=== PATIENT | male | born 1985 | race Caucasian/White ===

== ENCOUNTER 2017-01-17 03:41 | Emergency (ER) | payer OTHER ==
[~2017-01-17] VITALS: Ht 177.8 cm; Wt 138.3 kg
[~2017-01-17 03:41] MED LIST: CPR/500 PO; LCTX PO; MTR500 PO
[2017-01-17 03:48] VITALS: TEMP 36.8; Ht 177.8 cm; Wt 138.3 kg
[2017-01-17] MEDS ORDERED: KETOROLAC TROMETHAMINE 30 MG/ML VIAL IV STA (04:02)
[2017-01-17] MEDS ORDERED: ACETAMINOPHEN IV 100 ML IV ONE (04:15)
[2017-01-17] MEDS ORDERED: SODIUM CHLORIDE 0.9% 1000ML 1,000 ML IV ONE ×2 (04:15)
[2017-01-17] MEDS ORDERED: HYDROCORTISONE HC 2.5% CRM 30GM TUBE EXT ONE (04:15)
[2017-01-17] MEDS ORDERED: DICY10CA12 PO (04:20)
[2017-01-17 04:33] LABS: BASO % 0.3 %; BASO ABS # 0.03 K/uL (0-0.2); COMPLETE YES; EOS % 3.1 %; HEMATOCRIT 39.5 % (42-52); IG% 0.7 %; MEAN CELL VOLUME 77.6 fL (80-100); MEAN CORPUSCULAR HEMOGLOBIN 26.1 pg (25-34); MEAN CORPUSCULAR HGB CONC 33.7 g/dl (32-36); MEAN PLATELET VOLUME 10.5 fL (7.4-10.4); NEUT % 51.9 %; PLATELET COUNT 276 K/uL (130-400); RED BLOOD COUNT 5.09 M/uL (4.7-6.1)
[2017-01-17 04:49] LABS: URINE APPEARANCE CLEAR (CLEAR); URINE BILIRUBIN NEG (NEG); URINE COLOR YELLOW; URINE NITRITE NEG (NEG); URINE SPECIFIC GRAVITY 1.024 (1.000-1.030); UROBILINOGEN NEG (NEG); ZZUR CULT IF INDIC CLEAN CATCH NO
[2017-01-17 04:55] LABS: BUN/CREATININE RATIO 18.6 (10-20); CALCIUM 8.3 mg/dl (8.5-10.1); CREATININE 0.7 mg/dl (0.60-1.40); MAGNESIUM 2.1 mg/dl (1.8-2.4); POTASSIUM 3.5 mmol/L (3.5-5.1)
[2017-01-17 04:58] LABS: ALB/GLOB RATIO 0.8 (0.9-2); C-REACTIVE PROTEIN 0.53 mg/dl (0-0.29)
[2017-01-17 05:39] VITALS: BP 149/64; PULSE 64; O2SAT 95
[2017-01-17 05:42] LABS: MANUAL MICROSCOPIC REQUIRED? NO; REVIEW REQ? NO
[2017-01-17] MEDS ORDERED: METR-162 PO (06:06)
[2017-01-17] MEDS ORDERED: CIPR-255 PO (06:06)
--- NOTE | 2017-01-17 08:31 | DIAGNOSTIC IMAGING REPORT ---
CHEST AND ABDOMEN 2 VIEWS HISTORY: generalized abdominal pain COMPARISON: [facility] 10/05/2016. FINDINGS: The lungs are clear. The cardiomediastinal silhouette is within normal limits. There is no pneumoperitoneum or pneumatosis. The bowel gas pattern is unremarkable. No evidence for bowel obstruction. Suture material within the right lower quadrant. IMPRESSION: No acute cardiopulmonary process. No evidence for bowel obstruction. Electronically signed by: Sesar Henderson M.D. 01/17/2017 8:30 AM Dictated Date/Time: 01/17/2017 8:28 AM
--- NOTE | 2017-01-18 01:12 | EMERGENCY ROOM VISIT NOTE ---
History First contact with patient: 03:52 Chief Complaint: ABDOMINAL PAIN Stated Complaint: PAIN IN STOMACH - DIVERTICULITIS Nursing Triage Summary: generalized abdominal pain, Nausea and vomiting that started Tuesday. History of Present Illness The patient is a 31 year old male who presents to the Emergency Room with complaints of left-sided abdominal pain with nausea for the past one day. Patient reports a history of diverticulitis in the past. He also reports that he has had episodes of diarrhea the past several hours. He states that he has a hemorrhoid that is tender because of this. The patient does not have fever or chills. No recent antibiotic use. He does not report travel history. The patient has been able to eat and drink as normal. He rates his discomfort a 10/ 10 and has not taken anything [id number] for his symptoms. Review of Systems More than 10 systems were reviewed and otherwise negative with the exception of history of present illness. Past Medical/Surgical History Medical Problems: (1) CALCULUS OF KIDNEY (2) ESOPHAGEAL REFLUX (3) SBO (small bowel obstruction) (4) TOBACCO USE DISORDER Family History Patient reports no known family medical history. Social History Smoking Status: Current Every Day Smoker Alcohol Use: occasionally Drug Use: none Marital Status: single Occupation Status: employed Current/Historical Medications Scheduled Ciprofloxacin Hcl (Cipro), 500 MG PO BID Metronidazole (Flagyl), 500 MG PO TID Scheduled PRN Dicyclomine Hcl (Dicyclomine Hcl), 1 CAP PO BID PRN for ABDOMINAL PAIN Allergies Coded Allergies: No Known Allergies (Unverified , 01/17/17) Physical Exam Vital Signs Date Time Temp Pulse Resp B/P Pulse Ox O2 Delivery O2 Flow Rate FiO2 01/17/17 05:39 64 16 149/64 95 Room Air 01/17/17 03:48 36.8 83 20 154/89 96 Room Air Pain Rating (0-10): 8.0 Physical Exam VITALS: Vitals are noted on the nurse's note and reviewed by myself. Vital signs stable. GENERAL: Well-developed, well-nourished, white male, who is in no acute distress and resting comfortably. Patient is cooperative with the examination. HEAD: Normocephalic atraumatic. HEART: Regular rate and rhythm without murmurs gallops or rubs. LUNGS: Clear to auscultation bilaterally without wheezes, rales or rhonchi. No retractions or accessory muscle use. ABDOMEN: Positive normal bowel sounds x 4. Soft with mild left-sided abdominal tenderness on palpation. No rebound or guarding. No CVA tenderness. MUSCULOSKELETAL: No muscle atrophy, erythema, or edema noted. Full range of motion without joint tenderness in all extremities. Medical Decision & Procedures ER Provider Diagnostic Interpretation: CHEST AND ABDOMEN 2 VIEWS HISTORY: generalized abdominal pain COMPARISON: [facility] 10/05/2016. FINDINGS: The lungs are clear. The cardiomediastinal silhouette is within normal limits. There is no pneumoperitoneum or pneumatosis. The bowel gas pattern is unremarkable. No evidence for bowel obstruction. Suture material within the right lower quadrant. IMPRESSION: No acute cardiopulmonary process. No evidence for bowel obstruction. Laboratory Results 01/17/17 04:15 Red Blood Count 5.09, Mean Corpuscular Volume 77.6, Mean Corpuscular Hemoglobin 26.1, Mean Corpuscular Hemoglobin Concent 33.7, Mean Platelet Volume 10.5, Neutrophils (%) (Auto) 51.9, Lymphocytes (%) (Auto) 36.0, Monocytes (%) (Auto) 8.0, Eosinophils (%) (Auto) 3.1, Basophils (%) (Auto) 0.3, Neutrophils # (Auto) 4.62, Lymphocytes # (Auto) 3.20, Monocytes # (Auto) 0.71, Eosinophils # (Auto) 0.28, Basophils # (Auto) 0.03 01/17/17 04:15 Test 01/17/17 04:15 01/17/17 04:29 White Blood Count 8.90 K/uL (4.8-10.8) Red Blood Count 5.09 M/uL (4.7-6.1) Hemoglobin 13.3 g/dL (14.0-18.0) Hematocrit 39.5 % (42-52) Mean Corpuscular Volume 77.6 fL (80-100) Mean Corpuscular Hemoglobin 26.1 pg (25-34) Mean Corpuscular Hemoglobin Concent 33.7 g/dl (32-36) Platelet Count 276 K/uL (130-400) Mean Platelet Volume 10.5 fL (7.4-10.4) Neutrophils (%) (Auto) 51.9 % Lymphocytes (%) (Auto) 36.0 % Monocytes (%) (Auto) 8.0 % Eosinophils (%) (Auto) 3.1 % Basophils (%) (Auto) 0.3 % Neutrophils # (Auto) 4.62 K/uL (1.4-6.5) Lymphocytes # (Auto) 3.20 K/uL (1.2-3.4) Monocytes # (Auto) 0.71 K/uL (0.11-0.59) Eosinophils # (Auto) 0.28 K/uL (0-0.5) Basophils # (Auto) 0.03 K/uL (0-0.2) RDW Standard Deviation 39.6 fL (36.4-46.3) RDW Coefficient of Variation 13.9 % (11.5-14.5) Immature Granulocyte % (Auto) 0.7 % Immature Granulocyte # (Auto) 0.06 K/uL (0.00-0.02) Erythrocyte Sedimentation Rate 34 mm/hr (0-14) Urine Color YELLOW Urine Appearance CLEAR (CLEAR) Urine pH 5.0 (4.5-7.5) Urine Specific [place] 1.024 (1.000-1.030) Urine Protein NEG (NEG) Urine Glucose (UA) NEG (NEG) Urine Ketones NEG (NEG) Urine Occult Blood NEG (NEG) Urine Nitrite NEG (NEG) Urine Bilirubin NEG (NEG) Urine Urobilinogen NEG (NEG) Urine Leukocyte Esterase NEG (NEG) Anion Gap 7.0 mmol/L (3-11) Est Creatinine Clear Calc Drug Dose 214.4 ml/min Estimated GFR () 145.7 Estimated GFR (Non- 125.8 BUN/Creatinine Ratio 18.6 (10-20) Calcium Level 8.3 mg/dl (8.5-10.1) Magnesium Level 2.1 mg/dl (1.8-2.4) Total Bilirubin 0.2 mg/dl (0.2-1) Aspartate Amino Transf (AST/SGOT) 15 U/L (15-37) Alanine Aminotransferase (ALT/SGPT) 30 U/L (12-78) Alkaline Phosphatase 79 U/L (45-117) C-Reactive Protein 0.53 mg/dl (0-0.29) Total Protein 7.5 gm/dl (6.4-8.2) Albumin 3.3 gm/dl (3.4-5.0) Globulin 4.2 gm/dl (2.5-4.0) Albumin/Globulin Ratio 0.8 (0.9-2) Lipase 205 U/L (73-393) Bedside Lactic Acid Venous 0.78 mmol/L (0.90-1.70) Medications Administered Medications (Trade) Dose Ordered Sig/Christina Route Start Time Stop Time Status Last Admin Dose Admin Sodium Chloride 1,000 ml @ 999 mls/hr Q1H1M ONCE IV 01/17/17 04:15 01/17/17 05:15 DC 01/17/17 04:35 999 MLS/HR Sodium Chloride (Nss 1000ml) 1,000 ml @ 999 mls/hr Q1H1M ONCE IV 01/17/17 04:15 01/17/17 05:15 DC 01/17/17 04:15 999 MLS/HR Ketorolac Tromethamine 30 mg 30 mg NOW STAT IV 01/17/17 04:02 01/17/17 04:05 DC 01/17/17 04:35 30 MG Acetaminophen (Ofirmev Iv) 100 ml @ 400 mls/hr NOW ONCE IV 01/17/17 04:15 01/17/17 04:29 DC 01/17/17 04:34 400 MLS/HR Hydrocortisone (Proctozone Hc 2.5% Crm) 1 appln NOW ONCE EXT 01/17/17 04:15 01/17/17 04:16 DC 01/17/17 04:34 1 APPLN ED Course Physical exam and history were performed. Nursing notes and EMR were reviewed. Patient appears to have left-sided abdominal pain with nausea and diarrhea for the past one day. The patient does not appear toxic on examination. Review of EMR shows the patient does have a history of small bowel obstruction and diverticulitis. He is currently on a treatment plan of no narcotics at this facility since 2009 after being abusive with staff for not receiving narcotics. IV access was established and labs were obtained. The patient was hydrated and medicated as above. He was given Anusol for his reproted hemorrhoid. He has had at least 10 CT scans in the past 4 or 5 years and I elected to defer CT imaging until additional information was gathered. Plain films were felt necessary, and were performed. The patient's blood work is as above and was reviewed. He does not have a significantly elevated white blood cell count. He is mildly anemic but this has been fairly consistent for him. He does not have a gross bandemia or significant electrolyte imbalance. Urinalysis was without evidence of infection. Sedimentation rate and CRP are slightly elevated. Lactic is negative. Despite being in the ER for several hours the patient was not able to give a stool sample with his reported diarrhea. The patient x-ray does not show evidence of acute cardiopulmonary finding or obstructive process. The patient was reevaluated multiple times throughout his ER stay. He was able to sleep for several hours in no distress while under our care. He did not have worsening of his symptoms while here in the department. The patient may have a mild diverticulitis explaining his symptoms. This could also be a food borne or viral process as well. I do not feel CT scan is necessary at this time , as the patient does not present with peritoneal symptoms. I do not suspect abscess that could occur in the setting of a ruptured diverticulitis. The patient will be given a course of Cipro and Flagyl for his symptoms. At the end of the patient visit I awoke him to explain his diagnostic findings and plan of care. I informed him of his findings, and that we would be able to discharge him home shortly. The patient became fixated on his pain, explaining that he still had an 8/10 pain in his left-sided abdomen. He requested several different narcotic medications to use at home, and I calmly explained that I would not be able to treat him outside of his treatment plan today. The patient symptoms will be treated with antibiotics which should improve his pain. He should otherwise be using ibuprofen and Tylenol. The patient was very dissatisfied with this and became belligerent. He began yelling about "this [facility]". The patient then stood out of his emergency department bed and disconnected his IV. He demanded that we remove the IV, as he was leaving. I was able to excuse myself from the situation without further incident, however I do feel there is a strong element of drug-seeking behavior with the patient. Overall the patient did calm down and was given his discharge instructions. He is to follow with his primary care physician on a short interval and was invited back to the ER with a new, worsening, or concerning symptoms. The chart was completed utilizing [employer] Voice Recognition Software. Grammatical errors, random word insertions, pronoun errors, and incomplete sentences are an occasional consequence of this system due to software limitations, ambient noise, and hardware issues. Any formal questions or concerns about the content, text, or information contained within the body of this dictation should be directly addressed to the provider for clarification. . Medical Decision Differential diagnosis: Etiologies such as appendicitis, diverticulitis, PUD, biliary pathology, UTI, pancreatitis, obstruction, mesenteric ischemia, aortic pathology, infections, inflammatory bowel disease, renal colic, as well as others were entertained. Impression Primary Impression: Left sided abdominal pain Departure Information Dispostion Home / Self-Care Condition GOOD Prescriptions Metronidazole (FLAGYL) 500 Mg Tab 500 MG PO TID for 10 Days, #30 TAB Prov: Osbaldo Oshea PA-C 01/17/17 Ciprofloxacin Hcl (CIPRO) 500 Mg Tab 500 MG PO BID for 10 Days, #20 TAB Prov: Osbaldo Oshea PA-C 01/17/17 Forms Call Back Authorization, HOME CARE DOCUMENTATION FORM, Days off work: 2 Work Instructions, IMPORTANT VISIT INFORMATION Patient Instructions My [facility] Additional Instructions You were seen and evaluated today on an emergency basis only. This is not a substitute for, or an effort to provide, complete comprehensive medical care. It is not possible to recognize and treat all injuries or illnesses in a single emergency department visit. For this reason it is recommended that you followup with your primary care physician this week for ongoing care and evaluation. For baseline pain relief you may alternate ibuprofen and acetaminophen every 4 hours for pain control. Take 600 mg ibuprofen (Advil) and then 4 hours later take 1000 mg acetaminophen (Tylenol). Do not take more than 3000 mg acetaminophen in a single day. Ciprofloxacin(Cipro) 500mg: Take one pill twice daily for 10 days for your infection. All antibiotics can cause diarrhea. If this occurs and you feel worse or it does not resolve in 1-2 days follow up with your doctor or return to the Emergency Department as this could be signs of serious underlying problems. If you experience any pain in your tendons or any tendon injury return to the ER for re-evaluation. Any medication can cause an allergic reaction, stop the pills immediately and return to the ER for rash, hives, breathing difficulties, or swelling. Metronidazole(Flagyl) 500mg: Take one pill three times daily for 10 days for your infection. DO NOT drink alcohol or take alcohol containing products with this medication. Any medication can cause an allergic reaction, stop the pills immediately and return to the ER for rash, hives, breathing difficulties, or swelling. You are welcome to return to the emergency department anytime with new, worsening, or concerning symptoms.
== END 2017-01-17 06:16 | disposition home or self-care (01) ==
LOC: C.EDB 03:43
DX: R10.9 Unspecified abdominal pain (principal); F17.200 Nicotine dependence, unspecified, uncomplicated; K21.9 Gastro-esophageal reflux disease without esophagitis

== ENCOUNTER 2020-04-21 23:21 | Observation (INO) ==
--- NOTE | 2020-04-21 23:51 | Emergency Department Note ---
Impression & Plan Hypertensive urgency, Headache, Right-sided chest pain, Paresthesia of left arm ED Provider Note Name: CHRISTOPHER RIVER Age: 35 Sex: M Arrives Via: Walk-In Informant: Patient ED Provider: Hong Granado MD Chief Complaint: Right Chest Pain Impression: Hypertensive Urgency Headache Right-sided chest pain paresthesia of left arm Medical Decision Makin yr old male with h/o HTN with 2 days of headaches, chest pain, and paresthesias of left side on and off without neuro deficits. This is associated with BP elevations which brought him in last night. After ED work-up patient opted to leave AMA. Returns again with similar symptoms continuing but notes that near syncopal every time he tries to ambulate and he is urinating frequently. Exam is benign. EKG similar to previous. Vitals with improving BP without any intervention. Labs unremarkable without any trop elevation. Patient notes not feeling comfortable going home and continues to complain of vague different symptoms. Hospitalist who knows patient from last night consulted to discuss further with patient options. Given vague, multiple symptoms and no clear evidence ACS will hold off on ASA at this time and defer to hospitalist. Prior Medical Record and Triage/Nursing Notes reviewed by Me Additional history obtained from last nights record Differentials:Infection, dehydration, metabolic abnormality, hypo/hyperglycemia, electrolyte disturbance, anemia, hypoxia, cardiac sources, intracerebral event, toxicologic, neurologic, as well as other pathologies. Vital Signs: reviewed and remarkable for HTN Interventions: Toradol 15mg IV Labs:Reviewed and remarkable for no significant abnormalities Imaging:none (reviewed extensive cxr, cts yesterday) EKG:Per My Interpretation: Indication Chest Pain: NSR 73 bpm, qtc 438 with RBBB. No Ectopy. No Ischemia. Compared to EKG 04/20/20, no significant changes. Cardiac/Tele Monitoring: Cardiac Monitoring: An Order was placed for continuous cardiac monitoring. The monitor shows a rate of 70 with a normal sinus rhythm. Consults:Dr Jean Marie Muniz Hospitalist Plan: Disposition:Hospitalization. Referred to: PCP Condition: Good Blood pressure:Elevated - Referred to Hospitalist Prescriptions:none PDMP: n/a History of Present Illness:35 male with history of BHASKAR and HTN arrives for evaluation of chest pain. Patient seen last evening for chest pain, headache and HTN. Admits he was to be admitted but left AMA due to not being able to get private room and to feeling improved. This morning he took 20mg Lisinopril and throughout day was checking BP. Slowing increasing BP throughout day. Gradually developed worsening headache, chest pain, and left sided paresthesias. Notes these left hand and hip paresthesias have been intermittent throughout afternoon and currently without these symptoms. Denies weakness, falls, dropping things. Admits that chest pain is right sided, associated with nothing. Pressure like in nature and does not radiate. Admits pain was more substernal yesterday. Headache diffuse, aching, and currently mild. No head injury, neck pain/stiffness, fevers, nor other symptoms. Headache similar to last night's symptoms. Furthermore, patient admits he is unable to get up without nearly passing out and has had to steady himself every time he gets up. He also notes that he has been urinating many more times a day/night than usually the last few days. He denies excessive heat exposure, chemical exposures, nor changes to diet. He works with [employer] but has not been in the heat. Denies syncope, but rather just near syncope. Denies shortness of breath, fevers, back pain, abdominal pain, vomiting/nausea, bowel changes, leg swelling, calf pain, rashes, nor other symptoms. No new medications though did increase Lisinopril dose. Getting up makes worse, rest makes better. ROS: See above HPI for pertinent positives & negatives. A total of 10 systems reviewed and were otherwise negative. Past Medical History:HTN, SBO, BHASKAR (uses CPAP at night) Past Surgical History:Appendectomy Family History:Mother CT, Diabetes Social History:, Lives with & 3 children, Smoker Home Medications:Lisinopril Allergies:None Vitals:Blood Pressure: 205/114, Pulse 73, RR 18, T 37.2C, O2 97% on RA Physical Exam: GENERAL: Patient is anxious appearing and in mild distress. EYES: No scleral icterus, unremarkable pupils. ENT: Mucous membranes moist, no nasal congestion. NECK: No masses appreciated, nomeningismus, trachea is midline. RESPIRATORY: No dyspnea. Clear to auscultation and equal bilaterally. No wheeze, no rhonchi. CARDIOVASCULAR: Regular rate and rhythm.No murmurs, rubs, gallops appreciated. GASTROINTESTINAL: Abdomen soft, non-tender, no peritonitis.Bowel sounds p ositive.No masses appreciated. BACK: No midline tenderness, no CVA tenderness EXTREMITIES: Normal motion all extremities, no cyanosis, no edema. NEUROLOGIC: Alert and oriented, no acute motor or sensory deficits, no focal weakness, cranial nerves grossly intact. SKIN: No rash, no jaundice, no diaphoresis. PSYCH: Appropriate GCS: 15 ED Course: Times/Reassessments: improving BP, improving symptoms Hong Granado MD Past Med/Surg History Medical History (Updated 04/22/20 @ 04:27 by Hong Granado MD) Acute appendicitis (Acute) SBO (small bowel obstruction) Surgical History (Updated 04/20/20 @ 23:46 by Blanca Silva PA-C) Hx of appendectomy Social History Preferred Language: Pashto marital status: Feels Safe at Home: Yes Smoking Status: Current every day smoker Allergies Allergies Allergy/AdvReac Type Severity Reaction Status Date / Time No Known Allergies Allergy Verified 04/21/20 23:24 Home Meds Home Medications Medication Instructions Recorded Confirmed cyclobenzaprine 5 mg PO TID PRN 04/20/20 04/21/20 dicyclomine 10 mg PO TID PRN 04/20/20 04/21/20 lisinopril 10 mg PO DAILY PRN 04/20/20 04/21/20 Results & Data (ED) Vital Signs Vital Signs - 24 hr 04/21/20 23:32 04/22/20 01:19 04/22/20 02:02 Temperature 37.2 C Temperature Source Oral Pulse Rate - Lying Pulse Rate - Sitting Pulse Rate - Standing Pulse Rate 73 Pulse Rate [Apical] 69 68 Respiratory Rate 18 18 18 Respiratory Effort / Characteristics Non-Labored Non-Labored Spontaneous Respiratory Depth Normal Normal Blood Pressure - Lying Blood Pressure - Sitting Blood Pressure- Standing Blood Pressure 205/114 H Blood Pressure [Right Arm] 160/84 H 136/61 Blood Pressure Mean 144 Blood Pressure Mean [Right Arm] 109 86 Pulse Oximetry 97 95 94 Oxygen Delivery Method Room Air Room Air Room Air Sepsis Recent Fever Within 48 Hours No Sepsis Action Taken by Nursing No Action Required 04/22/20 02:51 Temperature Temperature Source Pulse Rate - Lying 65 Pulse Rate - Sitting 84 Pulse Rate - Standing 77 Pulse Rate Pulse Rate [Apical] Respiratory Rate Respiratory Effort / Characteristics Respiratory Depth Blood Pressure - Lying 160/77 H Blood Pressure - Sitting 155/88 H Blood Pressure- Standing 140/88 Blood Pressure Blood Pressure [Right Arm] Blood Pressure Mean Blood Pressure Mean [Right Arm] Pulse Oximetry Oxygen Delivery Method Sepsis Recent Fever Within 48 Hours Sepsis Action Taken by Nursing Laboratory Data Result diagrams: 04/22/20 00:05 04/22/20 00:05 Lab Results 04/22/20 04/22/20 04/22/20 Range/Units 00:05 00:05 00:05 WBC 11.78 H (4.8-10.8) K/uL RBC 5.05 (4.7-6.1) M/uL Hgb 13.3 L (14.0-18.0) g/dL Hct 40.7 L (42-52) % MCV 80.6 (80-100) fL MCH 26.3 (25-34) pg MCHC 32.7 (32-36) g/dL RDW Std Deviation 43.4 (36.4-46.3) fL RDW Coeff of Ariana 14.9 H (11.5-14.5) % Plt Count 344 (130-400) K/uL MPV 10.6 H (7.4-10.4) fL Immature Gran % (Auto) 1.4 % Neut % (Auto) 57.0 % Lymph % (Auto) 30.4 % [place] % (Auto) 7.2 % Eos % (Auto) 3.7 % Baso % (Auto) 0.3 % Neut # (Auto) 6.70 H (1.4-6.5) K/uL Lymph # (Auto) 3.58 H (1.2-3.4) K/uL [place] # (Auto) 0.85 H (0.11-0.59) K/uL Eos # (Auto) 0.44 (0-0.5) K/uL Baso # (Auto) 0.04 (0-0.2) K/uL Immature Gran # (Auto) 0.17 H (0.00-0.02) K/uL Sodium 143 (136-145) mmol/L Potassium 3.4 L (3.5-5.1) mmol/L Chloride 109 H (98-107) mmol/L Carbon Dioxide 26 (21-32) mmol/L Anion Gap 8.0 (3-11) BUN 14 (7-18) mg/dl Creatinine 0.73 (0.6-1.4) mg/dl Est Cr Clr Drug Dosing 215.5 ml/min Est GFR ( Amer) 139.3 Est GFR (Non-Af Amer) 120.2 BUN/Creatinine Ratio 18.5 (10-20) Glucose 98 (70-99) mg/dl Calcium 8.5 (8.5-10.1) mg/dl Magnesium 2.0 (1.8-2.4) mg/dl Total Bilirubin 0.3 (0.2-1) mg/dl Direct Bilirubin < 0.1 (0-0.2) mg/dl AST 15 (15-37) U/L ALT 31 (12-78) U/L Alkaline Phosphatase 98 (45-117) U/L Total Creatine Kinase 119 (39-308) U/L CK-MB (CK-2) 1.0 (0.5-3.6) ng/ml CK/CKMB % Calc 0.8 (0-3.0) Troponin I 0.018 (0-0.045) ng/ml Total Protein 7.9 (6.4-8.2) gm/dl Albumin 3.1 L (3.4-5.0) gm/dl Lipase 159 (73-393) U/L Urine Color Urine Appearance (Clear) Urine pH (4.5-7.5) Ur Specific [place] (1.000-1.030) Urine Protein (Negative) Urine Glucose (UA) (Negative) Urine Ketones (Negative) Urine Blood (Negative) Urine Nitrite (Negative) Urine Bilirubin (Negative) Urine Urobilinogen (Negative) Ur Leukocyte Esterase (Negative) Lyme Disease IgG Ab Cancelled Lyme Disease IgM Ab Cancelled 04/22/20 04/22/20 Range/Units 00:51 01:27 WBC (4.8-10.8) K/uL RBC (4.7-6.1) M/uL Hgb (14.0-18.0) g/dL Hct (42-52) % MCV (80-100) fL MCH (25-34) pg MCHC (32-36) g/dL RDW Std Deviation (36.4-46.3) fL RDW Coeff of Ariana (11.5-14.5) % Plt Count (130-400) K/uL MPV (7.4-10.4) fL Immature Gran % (Auto) % Neut % (Auto) % Lymph % (Auto) % [place] % (Auto) % Eos % (Auto) % Baso % (Auto) % Neut # (Auto) (1.4-6.5) K/uL Lymph # (Auto) (1.2-3.4) K/uL [place] # (Auto) (0.11-0.59) K/uL Eos # (Auto) (0-0.5) K/uL Baso # (Auto) (0-0.2) K/uL Immature Gran # (Auto) (0.00-0.02) K/uL Sodium (136-145) mmol/L Potassium (3.5-5.1) mmol/L Chloride (98-107) mmol/L Carbon Dioxide (21-32) mmol/L Anion Gap (3-11) BUN (7-18) mg/dl Creatinine (0.6-1.4) mg/dl Est Cr Clr Drug Dosing ml/min Est GFR ( Amer) Est GFR (Non-Af Amer) BUN/Creatinine Ratio (10-20) Glucose (70-99) mg/dl Calcium (8.5-10.1) mg/dl Magnesium (1.8-2.4) mg/dl Total Bilirubin (0.2-1) mg/dl Direct Bilirubin (0-0.2) mg/dl AST (15-37) U/L ALT (12-78) U/L Alkaline Phosphatase (45-117) U/L Total Creatine Kinase (39-308) U/L CK-MB (CK-2) (0.5-3.6) ng/ml CK/CKMB % Calc (0-3.0) Troponin I (0-0.045) ng/ml Total Protein (6.4-8.2) gm/dl Albumin (3.4-5.0) gm/dl Lipase (73-393) U/L Urine Color Yellow Urine Appearance Clear (Clear) Urine pH 6.5 (4.5-7.5) Ur Specific [place] 1.020 (1.000-1.030) Urine Protein Negative (Negative) Urine Glucose (UA) Negative (Negative) Urine Ketones Negative (Negative) Urine Blood Negative (Negative) Urine Nitrite Negative (Negative) Urine Bilirubin Negative (Negative) Urine Urobilinogen Negative (Negative) Ur Leukocyte Esterase Negative (Negative) Lyme Disease IgG Ab Negative Lyme Disease IgM Ab Negative Administered Medications Discontinued Medications Aspirin (Ecotrin Ectab) 81 mg PO NOW STA Stop: 04/22/20 02:52 Last Admin: 04/22/20 03:53 Dose: 81 mg Documented by: [id number] Ketorolac Tromethamine (Toradol) 15 mg IV NOW STA Stop: 04/22/20 01:44 Last Admin: 04/22/20 01:55 Dose: 15 mg Documented by: [id number] Lisinopril (Zestril) 20 mg PO NOW STA Stop: 04/22/20 01:57 Last Admin: 04/22/20 02:02 Dose: 20 mg Documented by: [id number] Nicotine (Nicoderm Cq) 21 mg TD NOW STA Stop: 04/22/20 02:35 Last Admin: 04/22/20 02:51 Dose: 21 mg Documented by: [id number] Potassium Chloride (Klor-Con M20) 40 meq PO NOW STA Stop: 04/22/20 01:54 Last Admin: 04/22/20 02:02 Dose: 40 meq Documented by: [id number] Discharge Plan Visit Data Chief Complaint: Chest Pain Stated Complaint: HIGH BP, CHEST PAIN ED Provider: Hong Granado Discharge Problem: Hypertensive urgency, Headache, Right-sided chest pain, Paresthesia of left arm Discharge Instructions Interventions: ED Discharge Assessment Last Done: 04/22/20 03:44 Forms Stand Alone Forms: [facility] [employer] Prescriptions Prescriptions: No Action lisinopril 10 mg tablet 10 mg PO DAILY PRN (Reason: Hypertension) RF: 0 dicyclomine 10 mg capsule 10 mg PO TID PRN (Reason: Abdominal Pain) RF: 0 cyclobenzaprine 5 mg tablet 5 mg PO TID PRN (Reason: Muscle Spasticity) RF: 0 Referrals Referrals: Coleman Hassan MD [Primary Care Provider] - Discharge Problem: Headache Qualifiers: Headache type: unspecified Headache chronicity pattern: acute headache Intractability: not intractable Qualified Code(s): R51 - Headache
[2020-04-22 00:25] LABS: Basophils # (auto) 0.04 K/uL (0-0.2); Basophils % (auto) 0.3 %; Eosinophils # (auto) 0.44 K/uL (0-0.5); Eosinophils % (auto) 3.7 %; Hematocrit (blood only) 40.7 % (42-52); Hemoglobin 13.3 g/dL (14.0-18.0); Immature Granulocytes # (auto) 0.17 K/uL (0.00-0.02); Immature Granulocytes % (auto) 1.4 %; Lymphocytes # (auto) 3.58 K/uL (1.2-3.4); Lymphocytes % (auto) 30.4 %; Mean Corpuscular Hemoglobin 26.3 pg (25-34); Mean Corpuscular Hgb Conc 32.7 g/dL (32-36); Mean Corpuscular Volume 80.6 fL (80-100); Mean Platelet Volume 10.6 fL (7.4-10.4); Monocytes # (auto) 0.85 K/uL (0.11-0.59); Monocytes % (auto) 7.2 %; Platelet Count 344 K/uL (130-400); RDW Coefficient of Variation 14.9 % (11.5-14.5); RDW Standard Deviation 43.4 fL (36.4-46.3); Red Blood Count 5.05 M/uL (4.7-6.1); White Blood Count 11.78 K/uL (4.8-10.8)
[2020-04-22 00:38] LABS: Alanine Aminotransferase 31 U/L (12-78); Albumin Level 3.1 gm/dl (3.4-5.0); Aspartate Aminotransferase 15 U/L (15-37); BUN Creatinine Ratio 18.5 (10-20); Blood Urea Nitrogen 14 mg/dl (7-18); Calcium 8.5 mg/dl (8.5-10.1); Carbon Dioxide 26 mmol/L (21-32); Chloride 109 mmol/L (98-107); Creatinine Clr Calc Pharmacy 215.5 ml/min; Est GFR (African American) 139.3; Est GFR (Non-African American) 120.2; Glucose 98 mg/dl (70-99); Lipase 159 U/L (73-393); Potassium 3.4 mmol/L (3.5-5.1); Sodium 143 mmol/L (136-145)
[2020-04-22 00:41] LABS: Alkaline Phosphatase 98 U/L (45-117); Bilirubin Direct < 0.1 mg/dl (0-0.2); Bilirubin,Total 0.3 mg/dl (0.2-1); Creatine Kinase 119 U/L (39-308); Total Protein 7.9 gm/dl (6.4-8.2); Troponin I 0.018 ng/ml (0-0.045)
[2020-04-22] MEDS ORDERED: KETOROLAC TROMETHAMINE 15 MG/ML VIAL IV STA (01:43)
[2020-04-22 01:53] LABS: Appearance Urine Clear (Clear); Bilirubin Urine Negative (Negative); Blood Urine Negative (Negative); Color Urine Yellow; Glucose Urine UA Negative (Negative); Ketones Urine Negative (Negative); Leukocyte Esterase Urine Negative (Negative); Nitrite Urine Negative (Negative); Protein Urine Negative (Negative); Urobilinogen Urine Negative (Negative); pH Urine 6.5 (4.5-7.5)
[2020-04-22] MEDS ORDERED: POTASSIUM CHLORIDE 20 MEQ TABCR PO STA (01:53)
[2020-04-22] MEDS ORDERED: lisinopriL 5 MG TAB PO STA (01:56)
[2020-04-22 02:10] LABS: Lyme Ab IgG w/WB Rflx Negative (Negative); Lyme Ab IgM w/WB Rflx Negative (Negative)
--- NOTE | 2020-04-22 02:30 | History & Physical Report ---
Date of Service April 22, 2020 Assessment & Plan (1) Hypertensive crisis: Hypertensive crisis Presenting as headache and chest pain symptoms History medication noncompliance rule out ACS as etiology of chest pain given risk factors DM 2 diet-controlled, well-controlled as of recent outpatient hemoglobin A1c of 7.17 October 2018 bronchial asthma, stable Chronic anemia, hemoglobin better than baseline Hypokalemia BHASKAR on CPAP ongoing tobacco abuse OBS PCU Maintain lisinopril 20 mg daily for now, titrate accordingly Trend troponin Aspirin for CAD prevention until ACS ruled out. TTE RE chest pain Cardiology consult (Dr. Forbes) for evaluation of chest pain as per patient request. N.p.o. until seen by Cardiology in anticipation of any procedure. Check lipid profile, update hemoglobin A1c Replace potassium ISS BG goal [id number] Nicotine patch DVT prophylaxis per Lovenox subcu Full code Text document was generated using [employer] voice recognition software. It may contain grammatical or spelling errors. Kindly contact undersigned for clarification of any documentation item in question. History of Present Illness Chief Complaint: Chest pain, headache symptoms Primary Care Provider: Coleman Hassan MD HPI : History obtained from patient, family, and records. Medical history significant for hypertension, DM 2 diet-controlled, bronchial asthma, BHASKAR on CPAP, diverticulosis, medical treatment noncompliance as per records, chronic anemia (baseline hemoglobin of 12), ongoing tobacco abuse Last confinement September 2016 for recurrent diverticulitis, SBO resolved with nonoperative management. Patient's blood pressure at home the last 3 days noted to be higher than usual SBP 180s as per patient . Patient only takes home lisinopril as needed. No unusual stress at home, no NSAID intake. Compliant with CPAP mask. 2 nights ago, patient woke up with generalized achy headache symptoms different from his migraine attack and chest heaviness as if somebody was sitting on his chest. No cough symptoms. Chest discomfort improved following ASA administration by EMS. At the ER, near syncopal event when patient tried to get up from bed. SBP 200s after orthostatic vitals performed at the ER. No central PE on CT chest. T wave abnormalities noted on EKG. First set troponin 0.0 15. Patient refused admission and left AGAINST MEDICAL ADVICE due to unavailability of private room at time of admission. At home intermittent achy chest discomfort symptoms more on the right side along with persistent headache. Some nausea, no vomiting. Patient directed by PCP to the ER. MEDICAL HISTORY: As above. SURGERIES: Urologic procedures, appendectomy, ear tube placement FAMILY HISTORY: Heart disease. Lung cancer, diabetes PERSONAL AND SOCIAL HISTORY: 1 pack daily . 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 Allergies Allergy/AdvReac Type Severity Reaction Status Date / Time No Known Allergies Allergy Verified 04/21/20 23:24 Home Medications Home Medications Medication Instructions Recorded Confirmed Type cyclobenzaprine 5 mg PO TID PRN 04/20/20 04/21/20 History dicyclomine 10 mg PO TID PRN 04/20/20 04/21/20 History lisinopril 10 mg PO DAILY PRN 04/20/20 04/21/20 History Past Med/Surg History Medical History (Updated 04/21/20 @ 04:19 by Chris Aj MD) Acute appendicitis (Acute) SBO (small bowel obstruction) Surgical History (Updated 04/20/20 @ 23:46 by Blanca Silva PA-C) Hx of appendectomy Social History Preferred Language: Belarusian marital status: Feels Safe at Home: Yes Smoking Status: Current every day smoker Review of Systems Review of Systems: As per HPI, all 10 systems reviewed, all other ROS negative Physical Exam Physical Exam: GENERAL: Comfortable, morbidly obese, no respiratory distress SKIN: Normal color, warm HEENT: Bespectacled, pink palpebral conjunctivae, no ptosis, moist buccal mucosa NECK : Supple, short neck, no tenderness CHEST : Decreased breath sounds , no tenderness HEART : RRR, no obvious murmurs ABDOMEN: Some distention, nontender EXTREMITIES : Minimal LE swelling, no LE tenderness, no other conspicuous deformities noted NEUROLOGIC : Coherent, upper lip symmetry on talking (chronic as per ), no other gross focality Results & Data Results & Data ([facility]) Vital Signs (Past 12 Hours) Vital Signs Temp Pulse Pulse Resp BP BP Pulse Ox 04/22/20 02:02 68 18 136/61 94 04/22/20 01:19 69 18 160/84 H 95 04/21/20 23:32 37.2 C 73 18 205/114 H 97 Laboratory Results Laboratory Results WBC 11.78 K/uL (4.8-10.8) H 04/22/20 00:05 RBC 5.05 M/uL (4.7-6.1) 04/22/20 00:05 Hgb 13.3 g/dL (14.0-18.0) L 04/22/20 00:05 Hct 40.7 % (42-52) L 04/22/20 00:05 MCV 80.6 fL (80-100) 04/22/20 00:05 MCH 26.3 pg (25-34) 04/22/20 00:05 MCHC 32.7 g/dL (32-36) 04/22/20 00:05 RDW Std Deviation 43.4 fL (36.4-46.3) 04/22/20 00:05 RDW Coeff of Ariana 14.9 % (11.5-14.5) H 04/22/20 00:05 Plt Count 344 K/uL (130-400) 04/22/20 00:05 MPV 10.6 fL (7.4-10.4) H 04/22/20 00:05 Immature Gran % (Auto) 1.4 % 04/22/20 00:05 Neut % (Auto) 57.0 % 04/22/20 00:05 Lymph % (Auto) 30.4 % 04/22/20 00:05 [place] % (Auto) 7.2 % 04/22/20 00:05 Eos % (Auto) 3.7 % 04/22/20 00:05 Baso % (Auto) 0.3 % 04/22/20 00:05 Neut # (Auto) 6.70 K/uL (1.4-6.5) H 04/22/20 00:05 Lymph # (Auto) 3.58 K/uL (1.2-3.4) H 04/22/20 00:05 [place] # (Auto) 0.85 K/uL (0.11-0.59) H 04/22/20 00:05 Eos # (Auto) 0.44 K/uL (0-0.5) 04/22/20 00:05 Baso # (Auto) 0.04 K/uL (0-0.2) 04/22/20 00:05 Immature Gran # (Auto) 0.17 K/uL (0.00-0.02) H 04/22/20 00:05 Sodium 143 mmol/L (136-145) 04/22/20 00:05 Potassium 3.4 mmol/L (3.5-5.1) L 04/22/20 00:05 Chloride 109 mmol/L (98-107) H 04/22/20 00:05 Carbon Dioxide 26 mmol/L (21-32) 04/22/20 00:05 Anion Gap 8.0 (3-11) 04/22/20 00:05 BUN 14 mg/dl (7-18) 04/22/20 00:05 Creatinine 0.73 mg/dl (0.6-1.4) 04/22/20 00:05 Est Cr Clr Drug Dosing 215.5 ml/min 04/22/20 00:05 Est GFR ( Amer) 139.3 04/22/20 00:05 Est GFR (Non-Af Amer) 120.2 04/22/20 00:05 BUN/Creatinine Ratio 18.5 (10-20) 04/22/20 00:05 Glucose 98 mg/dl (70-99) 04/22/20 00:05 Calcium 8.5 mg/dl (8.5-10.1) 04/22/20 00:05 Magnesium 2.0 mg/dl (1.8-2.4) 04/22/20 00:05 Total Bilirubin 0.3 mg/dl (0.2-1) 04/22/20 00:05 Direct Bilirubin < 0.1 mg/dl (0-0.2) 04/22/20 00:05 AST 15 U/L (15-37) 04/22/20 00:05 ALT 31 U/L (12-78) 04/22/20 00:05 Alkaline Phosphatase 98 U/L (45-117) 04/22/20 00:05 Total Creatine Kinase 119 U/L (39-308) 04/22/20 00:05 CK-MB (CK-2) 1.0 ng/ml (0.5-3.6) 04/22/20 00:05 CK/CKMB % Calc 0.8 (0-3.0) 04/22/20 00:05 Troponin I 0.018 ng/ml (0-0.045) 04/22/20 00:05 Total Protein 7.9 gm/dl (6.4-8.2) 04/22/20 00:05 Albumin 3.1 gm/dl (3.4-5.0) L 04/22/20 00:05 Lipase 159 U/L (73-393) 04/22/20 00:05 Urine Color Yellow 04/22/20 01:27 Urine Appearance Clear (Clear) 04/22/20 01:27 Urine pH 6.5 (4.5-7.5) 04/22/20 01:27 Ur Specific [place] 1.020 (1.000-1.030) 04/22/20 01:27 Urine Protein Negative (Negative) 04/22/20 01:27 Urine Glucose (UA) Negative (Negative) 04/22/20 01:27 Urine Ketones Negative (Negative) 04/22/20 01:27 Urine Blood Negative (Negative) 04/22/20 01:27 Urine Nitrite Negative (Negative) 04/22/20 01:27 Urine Bilirubin Negative (Negative) 04/22/20 01:27 Urine Urobilinogen Negative (Negative) 04/22/20 01:27 Ur Leukocyte Esterase Negative (Negative) 04/22/20 01:27 Lyme Disease IgG Ab Negative (Negative) 04/22/20 00:51 Lyme Disease IgM Ab Negative (Negative) 04/22/20 00:[address] head initial read: No acute intracranial hemorrhage, hydrocephalus, edema, mass-effect, or acute cortical infarct. Sinusitis. Mild ethmoid and sphenoid sinusitis. Partial right mastoid effusion. Chest x-ray as per my interpretation cardiomegaly EKG as per my interpretation : Rate 75, NSR, normal axis, incomplete RBBB, T wave abnormalities lateral leads
[2020-04-22] MEDS ORDERED: NICOTINE 21 MG/24 HR TDSY TD STA (02:34)
[2020-04-22] MEDS ORDERED: ASPIRIN 81 MG ECTAB PO STA (02:51)
[2020-04-22] MEDS ORDERED: NICOTINE POLACRILEX 2 MG GUM MT PRN (04:57)
[2020-04-22] MEDS ORDERED: LORazepam 0.5 MG/1 ML VIAL IV PRN (05:29)
[2020-04-22] MEDS ORDERED: PROMETHAZINE HCL 12.5 MG in SODIUM CHLORIDE 0.9% 50 ML IV PRN (05:29)
[2020-04-22] MEDS ORDERED: TRAMADOL HCL 50 MG TABLET PO PRN (05:29)
[2020-04-22] MEDS ORDERED: MoRPHine SULFATE 4 MG/ML 1 ML CARP\\VIAL IV PRN (05:29)
[2020-04-22] MEDS ORDERED: NITROGLYCERIN SL 0.4 MG/TAB TAB SL PRN (05:29)
[2020-04-22] MEDS ORDERED: CYCLOBENZAPRINE HCL 5 MG TAB PO PRN (05:29)
[2020-04-22] MEDS ORDERED: SODIUM CHLOR 0.45% + 20MEQ KCL 20 MEQ/1,000 ML BAG IV SCH (06:00)
--- NOTE | 2020-04-22 06:55 | XRay Report ---
XR chest 1V portable CLINICAL HISTORY: Chest pain. COMPARISON STUDY: Chest radiograph and chest CT April 21, 2020. FINDINGS: Lung volumes are normal. Lungs are clear. There is no pneumothorax or pleural effusion. Mil d cardiomegaly is unchanged. Mediastinal contours are normal. There is no evidence for pulmonary reena a. IMPRESSION: No acute cardiopulmonary findings. Cardiomegaly. ACT 112: Negative or not required by law. Electronically signed by: Abdirizak Abebe M.D. 04/22/2020 6:54 AM
--- NOTE | 2020-04-22 06:58 | CT Scan Report ---
CT OF THE HEAD WITHOUT CONTRAST CLINICAL HISTORY: Headache. COMPARISON STUDY: Head CT April 21, 2020 and May 31, 2019. CT DOSE: 687.98 mGy.cm TECHNIQUE: Helical axial images of the head were obtained without IV contrast. Automated exposure con trol was utilized for the study. A dose lowering technique was utilized adhering to the principles o f ALARA. FINDINGS: No acute intracranial hemorrhage, midline shift or mass effect is present. The ventricular system is unremarkable. The basilar cisterns are patent. No extra-axial collections are present. Ther e are no findings to suggest acute dural sinus thrombosis or acute territorial infarct. No significan t calvarial abnormalities are present. Small amount of fluid within the right mastoid air cells is no fabian. There is mild polypoid mucosal thickening within the ethmoid and sphenoid sinuses. IMPRESSION: No acute intracranial findings. ACT 112: Negative or not required by law. Electronically signed by: Abdirizak Abebe M.D. 04/22/2020 6:56 AM
[2020-04-22 07:04] LABS: Estimated Average Glucose 140 mg/dl; Hemoglobin A1C 6.5 % (4.5-5.6)
[2020-04-22] MEDS ORDERED: lisinopriL 10 MG TAB PO ONE (07:30)
[2020-04-22 07:35] LABS: BUN Creatinine Ratio 21.8 (10-20); Blood Urea Nitrogen 17 mg/dl (7-18); Calcium 8.7 mg/dl (8.5-10.1); Carbon Dioxide 29 mmol/L (21-32); Chloride 108 mmol/L (98-107); Cholesterol 212 mg/dl (0-200); Creatinine Clr Calc Pharmacy 202.7 ml/min; Est GFR (African American) 136.3; Est GFR (Non-African American) 117.6; Glucose 93 mg/dl (70-99); Potassium 3.8 mmol/L (3.5-5.1); Sodium 141 mmol/L (136-145)
[2020-04-22 07:39] LABS: Chol HDL Ratio 11; HDL Cholesterol 19 mg/dl; Triglycerides 400 mg/dl (0-150); Troponin I < 0.015 ng/ml (0-0.045)
[2020-04-22] MEDS: ENOXAPARIN INJ 40 MG/0.4 ML SYR SQ SCH (07:53)
[2020-04-22] MEDS: NICOTINE 21 MG/24 HR TDSY TD SCH (07:55)
[2020-04-22 08:21] LABS: Partial Thromboplastin Ratio 1.1
[2020-04-22] MEDS ORDERED: PERFLUTREN LIPID MICROSPHERE (DEFINITY) IV ONE (08:24)
[2020-04-22] MEDS ORDERED: GLUCOSE 40% GEL 15 GM TUBE PO PRN (09:00)
[2020-04-22] MEDS ORDERED: DEXTROSE 50% 50 ML SYRINGE IV PRN (09:00)
[2020-04-22] MEDS ORDERED: GLUCOSE 10 TABS/TUBE PO PRN (09:00)
[2020-04-22] MEDS ORDERED: GLUCAGON FOR INJ 1 MG VIAL SQ PRN (09:00)
[2020-04-22] MEDS ORDERED: CARBOHYDRATES FOR HYPOGLYCEMIA PO PRN (09:00)
[2020-04-22] MEDS: INSULIN GLARGINE SOLOSTAR 100 UNITS/ML 3 ML PEN SC SCH ×2 (10:51→20:33)
[2020-04-22] MEDS: INSULIN ASPART 100 UNITS/ML 3 ML PEN SC SCH ×3 (12:16→20:31)
--- NOTE | 2020-04-22 14:20 | Cardiology Consultation ---
Date of Consultation April 22, 2020 Assessment & Plan (1) Chest pain: (2) Hypertensive urgency: (3) Dyslipidemia: (4) Hypertension: (5) Tobacco abuse: (6) Near syncope: ASSESSMENT/PLAN: 1. Chest pain: Symptoms are atypical, occurring at rest, lasting for hours, and with negative troponin, unremarkable ECG for ischemia, and no wall motion abnormalities on echo. Given his multiple risk factors however, ischemic evaluation is recommended. Recommend myocardial perfusion study. He and his mother inquired about cardiac catheterization. Given that several objective evaluations have been unremarkable for ischemia and atypical components, we discussed non-invasive approach initially and he was agreeable. Currently chest pain-free. Risk factor modification. Chest pain may have been exacerbated by hypertension. 2. Hypertensive urgency: Lisinopril is now being used on a daily basis, taking it only a few times per year at home as needed. Lisinopril has been increased to 30 mg daily, starting tomorrow, by primary service. Blood pressure currently elevated but not severely. Low-sodium diet. Weight loss encouraged. 3. Dyslipidemia: We discussed triglycerides being elevated. Direct LDL was ordered and reviewed. Elevated ten-year cardiovascular risk and therefore high intensity statin therapy recommended. Atorvastatin 40 mg nightly ordered. 4. Tobacco abuse: Smoking cessation strongly recommended. 5. Near syncope: Orthostatic vital signs in the ER were borderline positive. His systolic blood pressure dropped 20 mmHg comparing standing to supine position. Continue to monitor for symptoms. Remain well-hydrated. 6. Disposition: Cardiology will continue to follow. Plan of care discussed with primary hospitalist, Dr. Blanco. Thank you for allowing me to participate in the care of your patient. Please call for any other questions or concerns. Sincerely, Adama Forbes M.D. History of Present Illness Reason for Consultation: Chest pain Requesting Physician: Dr. Alexis Attending Physician: Tyler Blanco MD History of Present Illness Mr. Bangura is a 35-year-old gentleman with history significant for hypertension, sleep apnea on CPAP nightly, dyslipidemia, and reported type 2 diabetes (diet- controlled). He presented to the emergency department on 04/20/2020 after experiencing chest pressure as though an elephant was sitting on his chest. The chest discomfort was substernal and then radiated across his chest. It occurred at rest and persisted for several hours before spontaneously resolving. According to records, he signed out against medical advice at that time. Last night, once again he had chest discomfort but this was right-sided chest discomfort described as a heaviness. It once again occurred at rest and persisted for hours before spontaneously resolving. He has had no significant elevation in his troponin and initial ECG was not suggestive of ischemia. He was noted to be significantly hypertensive and his systolic blood pressure at times was greater than 200mmHg. At home, he has lisinopril ordered to take on an as-needed basis and he estimates taking it approximately twice per year. Typically when he checks his blood pressure, he states it is normal but more recently it has been quite high with systolic blood pressures in the 180s to 200smmHg. He already maintains a low-sodium diet. He has lost approximately 20 lb recently. He has chronic dyspnea with exertion. He sometimes has lower extremity swelling. He denies syncope but did have a near syncopal episode while in the emergency department. He was laying supine and then stood up and developed lightheadedness. Orthostatic vitals were checked and his systolic blood pressure dropped 20mmHg in total from supine to standing position. He has been experiencing a pressure feeling in his head and has bilateral hand numbness which has been constant for several days, predating his chest discomfort. He has a longstanding history of numbness in his bilateral hands that would occur intermittently and would sometimes wake up with the symptoms. In the past, shaking his hands would help but more recently, this has not subsided his symptoms. Review of systems: As above. Review of systems otherwise negative/unremarkable. He denies melena, hematochezia, hematuria, or other bleeding. Family history: Mother (Carmen) has CAD s/p PCI. Social history: He currently smokes approximately 1 pack per day but has smoked up to 2-3 packs per day for years. No significant alcohol. No drugs. He lives at home with his and 3 children. 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 He is accompanied by his , Gayle. Allergies Allergy/AdvReac Type Severity Reaction Status Date / Time No Known Allergies Allergy Verified 04/21/20 23:24 Home Medications Home Medications Medication Instructions Recorded Confirmed Type cyclobenzaprine 5 mg PO TID PRN 04/20/20 04/21/20 History dicyclomine 10 mg PO TID PRN 04/20/20 04/21/20 History lisinopril 10 mg PO DAILY PRN 04/20/20 04/21/20 History Patient History Medical History (Updated 04/22/20 @ 14:33 by Andrae Forbes MD) Acute appendicitis (Acute) Hypertension SBO (small bowel obstruction) Tobacco abuse Surgical History (Updated 04/20/20 @ 23:46 by Blanca Silva PA-C) Hx of appendectomy Family History (Updated 04/22/20 @ 15:24 by Andrae Forbes MD) Mother Diabetes Hypertension Coronary heart disease Other No known problems Social History Preferred Language: Armenian Communication Ability: Effective marital status: Current Living Situation: Family Other Information That Helps Us Care for You: No Feels Safe at Home: Yes Safety Concerns: Feels Safe At This Time Smoking Status: Current every day smoker Tobacco Type: cigarettes ; Do You Dip or Chew Tobacco: No ; Second Hand Exposure: Yes ; Hx Alcohol Use: No Hx Substance Use: No Physical Exam Physical Exam: Gen.: No acute distress. Alert and oriented. HEENT: Anicteric sclera. Neck: Thick neck, but no appreciable JVD. No bruits. Normal carotid upstrokes bilaterally. Cardiac: PMI was nonpalpable. No ventricular heave. Regular rate and rhythm. Normal S1-S2. No murmurs, rubs, or gallops. Pulmonary: Clear to auscultation bilaterally without wheezes, rales, or rhonchi. Abdomen: Soft, nontender, nondistended, with normoactive bowel sounds. No bruits noted. Extremities: 2+ radial pulses bilaterally. 2+ posterior tibialis pulses bilaterally. No edema or cyanosis. No palpable cords. Psychiatric: Affect appears appropriate. Chest: Tender to palpation along the right chest, reproducing chest pain described above. Results & Data ([facility]) Vital Signs (Past 12 Hours) Vital Signs Temp Pulse Pulse Resp BP BP Pulse Ox 04/22/20 07:50 62 16 98 04/22/20 07:17 36.6 C 71 18 167/76 H 99 04/22/20 05:58 64 16 95 04/22/20 05:08 36.3 C L 70 16 169/84 H 95 04/22/20 03:01 69 22 151/37 H 94 Laboratory Results Laboratory Results - last 24 hr 04/22/20 04/22/20 04/22/20 00:05 00:05 00:05 WBC 11.78 H RBC 5.05 Hgb 13.3 L Hct 40.7 L MCV 80.6 MCH 26.3 MCHC 32.7 RDW Std Deviation 43.4 RDW Coeff of Ariana 14.9 H Plt Count 344 MPV 10.6 H Immature Gran % (Auto) 1.4 Neut % (Auto) 57.0 Lymph % (Auto) 30.4 Greer % (Auto) 7.2 Eos % (Auto) 3.7 Baso % (Auto) 0.3 Neut # (Auto) 6.70 H Lymph # (Auto) 3.58 H Greer # (Auto) 0.85 H Eos # (Auto) 0.44 Baso # (Auto) 0.04 Immature Gran # (Auto) 0.17 H APTT PTT Ratio Sodium 143 Potassium 3.4 L Chloride 109 H Carbon Dioxide 26 Anion Gap 8.0 BUN 14 Creatinine 0.73 Est Cr Clr Drug Dosing 215.5 Est GFR ( Amer) 139.3 Est GFR (Non-Af Amer) 120.2 BUN/Creatinine Ratio 18.5 Glucose 98 POC Glucose Estimat Average Glucose Hemoglobin A1c Calcium 8.5 Magnesium 2.0 Total Bilirubin 0.3 Direct Bilirubin < 0.1 AST 15 ALT 31 Alkaline Phosphatase 98 Total Creatine Kinase 119 CK-MB (CK-2) 1.0 CK/CKMB % Calc 0.8 Troponin I 0.018 Total Protein 7.9 Albumin 3.1 L Triglycerides Cholesterol LDL Cholesterol Direct LDL Cholesterol, Calc VLDL Cholesterol, Calc HDL Cholesterol Cholesterol/HDL Ratio Lipase 159 Urine Color Urine Appearance Urine pH Ur Specific Amelia Urine Protein Urine Glucose (UA) Urine Ketones Urine Blood Urine Nitrite Urine Bilirubin Urine Urobilinogen Ur Leukocyte Esterase Lyme Disease IgG Ab Cancelled Lyme Disease IgM Ab Cancelled 04/22/20 04/22/20 04/22/20 00:05 00:51 01:27 WBC RBC Hgb Hct MCV MCH MCHC RDW Std Deviation RDW Coeff of Ariana Plt Count MPV Immature Gran % (Auto) Neut % (Auto) Lymph % (Auto) Greer % (Auto) Eos % (Auto) Baso % (Auto) Neut # (Auto) Lymph # (Auto) Greer # (Auto) Eos # (Auto) Baso # (Auto) Immature Gran # (Auto) APTT PTT Ratio Sodium Potassium Chloride Carbon Dioxide Anion Gap BUN Creatinine Est Cr Clr Drug Dosing Est GFR ( Amer) Est GFR (Non-Af Amer) BUN/Creatinine Ratio Glucose POC Glucose Estimat Average Glucose 140 Hemoglobin A1c 6.5 H Calcium Magnesium Total Bilirubin Direct Bilirubin AST ALT Alkaline Phosphatase Total Creatine Kinase CK-MB (CK-2) CK/CKMB % Calc Troponin I Total Protein Albumin Triglycerides Cholesterol LDL Cholesterol Direct LDL Cholesterol, Calc VLDL Cholesterol, Calc HDL Cholesterol Cholesterol/HDL Ratio Lipase Urine Color Yellow Urine Appearance Clear Urine pH 6.5 Ur Specific Amelia 1.020 Urine Protein Negative Urine Glucose (UA) Negative Urine Ketones Negative Urine Blood Negative Urine Nitrite Negative Urine Bilirubin Negative Urine Urobilinogen Negative Ur Leukocyte Esterase Negative Lyme Disease IgG Ab Negative Lyme Disease IgM Ab Negative 04/22/20 04/22/20 04/22/20 06:54 06:54 07:25 WBC RBC Hgb Hct MCV MCH MCHC RDW Std Deviation RDW Coeff of Ariana Plt Count MPV Immature Gran % (Auto) Neut % (Auto) Lymph % (Auto) Greer % (Auto) Eos % (Auto) Baso % (Auto) Neut # (Auto) Lymph # (Auto) Greer # (Auto) Eos # (Auto) Baso # (Auto) Immature Gran # (Auto) APTT PTT Ratio Sodium 141 Potassium 3.8 Chloride 108 H Carbon Dioxide 29 Anion Gap 4.0 BUN 17 Creatinine 0.77 Est Cr Clr Drug Dosing 202.7 Est GFR ( Amer) 136.3 Est GFR (Non-Af Amer) 117.6 BUN/Creatinine Ratio 21.8 H Glucose 93 POC Glucose 134 H Estimat Average Glucose Hemoglobin A1c Calcium 8.7 Magnesium Total Bilirubin Direct Bilirubin AST ALT Alkaline Phosphatase Total Creatine Kinase CK-MB (CK-2) CK/CKMB % Calc Troponin I < 0.015 Total Protein Albumin Triglycerides 400 H Cholesterol 212 H LDL Cholesterol Direct 139 LDL Cholesterol, Calc TNP VLDL Cholesterol, Calc TNP HDL Cholesterol 19 Cholesterol/HDL Ratio 11 Lipase Urine Color Urine Appearance Urine pH Ur Specific Amelia Urine Protein Urine Glucose (UA) Urine Ketones Urine Blood Urine Nitrite Urine Bilirubin Urine Urobilinogen Ur Leukocyte Esterase Lyme Disease IgG Ab Lyme Disease IgM Ab 07/07/20 07/07/20 07:57 11:44 WBC RBC Hgb Hct MCV MCH MCHC RDW Std Deviation RDW Coeff of Ariana Plt Count MPV Immature Gran % (Auto) Neut % (Auto) Lymph % (Auto) Greer % (Auto) Eos % (Auto) Baso % (Auto) Neut # (Auto) Lymph # (Auto) Greer # (Auto) Eos # (Auto) Baso # (Auto) Immature Gran # (Auto) APTT 30.0 PTT Ratio 1.1 Sodium Potassium Chloride Carbon Dioxide Anion Gap BUN Creatinine Est Cr Clr Drug Dosing Est GFR ( Amer) Est GFR (Non-Af Amer) BUN/Creatinine Ratio Glucose POC Glucose 132 H Estimat Average Glucose Hemoglobin A1c Calcium Magnesium Total Bilirubin Direct Bilirubin AST ALT Alkaline Phosphatase Total Creatine Kinase CK-MB (CK-2) CK/CKMB % Calc Troponin I Total Protein Albumin Triglycerides Cholesterol LDL Cholesterol Direct LDL Cholesterol, Calc VLDL Cholesterol, Calc HDL Cholesterol Cholesterol/HDL Ratio Lipase Urine Color Urine Appearance Urine pH Ur Specific Amelia Urine Protein Urine Glucose (UA) Urine Ketones Urine Blood Urine Nitrite Urine Bilirubin Urine Urobilinogen Ur Leukocyte Esterase Lyme Disease IgG Ab Lyme Disease IgM Ab Diagnostic Findings Telemetry personally reviewed: Sinus rhythm. ECG personally reviewed: ECG 04/21/2020: Sinus rhythm 73 bpm. Incomplete RBBB. Echo 04/22/2020: Images were personally reviewed. Preliminary findings demonstrated normal LV systolic function without significant wall motion abnormality. Formal review to follow. Chest x-ray 04/22/2020: No acute findings per radiology. CTA chest 04/20/2020: No PE. No acute findings reported. Head CT 04/22/2020: No acute intracranial findings per radiology. Medications Administered Current Inpatient Medications Acetaminophen (Tylenol) 650 mg PO Q4H PRN PRN Reason: Pain or Fever Stop: 05/22/20 05:28 Aspirin (Ecotrin Ectab) 81 mg PO QAM [facility] Stop: 05/23/20 08:59 Cyclobenzaprine HCl (Flexeril) 5 mg PO TID PRN PRN Reason: Muscle Spasticity Stop: 05/22/20 05:28 Dextrose (Dextrose 50%) 25 - 50 ml IV UD PRN; Protocol PRN Reason: Hypoglycemia Protocol Stop: 05/22/20 08:59 Enoxaparin Sodium (Lovenox) 40 mg SQ QAM ANTHONY Stop: 05/22/20 08:59 Last Admin: 04/22/20 07:53 Dose: 40 mg Documented by: Glucagon (Glucagen) 1 mg SQ UD PRN; Protocol PRN Reason: Hypoglycemia Protocol Stop: 05/22/20 08:59 Glucose (Dex4 Glucose) 4 - 8 tabs PO UD PRN; Protocol PRN Reason: Hypoglycemia Protocol Stop: 05/22/20 08:59 Glucose (Glucose 40%) 15 - 30 gm PO UD PRN; Protocol PRN Reason: Hypoglycemia Protocol Stop: 05/22/20 08:59 Promethazine HCl 12.5 mg/ (Sodium Chloride) 50.5 mls @ 202 mls/hr IV Q6H PRN PRN Reason: Nausea And Vomiting Stop: 05/22/20 05:28 Lorazepam (Ativan) 0.5 mg in 1 mls @ 1 mls/min IV Q4H PRN PRN Reason: Anxiety/Agitation Stop: 05/22/20 05:28 Insulin Aspart (Novolog Flexpen) 0 units SC ACHS [facility] Stop: 05/22/20 11:29 Last Admin: 04/22/20 12:16 Dose: 3 units Documented by: Insulin Glargine (Lantus Solostar Pen) 5 units SC BID [facility] Stop: 05/22/20 08:59 Last Admin: 04/22/20 10:51 Dose: Not Given Documented by: Lisinopril (Zestril) 30 mg PO QAM [facility] Stop: 05/23/20 08:59 Miscellaneous (Remove Nicoderm Patch) 1 ea N/A DAILY@0859 [facility] Stop: 05/22/20 08:58 Last Admin: 04/22/20 07:55 Dose: 1 ea Documented by: Miscellaneous (Carbohydrates For Hypoglycemia) 15 - 30 gm PO UD PRN PRN Reason: Hypoglycemia Protocol Stop: 05/22/20 08:59 Morphine Sulfate (Morphine Sulfate) 4 mg IV Q4H PRN PRN Reason: Pain Stop: 05/06/20 05:28 Nicotine (Nicoderm Cq) 21 mg TD QAM [facility] Stop: 05/22/20 08:59 Last Admin: 04/22/20 07:55 Dose: 21 mg Documented by: Nicotine Polacrilex (Nicorette 2mg) 1 piece MT Q1H PRN PRN Reason: smoking urge Stop: 05/22/20 04:56 Nitroglycerin (Nitrostat) 0.4 mg SL UD PRN PRN Reason: Chest Pain Stop: 05/22/20 05:28 Tramadol HCl (Ultram) 25 - 50 mg PO Q4H PRN PRN Reason: Pain Stop: 05/22/20 05:28 PG Care Time/CCT Total # of Minutes Spent Total Time Spent with Patient: Total time spent is greater than 50% in coordination of care (as documented) at patient's floor/unit and/or counseling patient: Coding Level of Care Code 18834 Office/Outpt Visit, New Diagnoses Chest pain R07.9 Chest pain type: unspecified Hypertensive urgency I16.0 Dyslipidemia E78.5 Hypertension I10 Tobacco abuse Z72.0 Near syncope R55 (1) Chest pain Chest pain type: unspecified Qualified Code(s): R07.9 - Chest pain, unspecified
--- NOTE | 2020-04-22 14:58 | Hospitalist Progress Note ---
Date of Service April 22, 2020 Assessment & Plan (1) Hypertensive crisis: Atypical Chest Pain R/O ACS Risk factors: HTN, HLP, Tobacco use disorder, DM II, Obesity, +Family history Troponin:Negative EKG shows: NSR, Incomplete RBBB CXR: No acute cardiopulmonary findings. Cardiomegaly. ECHO:pending Trend serial cardiac enzymes, repeat EKG, fasting lipid panel in AM Started on Aspirin, Lipitor Oxygen PRN Will get Stress test in AM NPO after midnight Appreciate Cardiology Input Hypertensive Urgency CT head:No acute intracranial findings. 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 DVT Px: Lovenox SQ Code Status Full code Admission and Anticipated Discharge Date Admission Date: April 22, 2020 Subjective Patient is seen and examined at bedside Headache completely resolved States having intermittent transient pleuritic chest pain Denies any nausea, dyspnea, dizziness, abdominal pain Offers no other complaints Discussed with cardiology today Plan for stress test tomorrow Review of Systems Review of Systems: All systems reviewed & are unremarkable except as noted in HPI & below Physical Exam Physical Exam: Physical Exam: Vitals signs as noted above General Appearance:Morbidly Obese, no apparent distress Head: normocephalic, Atraumatic Eyes: normal inspection, EOMI Neck: supple, Trachea midline Respiratory/Chest: Normal breath sounds, CTA Cardiovascular: S1, S2, No murmur Abdomen/GI:Soft, Non tender, Bowel sounds present Extremities/Musculoskelatal:normal inspection, no edema Neurologic/Psych:AAOX3, grossly no focal neurological deficits Skin: normal color, warm Results & Data Results & Data ([facility]) Vital Signs (Past 12 Hours) Vital Signs Temp Pulse Pulse Resp BP BP Pulse Ox 04/22/20 07:50 62 16 98 04/22/20 07:17 36.6 C 71 18 167/76 H 99 04/22/20 05:58 64 16 95 04/22/20 05:08 36.3 C L 70 16 169/84 H 95 04/22/20 03:01 69 22 151/37 H 94 Laboratory Results Short CBC 04/22/20 Range/Units 00:05 WBC 11.78 H (4.8-10.8) K/uL Hgb 13.3 L (14.0-18.0) g/dL Hct 40.7 L (42-52) % Plt Count 344 (130-400) K/uL BMP 04/22/20 04/22/20 00:05 06:54 Sodium 143 141 Potassium 3.4 L 3.8 Chloride 109 H 108 H Carbon Dioxide 26 29 BUN 14 17 Creatinine 0.73 0.77 Glucose 98 93 Calcium 8.5 8.7 Cardiac Enzymes 04/22/20 04/22/20 Range/Units 00:05 06:54 Total Creatine Kinase 119 (39-308) U/L CK-MB (CK-2) 1.0 (0.5-3.6) ng/ml Troponin I 0.018 < 0.015 (0-0.045) ng/ml Liver Function 04/22/20 Range/Units 00:05 Total Bilirubin 0.3 (0.2-1) mg/dl Direct Bilirubin < 0.1 (0-0.2) mg/dl AST 15 (15-37) U/L ALT 31 (12-78) U/L Alkaline Phosphatase 98 (45-117) U/L Albumin 3.1 L (3.4-5.0) gm/dl Urine 04/22/20 Range/Units 01:27 Urine Color Yellow Urine Appearance Clear (Clear) Urine pH 6.5 (4.5-7.5) Ur Specific Hammett 1.020 (1.000-1.030) Urine Protein Negative (Negative) Urine Glucose (UA) Negative (Negative)
[2020-04-22] MEDS ORDERED: ALBUTEROL 0.083% NEBU SOLN 3 ML VIAL NEB PRN (15:39)
[2020-04-22] MEDS: ACETAMINOPHEN 325 MG TAB PO PRN (17:15)
[2020-04-22] MEDS: ATORVASTATIN 40 MG TAB PO SCH (20:30)
--- NOTE | 2020-04-22 21:43 | XCELERA ---
[id number]
--- NOTE | 2020-04-23 00:15 | Electrocardiogram Report ---
Test Reason : Blood Pressure : / mmHG Vent. Rate : 073 BPM Atrial Rate : 073 BPM P-R Int : 140 ms QRS Dur : 100 ms QT Int : 398 ms P-R-T Axes : 048 021 062 degrees QTc Int : 438 ms Normal sinus rhythm Incomplete right bundle branch block Cannot rule out Inferior infarct , age undetermined Abnormal ECG When compared with ECG of 21-APR-2020 00:35, No significant change was found Confirmed by Andrae Forbes ([id number]) on 04/23/2020 12:14:46 AM Referred By: REFERRED SELF Confirmed By:Andrae Forbes
[2020-04-23] MEDS: ACETAMINOPHEN 325 MG TAB PO PRN ×2 (05:04→14:05)
[2020-04-23] MEDS: NICOTINE 21 MG/24 HR TDSY TD SCH (05:10)
--- NOTE | 2020-04-23 06:58 | Electrocardiogram Report ---
Test Reason : Blood Pressure : / mmHG Vent. Rate : 066 BPM Atrial Rate : 066 BPM P-R Int : 136 ms QRS Dur : 094 ms QT Int : 422 ms P-R-T Axes : 045 027 071 degrees QTc Int : 442 ms Normal sinus rhythm Cannot rule out Inferior infarct (cited on or before 21-APR-2020) Abnormal ECG When compared with ECG of 21-APR-2020 23:38, No significant change was found Confirmed by Andrae Forbes ([id number] on 04/23/2020 6:58:06 AM Referred By: REFERRED SELF Confirmed By:Andrae Forbes
[2020-04-23 07:07] LABS: Basophils # (auto) 0.02 K/uL (0-0.2); Basophils % (auto) 0.2 %; Eosinophils # (auto) 0.49 K/uL (0-0.5); Eosinophils % (auto) 4.7 %; Hematocrit (blood only) 40.5 % (42-52); Hemoglobin 13.2 g/dL (14.0-18.0); Immature Granulocytes # (auto) 0.15 K/uL (0.00-0.02); Immature Granulocytes % (auto) 1.4 %; Lymphocytes # (auto) 3.26 K/uL (1.2-3.4); Mean Corpuscular Hemoglobin 26.1 pg (25-34); Mean Corpuscular Hgb Conc 32.6 g/dL (32-36); Mean Corpuscular Volume 80.2 fL (80-100); Mean Platelet Volume 10.4 fL (7.4-10.4); Monocytes # (auto) 0.69 K/uL (0.11-0.59); Monocytes % (auto) 6.6 %; Neutrophils % (auto) 56.1 %; Platelet Count 326 K/uL (130-400); RDW Coefficient of Variation 14.9 % (11.5-14.5); Red Blood Count 5.05 M/uL (4.7-6.1); White Blood Count 10.51 K/uL (4.8-10.8)
[2020-04-23 07:31] LABS: BUN Creatinine Ratio 21.5 (10-20); Calcium 8.3 mg/dl (8.5-10.1); Creatinine Clr Calc Pharmacy 200.1 ml/min; Est GFR (African American) 135.5; Est GFR (Non-African American) 116.9; Magnesium 2.1 mg/dl (1.8-2.4); Potassium 4.1 mmol/L (3.5-5.1)
[2020-04-23] MEDS: INSULIN ASPART 100 UNITS/ML 3 ML PEN SC SCH ×4 (07:51→20:57)
[2020-04-23] MEDS ORDERED: lisinopriL 20 MG TAB PO SCH (09:00)
[2020-04-23] MEDS: ENOXAPARIN INJ 40 MG/0.4 ML SYR SQ SCH (09:10)
[2020-04-23] MEDS: ASPIRIN 81 MG ECTAB PO SCH (09:10)
[2020-04-23] MEDS: lisinopriL 10 MG TAB PO SCH (09:10)
[2020-04-23] MEDS: INSULIN GLARGINE SOLOSTAR 100 UNITS/ML 3 ML PEN SC SCH ×2 (09:32→20:56)
[2020-04-23] MEDS ORDERED: REGADENOSON 0.4 MG/5 ML SYR IV ONE (09:55)
[2020-04-23] MEDS ORDERED: HEPARIN (PORCINE) 1000 UNIT/ML 10 ML (CATH LAB USE ONLY) ONE ×2 (15:01→16:39)
[2020-04-23] MEDS ORDERED: NiCARDipine HCL INJ 2.5 MG/ML 10 ML AMP ONE (15:01)
[2020-04-23] MEDS ORDERED: fentaNYL citrate 100 MCG/2 ML VIAL ONE ×2 (15:01→16:01)
[2020-04-23] MEDS ORDERED: MIDAZOLAM HCL 1 MG/ML 2ML VIAL ONE ×4 (15:02→16:30)
[2020-04-23] MEDS ORDERED: NITROGLYCERIN/D5W 100MCG/ML 20ML SYR ONE (15:02)
--- NOTE | 2020-04-23 15:10 | Cardiology Progress Note ---
Date of Service April 23, 2020 Assessment & Plan (1) Chest pain: (2) Abnormal nuclear stress test: (3) Hypertensive urgency: (4) Dyslipidemia: (5) Hypertension: (6) Tobacco abuse: (7) Near syncope: ASSESSMENT/PLAN: 1. Chest pain: Chest discomfort has been atypical but now subtle abnormality on myocardial perfusion study. We discussed nuclear stress findings. We discussed medical management for possible CAD versus cardiac catheterization to better define his coronary vasculature. He prefers to undergo cardiac catheterization. Risks and benefits were discussed in detail. He was made aware that CT surgery is not available at this facility. He was agreeable to undergo diagnostic coronary angiography and PCI, if deemed appropriate. He is NPO since yesterday other than sips. 2. Hypertensive urgency: Blood pressure has significantly improved and most recently was normal. He did become hypertensive with Lexiscan administration. He is now on daily lisinopril as per primary service. Low-sodium diet. Weight loss encouraged. 3. Dyslipidemia: Recommend high-intensity statin therapy given elevated 10 year cardiovascular risk. Continue atorvastatin which was initiated yesterday. 4. Tobacco abuse: Stop smoking. 5. Near syncope: Orthostatic vital signs in the ER were borderline positive. His systolic blood pressure dropped 20 mmHg comparing standing to supine position. Symptoms have resolved. 6. Disposition: Cardiac catheterization will be performed later today when the lab is available. Patient cared was discussed with Dr. Hernandez of the primary hospitalist service. Highly complex medical issues. Admission and Anticipated Discharge Date Admission Date: April 22, 2020 Subjective He had some right lower chest discomfort earlier, but no severe pain. He had a headache this morning and intermittently throughout the day. He denies shortness of breath, syncope, near-syncope, palpitations, edema, or bleeding. He has been able to stand up and walk in his hospital room without syncope or near-syncope. His blood pressure has significantly improved compared to presentation. He was seen earlier this morning, and once again this afternoon following his myocardial perfusion study. When seen this afternoon, his was at the bedside. We discussed the fact that there is a subtle abnormality in the base to mid inferior wall that appears reversible on his myocardial perfusion study but that this could also suggest diaphragmatic attenuation given the fact that it is very subtle. His mother joined our conversation via telephone on speaker. Review of systems: As above. Physical Exam Physical Exam: Gen.: No acute distress. Alert and oriented. HEENT: Anicteric sclera. Neck: Thick neck, but no appreciable JVD. Cardiac: No ventricular heave. Regular rate and rhythm. Normal S1-S2. No murmurs, rubs, or gallops. Pulmonary: Clear to auscultation bilaterally without wheezes, rales, or rhonchi. Abdomen: Soft, nontender, nondistended, with normoactive bowel sounds. No bruits noted. Extremities: 2+ radial pulses bilaterally. 2+ posterior tibialis pulses bilaterally. No edema or cyanosis. Psychiatric: Affect appears appropriate. Results & Data ([facility]) Vital Signs (Past 12 Hours) Vital Signs Temp Pulse Pulse Resp BP Pulse Ox 04/23/20 09:35 57 L 04/23/20 07:35 36.7 C 61 22 125/75 98 04/23/20 03:55 36.8 C 84 18 119/67 96 Laboratory Results Laboratory Results - last 24 hr 04/22/20 04/22/20 04/23/20 16:12 20:13 06:57 WBC RBC Hgb Hct MCV MCH MCHC RDW Std Deviation RDW Coeff of Ariana Plt Count MPV Immature Gran % (Auto) Neut % (Auto) Lymph % (Auto) [place] % (Auto) Eos % (Auto) Baso % (Auto) Neut # (Auto) Lymph # (Auto) [place] # (Auto) Eos # (Auto) Baso # (Auto) Immature Gran # (Auto) Sodium 139 Potassium 4.1 Chloride 109 H Carbon Dioxide 25 Anion Gap 5.0 BUN 17 Creatinine 0.78 Est Cr Clr Drug Dosing 200.1 Est GFR ( Amer) 135.5 Est GFR (Non-Af Amer) 116.9 BUN/Creatinine Ratio 21.5 H Glucose 113 H POC Glucose 100 H 109 H Calcium 8.3 L Magnesium 2.1 Triglycerides 244 H Cholesterol 199 LDL Cholesterol, Calc 129 VLDL Cholesterol, Calc 49 HDL Cholesterol 21 Cholesterol/HDL Ratio 10 04/23/20 04/23/20 04/23/20 06:57 07:33 12:34 WBC 10.51 RBC 5.05 Hgb 13.2 L Hct 40.5 L MCV 80.2 MCH 26.1 MCHC 32.6 RDW Std Deviation 43.0 RDW Coeff of Ariana 14.9 H Plt Count 326 MPV 10.4 Immature Gran % (Auto) 1.4 Neut % (Auto) 56.1 Lymph % (Auto) 31.0 [place] % (Auto) 6.6 Eos % (Auto) 4.7 Baso % (Auto) 0.2 Neut # (Auto) 5.90 Lymph # (Auto) 3.26 [place] # (Auto) 0.69 H Eos # (Auto) 0.49 Baso # (Auto) 0.02 Immature Gran # (Auto) 0.15 H Sodium Potassium Chloride Carbon Dioxide Anion Gap BUN Creatinine Est Cr Clr Drug Dosing Est GFR ( Amer) Est GFR (Non-Af Amer) BUN/Creatinine Ratio Glucose POC Glucose 121 H 132 H Calcium Magnesium Triglycerides Cholesterol LDL Cholesterol, Calc VLDL Cholesterol, Calc HDL Cholesterol Cholesterol/HDL Ratio Diagnostic Findings Telemetry reviewed. Sinus rhythm. No arrhythmia. ECG personally reviewed: ECG 04/23/2020: Sinus bradycardia 57 bpm. Nonspecific T-wave abnormality. Myocardial perfusion study 04/23/2020: Images personally reviewed with subtle base to mid inferior wall reversible defect. This could represent ischemia versus artifact. EF was 66% with normal wall motion. Medications Administered Current Inpatient Medications Acetaminophen (Tylenol) 650 mg PO Q4H PRN PRN Reason: Pain or Fever Stop: 05/22/20 05:28 Last Admin: 04/23/20 14:05 Dose: 650 mg Documented by: Albuterol (Ventolin 0.083% 2.5mg/3ml) 2.5 mg NEB Q6R PRN PRN Reason: Shortness Of Breath Or Wheezing Stop: 05/22/20 15:38 Aspirin (Ecotrin Ectab) 81 mg PO QAM [facility] Stop: 05/23/20 08:59 Last Admin: 04/23/20 09:10 Dose: 81 mg Documented by: Atorvastatin Calcium (Lipitor) 40 mg PO HS [facility] Stop: 05/22/20 20:59 Last Admin: 04/22/20 20:30 Dose: 40 mg Documented by: Cyclobenzaprine HCl (Flexeril) 5 mg PO TID PRN PRN Reason: Muscle Spasticity Stop: 05/22/20 05:28 Dextrose (Dextrose 50%) 25 - 50 ml IV UD PRN; Protocol PRN Reason: Hypoglycemia Protocol Stop: 05/22/20 08:59 Enoxaparin Sodium (Lovenox) 40 mg SQ QAM [facility] Stop: 05/22/20 08:59 Last Admin: 04/23/20 09:10 Dose: 40 mg Documented by: Glucagon (Glucagen) 1 mg SQ UD PRN; Protocol PRN Reason: Hypoglycemia Protocol Stop: 05/22/20 08:59 Glucose (Dex4 Glucose) 4 - 8 tabs PO UD PRN; Protocol PRN Reason: Hypoglycemia Protocol Stop: 05/22/20 08:59 Glucose (Glucose 40%) 15 - 30 gm PO UD PRN; Protocol PRN Reason: Hypoglycemia Protocol Stop: 05/22/20 08:59 Promethazine HCl 12.5 mg/ (Sodium Chloride) 50.5 mls @ 202 mls/hr IV Q6H PRN PRN Reason: Nausea And Vomiting Stop: 05/22/20 05:28 Lorazepam (Ativan) 0.5 mg in 1 mls @ 1 mls/min IV Q4H PRN PRN Reason: Anxiety/Agitation Stop: 05/22/20 05:28 Insulin Aspart (Novolog Flexpen) 0 units SC ACHS [facility] Stop: 05/22/20 11:29 Last Admin: 04/23/20 13:18 Dose: Not Given Documented by: Insulin Glargine (Lantus Solostar Pen) 5 units SC BID [facility] Stop: 05/22/20 08:59 Last Admin: 04/23/20 09:32 Dose: 2 units Documented by: Lisinopril (Zestril) 30 mg PO QAM [facility] Stop: 05/23/20 08:59 Last Admin: 04/23/20 09:10 Dose: 30 mg Documented by: Miscellaneous (Remove Nicoderm Patch) 1 ea N/A DAILY@0859 [facility] Stop: 05/22/20 08:58 Last Admin: 04/23/20 05:11 Dose: 1 ea Documented by: Miscellaneous (Carbohydrates For Hypoglycemia) 15 - 30 gm PO UD PRN PRN Reason: Hypoglycemia Protocol Stop: 05/22/20 08:59 Morphine Sulfate (Morphine Sulfate) 4 mg IV Q4H PRN PRN Reason: Pain Stop: 05/06/20 05:28 Nicotine (Nicoderm Cq) 21 mg TD QAM [facility] Stop: 05/22/20 08:59 Last Admin: 04/23/20 05:10 Dose: 21 mg Documented by: Nicotine Polacrilex (Nicorette 2mg) 1 piece MT Q1H PRN PRN Reason: smoking urge Stop: 05/22/20 04:56 Nitroglycerin (Nitrostat) 0.4 mg SL UD PRN PRN Reason: Chest Pain Stop: 05/22/20 05:28 Tramadol HCl (Ultram) 25 - 50 mg PO Q4H PRN PRN Reason: Pain Stop: 05/22/20 05:28 PG Care Time/CCT Total # of Minutes Spent Total Time Spent with Patient: Total time spent is greater than 50% in coordination of care (as documented) at patient's floor/unit and/or counseling patient: Coding Level of Care Code 98802 Subseq Hosp Care Lvl 3 Diagnoses Chest pain R07.9 Chest pain type: unspecified Abnormal nuclear stress test R94.39 Hypertensive urgency I16.0 Dyslipidemia E78.5 Hypertension I10 Tobacco abuse Z72.0 Near syncope R55 (1) Chest pain Chest pain type: unspecified Qualified Code(s): R07.9 - Chest pain, unspecified
--- NOTE | 2020-04-23 15:15 | Pre Anesthesia Assessment ---
Date of Service April 23, 2020 Pre Sedation Assessment Vital Signs Temp Pulse Pulse Resp BP BP Pulse Ox 04/23/20 09:35 57 L 04/23/20 07:35 36.7 C 61 22 125/75 98 04/23/20 03:55 36.8 C 84 18 119/67 96 04/22/20 23:09 37 C 67 16 146/79 H 95 04/22/20 18:48 37.3 C 76 20 157/78 H 94 04/22/20 15:22 36.5 C 66 20 144/79 H 92 Cardiovascular + bradycardic Respiratory normal respiratory effort, lungs clear to auscultation Pre-Sedation Airway Assessment Smoking Status: Current every day smoker Mallampati Class: IV ASA: ASA3 NPO Status Date of Last Intake of Fluids: 04/23/20 Time of Last Intake of Fluids: 11:30 Date of Last Intake of Solid Food: 04/22/20 Time of Last Intake of Solid Foods: 18:00 Procedure Planning Contraindications for Sedation: none Current Medications Reviewed: Yes Notes The planned sedation has been discussed with the patient. Informed Consent was obtained. I have identified the patient, determined the appropriateness of sedation and have assessed the patient immediately prior to the procedure. All medicine(s) and interventions are by my order.
--- NOTE | 2020-04-23 15:38 | Hospitalist Progress Note ---
Date of Service April 23, 2020 Assessment & Plan (1) Hypertensive crisis: Atypical Chest Pain with paresthesia involving left upper extremity Risk factors: HTN, HLP, Tobacco use disorder, DM II, Obesity, +Family history Serial troponins and EKGs have been negative for any ACS ECHO: Normal LV size and systolic function, EF 65 to 70% without any wall motion abnormalities but moderate concentric LV hypertrophy. No significant valvular abnormalities. Normal estimated right ventricular systolic pressure. Appreciate cardiology input and recommendation Positive nuclear stress test and will need cardiac cath to evaluate CAD further Will need full admission Hypertensive Urgency CT head:No acute intracranial findings. 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 DVT Px: Lovenox SQ Code Status Full code Admission and Anticipated Discharge Date Admission Date: April 22, 2020 Subjective The patient was seen and examined in telemetry unit He is morbidly obese with history of diabetes, bronchial asthma, BHASKAR on CPAP with ongoing tobacco abuse was admitted with hypertensive crisis and noted to have chest pain Status post positive nuclear stress test today and will need to have cardiac cath He does not have any significant complaints following that nuclear stress test today that is 04/23/2020 Review of Systems Review of Systems: All systems reviewed and are unremarkable except as noted below Constitutional: + fatigue Physical Exam Physical Exam: Lying in bed comfortably with CPAP on Constitutional: + morbidly obese; no acute distress and not ill appearing Eyes: PERRL, conjunctivae normal, anicteric sclerae ENMT: external ear and nose normal, oropharynx normal Neck: trachea midline, no thyromegaly Respiratory: no respiratory distress Auscultation: lungs clear to auscultation bilaterally and + diminished lung sounds (At the bases) Cardiovascular: Rate/Rhythm: regular rate and regular rhythm Heart Sounds: no murmur Extremities: + edema (1+ bilateral) Gastrointestinal (Abdomen): Inspection/Auscultation: + abdomen distended and normal bowel sounds Percussion/Palpation: abdomen soft; abdomen nontender Musculoskeletal: No acute arthritis involving any joints Neurologic: Alert, awake and oriented x3 Results & Data Results & Data ([facility]) Vital Signs (Past 12 Hours) Vital Signs Temp Pulse Pulse Resp BP Pulse Ox 04/23/20 09:35 57 L 04/23/20 07:35 36.7 C 61 22 125/75 98 04/23/20 03:55 36.8 C 84 18 119/67 96 Laboratory Results Short CBC 04/23/20 Range/Units 06:57 WBC 10.51 (4.8-10.8) K/uL Hgb 13.2 L (14.0-18.0) g/dL Hct 40.5 L (42-52) % Plt Count 326 (130-400) K/uL BMP 04/23/20 06:57 Sodium 139 Potassium 4.1 Chloride 109 H Carbon Dioxide 25 BUN 17 Creatinine 0.78 Glucose 113 H Calcium 8.3 L Medications Administered Current Inpatient Medications Acetaminophen (Tylenol) 650 mg PO Q4H PRN PRN Reason: Pain or Fever Stop: 05/22/20 05:28 Last Admin: 04/23/20 14:05 Dose: 650 mg Documented by: Albuterol (Ventolin 0.083% 2.5mg/3ml) 2.5 mg NEB Q6R PRN PRN Reason: Shortness Of Breath Or Wheezing Stop: 05/22/20 15:38 Aspirin (Ecotrin Ectab) 81 mg PO QAM [facility] Stop: 05/23/20 08:59 Last Admin: 04/23/20 09:10 Dose: 81 mg Documented by: Atorvastatin Calcium (Lipitor) 40 mg PO HS [facility] Stop: 05/22/20 20:59 Last Admin: 04/22/20 20:30 Dose: 40 mg Documented by: Cyclobenzaprine HCl (Flexeril) 5 mg PO TID PRN PRN Reason: Muscle Spasticity Stop: 05/22/20 05:28 Dextrose (Dextrose 50%) 25 - 50 ml IV UD PRN; Protocol PRN Reason: Hypoglycemia Protocol Stop: 05/22/20 08:59 Enoxaparin Sodium (Lovenox) 40 mg SQ QAM [facility] Stop: 05/22/20 08:59 Last Admin: 04/23/20 09:10 Dose: 40 mg Documented by: Glucagon (Glucagen) 1 mg SQ UD PRN; Protocol PRN Reason: Hypoglycemia Protocol Stop: 05/22/20 08:59 Glucose (Dex4 Glucose) 4 - 8 tabs PO UD PRN; Protocol PRN Reason: Hypoglycemia Protocol Stop: 05/22/20 08:59 Glucose (Glucose 40%) 15 - 30 gm PO UD PRN; Protocol PRN Reason: Hypoglycemia Protocol Stop: 05/22/20 08:59 Promethazine HCl 12.5 mg/ (Sodium Chloride) 50.5 mls @ 202 mls/hr IV Q6H PRN PRN Reason: Nausea And Vomiting Stop: 05/22/20 05:28 Lorazepam (Ativan) 0.5 mg in 1 mls @ 1 mls/min IV Q4H PRN PRN Reason: Anxiety/Agitation Stop: 05/22/20 05:28 Insulin Aspart (Novolog Flexpen) 0 units SC ACHS [facility] Stop: 05/22/20 11:29 Last Admin: 04/23/20 13:18 Dose: Not Given Documented by: Insulin Glargine (Lantus Solostar Pen) 5 units SC BID [facility] Stop: 05/22/20 08:59 Last Admin: 04/23/20 09:32 Dose: 2 units Documented by: Lisinopril (Zestril) 30 mg PO QAM [facility] Stop: 05/23/20 08:59 Last Admin: 04/23/20 09:10 Dose: 30 mg Documented by: Miscellaneous (Remove Nicoderm Patch) 1 ea N/A DAILY@0859 [facility] Stop: 05/22/20 08:58 Last Admin: 04/23/20 05:11 Dose: 1 ea Documented by: Miscellaneous (Carbohydrates For Hypoglycemia) 15 - 30 gm PO UD PRN PRN Reason: Hypoglycemia Protocol Stop: 05/22/20 08:59 Morphine Sulfate (Morphine Sulfate) 4 mg IV Q4H PRN PRN Reason: Pain Stop: 05/06/20 05:28 Nicotine (Nicoderm Cq) 21 mg TD QAM [facility] Stop: 05/22/20 08:59 Last Admin: 04/23/20 05:10 Dose: 21 mg Documented by: Nicotine Polacrilex (Nicorette 2mg) 1 piece MT Q1H PRN PRN Reason: smoking urge Stop: 05/22/20 04:56 Nitroglycerin (Nitrostat) 0.4 mg SL UD PRN PRN Reason: Chest Pain Stop: 05/22/20 05:28 Tramadol HCl (Ultram) 25 - 50 mg PO Q4H PRN PRN Reason: Pain Stop: 05/22/20 05:28
[2020-04-23] MEDS ORDERED: ADENOSINE IV SOLN 3 MG/ML 20 ML VIAL IV ONE (16:08)
--- NOTE | 2020-04-23 16:32 | Cardiac Catheterization ---
[facility] [place] Data: Signals Officer Cardiac Status Clinical evaluation leading to the procedure CAD Presenation: Positive Stress Test Anginal Classification: CCS III Heart Failure: No Cardiogenic Shock within 24 Hours: No Cardiac Arrest within 24 Hours: No Imaging Studies Past 6 Months: Yes Stress Studies Past 6 Months: Yes Standard Exercise Test: No Stress Echocardiogram: No Stress Testing w/SPECT MPI: Yes - Positive and Risk/Extent of Ischemia (Low) Cardiac CTA: No Coronary Anatomy Dominant: Right Left Ventricular Angiography EF (%): n/a Diagnostic Physicians Name: Andrae Forbes MD Status: Elective Closure Device Percutaneous Entry Location: Radial Closure Device: Radial Band Recommendations: Management Recommendatons (as above) Cardiac Cath Procedure Full Procedure Date April 23, 2020 Pre-Procedure Diagnosis Pre-Procedure Diagnosis: Positive Stress Test AUC Score AUC Score: 7 Post-Procedure Diagnosis Post-Procedure Diagnosis: Moderate CAD and Elevated Intracardiac Pressures Procedure(s) Performed Procedure(s) Performed: Coronary Angiography and Left Heart Cath Injection Machine Operator Andrae Forbes MD Refinery Process Engineer(s) Cheyanne Lucero Estimated Blood Loss Estimated Blood Loss: < 25 ml Medication(s) Medication(s): Fentanyl, Heparin, Lidocaine 1%, Nicardipine and Versed Summary of Findings Procedures 1. Coronary angiography 2. Left heart catheterization 3. Moderate sedation Coronary angiography: 1. Left main coronary artery: No significant CAD. 2. Left anterior descending: LAD extends to the apex. Large-caliber. Mid LAD sequential 30 to 40% and 30% stenosis. Large D1 and medium caliber D2 without significant CAD. 3. Circumflex: The circumflex is a large-caliber vessel proximally to mid circumflex. Distally, the circumflex extends as a small caliber vessel. Large OM with proximal 50 to 60% stenosis. FLORES-3 flow. 4. Right coronary artery: RCA is large and dominant. mid RCA 20 to 30%. Distal RCA 20%. Proximal PL 20%. PL and PDA are large caliber vessels. Left heart catheterization: 1. Left ventriculography was not performed. 2. Mildly elevated LVEDP; 18 mmHg. 3. No significant aortic stenosis. Peak to peak gradient across the aortic valve was < 5 mmHg. Moderate sedation: 1. Sedation start time: 3:40 PM 2. Sedation end time: 4:08 PM Impression: 1. Moderate CAD involving large OM. 2. Otherwise, mild nonobstructive CAD. 3. No significant aortic stenosis. 4. Mildly elevated left-sided filling pressure. Plan: 1. Dr. Rae, talent agent, was asked to review images and plans on performing FFR of circumflex/OM CAD. 2. Risk factor modification. Hemodynamics Rest Ao:: 147/89 Final Ao: 142/84 LV: 157/4/18 Recommendations Recommendations: Management Recommendatons (as above) Specimens Specimens: None Radiation Exposure (mGy) 1356 mGy. Fluoro time 5.1 min. Contrast (mls) 80 ml Procedural Complication(s) None Disposition remains in lab for FFR of OM CAD I attest to the content of the Intraoperative Record and any orders documented therein. Any exceptions are noted below. [facility] Card Cath Procedure Codes Cardiac Catheterization Procedure 1: Cardiovascular Cath Procedures: 32613 Coronaries and LHC (+/-LV) Moderate Sedation Procedure 1: Sedation/Anesthesia: 93474 Mod Sedation by the same physician;Init15 Min Child Age 5 & Up Procedure 2: Sedation/Anesthesia: 72206 Mod Sedation by the same physician; Ea [id number] Minutes PG Care Time/CCT Total # of Minutes Spent Total Time Spent with Patient: Total time spent is greater than 50% in coordination of care (as documented) at patient's floor/unit and/or counseling patient:
--- NOTE | 2020-04-23 16:58 | Post Anesthesia Assessment ---
Date of Service April 23, 2020 Post Sedation Assessment Vital Signs Temp Pulse Pulse Resp BP BP Pulse Ox 04/23/20 09:35 57 L 04/23/20 07:35 98.1 F 61 22 125/75 98 04/23/20 03:55 98.2 F 84 18 119/67 96 04/22/20 23:09 98.6 F 67 16 146/79 H 95 04/22/20 18:48 99.1 F 76 20 157/78 H 94 Recovery Score Activity: Moves 4 extremities Respiration: Deep Breath/Cough Circulation: +/-20% PreAnes Value Consciousness: Fully Awake Oxygen Saturation: O2 needed for >90% Discharge Sedation Level of Care: Fast Track Phase II Post Sedation Plan On clinical assessment, the patient appears to have tolerated the sedation without complications. Patient is recovering as anticipated. Patient will continue to be monitored by nursing and may be discharged when sedation discharge criteria are met per below protocol. Upon Completions of procedure up to 15 minutes continue every 5 minute vital signs and the P.A.R. score; then discharge to a Phase I or Fast Track to Phase II per the following guidelines: * Discharge Patient to appropriate Phase II area if PAR is 8 or greater or return to pre- procedure baseline. The post - procedure orders will be as directed. * If PAR score is less than 8 or not return to pre-procedure baseline then patient will follow Phase I monitoring till PAR is reached for Phase II. The Phase I may be done in procedure room or may call to secure a Phase I area. * If naloxone or flumazenil are used for reversal, hold in Phase I for continued monitoring from when last reversal dose was given for a minimum of 60 minutes or longer pending the nurse and/or physician discretion of patient condition before discharge to Phase II. Please call the Sedation Physician to re-evaluate and complete post-note for discharge to Phase II area. Do NOT discharge from procedure sedation or Phase 1 until post- sedation evaluation note is complete by procedure /sedation MD Sedation Discharge Instructions to be given to the patient at discharge to home.
[2020-04-23] MEDS ORDERED: SODIUM CHLORIDE 0.9% 1000ML 1,000 ML IV SCH (17:00)
--- NOTE | 2020-04-23 17:03 | Cardiac Catheterization ---
[facility] Data: Lead Qa Analyst Cardiac Status Clinical evaluation leading to the procedure CAD Presenation: Positive Stress Test Anginal Classification: CCS II Heart Failure: No Cardiogenic Shock within 24 Hours: No Cardiac Arrest within 24 Hours: No Imaging Studies Past 6 Months: Yes Stress Studies Past 6 Months: No Stress Testing w/SPECT MPI: Yes - Positive and Risk/Extent of Ischemia (Low) Diagnostic Physicians Name: Jose Rae MD Status: Elective Closure Device Percutaneous Entry Location: Radial Closure Device: Radial Band Recommendations: Medical Therapy and/or Counseling Intraprocedure Events Significant Disection: No Perforation: No Cardiac Cath Procedure Full Procedure Date April 23, 2020 Pre-Procedure Diagnosis Pre-Procedure Diagnosis: Positive Stress Test AUC Score AUC Score: 7 Post-Procedure Diagnosis Post-Procedure Diagnosis: Moderate CAD Procedure(s) Performed Procedure(s) Performed: Fractional Flow [place] Motor Vehicle Dispatcher Jose Rae MD Gas Systems Worker(s) Cheyanne Lucero Estimated Blood Loss Estimated Blood Loss: < 25 ml Medication(s) Medication(s): Fentanyl, Heparin and Versed Summary of Findings For full details of patient's coronary angiography please see cath report dictated by Dr. Forbes. Briefly, patient found to have a intermediate mid circumflex stenosis. Decision to proceed with FFR. Procedure: -Left main cannulated with EBU 3.5 guide -BMW wire placed into distal circumflex -ACIST Catheter placed across stenosis -Pd/Pa 0.97 -FFR 0.85 -Coronary angiography revealed no apparent complications post wire/catheter re moval Summary: 1. Nonobstructive moderate mid circumflex stenosis (FFR 0.85). Recommendations: Continued ASCVD risk factor modification per Dr. Forbes. Hemodynamics Rest Ao:: 159/94/121 Final Ao: 154/84/117 LV: -- Recommendations Recommendations: Medical Therapy and/or Counseling Specimens Specimens: None Radiation Exposure (mGy) 1753 Contrast (mls) 100 Fluids (cc crystalloids) Fluids (cc crystalloids): 100 Drains Drains: None Anesthesia Moderate Procedural Complication(s) None Disposition PCU I attest to the content of the Intraoperative Record and any orders documented therein. Any exceptions are noted below. FlayrG Card Cath Procedure Codes Cardiac Catheterization Procedure 1: Cardiovascular Cath Procedures: 75634 (Doppler) Pressure Wire Moderate Sedation Procedure 1: Sedation/Anesthesia: 63106 Mod Sedation by a different physician ;Init15 Min Child Age 5&Up PG Care Time/CCT Total # of Minutes Spent Total Time Spent with Patient: Total time spent is greater than 50% in coordination of care (as documented) at patient's floor/unit and/or counseling patient:
[2020-04-23] MEDS ORDERED: NITROGLYCERIN 2% OINTMENT 30GM TUBE EXT PRN (18:15)
--- NOTE | 2020-04-23 18:23 | Post Anesthesia Assessment ---
Date of Service April 23, 2020 Post Sedation Assessment Vital Signs Temp Pulse Pulse Pulse Resp BP BP 04/23/20 17:30 77 17 175/116 H 04/23/20 17:15 36.6 C 65 17 170/93 H 04/23/20 09:35 57 L 04/23/20 07:35 36.7 C 61 22 125/75 04/23/20 03:55 36.8 C 84 18 119/67 04/22/20 23:09 37 C 67 16 146/79 H 04/22/20 18:48 37.3 C 76 20 157/78 H Pulse Ox 04/23/20 17:30 95 04/23/20 17:15 95 04/23/20 09:35 04/23/20 07:35 98 04/23/20 03:55 96 04/22/20 23:09 95 04/22/20 18:48 94 Recovery Score Activity: Moves 4 extremities Respiration: Deep Breath/Cough Circulation: +/-20% PreAnes Value Consciousness: Fully Awake Oxygen Saturation: O2 needed for >90% Discharge Sedation Level of Care: Fast Track Phase II Post Sedation Plan On clinical assessment, the patient appears to have tolerated the sedation without complications. Patient is recovering as anticipated. Patient will continue to be monitored by nursing and may be discharged when sedation discharge criteria are met per below protocol. Upon Completions of procedure up to 15 minutes continue every 5 minute vital signs and the P.A.R. score; then discharge to a Phase I or Fast Track to Phase II per the following guidelines: * Discharge Patient to appropriate Phase II area if PAR is 8 or greater or return to pre- procedure baseline. The post - procedure orders will be as directed. * If PAR score is less than 8 or not return to pre-procedure baseline then patient will follow Phase I monitoring till PAR is reached for Phase II. The Phase I may be done in procedure room or may call to secure a Phase I area. * If naloxone or flumazenil are used for reversal, hold in Phase I for continued monitoring from when last reversal dose was given for a minimum of 60 minutes or longer pending the nurse and/or physician discretion of patient condition before discharge to Phase II. Please call the Sedation Physician to re-evaluate and complete post-note for discharge to Phase II area. Do NOT discharge from procedure sedation or Phase 1 until post- sedation evaluation note is complete by procedure /sedation MD Sedation Discharge Instructions to be given to the patient at discharge to home.
--- NOTE | 2020-04-23 19:25 | Myocardial Perfusion Study ---
Date of Service April 23, 2020 Myocardial Perfusion Study Blk Myocardial Perfusion Study Report Procedure: 1. Myocardial perfusion study performed in multiple views/images 2. Lexiscan pharmacologic stress ECG Indications: 1. Chest pain Ordering physician: Adama Forbes Procedural details: For the stress portion of the study, Lexiscan 0.4 mg was intravenously administered followed by a saline flush. This was followed by 33 mCi of technetium 99m Cardiolite, injected at 11:30 a.m. on 04/23/2020. 30 minutes following the injection, imaging of the heart was performed in multiple projections. For the rest portion of the study, 11.3 mCi technetium 99m Cardiolite was injected intravenously at 9:45 a.m. on 04/23/2020. 1 hour following the injection, imaging of the heart was performed in the same projections. Lexiscan stress ECG: Continuous ECG monitoring was performed with supervision and interpretation. Resting ECG demonstrated: Sinus rhythm 69 bpm. Maximum heart rate: 105 bpm Maximal, age-predicted heart rate: 56 % Resting blood pressure: 163/99 mmHg Maximum blood pressure: 210/[address] changes: None Arrhythmia: None Symptoms: Chest pressure Findings: Rotating raw imaging demonstrated no significant lung uptake. There is no significant motion artifact. Heart size appeared normal. Myocardial perfusion demonstrated a small area of very mildly reduced uptake involving the base to mid inferior wall which appeared reversible on rest imaging. Other wall segments appear to have normal myocardial perfusion. Ejection fraction: 66 % Wall motion: Normal No significant transient ischemic dilation. Impression: 1. Possibly abnormal myocardial perfusion study with small area of inferior ischemia versus attenuation artifact. 2. Normal wall motion and LV systolic function. EF 66%. 3. Hypertensive response to Lexiscan. 4. Lexiscan induced chest pressure. 5. Nondiagnostic Lexiscan ECG. [facility] Myocardial perfusion code Procedure Code Procedure 1: Myocardial Perfusion Codes: 06258 Cardiovascular Stress Test, multiple Procedure 2: Myocardial Perfusion Codes: 47835 Cardiovascular Stress Test, supervision only Procedure 3: Myocardial Perfusion Codes: 80458 Cardiovascular Stress Test, interpretation and report
[2020-04-23] MEDS: ATORVASTATIN 40 MG TAB PO SCH (20:54)
[2020-04-24] MEDS: NICOTINE 21 MG/24 HR TDSY TD SCH (05:26)
[2020-04-24] MEDS: ACETAMINOPHEN 325 MG TAB PO PRN (05:26)
--- NOTE | 2020-04-24 05:41 | Electrocardiogram Report ---
Test Reason : Blood Pressure : / mmHG Vent. Rate : 057 BPM Atrial Rate : 057 BPM P-R Int : 132 ms QRS Dur : 096 ms QT Int : 456 ms P-R-T Axes : 068 050 079 degrees QTc Int : 443 ms Sinus bradycardia Nonspecific T wave abnormality Abnormal ECG When compared with ECG of 22-APR-2020 15:14, Minimal criteria for Inferior infarct are no longer Present Confirmed by Andare Forbes ([id number]) on 04/24/2020 5:40:47 AM Referred By: REFERRED SELF Confirmed By:Andrae Forbes
[2020-04-24] MEDS: ASPIRIN 81 MG ECTAB PO SCH (08:33)
[2020-04-24] MEDS: lisinopriL 10 MG TAB PO SCH (08:33)
[2020-04-24] MEDS: INSULIN GLARGINE SOLOSTAR 100 UNITS/ML 3 ML PEN SC SCH (08:33)
[2020-04-24] MEDS: INSULIN ASPART 100 UNITS/ML 3 ML PEN SC SCH (08:34)
[2020-04-24 08:37] LABS: BUN Creatinine Ratio 20.4 (10-20); Calcium 8.9 mg/dl (8.5-10.1); Creatinine Clr Calc Pharmacy 193.2 ml/min; Est GFR (African American) 134.1; Est GFR (Non-African American) 115.7; Magnesium 2.2 mg/dl (1.8-2.4); Potassium 3.9 mmol/L (3.5-5.1)
[2020-04-24] MEDS: ENOXAPARIN INJ 40 MG/0.4 ML SYR SQ SCH (08:38)
--- NOTE | 2020-04-24 11:09 | Cardiology Progress Note ---
Date of Service April 24, 2020 Assessment & Plan (1) Chest pain: (2) Abnormal nuclear stress test: (3) Hypertensive urgency: (4) Dyslipidemia: (5) Hypertension: (6) Tobacco abuse: (7) Near syncope: ASSESSMENT/PLAN: 1. CAD: He has nonobstructive CAD. His circumflex/marginal lesion appeared moderate on visual inspection and was noted to be moderate on FFR. We discussed these findings again today. He did not require PCI. Recommend optimizing medical therapy. Continue aspirin 81 mg daily. Start metoprolol succinate 25 mg daily. Continue lisinopril. Continue high intensity statin therapy. Recommend sublingual nitroglycerin on discharge to be used on an as-needed basis. 2. Chest pain: Likely related to severe hypertension on presentation. No severe CAD noted on cardiac catheterization. 3. Hypertensive urgency: Blood pressure has improved. Mildly hypertensive this morning. Continue SANDHYA inhibitor. Initiate beta-glen as above. Low-sodium diet. Weight loss. Heart healthy diet and exercise. 4. Dyslipidemia: Recommend high-intensity statin therapy given elevated 10 year cardiovascular risk. Continue atorvastatin which was initiated during this hospitalization. Mediterranean diet recommended. Weight loss recommended. 5. Tobacco abuse: Stop smoking. He requests nicotine patches on discharge. 6. Near syncope: Orthostatic vital signs in the ER were borderline positive. His systolic blood pressure dropped 20 mmHg comparing standing to supine position. Symptoms have resolved. 7. Disposition: Can be discharged from a cardiac perspective. He has follow-up appointment scheduled with me on Tuesday morning. He should keep this appointment. Admission and Anticipated Discharge Date Admission Date: April 22, 2020 Subjective He was seen earlier this morning. He has not had any further chest pain. He denies shortness of breath, syncope, near syncope, palpitations, edema, or bleeding. His right radial cath site is a little sore but he has not noted any bleeding or oozing. He stated that he is very motivated to stop smoking and starting to eat healthier. He would like to lose weight. 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 Review of systems: As above. Physical Exam Physical Exam: Gen.: No acute distress. Alert and oriented. HEENT: Anicteric sclera. Neck: Thick neck, but no appreciable JVD. Cardiac: No ventricular heave. Regular. No ectopy. Normal S1-S2. No murmurs, rubs, or gallops. Pulmonary: Clear to auscultation bilaterally without wheezes, rales, or rhonchi. Abdomen: Soft, nontender, nondistended, with normoactive bowel sounds. No bruits noted. Extremities: Right radial cath site is clean, dry, and intact without erythema or discharge. 2+ right radial pulse. 2+ posterior tibialis pulses bilaterally. No edema or cyanosis. Psychiatric: Affect appears appropriate. Results & Data ([facility]) Vital Signs (Past 12 Hours) Vital Signs Temp Pulse Pulse Resp BP Pulse Ox 04/24/20 07:30 74 04/24/20 06:57 36.7 C 70 16 154/74 H 94 04/24/20 04:07 36.9 C 80 20 151/70 H 97 04/23/20 23:15 36.9 C 75 18 157/86 H 94 Laboratory Results Laboratory Results - last 24 hr 04/23/20 04/23/20 04/23/20 12:34 17:26 20:26 Sodium Potassium Chloride Carbon Dioxide Anion Gap BUN Creatinine Est Cr Clr Drug Dosing Est GFR ( Amer) Est GFR (Non-Af Amer) BUN/Creatinine Ratio Glucose POC Glucose 132 H 101 H 124 H Calcium Magnesium 04/24/20 04/24/20 07:32 07:33 Sodium 138 Potassium 3.9 Chloride 109 H Carbon Dioxide 25 Anion Gap 5.0 BUN 16 Creatinine 0.80 Est Cr Clr Drug Dosing 193.2 Est GFR ( Amer) 134.1 Est GFR (Non-Af Amer) 115.7 BUN/Creatinine Ratio 20.4 H Glucose 126 H POC Glucose 113 H Calcium 8.9 Magnesium 2.2 Diagnostic Findings Cardiac catheterization 04/23/2020: Coronary angiography: 1. Left main coronary artery: No significant CAD. 2. Left anterior descending: LAD extends to the apex. Large-caliber. Mid LAD sequential 30 to 40% and 30% stenosis. Large D1 and medium caliber D2 without significant CAD. 3. Circumflex: The circumflex is a large-caliber vessel proximally to mid circumflex. Distally, the circumflex extends as a small caliber vessel. Large OM with proximal 50 to 60% stenosis. FLORES-3 flow. 4. Right coronary artery: RCA is large and dominant. mid RCA 20 to 30%. Distal RCA 20%. Proximal PL 20%. PL and PDA are large caliber vessels. Left heart catheterization: 1. Left ventriculography was not performed. 2. Mildly elevated LVEDP; 18 mmHg. 3. No significant aortic stenosis. Peak to peak gradient across the aortic valve was < 5 mmHg. FFR of circumflex/OM lesion: Nonobstructive moderate mid circumflex stenosis (FFR 0.85). Telemetry personally reviewed: Sinus rhythm. Medications Administered Current Inpatient Medications Acetaminophen (Tylenol) 650 mg PO Q4H PRN PRN Reason: Pain or Fever Stop: 05/22/20 05:28 Last Admin: 04/24/20 05:26 Dose: 650 mg Documented by: Albuterol (Ventolin 0.083% 2.5mg/3ml) 2.5 mg NEB Q6R PRN PRN Reason: Shortness Of Breath Or Wheezing Stop: 05/22/20 15:38 Aspirin (Ecotrin Ectab) 81 mg PO QAM [facility] Stop: 05/23/20 08:59 Last Admin: 04/24/20 08:33 Dose: 81 mg Documented by: Atorvastatin Calcium (Lipitor) 40 mg PO HS [facility] Stop: 05/22/20 20:59 Last Admin: 04/23/20 20:54 Dose: 40 mg Documented by: Cyclobenzaprine HCl (Flexeril) 5 mg PO TID PRN PRN Reason: Muscle Spasticity Stop: 05/22/20 05:28 Dextrose (Dextrose 50%) 25 - 50 ml IV UD PRN; Protocol PRN Reason: Hypoglycemia Protocol Stop: 05/22/20 08:59 Enoxaparin Sodium (Lovenox) 40 mg SQ QAM [facility] Stop: 05/22/20 08:59 Last Admin: 04/24/20 08:38 Dose: 40 mg Documented by: Glucagon (Glucagen) 1 mg SQ UD PRN; Protocol PRN Reason: Hypoglycemia Protocol Stop: 05/22/20 08:59 Glucose (Dex4 Glucose) 4 - 8 tabs PO UD PRN; Protocol PRN Reason: Hypoglycemia Protocol Stop: 05/22/20 08:59 Glucose (Glucose 40%) 15 - 30 gm PO UD PRN; Protocol PRN Reason: Hypoglycemia Protocol Stop: 05/22/20 08:59 Promethazine HCl 12.5 mg/ (Sodium Chloride) 50.5 mls @ 202 mls/hr IV Q6H PRN PRN Reason: Nausea And Vomiting Stop: 05/22/20 05:28 Lorazepam (Ativan) 0.5 mg in 1 mls @ 1 mls/min IV Q4H PRN PRN Reason: Anxiety/Agitation Stop: 05/22/20 05:28 Insulin Aspart (Novolog Flexpen) 0 units SC ACHS [facility] Stop: 05/22/20 11:29 Last Admin: 04/24/20 08:34 Dose: 6 units Documented by: Insulin Glargine (Lantus Solostar Pen) 5 units SC BID [facility] Stop: 05/22/20 08:59 Last Admin: 04/24/20 08:33 Dose: 5 units Documented by: Lisinopril (Zestril) 30 mg PO QAM [facility] Stop: 05/23/20 08:59 Last Admin: 04/24/20 08:33 Dose: 30 mg Documented by: Metformin HCl (Glucophage) 500 mg PO BIDM [facility] Stop: 05/24/20 16:59 Miscellaneous (Remove Nicoderm Patch) 1 ea N/A DAILY@0859 [facility] Stop: 05/22/20 08:58 Last Admin: 04/24/20 05:26 Dose: 1 ea Documented by: Miscellaneous (Carbohydrates For Hypoglycemia) 15 - 30 gm PO UD PRN PRN Reason: Hypoglycemia Protocol Stop: 05/22/20 08:59 Morphine Sulfate (Morphine Sulfate) 4 mg IV Q4H PRN PRN Reason: Pain Stop: 05/06/20 05:28 Nicotine (Nicoderm Cq) [address] [facility] Stop: 05/22/20 08:59 Last Admin: 04/24/20 05:26 Dose: 21 mg Documented by: Nicotine Polacrilex (Nicorette 2mg) 1 piece MT Q1H PRN PRN Reason: smoking urge Stop: 05/22/20 04:56 Nitroglycerin (Nitrostat) 0.4 mg SL UD PRN PRN Reason: Chest Pain Stop: 05/22/20 05:28 Nitroglycerin (Nitro-Bid 2%) 1 inch EXT ONCE PRN PRN Reason: For SBP > 170 on repeat test Tramadol HCl (Ultram) 25 - 50 mg PO Q4H PRN PRN Reason: Pain Stop: 05/22/20 05:28 PG Care Time/CCT Total # of Minutes Spent Total Time Spent with Patient: Total time spent is greater than 50% in coordination of care (as documented) at patient's floor/unit and/or counseling patient: Coding Level of Care Code 95146 Subseq Hosp Care Lvl 3 Diagnoses Chest pain R07.9 Chest pain type: unspecified Abnormal nuclear stress test R94.39 Hypertensive urgency I16.0 Dyslipidemia E78.5 Hypertension I10 Tobacco abuse Z72.0 Near syncope R55 (1) Chest pain Chest pain type: unspecified Qualified Code(s): R07.9 - Chest pain, unspecified
--- NOTE | 2020-04-24 12:00 | Hospitalist Progress Note ---
Date of Service April 24, 2020 Assessment & Plan (1) Hypertensive crisis: Atypical Chest Pain with paresthesia involving left upper extremity Risk factors: HTN, HLP, Tobacco use disorder, DM II, Obesity, +Family history Serial troponins and EKGs have been negative for any ACS ECHO: Normal LV size and systolic function, EF 65 to 70% without any wall motion abnormalities but moderate concentric LV hypertrophy. No significant valvular abnormalities. Normal estimated right ventricular systolic pressure. Appreciate cardiology input and recommendation Positive nuclear stress test and will need cardiac cath to evaluate CAD further Will need full admission Status post cardiac cath with unremarkable coronaries-did not require any PCI/intervention Remains free of symptoms we will discharge home this afternoon Hypertensive Urgency CT head:No acute intracranial findings. 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 DVT Px: Lovenox SQ Code Status Full code We will discharge home this afternoon Admission and Anticipated Discharge Date Admission Date: April 22, 2020 Subjective The patient was seen and examined in telemetry unit He is morbidly obese with history of diabetes, bronchial asthma, BHASKAR on CPAP with ongoing tobacco abuse was admitted with hypertensive crisis and noted to have chest pain Status post positive nuclear stress test today and will need to have cardiac cath He does not have any significant complaints following that nuclear stress test today that is 04/23/2020 04/24/2020 Patient was seen and examined in telemetry unit He denies any symptoms as of today noting to be discharged He is a status post cardiac cath with unremarkable coronaries on 04/23/2020 Review of Systems Review of Systems: All systems reviewed and are unremarkable except as noted below Constitutional: no fatigue Physical Exam Physical Exam: Lying in bed comfortably Constitutional: + morbidly obese; no acute distress and not ill appearing Eyes: PERRL, conjunctivae normal, anicteric sclerae ENMT: external ear and nose normal, oropharynx normal Neck: trachea midline, no thyromegaly Respiratory: no respiratory distress Auscultation: lungs clear to auscultation bilaterally and + diminished lung sounds (At the bases) Cardiovascular: Rate/Rhythm: regular rate and regular rhythm Heart Sounds: no murmur Extremities: + edema (1+ bilateral) Gastrointestinal (Abdomen): Inspection/Auscultation: + abdomen distended and normal bowel sounds Percussion/Palpation: abdomen soft; abdomen nontender Musculoskeletal: No acute arthritis involving any joints Neurologic: Alert, awake and oriented x3 Results & Data Results & Data ([facility]) Vital Signs (Past 12 Hours) Vital Signs Temp Pulse Pulse Resp BP Pulse Ox 04/24/20 07:30 74 04/24/20 06:57 36.7 C 70 16 154/74 H 94 04/24/20 04:07 36.9 C 80 20 151/70 H 97 Laboratory Results [facility] 04/24/20 07:32 Sodium 138 Potassium 3.9 Chloride 109 H Carbon Dioxide 25 BUN 16 Creatinine 0.80 Glucose 126 H Calcium 8.9 Medications Administered Current Inpatient Medications Acetaminophen (Tylenol) 650 mg PO Q4H PRN PRN Reason: Pain or Fever Stop: 05/22/20 05:28 Last Admin: 04/24/20 05:26 Dose: 650 mg Documented by: Albuterol (Ventolin 0.083% 2.5mg/3ml) 2.5 mg NEB Q6R PRN PRN Reason: Shortness Of Breath Or Wheezing Stop: 05/22/20 15:38 Aspirin (Ecotrin Ectab) 81 mg PO QAM [facility] Stop: 05/23/20 08:59 Last Admin: 04/24/20 08:33 Dose: 81 mg Documented by: Atorvastatin Calcium (Lipitor) 40 mg PO HS [facility] Stop: 05/22/20 20:59 Last Admin: 04/23/20 20:54 Dose: 40 mg Documented by: Cyclobenzaprine HCl (Flexeril) 5 mg PO TID PRN PRN Reason: Muscle Spasticity Stop: 05/22/20 05:28 Dextrose (Dextrose 50%) 25 - 50 ml IV UD PRN; Protocol PRN Reason: Hypoglycemia Protocol Stop: 05/22/20 08:59 Enoxaparin Sodium (Lovenox) 40 mg SQ QAM [facility] Stop: 05/22/20 08:59 Last Admin: 04/24/20 08:38 Dose: 40 mg Documented by: Glucagon (Glucagen) 1 mg SQ UD PRN; Protocol PRN Reason: Hypoglycemia Protocol Stop: 05/22/20 08:59 Glucose (Dex4 Glucose) 4 - 8 tabs PO UD PRN; Protocol PRN Reason: Hypoglycemia Protocol Stop: 05/22/20 08:59 Glucose (Glucose 40%) 15 - 30 gm PO UD PRN; Protocol PRN Reason: Hypoglycemia Protocol Stop: 05/22/20 08:59 Promethazine HCl 12.5 mg/ (Sodium Chloride) 50.5 mls @ 202 mls/hr IV Q6H PRN PRN Reason: Nausea And Vomiting Stop: 05/22/20 05:28 Lorazepam (Ativan) 0.5 mg in 1 mls @ 1 mls/min IV Q4H PRN PRN Reason: Anxiety/Agitation Stop: 05/22/20 05:28 Insulin Aspart (Novolog Flexpen) 0 units SC ACHS [facility] Stop: 05/22/20 11:29 Last Admin: 04/24/20 08:34 Dose: 6 units Documented by: Insulin Glargine (Lantus Solostar Pen) 5 units SC BID [facility] Stop: 05/22/20 08:59 Last Admin: 04/24/20 08:33 Dose: 5 units Documented by: Lisinopril (Zestril) 30 mg PO QAM [facility] Stop: 05/23/20 08:59 Last Admin: 04/24/20 08:33 Dose: 30 mg Documented by: Metformin HCl (Glucophage) 500 mg PO BIDM [facility] Stop: 05/24/20 16:59 Miscellaneous (Remove Nicoderm Patch) 1 ea N/A DAILY@0859 [facility] Stop: 05/22/20 08:58 Last Admin: 04/24/20 05:26 Dose: 1 ea Documented by: Miscellaneous (Carbohydrates For Hypoglycemia) 15 - 30 gm PO UD PRN PRN Reason: Hypoglycemia Protocol Stop: 05/22/20 08:59 Morphine Sulfate (Morphine Sulfate) 4 mg IV Q4H PRN PRN Reason: Pain Stop: 05/06/20 05:28 Nicotine (Nicoderm Cq) 21 mg TD QAM [facility] Stop: 05/22/20 08:59 Last Admin: 04/24/20 05:26 Dose: 21 mg Documented by: Nicotine Polacrilex (Nicorette 2mg) 1 piece MT Q1H PRN PRN Reason: smoking urge Stop: 05/22/20 04:56 Nitroglycerin (Nitrostat) 0.4 mg SL UD PRN PRN Reason: Chest Pain Stop: 05/22/20 05:28 Nitroglycerin (Nitro-Bid 2%) 1 inch EXT ONCE PRN PRN Reason: For SBP > 170 on repeat test Tramadol HCl (Ultram) 25 - 50 mg PO Q4H PRN PRN Reason: Pain Stop: 05/22/20 05:28
[2020-04-24] MEDS ORDERED: METFORMIN HCL 500 MG TAB PO SCH (17:00)
--- NOTE | 2020-04-25 07:41 | Discharge Summary ---
Date of Service April 25, 2020 Admission HPI Per Admitting Provider HPI : History obtained from patient, family, and records. Medical history significant for hypertension, DM 2 diet-controlled, bronchial asthma, BHASKAR on CPAP, diverticulosis, medical treatment noncompliance as per records, chronic anemia (baseline hemoglobin of 12), ongoing tobacco abuse Last confinement September 2016 for recurrent diverticulitis, SBO resolved with nonoperative management. Patient's blood pressure at home the last 3 days noted to be higher than usual SBP 180s as per patient . Patient only takes home lisinopril as needed. No unusual stress at home, no NSAID intake. Compliant with CPAP mask. 2 nights ago, patient woke up with generalized achy headache symptoms different from his migraine attack and chest heaviness as if somebody was sitting on his chest. No cough symptoms. Chest discomfort improved following ASA administration by EMS. At the ER, near syncopal event when patient tried to get up from bed. SBP 200s after orthostatic vitals performed at the ER. No central PE on CT chest. T wave abnormalities noted on EKG. First set troponin 0.0 15. Patient refused admission and left AGAINST MEDICAL ADVICE due to unavailability of private room at time of admission. At home intermittent achy chest discomfort symptoms more on the right side along with persistent headache. Some nausea, no vomiting. Patient directed by PCP to the ER. MEDICAL HISTORY: As above. SURGERIES: Urologic procedures, appendectomy, ear tube placement FAMILY HISTORY: Heart disease. Lung cancer, diabetes PERSONAL AND SOCIAL HISTORY: 1 pack daily . 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 Exam Per Admitting Provider Physical Exam: GENERAL: Comfortable, morbidly obese, no respiratory distress SKIN: Normal color, warm HEENT: Bespectacled, pink palpebral conjunctivae, no ptosis, moist buccal mucosa NECK : Supple, short neck, no tenderness CHEST : Decreased breath sounds , no tenderness HEART : RRR, no obvious murmurs ABDOMEN: Some distention, nontender EXTREMITIES : Minimal LE swelling, no LE tenderness, no other conspicuous deformities noted NEUROLOGIC : Coherent, upper lip symmetry on talking (chronic as per ), no other gross focality Principal Diagnosis Chest pain-no ACS and unremarkable cardiac cath, hypertensive crisis, diabetes type 2, BHASKAR 1 CPAP, tobacco abuse Discharge Exam Constitutional + morbidly obese; no acute distress and not ill appearing Eyes PERRL, conjunctivae normal, anicteric sclerae ENMT external ear and nose normal, oropharynx normal Neck trachea midline, no thyromegaly Respiratory no respiratory distress Auscultation: lungs clear to auscultation bilaterally and + diminished lung sounds (At the bases) Cardiovascular Rate/Rhythm: regular rate and regular rhythm Heart Sounds: no murmur Extremities: + edema (1+ bilateral) Gastrointestinal (Abdomen) Inspection/Auscultation: + abdomen distended and normal bowel sounds Percussion/Palpation: abdomen soft; abdomen nontender Discharge Data Allergies Allergy/AdvReac Type Severity Reaction Status Date / Time No Known Allergies Allergy Verified 04/21/20 23:24 Consultations 04/22/20 01:43 ED Decision to Admit Stat 04/22/20 05:29 Consult Cardiology Routine Procedures Performed Operation Date: 04/23/20 15:00 Actual Procedures s Cineradiography w/Routine Exam - Donnie Rae MD p Cath, Left with Cors and Vent - Andrae Forbes MD s Fraction Flow [place] SGL Ves - Donnie Rae MD Ordered Studies 04/22/20 02:27 CT head/brain wo con Urgent 04/23/20 15:15 CL Cath Imgs for PACS use only Routine Hospital Course (1) Hypertensive crisis: Atypical Chest Pain with paresthesia involving left upper extremity Risk factors: HTN, HLP, Tobacco use disorder, DM II, Obesity, +Family history Serial troponins and EKGs have been negative for any ACS ECHO: Normal LV size and systolic function, EF 65 to 70% without any wall motion abnormalities but moderate concentric LV hypertrophy. No significant valvular abnormalities. Normal estimated right ventricular systolic pressure. Appreciate cardiology input and recommendation Positive nuclear stress test and will need cardiac cath to evaluate CAD further Will need full admission Status post cardiac cath with unremarkable coronaries-did not require any PCI/intervention Remains free of symptoms we will discharge home this afternoon Hypertensive Urgency CT head:No acute intracranial findings. Lisinopril dose increased to 30mg daily Blood pressure remains stable Beta-glen has been added DM II Currently not on any Patient states that he is unaware of being diabetic in the past Hb A1C: 6.5 ISS while hospitalized Diabetic education Will start metformin 500 mg twice daily on discharge Asthma No signs of exacerbation Nebs PRN Chronic anemia Hb at baseline monitor Hypokalemia Replete electrolytes as needed Monitor -has been normalized BHASKAR on CPAP Ongoing tobacco abuse Nicotine patch Cold Strip Roller to quit DVT Px: Lovenox SQ Code Status Full code We will discharge home this afternoon Total Time Total Time Spent Total Time Spent (In Minutes): 35 minutes Total Time Includes: Examination of the Patient, Discharge Planning, Medication Reconciliation and Communication With Other Providers Discharge Plan Discharge Items Patient Disposition: Home - Self-Care Reason For Visit: CP, HTN CRISIS Discharge Diagnosis: Chest pain-no ACS and unremarkable cardiac cath, hypertensive crisis, diabetes type 2, BHASKAR 1 CPAP, tobacco abuse Condition on Discharge: Good Activity: Resume your previous activity Non-emergency contact: Primary Care Provider Call non-emergency contact if: you have any medication questions and your symptoms worsen Follow-up/Referrals: Coleman Hassan MD [Primary Care Provider] - 04/29/20 12:40 pm (04/29/2020 12:40 PM Provider Coleman Hassan MD [facility] Your cardiology office will call with an appointment ) Diet: Carb Consistent or DM2 and Heart Healthy Addtl Attending Provider Instructions: ACTIVITY RECOMMENDATIONS: Excess manipulation of the wrist should be avoided for the next 24-48 hours. * No lifting over 2 pounds (approximately a 1/2 gallon of milk) with the utilized arm for 24 hours. * No strenuous activity such as bowling or tennis for 3 days. * Keep the site of the procedure covered with a bandage for 24 hours. *You may shower the day after the procedure. Do not take a tub bath or submerge the puncture site in water for the next 3 days. *Do not operate any motorized equipment for 3 days. SPECIAL CARE INSTRUCTIONS: The site may be slightly bruised and sore following your procedure. Should any of the following occur, contact the Dr. who performed your procedure. 1. Redness/inflammation, swelling, chills, or fever, or colored drainage at procedure site within 3-7 days after your procedure. 2. Coldness, discoloration, ongoing numbness, severe pain, or swelling. Expect mild tingling of hand and tenderness at the puncture site for up to three days. If this persists beyond three days, or other symptoms develop, notify the Dr. who performed your procedure. BLEEDING: If the procedure site on your wrist begins to bleed, do not panic 1. Place 1 or 2 fingers firmly just slightly above the insertion site to stop the bleeding. You may be able to feel your pulse as you hold pressure. 2. Lift your finger after 5 minutes to see if the bleeding has stopped. 3. Once the bleeding has stopped, gently wipe the wrist area clean with a bandage. * If the bleeding from your wrist does not stop after 10 minutes, or if there is a large amount of bleeding or spurting, call 911 (do not drive yourself to the hospital). SKIN IRRITATION: * You may experience some redness and/or swelling in the area where radiation was administered. If any skin irritation occurs, please contact your family physician. FOLLOW UP VISIT: 1. Follow up with Dr. Forbes on 04/28/2020 at 0845 AM. Please show up 10-15 min early. Call [phone] with any questions or concerns. Pending Studies at Discharge: No Stand-Alone Forms: [facility], Smoking Cessation Medications and DC Order Prescriptions: New atorvastatin 40 mg Tablet 40 mg PO HS 30 Days Qty: 30 RF: 0 metformin [Glucophage] 500 mg Tablet 500 mg PO BIDM 30 Days Qty: 60 RF: 0 nicotine (polacrilex) [Nicorelief] 2 mg Gum 2 mg MT Q3H PRN (Reason: nicotine cravings) 30 Days Qty: 90 RF: 0 aspirin 81 mg Tablet,Delayed Release (Dr/Ec) 81 mg PO QAM 30 Days Qty: 30 RF: 0 lisinopril 10 mg Tablet 30 mg PO QAM 30 Days Qty: 90 RF: 0 nicotine [Nicoderm CQ] 21 mg/24 hr Patch 24 Hour 21 mg transdermal QAM 30 Days Qty: 30 RF: 0 nitroglycerin [Nitrostat] 0.4 mg Tablet, Sublingual 0.4 mg sublingual UD PRN (Reason: chest pain) 30 Days Qty: 30 RF: 0 metoprolol succinate 25 mg capsule,sprinkle,ER 24hr 25 mg PO DAILY Qty: 30 RF: 0 Continued dicyclomine 10 mg capsule 10 mg PO TID PRN (Reason: Abdominal Pain) RF: 0 cyclobenzaprine 5 mg tablet 5 mg PO TID PRN (Reason: Muscle Spasticity) RF: 0 Discontinued lisinopril 10 mg tablet 10 mg PO DAILY PRN (Reason: Hypertension) RF: 0 Discharge Orders: Discharge Order (Routine); Ordered 04/24/20 Ordered By: Spencer Cruz/Other Patient Handouts: Managing Type 2 Diabetes, Diabetes: The Benefits of Exercise, Diabetes: Meal Planning, Atorvastatin tablets, Metformin tablets, Metoprolol extended-release capsules, Aspirin ASA chewable tablets, Nitroglycerin sublingual tablets, Lisinopril tablets, A1C Admission Data Admit Date/Time: 04/22/20 03:02 Attending Provider: Spencer Hernandez Admit Provider: Chris Aj Primary Care Provider: Coleman Hassan Other Providers: Chris Aj ; Andrae Forbes ; Tyler Blanco Other Interventions: Discharge Summary Assessment (RN) Last Done: 04/24/20 12:19 DC Date/Time DO NOT enter until pt leaves facility: 04/24/20 12:58
== END 2020-04-24 12:58 | disposition home or self-care (01) ==
LOC: ED 23:21 → 2S 23:21 → SUATTDRO 04-22 03:02 → 2S 04-22 03:44

== ENCOUNTER 2023-04-03 21:58 | Inpatient (IN) ==
[2023-04-03] MEDS ORDERED: AMPICILLIN/SULBACTAM SOD 3,000 MG in 0.9 % SODIUM CHLORIDE 100 ML IV STA (22:47)
[2023-04-03] MEDS ORDERED: MoRPHine SULFATE 4 MG/ML 1 ML CARP\\VIAL IV STA (22:47)
[2023-04-03] MEDS ORDERED: SODIUM CHLORIDE 0.9% 1000ML 1,000 ML IV ONE (22:47)
[2023-04-03] MEDS ORDERED: ACETAMINOPHEN 1,000 MG/100 ML VIAL IV STA (22:47)
[2023-04-03 23:31] LABS: Basophils # (auto) 0.05 K/uL (0-0.2); Basophils % (auto) 0.4 %; Eosinophils # (auto) 0.41 K/uL (0-0.50); Hematocrit (blood only) 39.9 % (42.0-52.0); Hemoglobin 13.1 g/dl (14.0-18.0); Immature Granulocytes # (auto) 0.15 K/uL (0.01-0.20); Immature Granulocytes % (auto) 1.1 %; Lymphocytes # (auto) 2.71 K/uL (1.2-3.4); Lymphocytes % (auto) 19.6 %; Mean Corpuscular Hemoglobin 25.6 pg (25.0-34.0); Mean Corpuscular Hgb Conc 32.8 g/dL (32.0-36.0); Mean Corpuscular Volume 78.1 fL (80.0-100.0); Mean Platelet Volume 10.5 fL (9.4-12.4); Monocytes # (auto) 1.16 K/uL (0.11-0.59); Monocytes % (auto) 8.4 %; Neutrophils # (auto) 9.32 K/uL (1.40-6.50); Neutrophils % (auto) 67.5 %; Platelet Count 351 K/uL (130-400); RDW Coefficient of Variation 14.5 % (11.5-14.5); RDW Standard Deviation 40.7 fL (36.4-46.3); Red Blood Count 5.11 M/uL (4.70-6.10)
[2023-04-03 23:46] LABS: BUN Creatinine Ratio 20.3 (10-20); Calcium 8.8 mg/dl (8.6-10.3); Creatinine Clr Calc Pharmacy 192.9 ml/min; Est GFR (Non-African American) 113.9 ml/min; Potassium 3.8 mmol/L (3.5-5.1)
[2023-04-04] MEDS ORDERED: DOXYCYCLINE HYCLATE 100 MG in DEXTROSE 5% 100 ML IV STA (00:46)
[2023-04-04] MEDS ORDERED: METOPROLOL SUCC 50MG EXT REL TAB PO STA (00:47)
--- NOTE | 2023-04-04 01:01 | Emergency Department Note ---
Impression & Plan Cellulitis of groin, right, Abscess of groin, right ED Provider Note INFORMANT: Patient ED PROVIDER(S): Frederick Seay DO CHIEF COMPLAINT: Right groin cellulitis/abscess PLAN: Disposition: Admission Outpatient prescription management: [none] Discussion with: Hospital MEDICAL DECISION MAKING: This is a 38-year-old male who presents to the ED with a chief complaint of right groin abscess and cellulitis. The patient states that he noticed the symptoms a few days ago. He noticed swelling in his right groin. His states that she stuck a scalpel this morning and drained a significant mount of pus. Patient states that the area has become more painful and more swollen since the drainage of the pus. He also developed a fever. Came in for evaluation of this. The patient was induration noted swelling in the right groin area. I did use a bedside ultrasound that reveals a area of fluid. I stuck a needle in the fluid and it does appear to be mostly blood. I suspect the abscess that was drained may have hemorrhaged and filled the cavity with blood and perhaps a little bit of pus. The patient has a significant mount of tenderness in the area. Does not involve the scrotum. The patient's white blood cell count was 13.8. PRP was unremarkable for electrolyte abnormality or kidney dysfunction. Patient was started on IV Unasyn. He was given some IV Tylenol and some IV morphine for his discomfort. He was given some IV fluids. He will be seen by the hospitalist for further evaluation and care. He may need surgical intervention if antibiotics do not seem to be helping. Triage Nursing notes reviewed. Vital Signs: reviewed Prior /Outside records reviewed: [none] Differential diagnosis: Abscess, cellulitis, systemic infection Diagnostics, as interpreted by me: 12 lead ECG: [none] Cardiac Monitoring ordered: [none] Medical decision rules: [none] Imaging studies: Ultrasound of the groin: There is a fluid collection was noted. When the needle was stuck into this, it revealed mostly blood. Procedures: none. Critical care: none. HPI: See MDM above. PAST MEDICAL HISTORY: See Below PAST SURGICAL HISTORY: See Below SOCIAL HISTORY: See Below HOME MEDICATIONS:See Below ALLERGIES: See Below VITALS: See Below PHYSICAL EXAMINATION: See MDM for positive findings otherwise unremarkable. CONSTITUTIONAL/VITAL SIGNS: Reviewed GENERAL:done as appropriate INTEGUMENTARY: done as appropriate HEAD: done as appropriate EYES: done as appropriate RESPIRATORY: done as appropriate CARDIOVASCULAR:done as appropriate GI/ABDOMEN:done as appropriate EXTREMITIES: done as appropriate NEUROLOGICAL: done as appropriate PSYCHIATRIC:done as appropriate MUSCULOSKELETAL:done as appropriate TRIAGE NURSING DOCUMENTATION REVIEWED. Past Med/Surg History Medical History Basal cell adenoma CAD (coronary artery disease) F/U DR CUMMINGS Diabetes type 2, uncontrolled Dyslipidemia GERD (gastroesophageal reflux disease) History of COVID-2019, PCP office test, not hosp; mild symptoms>resolved. Hypertension Hypertensive urgency hx Kidney stones hx-PASSED ON OWN Migraine hx Morbid obesity Non compliance w medication regimen pt stated "he sometimes takes his medications, but then he will stop them for awhile and then pick back up when he feels like it" SBO (small bowel obstruction) tx medically Tobacco abuse Surgical History History of axillary surgery removal sweat gland bilat axilla History of cardiac cath 2019 NO [facility] Hx of appendectomy Hx of colonoscopy Family History Mother Diabetes Hypertension Coronary heart disease Father Cancer Social History Smoking Status: Current every day smoker Tobacco Type: Cigarettes Cigarettes Per Day: 20; Second Hand Exposure: No; Do You Dip or Chew Tobacco: No; Hx Alcohol Use: Yes Hx Substance Use: No Preferred Language: Egyptian Communication Ability: Effective Fresh Food Manager Required: No Beliefs That Will Affect Care: None marital status: Current Living Situation: Spouse and Family Current Living Situation Comment: LIVES WITH SPOUSE, 3 CHILDREN current occupational status: employed 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 Feels Safe at Home: Yes Assistive Devices: Glasses Allergies Allergies Allergy/AdvReac Type Severity Reaction Status Date / Time sulfamethoxazole Allergy Intermediate Rash Verified 04/03/23 22:51 [From Bactrim] trimethoprim [From Bactrim] Allergy Intermediate Rash Verified 04/03/23 22:51 Home Meds Home Medications Medication Instructions Recorded Confirmed dicyclomine 10 mg capsule 10 mg PO TID PRN Abdominal Pain 04/20/20 04/03/23 empagliflozin 25 mg tablet 25 mg PO QAM 06/28/21 04/03/23 (Jardiance) omeprazole 20 mg capsule,delayed 20 mg PO DAILY PRN 06/28/21 04/03/23 release HEARTBURN/INDIGESTION albuterol sulfate 90 mcg/actuation 2 puff inhalation Q4H PRN Wheezing 03/12/22 0 04/03/23 aerosol inhaler metoprolol succinate 50 mg 50 mg PO QAM 03/12/22 04/03/23 tablet,extended release 24 hr aspirin 81 mg tablet,delayed 81 mg PO DAILY 04/03/23 04/03/23 release Previous Rx's Medication Instructions Recorded lisinopril 30 mg tablet 30 mg PO QAM 30 days #90 tabs 04/28/20 atorvastatin 40 mg tablet 40 mg PO HS 90 days #90 tabs 05/20/20 nitroglycerin 0.4 mg sublingual 0.4 mg sublingual Q5M PRN chest 06/14/22 tablet (Nitrostat) pain #25 tabs Results & Data (ED) Vital Signs Vital Signs - 24 hr 04/03/23 22:09 04/04/23 00:12 04/04/23 00:27 Temperature 37.8 C H Temperature Source Temporal Artery Scan Pulse Rate 89 Pulse Rate [Right Finger] 84 Pulse Rhythm [Right Finger] Regular Pulse Strength [Right Finger] Normal Respiratory Rate 18 16 Respiratory Effort / Characteristics Non-Labored Spontaneous Non-Labored Spontaneous Respiratory Depth Normal Normal Respiratory Pattern Regular Blood Pressure 210/100 H Blood Pressure [Right Arm] 176/80 H Blood Pressure Mean 136 Blood Pressure Mean [Right Arm] 112 Blood Pressure Position [Right Arm] Lying Pulse Oximetry 99 91 89 L Oxygen Delivery Method Room Air Room Air Room Air Oxygen Flow Rate 0 Sepsis Recent Fever Within 48 Hours No Sepsis New/Unexplained Change in Mental Status No Sepsis Action Taken by Nursing No Action Required Oxygen Flow Rate - Titration 2 Pulse Oximetry Post Tiitration 96 Laboratory Data 04/03/23 23:05 04/03/23 23:05 Lab Results 04/03/23 04/03/23 Range/Units 23:05 23:05 WBC 13.80 H (4.8-10.8) K/ul RBC 5.11 (4.70-6.10) M/uL Hgb 13.1 L (14.0-18.0) g/dl Hct 39.9 L (42.0-52.0) % MCV 78.1 L (80.0-100.0) fL MCH 25.6 (25.0-34.0) pg MCHC 32.8 (32.0-36.0) g/dL RDW Std Deviation 40.7 (36.4-46.3) fL RDW Coeff of Ariana 14.5 (11.5-14.5) % Plt Count 351 (130-400) K/uL MPV 10.5 (9.4-12.4) fL Immature Gran % (Auto) 1.1 % Neut % (Auto) 67.5 % Lymph % (Auto) 19.6 % Franklin % (Auto) 8.4 % Eos % (Auto) 3.0 % Baso % (Auto) 0.4 % Neut # (Auto) 9.32 H (1.40-6.50) K/uL Lymph # (Auto) 2.71 (1.2-3.4) K/uL Franklin # (Auto) 1.16 H (0.11-0.59) K/uL Eos # (Auto) 0.41 (0-0.50) K/uL Baso # (Auto) 0.05 (0-0.2) K/uL Immature Gran # (Auto) 0.15 (0.01-0.20) K/uL Sodium 138 (136-145) mmol/L Potassium 3.8 (3.5-5.1) mmol/L Chloride 105 (98-107) mmol/L Carbon Dioxide 26 (21-32) mmol/L Anion Gap 7 (3-11) BUN 16 (6-23) mg/dl Creatinine 0.79 (0.6-1.4) mg/dl Est Cr Clr Drug Dosing 192.9 ml/min Est GFR ( Amer) 132.0 ml/min Est GFR (Non-Af Amer) 113.9 ml/min BUN/Creatinine Ratio 20.3 H (10-20) Glucose 154 H (70-99(Fasting)) mg/dl Calcium 8.8 (8.6-10.3) mg/dl Administered Medications Discontinued Medications Ampicillin Sodium/Sulbactam Sodium 3,000 mg/ Sodium Chloride 108 mls @ 200 m ls/hr IV NOW STA; Protocol Stop: 04/03/23 23:19 Last Admin: 04/04/23 00:06 Dose: 200 mls/hr Documented By: MUFFLER INSTALLER Sodium Chloride (Nss 1000ml) 1,000 mls @ 999 mls/hr IV .Q1H1M ONE Stop: 04/03/23 23:47 Last Admin: 04/03/23 23:14 Dose: 999 mls/hr Documented By: MUFFLER INSTALLER Acetaminophen (Ofirmev) 1,000 mg in 100 mls @ 400 mls/hr IV NOW STA Stop: 04/03/23 23:01 Last Infusion: 04/03/23 23:30 Dose: 0 mls/hr Documented By: MUFFLER INSTALLER Admin: 04/03/23 23:14 Dose: 400 mls/hr Documented By: MUFFLER INSTALLER Morphine Sulfate (Morphine Sulfate 4 Mg/Ml 1 Ml Carp\\Vial) 4 mg IV NOW STA Stop: 04/03/23 22:48 Last Admin: 04/03/23 23:13 Dose: 4 mg Documented By: MUFFLER INSTALLER Discharge Plan Visit Data Chief Complaint: Testicular Pain Stated Complaint: CYST ON TESTICLES, FEVER ED Provider: Frederick Seay Discharge Problem: Cellulitis of groin, right, Abscess of groin, right Patient Disposition: Being Evaluated by Hospitalist Forms Stand Alone Forms: [facility] [employer] Prescriptions Prescriptions: No Action atorvastatin 40 mg tablet 40 mg PO HS 90 Days Qty: 90 3RF Rx Instructions: PER PT'S SPOUSE "ONLY TAKES MEDICATIONS ON OCCASIONALLY". nitroglycerin [Nitrostat] 0.4 mg tablet, sublingual 0.4 mg sublingual Q5M PRN (Reason: chest pain) Qty: 25 1RF Rx Instructions: do not exceed 3 doses per episode lisinopril 30 mg tablet 30 mg PO QAM 30 Days Qty: 90 3RF Rx Instructions: PER PT'S SPOUSE "ONLY TAKES MEDICATIONS ON OCCASIONALLY". dicyclomine 10 mg capsule 10 mg PO TID PRN (Reason: Abdominal Pain) aspirin 81 mg Tablet,Delayed Release (Dr/Ec) 81 mg PO DAILY Rx Instructions: PER PT'S SPOUSE "ONLY TAKES MEDICATIONS ON OCCASIONALLY". omeprazole 20 mg capsule,delayed release(DR/EC) 20 mg PO DAILY PRN (Reason: HEARTBURN/INDIGESTION) Jardiance 25 mg tablet 25 mg PO QAM Rx Instructions: PER PT'S SPOUSE "ONLY TAKES MEDICATIONS ON OCCASIONALLY". metoprolol succinate 50 mg tablet extended release 24 hr 50 mg PO QAM Rx Instructions: PER PT'S SPOUSE "ONLY TAKES MEDICATIONS ON OCCASIONALLY". albuterol sulfate 90 mcg/actuation Hfa Aerosol Inhaler 2 puff INHALATION Q4H PRN (Reason: Wheezing) Referrals Referrals: Coleman Hassan MD [Primary Care Provider] -
[2023-04-04 01:07] LABS: Albumin Level 3.8 gm/dl (3.4-5.0); Bilirubin Direct 0.1 mg/dl (0-0.2); Bilirubin,Total 0.3 mg/dl (0.2-1.0); Magnesium 1.8 mg/dl (1.7-2.4); Total Protein 7.5 gm/dl (6.0-8.3)
--- NOTE | 2023-04-04 01:19 | Ultrasound Report ---
Exam(s): US ABDOMEN LIMITED EXAM: US Abdomen Limited, Lower Upper Quadrant CLINICAL HISTORY: Reason for exam: abscess/fluid collection rt groin area. TECHNIQUE: Real-time ultrasound of the right lower quadrant with image documentation. COMPARISON: CT scan from November 05, 2022 FINDINGS: Soft tissues: There is a 2 x 1.4 x 2.2 cm area of decreased echogenicity in the subcutaneous tissues of the right groin with absent Doppler blood flow consistent with an abscess. There is soft tissue edema over the right side of the scrotum consistent with cellulitis. Other findings: There is a 1.1 x 1.2 x 1 cm area of decreased density in the right testicle with associated hyperemia. No mass-effect is seen. Consider orchitis. There is a small right hydrocele. IMPRESSION: There is a 2 x 1.4 x 2.2 cm area of decreased echogenicity in the subcutaneous tissues of the right groin with absent Doppler blood flow consistent with an abscess. There is soft tissue edema over the right side of the scrotum consistent with cellulitis. There is a 1.1 x 1.2 x 1 cm area of decreased density in the right testicle with associated hyperemia. No mass-effect is seen. Consider orchitis. Electronically signed by: Carmine Wilson MD 04/04/23 01:18 AM
--- NOTE | 2023-04-04 01:33 | History & Physical Report ---
Date of Service April 04, 2023 Assessment & Plan (1) Asymptomatic hypertensive urgency: Plan: Multifactorial : Pain from right groin/scrotal abscess, patient septic Erratic medication compliance as per patient admission Anemia secondary to right groin bleed, hx manipulation/lancing at patient's home hx nonobstructive CAD Transient hypoxemic respiratory failure post narcotic administration DM 2 on oral medications, well-controlled as of hemoglobin A1c as of recent outpatient hemoglobin A1c of 6.3 last February 2023 BHASKAR on CPAP hx GERD, stable ongoing tobacco abuse Medical telemetry given BP elevation analgesia Facilitate home BP meds and titrate as needed CS, Doxycycline, Zosyn Urology consult Re: Right groin/scrotal abscess NPO until patient seen by urology in anticipation of procedure Appropriate to hold home aspirin for now given hemoglobin drop/groin abscess bleeding Follow H&H, recommend PRBC transfusion if hemoglobin less than 8 or for symptomatic anemia given CAD history (Patient currently refusing to sign blood consent.) Basal bolus insulin adjusted for n.p.o. status, ISS BG goal [id number] Nicotine patch DVT prophylaxis SCDs Re: Recent right groin abscess bleed with hemoglobin drop Full code Patient requesting updates from providers. Gayle Rubio, contact #[phone]. Text document was generated using [employer]Suite voice recognition software. It may contain grammatical or spelling errors. Kindly contact undersigned for clarification of any documentation item in question. History of Present Illness Chief Complaint: Fever, worsening right groin swelling Primary Care Provider: Coleman Hassan MD History obtained from patient, family, and records. Medical history significant for nonobstructive CAD, hypertension, DM 2 on oral medications, bronchial asthma, BHASKAR on CPAP, GERD, diverticulosis, medical treatment noncompliance as per records, ongoing tobacco abuse Last confinement April 2020 for hypertensive crisis secondary to medication noncompliance. 2 days ago, patient noted a swelling on his right groin which got worse after he manipulated it. Right groin swelling impeded patient's ability to ambulate. lanced groin swelling following patient's request yielding purulent bloody drainage. Initial improvement in swelling. Patient noted recurrence of painful right groin swelling going down the scrotum. Fever at home. Patient denies headache, chest pain, unusual shortness of breath/cough symptoms. Patient brought to ER for evaluation. Initial SBP at the ER 210s. Transient O2 sats 80s on room air noted at the ER post IV morphine administration. Bloody needle aspirate appreciated by ER provider from right groin swelling. Unasyn administered at the ER for sepsis. MEDICAL HISTORY: As above. SURGERIES: Urologic procedures, appendectomy, ear tube placement, adenoidectomy, axillary sweat gland removal for hydradenitis suppurativa/skin tissue rearrangement FAMILY HISTORY: Heart disease. Lung cancer, diabetes PERSONAL AND SOCIAL HISTORY: 1 pack daily . 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 Allergies Allergy/AdvReac Type Severity Reaction Status Date / Time sulfamethoxazole Allergy Intermediate Rash Verified 04/03/23 22:51 [From Bactrim] trimethoprim [From Bactrim] Allergy Intermediate Rash Verified 04/03/23 22:51 Home Medications Medication Instructions Recorded Confirmed Type dicyclomine 10 mg capsule 10 mg PO TID PRN Abdominal Pain 04/20/20 04/03/23 History lisinopril 30 mg tablet 30 mg PO QAM 30 days #90 tabs 04/28/20 04/03/23 Rx atorvastatin 40 mg tablet 40 mg PO HS 90 days #90 tabs 05/20/20 04/03/23 Rx empagliflozin 25 mg tablet 25 mg PO QAM 06/28/21 04/03/23 History (Jardiance) omeprazole 20 mg capsule,delayed 20 mg PO DAILY PRN 06/28/21 04/03/23 History release HEARTBURN/INDIGESTION albuterol sulfate 90 mcg/actuation 2 puff inhalation Q4H PRN Wheezing 03/12/22 04/03/23 History aerosol inhaler metoprolol succinate 50 mg 50 mg PO QAM 03/12/22 04/03/23 History tablet,extended release 24 hr nitroglycerin 0.4 mg sublingual 0.4 mg sublingual Q5M PRN chest 06/14/22 04/03/23 Rx tablet (Nitrostat) pain #25 tabs aspirin 81 mg tablet,delayed 81 mg PO DAILY 04/03/23 04/03/23 History release Past Med/Surg History Medical History Basal cell adenoma CAD (coronary artery disease) F/U DR CUMMINGS Diabetes type 2, uncontrolled Dyslipidemia GERD (gastroesophageal reflux disease) History of COVID-2019, PCP office test, not hosp; mild symptoms>resolved. Hypertension Hypertensive urgency hx Kidney stones hx-PASSED ON OWN Migraine hx Morbid obesity Non compliance w medication regimen pt stated "he sometimes takes his medications, but then he will stop them for awhile and then pick back up when he feels like it" SBO (small bowel obstruction) tx medically Tobacco abuse Surgical History History of axillary surgery removal sweat gland bilat axilla History of cardiac cath 2019 NO [facility]ENTS-[facility] Hx of appendectomy Hx of colonoscopy Family History Mother Diabetes Hypertension Coronary heart disease Father Cancer Social History Smoking Status: Current every day smoker Tobacco Type: Cigarettes Cigarettes Per Day: 20; Second Hand Exposure: No; Do You Dip or Chew Tobacco: No; Hx Alcohol Use: No Hx Substance Use: No Preferred Language: Sudanese Communication Ability: Effective Director Of Rehabilitative Services Required: No Beliefs That Will Affect Care: None marital status: Current Living Situation: Spouse Current Living Situation Comment: LIVES WITH SPOUSE, 3 CHILDREN current occupational status: employed 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 Feels Safe at Home: Declines to Answer Assistive Devices: Glasses Review of Systems Review of Systems: As per HPI, all other systems reviewed and negative Physical Exam Physical Exam: GENERAL: Slightly uncomfortable, morbidly obese, no respiratory distress SKIN: Normal color, warm HEENT: Bespectacled, pink palpebral conjunctivae, no ptosis, dry buccal mucosa, nasal cannula in place NECK : Supple, short neck, no tenderness CHEST : Decreased breath sounds, occasional expiratory wheezes, no tenderness HEART : RRR, no obvious murmurs ABDOMEN: Some distention, nontender, tender right groin swelling extending to the right scrotum EXTREMITIES : Minimal LE swelling, no LE tenderness, no other conspicuous deformities noted NEUROLOGIC : Coherent, no facial asymmetry, no other gross focality Results & Data Results & Data Vital Signs (Past 12 Hours) Vital Signs Temp Pulse Pulse Resp BP BP Pulse Ox 04/04/23 01:04 85 22 163/83 H 98 04/04/23 00:27 89 L 04/04/23 00:12 84 16 176/80 H 91 06/18/23 22:09 37.8 C H 89 18 210/100 H 99 O2 Del Method O2 Flow Rate 04/04/23 01:04 Nasal Cannula 3 04/04/23 00:27 Room Air 0 04/04/23 00:12 Room Air 04/03/23 22:09 Room Air Laboratory Results Laboratory Results WBC 13.80 K/ul (4.8-10.8) H 04/03/23 23:05 RBC 5.11 M/uL (4.70-6.10) 04/03/23 23:05 Hgb 13.1 g/dl (14.0-18.0) L 04/03/23 23:05 Hct 39.9 % (42.0-52.0) L 04/03/23 23:05 MCV 78.1 fL (80.0-100.0) L 04/03/23 23:05 MCH 25.6 pg (25.0-34.0) 04/03/23 23:05 MCHC 32.8 g/dL (32.0-36.0) 04/03/23 23:05 RDW Std Deviation 40.7 fL (36.4-46.3) 04/03/23 23:05 RDW Coeff of Ariana 14.5 % (11.5-14.5) 04/03/23 23:05 Plt Count 351 K/uL (130-400) 04/03/23 23:05 MPV 10.5 fL (9.4-12.4) 04/03/23 23:05 Immature Gran % (Auto) 1.1 % 04/03/23 23:05 Neut % (Auto) 67.5 % 04/03/23 23:05 Lymph % (Auto) 19.6 % 04/03/23 23:05 [place] % (Auto) 8.4 % 04/03/23 23:05 Eos % (Auto) 3.0 % 04/03/23 23:05 Baso % (Auto) 0.4 % 04/03/23 23:05 Neut # (Auto) 9.32 K/uL (1.40-6.50) H 04/03/23 23:05 Lymph # (Auto) 2.71 K/uL (1.2-3.4) 04/03/23 23:05 [place] # (Auto) 1.16 K/uL (0.11-0.59) H 04/03/23 23:05 Eos # (Auto) 0.41 K/uL (0-0.50) 04/03/23 23:05 Baso # (Auto) 0.05 K/uL (0-0.2) 04/03/23 23:05 Immature Gran # (Auto) 0.15 K/uL (0.01-0.20) 04/03/23 23:05 Sodium 138 mmol/L (136-145) 04/03/23 23:05 Potassium 3.8 mmol/L (3.5-5.1) 04/03/23 23:05 Chloride 105 mmol/L (98-107) 04/03/23 23:05 Carbon Dioxide 26 mmol/L (21-32) 04/03/23 23:05 Anion Gap 7 (3-11) 04/03/23 23:05 BUN 16 mg/dl (6-23) 04/03/23 23:05 Creatinine 0.79 mg/dl (0.6-1.4) 04/03/23 23:05 Est Cr Clr Drug Dosing 192.9 ml/min 04/03/23 23:05 Est GFR ( Amer) 132.0 ml/min 04/03/23 23:05 Est GFR (Non-Af Amer) 113.9 ml/min 04/03/23 23:05 BUN/Creatinine Ratio 20.3 (10-20) H 04/03/23 23:05 Glucose 154 mg/dl (70-99(Fasting)) H 04/03/23 23:05 Calcium 8.8 mg/dl (8.6-10.3) 04/03/23 23:05 Magnesium 1.8 mg/dl (1.7-2.4) 04/03/23 23:05 Total Bilirubin 0.3 mg/dl (0.2-1.0) 04/03/23 23:05 Direct Bilirubin 0.1 mg/dl (0-0.2) 04/03/23 23:05 AST 11 U/L (13-39) L 04/03/23 23:05 ALT 15 U/L (7-52) 04/03/23 23:05 Alkaline Phosphatase 94 U/L (34-104) 04/03/23 23:05 Total Protein 7.5 gm/dl (6.0-8.3) 04/03/23 23:05 Albumin 3.8 gm/dl (3.4-5.0) 04/03/23 23:05 SARS-CoV-2, RNA, NAAT NEGATIVE (NEGATIVE) 04/04/23 01:06 Impressions Abdomen Ultrasound 04/03/23 22:47 Exam(s): US ABDOMEN LIMITED EXAM: US Abdomen Limited, Lower Upper Quadrant CLINICAL HISTORY: Reason for exam: abscess/fluid collection rt groin area. TECHNIQUE: Real-time ultrasound of the right lower quadrant with image documentation. COMPARISON: CT scan from November 05, 2022 FINDINGS: Soft tissues: There is a 2 x 1.4 x 2.2 cm area of decreased echogenicity in the subcutaneous tissues of the right groin with absent Doppler blood flow consistent with an abscess. There is soft tissue edema over the right side of the scrotum consistent with cellulitis. Other findings: There is a 1.1 x 1.2 x 1 cm area of decreased density in the right testicle with associated hyperemia. No mass-effect is seen. Consider orchitis. There is a small right hydrocele. IMPRESSION: There is a 2 x 1.4 x 2.2 cm area of decreased echogenicity in the subcutaneous tissues of the right groin with absent Doppler blood flow consistent with an abscess. There is soft tissue edema over the right side of the scrotum consistent with cellulitis. There is a 1.1 x 1.2 x 1 cm area of decreased density in the right testicle with associated hyperemia. No mass-effect is seen. Consider orchitis. Electronically signed by: Carmine Wilson MD 04/04/23 01:18 AM Diagnostic Findings Chest x-ray as per my interpretation atelectasis
[2023-04-04] MEDS ORDERED: PIPERACILLIN/TAZOBACTAM 4.5 GM/120 ML BAG IV ONE (01:34)
[2023-04-04] MEDS ORDERED: PROMETHAZINE HCL 12.5 MG in SODIUM CHLORIDE 0.9% 50 ML IV PRN (01:40)
[2023-04-04] MEDS ORDERED: MoRPHine SULFATE 4 MG/ML 1 ML CARP\\VIAL IV PRN (01:40)
[2023-04-04] MEDS ORDERED: LORazepam 0.5 MG TAB PO PRN (01:40)
[2023-04-04] MEDS ORDERED: NICOTINE 21 MG/24 HR TDSY TD STA (01:47)
[2023-04-04] MEDS ORDERED: GLUCAGON FOR INJ 1 MG VIAL SQ PRN (03:39)
[2023-04-04] MEDS ORDERED: CARBOHYDRATES FOR HYPOGLYCEMIA PO PRN (03:39)
[2023-04-04] MEDS ORDERED: GLUCOSE 40% GEL 15 GM TUBE PO PRN (03:39)
[2023-04-04] MEDS ORDERED: PANTOprazole 40 MG TAB PO PRN (03:39)
[2023-04-04] MEDS ORDERED: DEXTROSE 50% 50 ML SYRINGE IV PRN (03:39)
[2023-04-04] MEDS ORDERED: GLUCOSE 10 TAB/TUBE PO PRN (03:39)
[2023-04-04] MEDS: oxyCODONE HCL IR 5 MG TAB (IMMEDIATE RELEASE) PO PRN (04:33)
[2023-04-04] MEDS: INSULIN ASPART PER UNIT CHARGE SC SCH ×5 (04:33→21:14)
[2023-04-04] MEDS: lisinopril 10 MG TAB PO SCH (06:21)
[2023-04-04] MEDS: ACETAMINOPHEN 325 MG TAB PO PRN (06:31)
[2023-04-04 06:47] LABS: Basophils # (auto) 0.07 K/uL (0-0.2); Basophils % (auto) 0.5 %; Eosinophils # (auto) 0.46 K/uL (0-0.50); Eosinophils % (auto) 3.5 %; Hematocrit (blood only) 38.3 % (42.0-52.0); Hemoglobin 12.5 g/dl (14.0-18.0); Immature Granulocytes # (auto) 0.17 K/uL (0.01-0.20); Immature Granulocytes % (auto) 1.3 %; Lymphocytes # (auto) 3.85 K/uL (1.2-3.4); Lymphocytes % (auto) 29.7 %; Mean Corpuscular Hemoglobin 25.7 pg (25.0-34.0); Mean Corpuscular Hgb Conc 32.6 g/dL (32.0-36.0); Mean Corpuscular Volume 78.8 fL (80.0-100.0); Mean Platelet Volume 10.5 fL (9.4-12.4); Monocytes # (auto) 1.05 K/uL (0.11-0.59); Monocytes % (auto) 8.1 %; Neutrophils # (auto) 7.36 K/uL (1.40-6.50); Neutrophils % (auto) 56.9 %; Platelet Count 331 K/uL (130-400); RDW Coefficient of Variation 14.4 % (11.5-14.5); RDW Standard Deviation 41.1 fL (36.4-46.3); Red Blood Count 4.86 M/uL (4.70-6.10); White Blood Count 12.96 K/ul (4.8-10.8)
[2023-04-04 07:02] LABS: BUN Creatinine Ratio 18.7 (10-20); Calcium 8.3 mg/dl (8.6-10.3); Creatinine Clr Calc Pharmacy 203.2 ml/min; Est GFR (African American) 134.9 ml/min; Est GFR (Non-African American) 116.4 ml/min; Potassium 3.8 mmol/L (3.5-5.1)
--- NOTE | 2023-04-04 07:12 | XRay Report ---
XR chest 1V portable HISTORY: 38 years-old Male low o2 acute hypoxia COMPARISON: Acute abdominal series radiographs 11/05/2022 TECHNIQUE: AP view of the chest FINDINGS: Cardiomediastinal and hilar silhouettes are within normal limits. Mild subsegmental bibasilar atelect asis. No pneumothorax, pleural effusion, airspace consolidation or pulmonary edema. IMPRESSION: No acute process. ACT 112: Negative or not required by law. The above report was generated using voice recognition software. It may contain grammatical, syntax o r spelling errors. Electronically signed by: Brian Wright M.D. 04/04/2023 7:11 AM
[2023-04-04] MEDS ORDERED: SODIUM CHLORIDE 0.9% 1000ML 1,000 ML IV ONE (07:30)
[2023-04-04] MEDS ORDERED: lisinopril 10 MG TAB PO SCH (09:00)
[2023-04-04] MEDS: PIPERACILLIN/TAZOBACTAM 4.5 GM in DEXTROSE 5% 100 ML IV SCH ×2 (09:00→18:03)
--- NOTE | 2023-04-04 09:47 | Urology Consultation ---
Date of Consultation April 04, 2023 Assessment & Plan (1) Abscess of groin, right: (2) Cellulitis of groin, right: 38 yo M admitted for abscess and cellulitis of right groin. Afebrile overnight. Labs - creatinine 0.75, WBC 12.96, Hgb 12.5. No UA or urine culture obtained to date. Treated with Unasyn on arrival. Blood cultures are pending - follow cultures. Currently on IV Unasyn and Doxycycline. US reviewed and notable for 2 x 1.4 x 2.2 cm abscess of right groin with soft tissue edema over the right side of the scrotum; also a 1.1 x 1.2 x 1 cm area of decreased density in the right testicle with associated hyperemia suggestive of orchitis. We discussed options for management including surgical incision and drainage of abscess in OR. Discussed antibiotics and monitoring. He would like to proceed with surgical intervention. - Will proceed to OR for incision and drainage of right groin abscess today. - Risks and benefits of procedure to be reviewed with patient by Dr. Dorantes. - Keep NPO for procedure. - OR notified. - Will cover with scheduled IV Unasyn preoperatively. - Continue antibiotics, supportive care, and medical management per hospital medicine. Attending note: Patient independently assessed, examined, evaluated, and interviewed. Agree with note as above. Imaging was reviewed interpreted by myself. Ultrasound is showing a fluid collection in the groin concerning for possible abscess. Patient has significant induration and some mild fluctuation on exam. Having considerable tenderness and discomfort. Increasing in severity. Has failed attempted drainage on his own. No spontaneous drainage. Had undergone a attempted drainage by family over the weekend with failed results. Also attempted aspiration by the ER last evening which did not have any significant interval improvement of issues. Discussed extensively options. Discussed concerns for cellulitis and developing of increasing infection and possible issues such as development of more significant infection of the skin. Discussed possible mixed tavon. Discussed need for antibiotics and management. Discussed surgical excision and drainage with plans for packing and management of fluid cavity and abscess. Discussed management for long-term with possible need for antibiotic treatment depending on culture. Discussed further management and other concerns and issues. Discussed patient's current findings. Vitals are currently stable. Blood pressure 138/76 pulse 63 temperature has been afebrile with temp 36.7. Patient had undergone lab work and assessment. White count has been elevated at 12.96. Creatinine 0.75. Hemoglobin was 12.5. All labs were reviewed. Pertinent values found in the HPI or in the plan section as follows. Imaging have been reviewed interpreted by myself. Please see the note above. Patient's complicated medical and surgical history is reviewed and summarized above. Patient did previously see one of the urologist in [facility] Dr. Wilhelm at that time was dealing with issues related to epididymitis. No major skin infections in the past. No known history of significant MRSA infections. Discussed need for intervention and management. Discussed options such as bedside versus in OR. Discussed incision and drainage and washout with likely packing. Discussed need for wound care. We will plan to have wound care nurse assessment to set up outpatient management and local wound care management. We will plan to monitor patient. Patient is on broad-spectrum antibiotics and supportive care. Risks and benefits discussed at length for procedure. These include bleeding, infection, injury to surrounding tissues or organs, and risks associated with anesthesia. Patient states understanding and agrees to proceed. Will sign consent and proceed. Plan for incision and drainage of right scrotal/groin abscess. History of Present Illness Reason for Consultation: R groin/scrotal swelling Attending Physician: Jose Dhillon MD History of Present Illness This is a 38-year-old male with past medical history of CAD, dyslipidemia, type 2 diabetes, hypertension, kidney stones, morbid obesity and tobacco abuse who presented to the emergency department on 04/04/23 with complaint of swelling and pain in his right groin. Prior to arrival, patient's used a scalpel to drain the area at home with return of significant amount of purulent material. He subsequently developed fever and worsening pain and swelling prompting him to present to the ED for evaluation. On arrival to ED, temp was 37.8 and he was hypertensive (210/100). Lab work reviewedcreatinine 0.79, WBC 13.8, hemoglobin 13.1. Ultrasound abdomen limited performed and showed a 2 x 1.4 x 2.2 cm area of decreased echogenicity in the subcutaneous tissues of the right groin consistent with abscess, soft tissue edema over the right side of the scrotum consistent with cellulitis. Also noted a 1.1 x 1.2 x 1 cm area of decreased density in the right testicle with associated hyperemia suggestive of orchitis. ED physician performed needle aspiration of fluid collection with return of bloody drainage. He was treated with IV Unasyn, IV fluids, acetaminophen and morphine in the ED. He was admitted to the hospital medicine service. Urology is consulted for right g roin/scrotal swelling. Chart review: Afebrile overnight, today's labscreatinine 0.75, WBC 12.96, hemoglobin 12.5. Blood cultures are pending. Currently on IV Unasyn and doxycycline. Patient seen and examined at bedside this morning. He was resting in bed with BiPAP in place. He arouses easily to his name. He reports discomfort in right groin and scrotum. Voiding without difficulty. Denies nausea, vomiting, fever or chills at present. No chest pain or shortness of breath. He is currently NPO. He has previously seen a urologist for history of kidney stones. Reports history of lithotripsy approximately 20 years ago. Allergies Allergy/AdvReac Type Severity Reaction Status Date / Time sulfamethoxazole Allergy Intermediate Rash Verified 04/03/23 22:51 [From Bactrim] trimethoprim [From Bactrim] Allergy Intermediate Rash Verified 04/03/23 22:51 Home Medications Medication Instructions Recorded Confirmed Type dicyclomine 10 mg capsule 10 mg PO TID PRN Abdominal Pain 04/20/20 04/03/23 History lisinopril 30 mg tablet 30 mg PO QAM 30 days #90 tabs 04/28/20 04/03/23 Rx atorvastatin 40 mg tablet 40 mg PO HS 90 days #90 tabs 05/20/20 04/03/23 Rx empagliflozin 25 mg tablet 25 mg PO QAM 06/28/21 04/03/23 History (Jardiance) omeprazole 20 mg capsule,delayed 20 mg PO DAILY PRN 06/28/21 04/03/23 History release HEARTBURN/INDIGESTION albuterol sulfate 90 mcg/actuation 2 puff inhalation Q4H PRN Wheezing 03/12/22 04/03/23 History aerosol inhaler metoprolol succinate 50 mg 50 mg PO QAM 03/12/22 04/03/23 History tablet,extended release 24 hr nitroglycerin 0.4 mg sublingual 0.4 mg sublingual Q5M PRN chest 06/14/22 04/03/23 Rx tablet (Nitrostat) pain #25 tabs aspirin 81 mg tablet,delayed 81 mg PO DAILY 04/03/23 04/03/23 History release Patient History Medical History Basal cell adenoma CAD (coronary artery disease) F/U DR CUMMINGS Diabetes type 2, uncontrolled Dyslipidemia GERD (gastroesophageal reflux disease) History of COVID-2019, PCP office test, not hosp; mild symptoms>resolved. Hypertension Hypertensive urgency hx Kidney stones hx-PASSED ON OWN Migraine hx Morbid obesity Non compliance w medication regimen pt stated "he sometimes takes his medications, but then he will stop them for awhile and then pick back up when he feels like it" SBO (small bowel obstruction) tx medically Tobacco abuse Surgical History History of axillary surgery removal sweat gland bilat axilla History of cardiac cath 2019 NO [facility]ENTS-[facility] Hx of appendectomy Hx of colonoscopy Family History Mother Diabetes Hypertension Coronary heart disease Father Cancer Social History Smoking Status: Current every day smoker Tobacco Type: Cigarettes Cigarettes Per Day: 20; Second Hand Exposure: No; Do You Dip or Chew Tobacco: No; Hx Alcohol Use: No Hx Substance Use: No Preferred Language: Bhutanese Communication Ability: Effective Blueprint Trimmer Required: No Beliefs That Will Affect Care: None marital status: Current Living Situation: Spouse Current Living Situation Comment: LIVES WITH SPOUSE, 3 CHILDREN current occupational status: employed 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 Feels Safe at Home: Declines to Answer Assistive Devices: Glasses Review of Systems Review of Systems: All systems reviewed & are unremarkable except as noted in HPI & below Physical Exam Constitutional: + morbidly obese; no acute distress Respiratory: Bipap in place Cardiovascular: Rate/Rhythm: regular rate Gastrointestinal (Abdomen): Percussion/Palpation: abdomen soft Musculoskeletal: Head/Neck/Chest: normocephalic Neurologic: moves all extremities and awake Psychiatric: Orientation: alert and oriented x 3 Genitourinary: Tender to palpation medial to the right inguinal fold with moderate swelling, erythema and area of induration noted. No drainage. No crepitus. Tender to palpation at right scrotum with some edema and erythema noted. Results & Data Vital Signs (Past 12 Hours) Vital Signs Temp Pulse Pulse Resp BP BP Pulse Ox 04/04/23 07:30 65 18 97 04/04/23 07:27 36.7 C 68 18 142/69 H 95 04/04/23 03:20 73 24 92 04/04/23 05:02 04/04/23 03:39 36.8 C 73 16 172/91 H 92 04/04/23 03:05 36.9 C 76 20 165/98 H 97 04/04/23 01:04 85 22 163/83 H 98 04/04/23 00:27 89 L 04/04/23 00:12 84 16 176/80 H 91 04/03/23 22:09 37.8 C H 89 18 210/100 H 99 O2 Del Method O2 Flow Rate 04/04/23 07:30 04/04/23 07:27 BiPAP 04/04/23 03:20 04/04/23 05:02 Room Air, CPAP 04/04/23 03:39 Room Air 04/04/23 03:05 Room Air 04/04/23 01:04 Nasal Cannula 3 04/04/23 00:27 Room Air 0 04/04/23 00:12 Room Air 04/03/23 22:09 Room Air PG Care Time/CCT Total # of Minutes Spent Total Time Spent with Patient: Total time spent is greater than 50% in coordination of care (as documented) at patient's floor/unit and/or counseling patient: Coding Level of Care Code 13878 IN/OBS CONSULT LVL 4,60M Diagnoses Abscess of groin, right L02.214 Cellulitis of groin, right L03.314 Time Spent (min) 60
[2023-04-04] MEDS: NICOTINE 21 MG/24 HR TDSY TD SCH (10:26)
--- NOTE | 2023-04-04 10:34 | Hospitalist Progress Note ---
Date of Service April 04, 2023 Assessment & Plan (1) Abscess of groin, right: (2) Cellulitis of scrotum: (3) Diabetes type 2, uncontrolled: (4) Hypertension: (5) Morbid obesity: (6) BHASKAR treated with BiPAP: Plan 38-year-old male with history of diabetes, hypertension, morbid obesity, BHASKAR on BiPAP admitted with right groin/scrotal cellulitis and abscess US- There is a 2 x 1.4 x 2.2 cm area of decreased echogenicity in the subcutaneous tissues of the right groin with absent Doppler blood flow consistent with an abscess. There is soft tissue edema over the right side of the scrotum consistent with cellulitis. There is a 1.1 x 1.2 x 1 cm area of decreased density in the right testicle with associated hyperemia. No mass-effect is seen. Consider orchitis. A/P: Right groin/scrotal cellulitis with abscess-ultrasound reviewed. Seen by urology. Plan for I&D today per urology. Continue empiric Zosyn/Doxy pending blood and OR culture results Diabetes mellitus type 2-A1c 6.3. SSI-adjust as indicated for Essential hypertension-on lisinopril, metoprolol, BP reasonable Morbid obesity-BMI 48. Weight loss recommended. BHASKAR on BiPAP Tobacco abuse-recommend quitting. Continue NicoDerm patch DVT prophylaxis-subcu Lovenox Disposition- OR today for scrotal abscess. On empiric IV antibiotics pending culture results Admission and Anticipated Discharge Date Admission Date: April 04, 2023 Subjective Patient was seen and examined at bedside. Sleeping with BiPAP on. Still with scrotal pain. He is asking when he will have the procedure done. No fever, chills, chest pain or shortness of breath, nausea or vomiting. Review of Systems Review of Systems: All systems reviewed & are unremarkable except as noted in Subjective Physical Exam Physical Exam: General: Morbidly obese, sleeping with BiPAP on, not in distress, on room air HEENT: EOMI, MATY, MMM Chest: Clear breath sounds bilaterally, no wheezes or crackles CVS: Regular rate and rhythm, normal heart sounds, no murmur Abdomen: Soft, non tender, not distended, normal bowel sounds Neuro: Awake, alert, oriented, conversing well, non focal Extremities: No cyanosis, clubbing or edema : Right scrotal cellulitis with edema, erythema and tenderness Results & Data Results & Data Vital Signs (Past 12 Hours) Vital Signs Temp Pulse Pulse Resp BP BP Pulse Ox 04/04/23 07:30 65 18 97 04/04/23 07:27 36.7 C 68 18 142/69 H 95 04/04/23 03:20 73 24 92 04/04/23 05:02 04/04/23 03:39 36.8 C 73 16 172/91 H 92 04/04/23 03:05 36.9 C 76 20 165/98 H 97 04/04/23 01:04 85 22 163/83 H 98 04/04/23 00:27 89 L 04/04/23 00:12 84 16 176/80 H 91 O2 Del Method O2 Flow Rate 04/04/23 07:30 04/04/23 07:27 BiPAP 04/04/23 03:20 04/04/23 05:02 Room Air, CPAP 04/04/23 03:39 Room Air 04/04/23 03:05 Room Air 04/04/23 01:04 Nasal Cannula 3 04/04/23 00:27 Room Air 0 04/04/23 00:12 Room Air Laboratory Results Short CBC 04/03/23 04/04/23 Range/Units 23:05 06:20 WBC 13.80 H 12.96 H (4.8-10.8) K/ul Hgb 13.1 L 12.5 L (14.0-18.0) g/dl Hct 39.9 L 38.3 L (42.0-52.0) % Plt Count 351 331 (130-400) K/uL BMP 04/03/23 04/04/23 23:05 06:20 Sodium 138 136 Potassium 3.8 3.8 Chloride 105 106 Carbon Dioxide 26 25 BUN 16 14 Creatinine 0.79 0.75 Glucose 154 H 181 H Calcium 8.8 8.3 L Liver Function 04/03/23 Range/Units 23:05 Total Bilirubin 0.3 (0.2-1.0) mg/dl Direct Bilirubin 0.1 (0-0.2) mg/dl AST 11 L (13-39) U/L ALT 15 (7-52) U/L Alkaline Phosphatase 94 (34-104) U/L Albumin 3.8 (3.4-5.0) gm/dl Medications Administered Current Inpatient Medications Acetaminophen (Acetaminophen 325 Mg Tab) 650 mg PO Q4H PRN PRN Reason: Pain or Fever Stop: 05/04/23 03:38 Last Admin: 04/04/23 06:31 Dose: 650 mg Atorvastatin Calcium (Atorvastatin 40 Mg Tab) 40 mg PO HS ANTHONY Stop: 05/04/23 20:59 Dextrose (Dextrose 50% 50 Ml Syringe) 25 - 50 ml IV UD PRN; Protocol PRN Reason: Hypoglycemia Protocol Stop: 05/04/23 03:38 Doxycycline Hyclate (Doxycycline Hyclate 100 Mg Cap) 100 mg PO BID ANTHONY Stop: 04/11/23 20:59 Glucagon (Glucagon For Inj 1 Mg Vial) 1 mg SQ UD PRN; Protocol PRN Reason: Hypoglycemia Protocol Stop: 05/04/23 03:38 Glucose (Glucose 10 Tab/Tube) 4 - 8 tab PO UD PRN; Protocol PRN Reason: Hypoglycemia Treatment Stop: 05/04/23 03:38 Glucose (Glucose 40% Gel 15 Gm Tube) 15 - 30 gm PO UD PRN; Protocol PRN Reason: Hypoglycemia Protocol Stop: 05/04/23 03:38 Promethazine HCl 12.5 mg/ (Sodium Chloride) 50.5 mls @ 202 mls/hr IV Q6H PRN PRN Reason: Nausea And Vomiting Stop: 05/04/23 01:39 Piperacillin Sod/Tazobactam (Sod 4.5 gm/ Dextrose) 120 mls @ 30 mls/hr IV Q8H ANTHONY; Protocol Stop: 04/11/23 09:59 Last Admin: 04/04/23 09:00 Dose: 30 mls/hr Sodium Chloride (Nss 1000ml) 1,000 mls @ 50 mls/hr IV .Q20H ONE Stop: 04/05/23 03:29 Last Admin: 04/04/23 09:00 Dose: 50 mls/hr Insulin Aspart (Insulin Aspart Per Unit Charge) 0 units SC ACHS [facility] Stop: 05/04/23 03:38 Last Admin: 04/04/23 08:48 Dose: 1 units Lisinopril (Lisinopril 10 Mg Tab) 30 mg PO QAM [facility] Stop: 05/04/23 05:14 Last Admin: 04/04/23 06:21 Dose: 30 mg Lorazepam (Lorazepam 0.5 Mg Tab) 0.5 mg PO TID PRN PRN Reason: Anxiety Stop: 05/04/23 01:39 Metoprolol Succinate (Metoprolol Succ 50mg Ext Rel Tab) 50 mg PO QAM [facility] Stop: 05/05/23 08:59 Miscellaneous (Remove Nicoderm Patch) 1 each N/A DAILY@0859 [facility] Stop: 05/04/23 08:58 Last Admin: 04/04/23 09:00 Dose: 1 each Miscellaneous (Carbohydrates For Hypoglycemia ) 15 - 30 gm PO UD PRN PRN Reason: Hypoglycemia Protocol Stop: 05/04/23 03:38 Morphine Sulfate (Morphine Sulfate 4 Mg/Ml 1 Ml Carp\Vial) 4 mg IV Q4H PRN PRN Reason: Pain Stop: 04/18/23 01:39 Last Admin: 04/04/23 09:09 Dose: 4 mg Nicotine (Nicotine 21 Mg/24 Hr Tdsy) 21 mg TD [facility] Stop: 05/04/23 08:59 Oxycodone HCl (Oxycodone Hcl Ir 5 Mg Tab (Immediate Release)) 5 - 10 mg PO QID PRN PRN Reason: Pain Stop: 04/18/23 01:39 Last Admin: 04/04/23 04:33 Dose: 10 mg Pantoprazole Sodium (Pantoprazole 40 Mg Tab) 40 mg PO DAILY PRN PRN Reason: HEARTBURN/INDIGESTION
[2023-04-04] MEDS ORDERED: LIDOCAINE 2% 2 ML VIAL/AMP(20MG/ML) INFIL ONE (11:20)
[2023-04-04] MEDS ORDERED: PROPOFOL IV EMULSION 10 MG/ML 20 ML VIAL IV ONE (11:20)
[2023-04-04] MEDS ORDERED: ONDANSETRON INJ 2 MG/ML 2 ML VIAL ONE (11:20)
[2023-04-04] MEDS ORDERED: MIDAZOLAM HCL 1 MG/ML 2ML VIAL ONE (11:20)
[2023-04-04] MEDS ORDERED: KETOROLAC 30 MG/ML VIAL ONE ×2 (11:20→13:51)
[2023-04-04] MEDS ORDERED: fentaNYL citrate PF 100 MCG/2 ML VIAL ONE (11:21)
--- NOTE | 2023-04-04 13:28 | Anesthesiology Consultation ---
Date of Service April 04, 2023 Assessment & Plan (1) Encounter for pre-operative examination: Chart Review Chart Review: Acceptable Risk for Surgery History Surgery Operation Date: 04/04/23 11:50 Proposed Procedures p Incision and Drainage Right Groin Abscess - John Dorantes DO Height/Weight Height: 5 ft 11 in Weight: 156 kg Allergies Allergy/AdvReac Type Severity Reaction Status Date / Time sulfamethoxazole Allergy Intermediate Rash Verified 04/03/23 22:51 [From Bactrim] trimethoprim [From Bactrim] Allergy Intermediate Rash Verified 04/03/23 22:51 Medications Home Medications Medication Instructions Recorded Confirmed Last Taken dicyclomine 10 mg capsule 10 mg PO TID PRN Abdominal Pain 04/20/20 04/03/23 01/10/23 09:00 lisinopril 30 mg tablet 30 mg PO QAM 30 days #90 tabs 04/28/20 04/03/23 01/04/23 09:00 atorvastatin 40 mg tablet 40 mg PO HS 90 days #90 tabs 05/20/20 04/03/23 01/04/23 18:00 empagliflozin 25 mg tablet 25 mg PO QAM 06/28/21 04/03/23 01/10/23 09:00 (Jardiance) omeprazole 20 mg capsule,delayed 20 mg PO DAILY PRN 06/28/21 04/03/23 01/04/23 09:00 release HEARTBURN/INDIGESTION albuterol sulfate 90 mcg/actuation 2 puff inhalation Q4H PRN Wheezing 03/12/22 04/03/23 01/04/23 18:00 aerosol inhaler metoprolol succinate 50 mg 50 mg PO QAM 03/12/22 04/03/23 01/04/23 09:00 tablet,extended release 24 hr nitroglycerin 0.4 mg sublingual 0.4 mg sublingual Q5M PRN chest 06/14/22 04/03/23 01/07/23 09:00 tablet (Nitrostat) pain #25 tabs aspirin 81 mg tablet,delayed 81 mg PO DAILY 04/03/23 04/03/23 Unknown release Active Medications Generic Name Dose Route Start Last Admin Trade Name Freq PRN Reason Stop Dose Admin Acetaminophen 650 mg 04/04/23 03:39 04/04/23 06:31 Acetaminophen 325 Mg Tab PO 05/04/23 03:38 650 mg Q4H PRN Administration Pain or Fever Piperacillin Sod/Tazobactam 120 mls @ 30 mls/hr 04/04/23 10:00 04/04/23 13:04 Sod 4.5 gm/ Dextrose IV 04/11/23 09:59 Infused Q8H ANTHONY Infusion Protocol Sodium Chloride 1,000 mls @ 50 mls/hr 04/04/23 07:30 04/04/23 09:00 Nss 1000ml IV 04/05/23 03:29 50 mls/hr .Q20H ONE Administration Insulin Aspart 0 units 04/04/23 03:39 04/04/23 12:33 Insulin Aspart Per Unit Charge SC 05/04/23 03:38 Not Given ACHS ANTHONY Lisinopril 30 mg 04/04/23 05:15 04/04/23 06:21 Lisinopril 10 Mg Tab PO 05/04/23 05:14 30 mg QAM ANTHONY Administration Miscellaneous 1 each 04/04/23 08:59 04/04/23 09:00 Remove Nicoderm Patch N/A 05/04/23 08:58 1 each DAILY@0859 ANTHONY Administration Morphine Sulfate 4 mg 04/04/23 01:40 04/04/23 09:09 Morphine Sulfate 4 Mg/Ml 1 Ml Carp\\Vial IV 04/18/23 01:39 4 mg Q4H PRN Administration Pain Nicotine 21 mg 04/04/23 09:00 04/04/23 10:26 Nicotine 21 Mg/24 Hr Tdsy TD 05/04/23 08:59 21 mg QAM ANTHONY Administration Oxycodone HCl 5 - 10 mg 04/04/23 01:40 04/04/23 04:33 Oxycodone Hcl Ir 5 Mg Tab (Immediate Release) PO 04/18/23 01:39 10 mg QID PRN Administration Pain NPO Date Last Intake of Fluids: 04/04/23 Time Last Intake of Fluids: 06:21 Date Last Intake of Solids: 04/04/23 Time Last Intake of Solids: 01:30 Past Medical History Medical History Basal cell adenoma CAD (coronary artery disease) F/U DR CUMMINGS Diabetes type 2, uncontrolled Dyslipidemia GERD (gastroesophageal reflux disease) History of COVID-2019, PCP office test, not hosp; mild symptoms>resolved. Hypertension Hypertensive urgency hx Kidney stones hx-PASSED ON OWN Migraine hx Morbid obesity Non compliance w medication regimen pt stated "he sometimes takes his medications, but then he will stop them for awhile and then pick back up when he feels like it" SBO (small bowel obstruction) tx medically Tobacco abuse Past Family History Family History Mother Diabetes Hypertension Coronary heart disease Father Cancer Past Surgical History Surgical History History of axillary surgery removal sweat gland bilat axilla History of cardiac cath 2019 NO [facility] Hx of appendectomy Hx of colonoscopy Social History Smoking Status: Current every day smoker tobacco type: cigarettes Smoking cigarettes per day: 20 Do You Dip or Chew Tobacco: No Hx Alcohol Use: No alcohol intake frequency: other Hx Substance Use: No substance use type: does not use Physical Exam Vital Signs Last Vital Signs Temp 36.8 C 04/04/23 12:49 Pulse 67 04/04/23 12:49 Resp 20 04/04/23 12:49 BP 141/80 H 04/04/23 12:49 Pulse Ox 95 04/04/23 12:49 O2 Del Method Room Air 04/04/23 12:49 O2 Flow Rate 3 04/04/23 01:04 FiO2 21 04/04/23 07:30 Testing Laboratory Results 04/04/23 06:20 04/04/23 06:20 Blood Type A Positive 04/04/23 06:20 Antibody Screen NEGATIVE 04/04/23 06:20 04/04/23 04/04/23 04/04/23 13:09 11:20 07:22 POC Glucose 116 H 124 H 164 H 04/04/23 04:23 POC Glucose 195 H Echocardiogram Date: 04/22/20 EF: 65-70% LV Function: normal Other Findings: + LVH Cardiac Catheterization Date: 04/23/20 moderate nonobstructive circumflex CAD
[2023-04-04] MEDS ORDERED: ATROPINE SULFATE 0.1 MG/ML 10ML SYR IV PRN (13:48)
[2023-04-04] MEDS ORDERED: KETOROLAC 30 MG/ML VIAL IV ONE (13:48)
[2023-04-04] MEDS ORDERED: ePHEDrine sulfate 50 MG/ML AMP IV PRN (13:48)
[2023-04-04] MEDS ORDERED: fentaNYL citrate PF 100 MCG/2 ML VIAL IV PRN (13:48)
[2023-04-04] MEDS ORDERED: PROMETHAZINE HCL 6.25 MG in SODIUM CHLORIDE 0.9% 50 ML IV PRN (13:48)
[2023-04-04] MEDS ORDERED: ONDANSETRON INJ 2 MG/ML 2 ML VIAL IV PRN (13:48)
[2023-04-04] MEDS ORDERED: BUPIVACAINE/EPINEPHRINE 0.5% MPF 1:200,000 30 ML VIAL ONE (15:03)
--- NOTE | 2023-04-04 15:35 | Operative Report ---
PG Post Operative Report Pre & Post Diagnosis Groin Abscess Same Operation Date: 04/04/23 11:50 <No data on this case meets the specified criteria> I identified the patient and participated in the time-out.: Yes Procedure Right Excisional drainage of abscess/infected cyst of groin. Operation Date: 04/04/23 11:50 <No data on this case meets the specified criteria> Surgeon John Dorantes, II, DO Chro None Estimated Blood Loss 5 Findings Consistent with Post-Op Diagnosis Abscess with induration and fluctuance in the right groin region approximately 2.5 cm and size. Incision/excision approximately 3.5 cm in size with partial closure and packing placed Specimens Cultures: 1. Aspiration 2. Tissue 3. Deep wound swab Drains Half-inch iodoform packing Anesthesia Type General Complications none Disposition Disposition: Recovery Room Indications Bothersome abscess which had been partially drained at home and then attempted aspiration in the ER. Worsening fluid collection with bother. Risks and benefits discussed at length. Description of Procedure Patient was consented and brought back to the operating room. Patient was placed under anesthesia in the supine position. Patient was prepped and draped in the regular sterile fashion. A time out was completed. With the time out completed and the patient prepped, the skin over the abscess was marked and local injected into the subcutaneous tissues. Some spontaneous drainage was noted. An aspiration was completed using an 18-gauge needle. Bloody discharge was received from the abscess cavity and was sent for culture. There was 2 additional areas that appeared to be tracts going down to the abscess cavity. These were likely the site of the previous aspiration attempt as well as possibly the at home and attempt to drain the abscess. An incision was made with a scalpel and the deep tissues were dissected with bovie electrocautery. The 2 tracts in the medial position were excised with the tract that was spontaneously draining over top of the abscess itself. It the total length of the elliptical incision was approximately 3.6 cm in length. Dissection did not involve any of the deeper tissue layers. There was a loculated fluid cavity that was encountered over top of the spontaneously draining area. This tissue was probed and fully cleared. The loculations were broken up and deeper pockets of fluid were able to be drained. A swab was then used to take a deep culture and this was sent for microanalysis. The tissue that was excised was sent for analysis as well. The deeper abscess cavity had been dissected free with any irregular or necrotic appearing tissue dissected and sent with the tissue culture. The testicle was not involved in any portion of the procedure. The scrotum was free of any active abscess or tracking of the abscess cavity. All bleeding was controlled. The wound was irrigated copiously and all bleeding controlled. The more lateral position still had a inflamed and irritated to appearance. The skin edges more medial portion did appear viable without considerable fluid and would be able to be closed. At this point a 3-0 Vicryl suture was utilized to close the deeper subcutaneous tissues in a running fashion. A interrupted horizontal mattress stitch was then used to close the skin with the 3-0 Vicryl suture. Good skin closure was noted. Approximately 1-1/2 cm were closed leaving approximately 2 cm still open in the more lateral position. The depth of the abscess cavity was approximately 4.2 cm The surrounding tissue was then injected with additional local anesthetic. The entire area was examined. It was decided to place packing within the abscess cavity. A single piece of iodoform packing was placed into the deepest portion of the cavity. The area was cleaned. Bandages were placed. The patient was cleaned, aroused from anesthesia, and transferred to the pacu in stable condition having tolerated the procedure well with no complications. I was present and participated in all aspects of the procedure. I attest to the content of the Intraoperative Record and any orders documented therein. Any exceptions are noted below.
--- NOTE | 2023-04-04 16:00 | Anesthesiology Progress Note ---
Date of Service April 04, 2023 Anesthesia Post Procedure Vital Signs Vital Signs: Temp Pulse Pulse Pulse Resp BP BP 04/04/23 15:55 98.6 F 82 19 138/79 04/04/23 15:45 75 17 144/79 H 04/04/23 15:35 98.6 F 80 18 135/73 04/04/23 12:49 98.2 F 67 20 141/80 H 04/04/23 08:00 04/04/23 08:00 68 04/04/23 11:19 98.1 F 63 18 138/76 04/04/23 07:30 65 18 04/04/23 07:27 98.1 F 68 18 142/69 H 04/04/23 03:20 73 24 04/04/23 05:02 04/04/23 03:39 98.2 F 73 16 172/91 H 04/04/23 03:05 98.4 F 76 20 165/98 H 04/04/23 01:04 85 22 163/83 H 04/04/23 00:27 04/04/23 00:12 84 16 176/80 H 04/03/23 22:09 100.0 F H 89 18 210/100 H Pulse Ox O2 Del Method O2 Flow Rate FiO2 04/04/23 15:55 94 Room Air 04/04/23 15:45 99 Oxymask 9 04/04/23 15:35 97 Oxymask 9 04/04/23 12:49 95 Room Air 04/04/23 08:00 Room Air 04/04/23 08:00 04/04/23 11:19 95 Room Air 04/04/23 07:30 97 21 04/04/23 07:27 95 BiPAP 04/04/23 03:20 92 04/04/23 05:02 Room Air, CPAP 04/04/23 03:39 92 Room Air 04/04/23 03:05 97 Room Air 04/04/23 01:04 98 Nasal Cannula 3 04/04/23 00:27 89 L Room Air 0 04/04/23 00:12 91 Room Air 04/03/23 22:09 99 Room Air Pain Intensity Groin: Pain Intensity: 5 Transfer of Care Handoff Completed per policy Notes Mental Status: alert / awake / arousable and participated in evaluation Patient Amnestic to Procedure: Yes Nausea / Vomiting: adequately controlled Pain: adequately controlled Airway Patency, RR, SpO2: stable & adequate BP & HR: stable & adequate Hydration State: stable & adequate Anesthetic Complications: no major complications apparent and Pt Satisfied with anesthetic care
[2023-04-04] MEDS: ATORVASTATIN 40 MG TAB PO SCH (21:13)
[2023-04-04] MEDS: DOXYCYCLINE HYCLATE 100 MG CAP PO SCH (21:16)
[2023-04-05] MEDS: oxyCODONE HCL IR 5 MG TAB (IMMEDIATE RELEASE) PO PRN ×2 (00:27→21:42)
[2023-04-05] MEDS: PIPERACILLIN/TAZOBACTAM 4.5 GM in DEXTROSE 5% 100 ML IV SCH ×3 (01:51→17:00)
[2023-04-05 08:05] LABS: Hematocrit (blood only) 35.2 % (42.0-52.0); Hemoglobin 11.4 g/dl (14.0-18.0); Mean Corpuscular Hemoglobin 25.4 pg (25.0-34.0); Mean Corpuscular Hgb Conc 32.4 g/dL (32.0-36.0); Mean Corpuscular Volume 78.4 fL (80.0-100.0); Mean Platelet Volume 10.7 fL (9.4-12.4); Platelet Count 321 K/uL (130-400); RDW Coefficient of Variation 14.6 % (11.5-14.5); RDW Standard Deviation 41.6 fL (36.4-46.3); Red Blood Count 4.49 M/uL (4.70-6.10); White Blood Count 12.54 K/ul (4.8-10.8)
--- NOTE | 2023-04-05 08:11 | Urology Progress Note ---
Date of Service April 05, 2023 Assessment & Plan (1) Abscess of groin, right: (2) Cellulitis of groin, right: Plan: POD #1 s/p Right Excisional drainage of abscess/infected cyst of groin Patient afebrile and hemodynamically stable Blood cultures no growth x24 hours Wound cultures pending - follow cultures Currently on IV Zosyn and doxycycline Consulted wound care nurse for evaluation and management Continue with wound management per wound care nurse Will need to be set up with wound care as outpatient after discharge Continue supportive care, antibiotics, and medical management per hospital medicine will follow Admission and Anticipated Discharge Date Admission Date: April 04, 2023 Subjective Pt seen and examined at bedside this morning. Patient resting in bed with BiPAP, arouses easily to his name. Reports right groin discomfort. Voiding spontaneously. Reports subjective fever/chills overnight. Denies nausea or vomiting. Review of Systems Constitutional: as per Subjective / HPI Gastrointestinal: as per Subjective / HPI Genitourinary: + as per Subjective / HPI Physical Exam Constitutional: + morbidly obese; no acute distress Respiratory: Bipap in place Cardiovascular: Rate/Rhythm: regular rate Musculoskeletal: Head/Neck/Chest: normocephalic Neurologic: moves all extremities and awake Psychiatric: Orientation: alert and oriented x 3 Genitourinary: Dressing of right groin is intact and with minimal drainage. Tender to palpation at right groin and scrotum with some erythema and edema. No crepitus. Results & Data Vital Signs (Past 12 Hours) Vital Signs Temp Pulse Pulse Resp BP Pulse Ox O2 Del Method 04/05/23 08:02 37.1 C 69 18 102/51 L 94 Room Air 04/05/23 07:55 68 04/05/23 03:30 37 C 75 15 128/65 96 CPAP 04/04/23 23:00 37 C 84 12 162/75 H 95 CPAP 04/04/23 23:00 76 PG Care Time/CCT Total # of Minutes Spent Total Time Spent with Patient: Total time spent is greater than 50% in coordination of care (as documented) at patient's floor/unit and/or counseling patient: Coding Level of Care Code 58142 SUB INP/OBS CARE 1/25MIN Diagnoses Abscess of groin, right L02.214 Cellulitis of groin, right L03.314
[2023-04-05 08:19] LABS: Calcium 8.3 mg/dl (8.6-10.3); Creatinine Clr Calc Pharmacy 202.9 ml/min; Est GFR (African American) 134.9 ml/min; Est GFR (Non-African American) 116.4 ml/min
[2023-04-05] MEDS: ACETAMINOPHEN 325 MG TAB PO PRN ×2 (09:09→16:57)
[2023-04-05] MEDS: INSULIN ASPART PER UNIT CHARGE SC SCH ×4 (09:09→21:32)
[2023-04-05] MEDS: NICOTINE 21 MG/24 HR TDSY TD SCH (09:10)
[2023-04-05] MEDS: DOXYCYCLINE HYCLATE 100 MG CAP PO SCH ×2 (09:11→21:42)
[2023-04-05] MEDS: lisinopril 10 MG TAB PO SCH (09:11)
[2023-04-05] MEDS: METOPROLOL SUCC 50MG EXT REL TAB PO SCH (09:11)
--- NOTE | 2023-04-05 13:45 | Hospitalist Progress Note ---
Date of Service April 05, 2023 Assessment & Plan (1) Abscess of groin, right: (2) Diabetes type 2, uncontrolled: (3) Hypertension: (4) Morbid obesity: (5) BHASKAR treated with BiPAP: Plan 38-year-old male with history of diabetes, hypertension, morbid obesity, BHASKAR on BiPAP admitted with right groin/scrotal cellulitis and abscess 04/03- US- There is a 2 x 1.4 x 2.2 cm area of decreased echogenicity in the subcutaneous tissues of the right groin with absent Doppler blood flow consistent with an abscess. There is soft tissue edema over the right side of the scrotum consistent with cellulitis. There is a 1.1 x 1.2 x 1 cm area of decreased density in the right testicle with associated hyperemia. No mass-effect is seen. Consider orchitis. 04/04- Status post right excisional drainage of abscess/infected cyst of groin Right groin/scrotal cellulitis with abscess-ultrasound reviewed. Seen by urology and status post right excisional drainage of abscess/infected cyst left groin by urology 04/04. Continue empiric Zosyn/Doxy pending final OR culture r esults Diabetes mellitus type 2-A1c 6.3. Home Jardiance on hold. SSI-adjust as indicated Essential hypertension-on lisinopril, metoprolol Morbid obesity-BMI 48. Weight loss recommended. BHASKAR on BiPAP Tobacco abuse-recommend quitting. Continue NicoDerm patch DVT prophylaxis-subcu Lovenox Disposition- On empiric IV antibiotics pending culture results Admission and Anticipated Discharge Date Admission Date: April 04, 2023 Subjective Patient was seen and examined at bedside. Still with significant pain at the surgical site. States he is not getting enough food with a carb controlled diet and was requesting liberalization. No fever, chills, chest pain, shortness of breath, nausea or vomiting. Review of Systems Review of Systems: All systems reviewed & are unremarkable except as noted in Subjective Physical Exam Physical Exam: General: Morbidly obese, sleeping with BiPAP on, not in distress, on room air HEENT: EOMI, MATY, MMM Chest: Clear breath sounds bilaterally, no wheezes or crackles CVS: Regular rate and rhythm, normal heart sounds, no murmur Abdomen: Soft, non tender, not distended, normal bowel sounds Neuro: Awake, alert, oriented, conversing well, non focal Extremities: No cyanosis, clubbing or edema : Right groin dressing intact with minimal drainage. Tender to palpation with some erythema and edema. No crepitus Results & Data Results & Data Vital Signs (Past 12 Hours) Vital Signs Temp Pulse Pulse Resp BP Pulse Ox O2 Del Method 04/05/23 12:22 36.6 C 94 H 18 154/96 H 96 Room Air 04/05/23 08:02 37.1 C 69 18 102/51 L 94 Room Air 04/05/23 07:55 68 04/05/23 03:30 37 C 75 15 128/65 96 CPAP Laboratory Results Short CBC 04/05/23 Range/Units 07:30 WBC 12.54 H (4.8-10.8) K/ul Hgb 11.4 L (14.0-18.0) g/dl Hct 35.2 L (42.0-52.0) % Plt Count 321 (130-400) K/uL BMP 04/05/23 07:30 Sodium 136 Potassium 4.0 Chloride 106 Carbon Dioxide 26 BUN 15 Creatinine 0.75 Glucose 107 H Calcium 8.3 L Medications Administered Current Inpatient Medications Acetaminophen (Acetaminophen 325 Mg Tab) 650 mg PO Q4H PRN PRN Reason: Pain or Fever Stop: 05/04/23 03:38 Last Admin: 04/05/23 09:09 Dose: 650 mg Atorvastatin Calcium (Atorvastatin 40 Mg Tab) 40 mg PO HS ANTHONY Stop: 05/04/23 20:59 Last Admin: 04/04/23 21:13 Dose: 40 mg Dextrose (Dextrose 50% 50 Ml Syringe) 25 - 50 ml IV UD PRN; Protocol PRN Reason: Hypoglycemia Protocol Stop: 05/04/23 03:38 Doxycycline Hyclate (Doxycycline Hyclate 100 Mg Cap) 100 mg PO BID ANTHONY Stop: 04/11/23 20:59 Last Admin: 04/05/23 09:11 Dose: 100 mg Glucagon (Glucagon For Inj 1 Mg Vial) 1 mg SQ UD PRN; Protocol PRN Reason: Hypoglycemia Protocol Stop: 05/04/23 03:38 Glucose (Glucose 10 Tab/Tube) 4 - 8 tab PO UD PRN; Protocol PRN Reason: Hypoglycemia Treatment Stop: 05/04/23 03:38 Glucose (Glucose 40% Gel 15 Gm Tube) 15 - 30 gm PO UD PRN; Protocol PRN Reason: Hypoglycemia Protocol Stop: 05/04/23 03:38 Promethazine HCl 12.5 mg/ (Sodium Chloride) 50.5 mls @ 202 mls/hr IV Q6H PRN PRN Reason: Nausea And Vomiting Stop: 05/04/23 01:39 Piperacillin Sod/Tazobactam (Sod 4.5 gm/ Dextrose) 120 mls @ 30 mls/hr IV Q8H ANTHONY; Protocol Stop: 04/11/23 09:59 Last Infusion: 04/05/23 12:59 Dose: Infused Insulin Aspart (Insulin Aspart Per Unit Charge) 0 units SC ACHS [facility] Stop: 05/04/23 03:38 Last Admin: 04/05/23 12:24 Dose: 10 units Lisinopril (Lisinopril 10 Mg Tab) 30 mg PO [facility] Stop: 05/04/23 05:14 Last Admin: 04/05/23 09:11 Dose: 30 mg Lorazepam (Lorazepam 0.5 Mg Tab) 0.5 mg PO TID PRN PRN Reason: Anxiety Stop: 05/04/23 01:39 Metoprolol Succinate (Metoprolol Succ 50mg Ext Rel Tab) [facility] Stop: 05/05/23 08:59 Last Admin: 04/05/23 09:11 Dose: 50 mg Miscellaneous (Remove Nicoderm Patch) 1 each N/A DAILY@0859 [facility] Stop: 05/04/23 08:58 Last Admin: 04/05/23 09:09 Dose: 1 each Miscellaneous (Carbohydrates For Hypoglycemia ) 15 - 30 gm PO UD PRN PRN Reason: Hypoglycemia Protocol Stop: 05/04/23 03:38 Morphine Sulfate (Morphine Sulfate 4 Mg/Ml 1 Ml Carp\Vial) 4 mg IV Q4H PRN PRN Reason: Pain Stop: 04/18/23 01:39 Last Admin: 04/04/23 09:09 Dose: 4 mg Nicotine (Nicotine 21 Mg/24 Hr Tdsy) 21 mg TD [facility] Stop: 05/04/23 08:59 Last Admin: 04/05/23 09:10 Dose: 21 mg Oxycodone HCl (Oxycodone Hcl Ir 5 Mg Tab (Immediate Release)) 5 - 10 mg PO QID PRN PRN Reason: Pain Stop: 04/18/23 01:39 Last Admin: 04/05/23 00:27 Dose: 10 mg Pantoprazole Sodium (Pantoprazole 40 Mg Tab) 40 mg PO DAILY PRN PRN Reason: HEARTBURN/INDIGESTION
[2023-04-05] MEDS: ATORVASTATIN 40 MG TAB PO SCH (21:42)
[2023-04-06] MEDS: PIPERACILLIN/TAZOBACTAM 4.5 GM in DEXTROSE 5% 100 ML IV SCH ×2 (02:34→09:38)
[2023-04-06] MEDS: ACETAMINOPHEN 325 MG TAB PO PRN ×2 (03:01→09:34)
[2023-04-06 07:56] LABS: Hemoglobin 11.4 g/dl (14.0-18.0); Mean Corpuscular Hemoglobin 25.4 pg (25.0-34.0); Mean Corpuscular Hgb Conc 32.6 g/dL (32.0-36.0); Mean Corpuscular Volume 78.1 fL (80.0-100.0); Mean Platelet Volume 10.7 fL (9.4-12.4); Platelet Count 309 K/uL (130-400); RDW Coefficient of Variation 14.5 % (11.5-14.5); Red Blood Count 4.48 M/uL (4.70-6.10); White Blood Count 11.97 K/ul (4.8-10.8)
[2023-04-06 08:08] LABS: BUN Creatinine Ratio 20.3 (10-20); Calcium 8.5 mg/dl (8.6-10.3); Est GFR (Non-African American) 113.9 ml/min; Potassium 3.6 mmol/L (3.5-5.1)
[2023-04-06] MEDS: INSULIN ASPART PER UNIT CHARGE SC SCH ×2 (08:23→11:49)
[2023-04-06] MEDS: METOPROLOL SUCC 50MG EXT REL TAB PO SCH (09:31)
[2023-04-06] MEDS: NICOTINE 21 MG/24 HR TDSY TD SCH (09:31)
[2023-04-06] MEDS: DOXYCYCLINE HYCLATE 100 MG CAP PO SCH (09:31)
[2023-04-06] MEDS: lisinopril 10 MG TAB PO SCH (09:31)
--- NOTE | 2023-04-06 10:00 | Urology Progress Note ---
Date of Service April 06, 2023 Assessment & Plan (1) Cellulitis of groin, right: Plan: POD #2 s/p Right Excisional drainage of abscess/infected cyst of groin Patient afebrile and hemodynamically stable Blood cultures showing no growth x 48 hours Wound cultures prelim no growth to date - follow cultures Currently on IV Zosyn and doxycycline Recommend continue course of antibiotics empirically or per culture upon discharge Wound care nurse consulted for evaluation and management of surgical wound Packing to be exchanged today Continue wound management per wound nurse Patient will need to be set up with wound care as outpatient after discharge He does have a new small cyst appearing on left pubic/groin area - monitor Hx of hidradenitis suppurativa of armpits per patient's spouse, this may be affecting groin as well Continue supportive care, antibiotics, and medical management per hospital medicine Will arrange outpatient follow-up with urology after discharge will follow (2) Abscess of groin, right: Admission and Anticipated Discharge Date Admission Date: April 04, 2023 Supervising Physician Co-Signing Physician Notes Discussed patient with ALLY. Agree with plan. Patient left AMA Subjective Patient seen and examined at bedside this AM. He is sleeping with Bipap in place, arouses easily to his name. No acute issues overnight. Pain is improving. Voiding spontaneously. Denies nausea, vomiting, fever or chills. Review of Systems Constitutional: as per Subjective / HPI Gastrointestinal: as per Subjective / HPI Genitourinary: + as per Subjective / HPI Physical Exam Constitutional: + morbidly obese; no acute distress Respiratory: no respiratory distress Bipap in place while sleeping, pt removed during interview Cardiovascular: Extremities: no pedal edema Psychiatric: Orientation: alert and oriented x 3 Genitourinary: Dressing of right groin is intact and with some serosanguinous drainage. Tender to palpation at right groin and scrotum, less tender than previous exams. Some surrounding erythema and edema. No crepitus. There is a new 0.5 cm cyst noted on left pubic area with some surrounding erythema, slightly tender to palpation. Results & Data Vital Signs (Past 12 Hours) Vital Signs Temp Pulse Pulse Resp BP Pulse Ox O2 Del Method 04/06/23 07:22 36.7 C 62 19 163/84 H 94 CPAP 04/06/23 05:17 138/70 04/06/23 03:07 36.9 C 70 18 179/76 H 96 Room Air 04/05/23 23:00 65 04/06/23 00:10 36.7 C 65 18 164/74 H 95 CPAP PG Care Time/CCT Total # of Minutes Spent Total Time Spent with Patient: Total time spent is greater than 50% in coordination of care (as documented) at patient's floor/unit and/or counseling patient: Coding Level of Care Code 50735 SUB INP/OBS CARE 11/10MIN Diagnoses Cellulitis of groin, right L03.314 Abscess of groin, right L02.214
--- NOTE | 2023-04-06 11:56 | Discharge Summary ---
Date of Service April 06, 2023 Admission HPI Per Admitting Provider History obtained from patient, family, and records. Medical history significant for nonobstructive CAD, hypertension, DM 2 on oral medications, bronchial asthma, BHASKAR on CPAP, GERD, diverticulosis, medical treatment noncompliance as per records, ongoing tobacco abuse Last confinement April 2020 for hypertensive crisis secondary to medication noncompliance. 2 days ago, patient noted a swelling on his right groin which got worse after he manipulated it. Right groin swelling impeded patient's ability to ambulate. lanced groin swelling following patient's request yielding purulent bloody drainage. Initial improvement in swelling. Patient noted recurrence of painful right groin swelling going down the scrotum. Fever at home. Patient denies headache, chest pain, unusual shortness of breath/cough symptoms. Patient brought to ER for evaluation. Initial SBP at the ER 210s. Transient O2 sats 80s on room air noted at the ER post IV morphine administration. Bloody needle aspirate appreciated by ER provider from right groin swelling. Unasyn administered at the ER for sepsis. MEDICAL HISTORY: As above. SURGERIES: Urologic procedures, appendectomy, ear tube placement, adenoidectomy, axillary sweat gland removal for hydradenitis suppurativa/skin tissue rearrangement FAMILY HISTORY: Heart disease. Lung cancer, diabetes PERSONAL AND SOCIAL HISTORY: 1 pack daily . 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 Exam Per Admitting Provider GENERAL: Slightly uncomfortable, morbidly obese, no respiratory distress SKIN: Normal color, warm HEENT: Bespectacled, pink palpebral conjunctivae, no ptosis, dry buccal mucosa, nasal cannula in place NECK : Supple, short neck, no tenderness CHEST : Decreased breath sounds, occasional expiratory wheezes, no tenderness HEART : RRR, no obvious murmurs ABDOMEN: Some distention, nontender, tender right groin swelling extending to the right scrotum EXTREMITIES : Minimal LE swelling, no LE tenderness, no other conspicuous deformities noted NEUROLOGIC : Coherent, no facial asymmetry, no other gross focality Principal Diagnosis Right groin abscess/cellulitis, DM, morbid obesity, BHASKAR on BIPAP Discharge Exam General: Morbidly obese, dressed up ready for leaving the hospital, not in distress, on room air HEENT: EOMI, MATY, MMM Chest: Clear breath sounds bilaterally, no wheezes or crackles CVS: Regular rate and rhythm, normal heart sounds, no murmur Abdomen: Soft, non tender, not distended, normal bowel sounds Neuro: Awake, alert, oriented, conversing well, non focal Extremities: No cyanosis, clubbing or edema : Right groin dressing intact with minimal drainage. Tender to palpation with some erythema and edema. No crepitus Discharge Data Allergies Allergy/AdvReac Type Severity Reaction Status Date / Time sulfamethoxazole Allergy Intermediate Rash Verified 04/03/23 22:51 [From Bactrim] trimethoprim [From Bactrim] Allergy Intermediate Rash Verified 04/03/23 22:51 Consultations 04/04/23 03:39 Consult Urology Routine Procedures Performed Operation Date: 04/04/23 11:50 Actual Procedures p Incision and Drainage Right Groin Abscess, with packing placement(Right) - John Dorantes DO Ordered Studies 04/03/23 22:47 US abdomen limited Stat Laboratory Results WBC 11.97 K/ul (4.8-10.8) H 04/06/23 07:03 RBC 4.48 M/uL (4.70-6.10) L 04/06/23 07:03 Hgb 11.4 g/dl (14.0-18.0) L 04/06/23 07:03 Hct 35.0 % (42.0-52.0) L 04/06/23 07:03 MCV 78.1 fL (80.0-100.0) L 04/06/23 07:03 MCH 25.4 pg (25.0-34.0) 04/06/23 07:03 MCHC 32.6 g/dL (32.0-36.0) 04/06/23 07:03 RDW Std Deviation 41.0 fL (36.4-46.3) 04/06/23 07:03 RDW Coeff of Ariana 14.5 % (11.5-14.5) 04/06/23 07:03 Plt Count 309 K/uL (130-400) 04/06/23 07:03 MPV 10.7 fL (9.4-12.4) 04/06/23 07:03 Immature Gran % (Auto) 1.3 % 04/04/23 06:20 Neut % (Auto) 56.9 % 04/04/23 06:20 Lymph % (Auto) 29.7 % 04/04/23 06:20 [place] % (Auto) 8.1 % 04/04/23 06:20 Eos % (Auto) 3.5 % 04/04/23 06:20 Baso % (Auto) 0.5 % 04/04/23 06:20 Neut # (Auto) 7.36 K/uL (1.40-6.50) H 04/04/23 06:20 Lymph # (Auto) 3.85 K/uL (1.2-3.4) H 04/04/23 06:20 [place] # (Auto) 1.05 K/uL (0.11-0.59) H 04/04/23 06:20 Eos # (Auto) 0.46 K/uL (0-0.50) 04/04/23 06:20 Baso # (Auto) 0.07 K/uL (0-0.2) 04/04/23 06:20 Immature Gran # (Auto) 0.17 K/uL (0.01-0.20) 04/04/23 06:20 Sodium 136 mmol/L (136-145) 04/06/23 07:03 Potassium 3.6 mmol/L (3.5-5.1) 04/06/23 07:03 Chloride 104 mmol/L (98-107) 04/06/23 07:03 Carbon Dioxide 26 mmol/L (21-32) 04/06/23 07:03 Anion Gap 6 (3-11) 04/06/23 07:03 BUN 16 mg/dl (6-23) 04/06/23 07:03 Creatinine 0.79 mg/dl (0.6-1.4) 04/06/23 07:03 Est Cr Clr Drug Dosing 199.0 ml/min 04/06/23 07:03 Est GFR ( Amer) 132.0 ml/min 04/06/23 07:03 Est GFR (Non-Af Amer) 113.9 ml/min 04/06/23 07:03 BUN/Creatinine Ratio 20.3 (10-20) H 04/06/23 07:03 Glucose 167 mg/dl (70-99(Fasting)) H 04/06/23 07:03 POC Glucose 147 mg/dl (70-99) H 04/06/23 11:16 Calcium 8.5 mg/dl (8.6-10.3) L 04/06/23 07:03 Magnesium 1.8 mg/dl (1.7-2.4) 04/03/23 23:05 Total Bilirubin 0.3 mg/dl (0.2-1.0) 04/03/23 23:05 Direct Bilirubin 0.1 mg/dl (0-0.2) 04/03/23 23:05 AST 11 U/L (13-39) L 04/03/23 23:05 ALT 15 U/L (7-52) 04/03/23 23:05 Alkaline Phosphatase 94 U/L (34-104) 04/03/23 23:05 B-Natriuretic Peptide 17 pg/ml (0-100) 04/03/23 23:05 Total Protein 7.5 gm/dl (6.0-8.3) 04/03/23 23:05 Albumin 3.8 gm/dl (3.4-5.0) 04/03/23 23:05 SARS-CoV-2, RNA, NAAT NEGATIVE (NEGATIVE) 04/04/23 01:06 Blood Type A Positive 04/04/23 06:20 Antibody Screen NEGATIVE 04/04/23 06:20 Impressions Abdomen Ultrasound 04/03/23 22:47 Exam(s): US ABDOMEN LIMITED EXAM: US Abdomen Limited, Lower Upper Quadrant CLINICAL HISTORY: Reason for exam: abscess/fluid collection rt groin area. TECHNIQUE: Real-time ultrasound of the right lower quadrant with image documentation. COMPARISON: CT scan from November 05, 2022 FINDINGS: Soft tissues: There is a 2 x 1.4 x 2.2 cm area of decreased echogenicity in the subcutaneous tissues of the right groin with absent Doppler blood flow consistent with an abscess. There is soft tissue edema over the right side of the scrotum consistent with cellulitis. Other findings: There is a 1.1 x 1.2 x 1 cm area of decreased density in the right testicle with associated hyperemia. No mass-effect is seen. Consider orchitis. There is a small right hydrocele. IMPRESSION: There is a 2 x 1.4 x 2.2 cm area of decreased echogenicity in the subcutaneous tissues of the right groin with absent Doppler blood flow consistent with an abscess. There is soft tissue edema over the right side of the scrotum consistent with cellulitis. There is a 1.1 x 1.2 x 1 cm area of decreased density in the right testicle with associated hyperemia. No mass-effect is seen. Consider orchitis. Electronically signed by: Carmine Wilson MD 04/04/23 01:18 AM Chest X-Ray 04/04/23 00:47 XR chest 1V portable HISTORY: 38 years-old Male low o2 acute hypoxia COMPARISON: Acute abdominal series radiographs 11/05/2022 TECHNIQUE: AP view of the chest FINDINGS: Cardiomediastinal and hilar silhouettes are within normal limits. Mild subsegmental bibasilar atelectasis. No pneumothorax, pleural effusion, airspace consolidation or pulmonary edema. IMPRESSION: No acute process. ACT 112: Negative or not required by law. The above report was generated using voice recognition software. It may contain grammatical, syntax or spelling errors. Electronically signed by: Brian Wright M.D. 04/04/2023 7:11 AM Hospital Course (1) Abscess of groin, right: (2) Diabetes type 2, uncontrolled: (3) Hypertension: (4) Morbid obesity: (5) BHASKAR treated with BiPAP: Plan Left AGAINST MEDICAL ADVICE 38-year-old male with history of diabetes, hypertension, morbid obesity, BHASKAR on BiPAP admitted with right groin abscess and cellulitis which worsened after he manipulated at home. Ultrasound findings as below. Seen by urology and underwent right excisional drainage of abscess/infected cyst of right groin by urology on 04/04. He was covered empirically with empiric Doxy and Zosyn. Cultures still with pinpoint growth, reincubating. Afebrile, hemoglobin stable, leukocytosis improving. Prior to my encounter this morning, patient was already dressed up and ready to leave the hospital. I saw the patient and discussed the risks of leaving AMA without knowing the pathogen and appropriate antibiotics, however he was very adamant to leave AGAINST MEDICAL ADVICE and did not want to wait any further. 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 He however refused to sign the AMA paperwork. He is awake alert oriented and has decision-making c apacity and knows the risks of leaving AMA which were discussed in detail at bedside. RN was at bedside throughout whole encounter. He was however amenable to be seen by wound care nurses for wound pack exchange as well as seeing case packer for setting up home health for wound care. I also spoke to urology ALLY regarding the patient. We will discharge him on Cipro/Doxy/Flagyl for empiric coverage. I strongly recommended him to follow-up with his PCP in the next couple of days to follow-up on the culture results for appropriate antibiotics. He will follow-up with urology at discharge. Right groin abscess with cellulitis-ultrasound reviewed as below. Seen by urology and status post right excisional drainage of abscess/infected cyst right groin by urology 04/04. Being discharged on empiric antibiotics as above pending culture results as patient left against medical advice. Wound care per home health nurses. Outpatient follow-up with urology and PCP. 04/03- US- There is a 2 x 1.4 x 2.2 cm area of decreased echogenicity in the subcutaneous tissues of the right groin with absent Doppler blood flow consistent with an abscess. There is soft tissue edema over the right side of the scrotum consistent with cellulitis. There is a 1.1 x 1.2 x 1 cm area of decreased density in the right testicle with associated hyperemia. No mass-effect is seen. Consider orchitis. 04/04- Status post right excisional drainage of abscess/infected cyst of groin Diabetes mellitus type 2-A1c 6.3. Continue home Jardiance Essential hypertension-on lisinopril, metoprolol Morbid obesity-BMI 48. Weight loss recommended. BHASKAR on BiPAP Tobacco abuse-recommend quitting. 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 The abscess culture is still not final yet- it is still showing pin point growth and you are on empiric antibiotics. This is not ideal for discharge home however you are adamant about leaving against our medical advice while waiting for the final culture results for proper antibiotic targeted to that infection. We are giving you some empiric oral antibiotic to cover the possible bacteria, however we strongly recommend you to follow with the family doctor in the next couple days to see if the antibiotic needs to be changed based on the final culture results. Also recommend proper wound care at home as per wound care nurse/urology instructions. 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 Recommend follow up with family doctor and urology in a week. Call your family doctor if you need more refill on the pain medication. Please come back to the emergency immediately if fever, chills, worsening infection of the right groin/scrotum etc. Pending Studies at Discharge: Yes Stand-Alone Forms: My [facility], Smoking Cessation Medications and DC Order Prescriptions: New doxycycline hyclate 100 mg Capsule 100 mg PO BID 10 Days Qty: 20 0RF ciprofloxacin HCl 750 mg tablet 750 mg PO BID Qty: 20 0RF metronidazole 500 mg tablet 500 mg PO TID Qty: 30 0RF oxycodone 5 mg tablet 5 mg PO TID PRN (Reason: pain) Qty: 10 0RF Continued atorvastatin 40 mg tablet 40 mg PO HS 90 Days Qty: 90 3RF Rx Instructions: PER PT'S SPOUSE "ONLY TAKES MEDICATIONS ON OCCASIONALLY". nitroglycerin [Nitrostat] 0.4 mg tablet, sublingual 0.4 mg sublingual Q5M PRN (Reason: chest pain) Qty: 25 1RF Rx Instructions: do not exceed 3 doses per episode lisinopril 30 mg tablet 30 mg PO QAM 30 Days Qty: 90 3RF Rx Instructions: PER PT'S SPOUSE "ONLY TAKES MEDICATIONS ON OCCASIONALLY". dicyclomine 10 mg capsule 10 mg PO TID PRN (Reason: Abdominal Pain) aspirin 81 mg Tablet,Delayed Release (Dr/Ec) 81 mg PO DAILY Rx Instructions: PER PT'S SPOUSE "ONLY TAKES MEDICATIONS ON OCCASIONALLY". omeprazole 20 mg capsule,delayed release(DR/EC) 20 mg PO DAILY PRN (Reason: HEARTBURN/INDIGESTION) Jardiance 25 mg tablet 25 mg PO QAM Rx Instructions: PER PT'S SPOUSE "ONLY TAKES MEDICATIONS ON OCCASIONALLY". metoprolol succinate 50 mg tablet extended release 24 hr 50 mg PO QAM Rx Instructions: PER PT'S SPOUSE "ONLY TAKES MEDICATIONS ON OCCASIONALLY". albuterol sulfate 90 mcg/actuation Hfa Aerosol Inhaler 2 puff INHALATION Q4H PRN (Reason: Wheezing) Discharge Orders: Left Against Medical Advice (Routine); Ordered 04/06/23 Ordered By: Jose Dhillon Admission Data Admit Date/Time: 04/04/23 01:36 Attending Provider: Jose Dhillon Admit Provider: Chris Aj Primary Care Provider: Coleman Hassan Other Providers: Frank Wilhelm ; Hugo Byrne ; Jose Chance ; Mary Kate Escoto ; John Dorantes ; Ashlyn Stevens ; Radha Islas ; Hong Arellano ; Ty Murray ; Denise Malave ; Germán Jimenez ; Wilfredo Waters ; [facility]
--- NOTE | 2023-04-06 15:58 | Electrocardiogram Report ---
Test Reason : Blood Pressure : / mmHG Vent. Rate : 068 BPM Atrial Rate : 068 BPM P-R Int : 136 ms QRS Dur : 096 ms QT Int : 408 ms P-R-T Axes : 054 066 041 degrees QTc Int : 433 ms Normal sinus rhythm Nonspecific T wave abnormality Abnormal ECG When compared with ECG of 28-JUN-2021 11:41, Borderline criteria for Inferior infarct are no longer Present Nonspecific T wave abnormality, improved in Lateral leads Confirmed by Enrique Guadalupe ([id number]) on 04/06/2023 3:58:07 PM Referred By: REFERRED SELF Confirmed By:Enrique Guadalupe
== END 2023-04-06 12:10 | disposition left against medical advice (07) | DRG 988 ==
LOC: ED 21:58 → 2S 04-04 01:36

== ENCOUNTER 2025-01-12 17:35 | Observation (INO) ==
--- OUTSIDE RECORDS SUMMARY | 2025-01-12 17:40 | External Medical Summary | Summary of Care ---
Author Name Unknown Organization [facility] Address [address] [place] [address] Phone [phone] Care Team Providers Care Train Dispatcher Name Role Phone Coleman Hassan MD Primary Care Provider [phone] Reason for Referral * Evaluate & Treat - Unlimited Visits (Within 30 days (routine)) - Authorized Specialty Diagnoses / Procedures Referred By Contac t Referred To Contact Pharmacist / Pharmacy Diagnoses Type 2 diabetes mellitus with hemoglobin A1c goal of less than 7.0% ([facility]) Coleman Hassan MD [address] [facility] [address] Phone: tel: fax: Referral ID Status Reason Start Date Expiration Date Visits Requested Visits Authorized [id number] Authorized Specialty Services Required 01/01/2025 06/30/2025 99 [phone] Question Answer Referral Priority Within 30 days (routine) Where should this appointment be scheduled? [facility] Referring Provider Role: Primary Care Reason for Referral: DM Target A1c: < 7 Comments Pharmacist Medication Therapy Management: Minimum frequency patient should be seen in person for medication management: as appropriate per clinical condition and patient status By my signature, I understand that my patient Fernando Bangura will have his medication therapy managed by the [facility] Medication Therapy Disease [facility] ([facility]) per established policies, procedures, and protocols. I also certify that this referral may serve as an initiation of service for the management of drug therapy in the above noted patient. [facility] providers will be responsible for scheduling patient visits, obtaining appropriate laboratory studies, and adjusting medication management therapy per patient's need, in addition to those roles spelled out in the clinic policy, procedures, and drug management protocols. I understand that the service provided by the [facility] is voluntary and have informed patient that they can refuse the service at their discretion. I am aware that the [facility] Clinic will provide me with a copy of the patient encounter via my [employer]. I authorize the [facility] to carry out these activities on my behalf. I consider this program to be a necessary part of the patient's medical care. Coleman Hassan MD Reason for Visit * Reason Onset Date Comments Appointment 01/01/2025 Sooner Appt Encounter Details Date Type Department Care Team (Late st Contact Info) Description 01/01/2025 Telephone Family [facility] [address] [facility] [address] [place] [address] Coleman Hassan MD [address] [facility] [place] [address] Appointment (Sooner Appt ) Allergies Active Allergy Reactions Criticality Noted Date Comments Sulfamethoxazole-Trimethop rim Edema face/lips/tongue High 02/20/2019 Facial swelling Sulfamethoxazole High 10/22/2022 Other Reaction(s): Rash Trimethoprim High 10/22/2022 Other Reaction(s): Rash documented as of this encounter (statuses as of 01/01/2025) Medications ASPIRIN LOW DOSE 81 MG TBEC Take 1 Tablet by mouth in the morning. In the morning.. 0 Active CPAP every night at bedtime. Active Fluticasone Propionate 50 MCG/ACT Nasal SuspensionIndicat ions:BHASKAR on CPAP Administer into each nostril 2 Sprays in the morning. 16 g 5 2 Active Ipratropium [place] 0.03 % Nasal Solution (Atrovent)Indicat ions:Acute non-recurrent maxillary sinusitis Administer 2 Sprays into each nostril 4 times a day as needed for Rhinitis. for runny nose 30 mL 1 3 Active Hydrocortisone 1 % External Cream Apply topically to affected area 2 times a day. Apply to knee once daily at end of day for itch 20 g 4 Active Dulera 200-5 MCG/ACT Inhalation Aerosol (Mometasone-Formo terol)Indications :Mild intermittent asthma without complication Inhale 2 Puffs by mouth in the morning and 2 Puffs before bedtime. 13 g 3 4 Active Nitroglycerin 0.4 MG Sublingual Tablet Sublingual (Nitrostat)Indica tions:Coronary artery disease involving absentee-[place]nee coronary artery of absentee-shawnee heart without angina pectoris Place 1 Tablet under the tongue every 5 minutes as needed for Pain, Chest. 25 Tablet 4 Active Omeprazole 40 MG Oral Capsule Delayed Release (PriLOSEC) Take 1 Capsule by mouth in the morning. 90 Capsule 3 4 Active Metoprolol Succinate ER 50 MG Oral Tablet Extended Release 24 Hour (toPROL XL) Take 1 Tablet by mouth in the morning. 90 Tablet 1 4 Active Empagliflozin 25 MG Oral Tablet (Jardiance) Take 1 Tablet by mouth in the morning. 90 Tablet 3 4 Active Triamcinolone Acetonide 0.1 % External Ointment (Aristocort)Indic ations:Mycosis fungoides, unspecified body region (HCC) Apply to trunk after bathing as needed 454 g 1 4 Active Dicyclomine HCl 10 MG Oral Capsule (Bentyl) Take 1 Capsule by mouth in the morning and 1 Capsule at noon and 1 Capsule before bedtime. 90 Capsule 2 4 Active Qvar RediHaler 80 MCG/ACT Inhalation Aerosol Breath Activated (Beclomethasone Diprop HFA) Inhale 2 Puffs by mouth in the morning and 2 Puffs before bedtime. 10.6 g 3 5 Active ProAir HFA 108 (90 Base) MCG/ACT Inhalation Aerosol Solution Inhale 2 Puffs by mouth in the morning and 2 Puffs at noon and 2 Puffs in the evening and 2 Puffs before bedtime. 18 g 3 5 Active Benzonatate 100 MG Oral Capsule Take 2 Capsules by mouth 3 times a day as needed for Cough. 30 Capsule 1 5 Active Cephalexin 500 MG Oral Capsule (Keflex) Take 1 Capsule by mouth in the morning and 1 Capsule at noon and 1 Capsule before bedtime. Do all this for 10 days. 30 Capsule 5 01/05/20 25 Active Ezetimibe 10 MG Oral Tablet (Zetia)Indication s:S/P primary angioplasty with coronary stent Take 1 Tablet by mouth in the morning. 90 Tablet 3 5 Active Prasugrel HCl 10 MG Oral Tablet (Effient)Indicati ons:S/P primary angioplasty with coronary stent Take 1 Tablet by mouth in the morning. 90 Tablet 3 5 Active Atorvastatin Calcium 80 MG Oral Tablet (Lipitor)Indicati ons:S/P primary angioplasty with coronary stent Take 1 Tablet by mouth in the morning. 90 Tablet 3 5 Active Lisinopril 40 MG Oral TabletIndications :S/P primary angioplasty with coronary stent Take 1 Tablet by mouth in the morning. 90 Tablet 3 5 Active Nicotine 21 MG/24HR Transdermal Patch 24 Hour ([facility] Nicotine) Place 1 Patch topically on the skin daily. 28 Patch 5 Active Hospital, Clinic, or Other Facility Administered Medication Ordered Dose Route Frequency Start Date End Date Status albuterol sulfate (PROVENTIL) (2.5 MG/3ML) 0.083% inhalation solution 2.5 mgIndications:Asthma with severity to be determined 2.5 mg NEBULIZER Q4H PRN 11/29/2018 Active documented as of this encounter (statuses as of 01/01/2025) Active Problems Problem Noted Date Diagnosed Date S/P primary angioplasty with coronary stent 12/15 Overview (12/25/2024): LAD and LCX Dyslipidemia 04/12/2023 Coronary artery disease invo lving absentee-[place] coronary artery of absent[place] heart without angina pectoris 09/07/2021 Hidradenitis suppurativa 01/22/2021 Type 2 diabetes mellitus wit h hemoglobin A1c goal of less than 7.0% 11/07/2019 Mild intermittent asthma without complication Super obese 11/27/2018 Tobacco use disorder 10/26/2018 HTN, goal below 130/80 01/20/2018 Migraine without aura and wi thout status migrainosus, not intractable 01/16/2018 DDD (degenerative disc disease), cervical 2017 Lumbar degenerative disc disease 01/16/2018 BHASKAR on CPAP 01/16/2018 documented as of this encounter (statuses as of 01/01/2025) Resolved Problems Problem Noted Date Diagnosed Date Resolved Date 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 0 to 49.9 in adult 06/28/2022 10/05/2022 Overview: Per Obesity protocol - Myringotomy tube status 09/07/202103/18 Non compliance with medical treatment 02/06/2020 08/31/2024 Overview (02/06/2020): Doesn't take all medications as prescribed. Admits this himself. Status post myringotomy with tube placement of both ears 08/14/2019 11/07/2019 Conductive hearing loss of l eft ear with unrestricted hearing of right ear 07/16/20192019 History of placement of ear tubes 05/14/2019 02/04/2021 Chronic mucoid otitis media, left ear 05/14/2019 11/07/2019 Mycosis fungoides, unspecified site 02/20/2019 11/07/2019 Nasal congestion due to prol onged use of decongestants 11/27/2018 11/07/2019 Type 2 diabetes mellitus wit hout complication, without long-term current use of insulin 11/17/2018 11/07/2019 Chronic cough 11/08/2018 11/07/2019 Nocturnal hypoxemia 09/28/2018 01/24/20 21 BMI 50.0-59.9, adult 01/24/2018 022 Overview: Per Obesity protocol #1 Body mass index (BMI) of 40. 0 to 44.9 in adult 07/18/2017 01/27/2018 Overview: Per Obesity protocol #1 Diverticulitis of colon 10/13/201610/18 Nephrolithiasis 10/13/2016 11/07/2019 documented as of this encounter (statuses as of 01/01/2025) Immunizations Name Administration Dates Next Due Seasonal Influenza Vac., MDV, IM, 0.5 mL (Fluzon e) 08/29/2013 Seasonal Influenza, PF, 6 M & above, IM , (FluLaval or Fluzone) 07/20/2018 documented as of this encounter Social History Tobacco Use Types Packs/Day Years Used Date Smoking Tobacco: Every Day Cigarettes 2 25 Passive Smoke Exposure: Current Smokeless Tobacco: Never Alcohol Use Standard Drinks/Week Comments Not Currently 0 (1 standard drink = 0.6 oz pur e alcohol) rarely PHQ-2 Answer Date Recorded PHQ Adult Total Score 0 01/23/2021 Hunger Vital Sign Answer Date Recorded Worried About Running Out of Food in the Last Ye ar Never true 11/07/2019 Ran Out of Food in the Last Year Never true 11/07/2019 Sex and Gender Information Value Date Recorded Sex Assigned at Not on file Legal Sex Male 7:00 AM EST Gender Identity Not on file Sexual Orientation Not on file Occupation Industry Job Start Date Job End Date 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 Pt also states his BSG is in 220sincluding fasting BSG. Pt c/o extreme thirst. Pt states he has had cough however he was a smoker, states the cough is nothing new. Pt has not had cigarette since hospital stay. Please advise if MTM is an option for diabetes, pt is agreeable to this Pt refusing to see anyone except Dr. Hassan, states the other providers do not listen to him Please advise * Telephone Encounter - Radha Mac OSA - 01/01/2025 12:35 PM EDT Please address thank you! * Telephone Encounter - Lise Sosa OSA - 01/01/2025 9:56 AM EDT No Appointments Available What Visit Type is needed? Return Patient declined available appointment(s)?: Yes, explain: Acute with a different provider and it was telehealth, wants with Dr. Hassan Were other providers in the clinic offered? No nothing was available in Acute and Patient only wants Dr. Hassan. documented in this encounter Plan of Treatment Upcoming Encounters Date Type Department Care Team (Late st Contact Info) Description 01/02/2025 10:00 AM EDT Office Visit Cardiothoracic Surg [facility] [address] [place] [address] Chinedu Arias MD [address] [place] [address] 01/04/2025 11:15 AM EDT Office Visit Otolaryngology [facility] [address] [place] [address] Dorcas Deluna MD [address] [place] [address] 01/16/2025 9:00 AM EDT Office Visit Pharmacy, [facility] [address] [facility] [place] [address] Pharmacist1, [facility] [address] [facility] [place] [address] 01/29/2025 11:00 AM EDT Telemedicine Nutrition & Weight Management, [facility] [place] [id number] Jose Garsia, DO [address] [place] [address] 03/21/2025 10:00 AM EDT Office Visit Cardiology, [facility] 132 [facility] [place] [address] Colin Dean [facility] [address] [facility] [id number] 04/08/2025 4:00 PM EDT Office Visit Family Practice [facility] 132 [facility] [place] [address] Coleman Hassan MD [address] [facility] [place] [address] Scheduled Procedures Name Priority Associated Diagnoses Date/Ti me COLONOSCOPY FLEXIBLE PROXIMAL DIAGNOSTIC Recall History of colon polyps Scheduled Referrals Name Type Priority Associated Diagnoses Orde r Schedule PHARMACIST MEDS THERAPY MGMT REFERRAL OP Referral Within 30 days (routine) Type 2 diabetes mellitus with hemoglobin A1c goal of less than 7.0% (HCC) Ordered: 01/01/2025 Health Maintenance Due Date Last Done Comments DISCUSS TOBACCO CESSATION (REFER TO SMARTSET #3291) 1985 Pneumococcal Vaccine: Pediatrics (0 to 5 Years) and At-Risk Patients (6 to 18 Years and 19+ Years) (1 of 2 - PCV) 01/26/2004 Diabetic Foot Exam 02/21/2020 02/20/2019 Depression Screening 01/23/2022 01/23/2021 *SPIROMETRY ONCE FOR ASTHMA-ADULT 09/09/2022 Diabetic Eye Exam 05/18/2024 05/18/2023, , 01/15/2021 Influenza Vaccine (FLU shot) (#1) 2024 07/20/2018, 07/20/2018, 01/11/2018 (Declined), Additional history exists HbA1c 06/27/2025 12/25/2024, 02/14, 09/07/2021, Additional history exists Albumin/Creatinine Ratio 12/25/2025 12/25/2024 GFR 12/25/2025 12/25/2024, 0 04/2025, 12/21/2024, Additional history exists DTap/Tdap Vaccines (2 - Td or Tdap) 08/02/2028 08/02/2018 (Declined) Colonoscopy 2030 10/22/2022, 0611/2021, 10/27/2016, Additional history exists COVID-19 Vaccine Discontinued 05/21/2021, 04/18/2021 HIV Screening Discontinued HPV (Gardasil) Vaccine Aged Out No lo nger eligible based on patient's age to complete this topic Hepatitis B Vaccine Discontinued Hepatitis C Screening Discontinued MENINGOCOCCAL (MENACTRA/MENVEO) Aged Out No longer eligible based on patient's age to complete this topic Meningitis B Vaccine (Bexsero/Trumemba) Aged Out No longer eligible based on patient's age to complete this topic documented as of this encounter Medical Devices Not on filedocumented as of this encounter Visit Diagnoses Diagnosis Type 2 diabetes mellitus with hemoglobin A1c goal of less than 7.0% (HCC)- Primary documented in this encounter Advance Directives * Full Code (Latest Code Status on File) Date Activated Date Inactivated Comments 09/15/2021 6:58 PM 09/16/2021 12:58 AM Question Answer Comments Discussion of Advance Directives occurred with: Not Discussed * Full Code Date Activated Date Inactivated Comments 09/15/2021 3:06 PM 09/15/2021 6:58 PM Question Answer Comments Discussion of Advance Directives occurred with: Not Discussed Care Teams Train Dispatcher Relationship Specialty Start Date End Date Coleman Hassan MD [address] [place] [address] PCP - General Family Medicine 11/07/19 documented as of this encounter
--- OUTSIDE RECORDS SUMMARY | 2025-01-12 17:40 | External Medical Summary | Summary of Care ---
Author Name Unknown Organization [facility] Address [address] [place] [address] Phone [phone] Care Team Providers Care Cake Press Operator Name Role Phone Coleman Hassan MD Primary Care Provider [phone] Reason for Visit * Reason Comments Outpatient Testing Encounter Details Date Type Department Care Team (Late st Contact Info) Description 12/25/2024 4:00 PM EDT Laboratory Laboratory, [facility] [phone] [facility] 132 [place] [address] Type 2 diabetes mellitus with hemoglobin A1c goal of less than 7.0% ([facility]) Allergies Active Allergy Reactions Criticality Noted Date Comments Sulfamethoxazole-Trimethop rim Edema face/lips/tongue High 02/20/2019 Facial swelling Sulfamethoxazole High 10/22/2022 Other Reaction(s): Rash Trimethoprim High 10/22/2022 Other Reaction(s): Rash documented as of this encounter (statuses as of 12/26/2024) Medications ASPIRIN LOW DOSE 81 MG TBEC Take 1 Tablet by mouth in the morning. In the morning.. 0 Active CPAP every night at bedtime. Active Fluticasone Propionate 50 MCG/ACT Nasal SuspensionIndicat ions:BHASKAR on CPAP Administer into each nostril 2 Sprays in the morning. 16 g 5 2 Active Ipratropium [place] 0.03 % Nasal Solution (Atrovent)Indicat ions:Acute non-recurrent [...] Tablet Sublingual (Nitrostat)Indica tions:Coronary artery disease involving [place] coronary artery of [place] heart without angina pectoris Place 1 Tablet [...] for Cough. 30 Capsule 1 5 Active Hospital, Clinic, or Other Facility Administered Medication Ordered Dose Route Frequency Start Date End Date Status albuterol sulfate (PROVENTIL) (2.5 MG/3ML) 0.083% inhalation solution 2.5 mgIndications:Asthma with severity to be determined 2.5 mg NEBULIZER Q4H PRN 11/29/2018 Active documented as of this encounter (statuses as of 12/26/2024) Active Problems Problem Noted Date Diagnosed Date S/P primary angioplasty with coronary stent 12/15 Overview (12/25/2024): LAD and LCX Dyslipidemia 04/12/2023 Coronary artery disease invo lving [place] coronary artery of [place] heart without angina pectoris 09/07/2021 Hidradenitis suppurativa [...] as of this encounter (statuses as of 12/26/2024) Resolved Problems Problem Noted Date Diagnosed Date Resolved Date 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 0 to 49.9 in adult 06/28/2022 10/05/2022 Overview: Per Obesity protocol - Myringotomy tube status 09/07/2021 06/04/2023 Non compliance with medical treatment 02/06/2020 08/31/2024 [...] as of this encounter (statuses as of 12/26/2024) Immunizations Name Administration Dates Next Due Seasonal [...] on file documented as of this encounter Plan of Treatment Upcoming Encounters Date Type Department Care Team (Late st Contact Info) Description 01/02/2025 10:00 AM EDT Office Visit Cardiothoracic Surg [facility] [address] [place] [address] Chinedu Arias MD [address] [place] [address] 01/04/2025 11:15 AM EDT Office Visit Otolaryngology [facility] [address] [facility] [place] [address] Dorcas Deluna MD [address] [place] [address] 01/29/2025 11:00 AM EDT Telemedicine Nutrition & Weight Management, [facility] [address] [facility] [place] [address] Jose Garsia DO [address] [place] [address] 03/21/2025 10:00 AM EDT Office Visit Cardiology, [facility] [address] [facility] [place] [address] Colin Dean MD [address] [facility] [place] [address] Pending Results Name Type Priority Associated Diagnoses Date /Time ALBUMIN / CREATININE RATIO, URINE Lab Routine Type 2 diabetes mellitus with hemoglobin A1c goal of less than 7.0% ([facility]) 12/25/2024 5:07 PM EDT Scheduled Orders Name Type Priority Associated Diagnoses Orde r Schedule ALBUMIN / CREATININE RATIO, URINE Lab Routine Type 2 diabetes mellitus with hemoglobin A1c goal of less than 7.0% ([facility]) Expected: 12/25/2024, Expires: 12/25/2025 Scheduled Procedures Name Priority Associated Diagnoses Date/Ti me COLONOSCOPY FLEXIBLE PROXIMAL DIAGNOSTIC Recall History of colon polyps Health Maintenance Due Date Last Done Comments DISCUSS TOBACCO CESSATION (REFER TO SMARTSET #5493) 1985 Albumin/Creatinine Ratio 2003 Pneumococcal Vaccine: Pediatrics (0 to 5 Years) and At-Risk Patients (6 to 18 Years and 19+ Years) (1 of 2 - PCV) 01/26/2004 Diabetic Foot Exam 02/21/2020 02/20/2019 Depression Screening 01/23/2022 01/23/2021 *SPIROMETRY ONCE FOR ASTHMA-ADULT 09/09/2022 Diabetic Eye Exam 05/18/2024 05/18/2023, , 01/15/2021 Influenza Vaccine (FLU shot) (#1) 2024 07/20/2018, 07/20/2018, 01/11/2018 (Declined), Additional history exists HbA1c 06/27/2025 12/25/2024, 05/1 10/2022, 09/07/2021, Additional history exists GFR 12/25/2025 12/25/2024, 030 04/2025, 12/21/2024, Additional history exists DTap/Tdap Vaccines (2 - Td or Tdap) 08/02/2028 08/02/2018 (Declined) Colonoscopy 2030 10/22/2022, 06/0 11/2021, 10/27/2016, Additional history exists COVID-19 Vaccine Discontinued [...] Not on filedocumented as of this encounter Procedures Procedure Name Priority Date/Time Associated Diagnosis Comments HEMOGLOBIN A1C Routine 12/25/2024 4:04 PM EDT Type 2 diabetes mellitus with hemoglobin A1c goal of less than 7.0% (HCC) COMPREHENSIVE METABOLIC PANEL Routine 12/25/2024 4:04 PM EDT Type 2 diabetes mellitus with hemoglobin A1c goal of less than 7.0% (HCC) documented in this encounter Results * (ABNORMAL) HEMOGLOBIN A1C (12/25/2024 4:04 PM EDT) Hemoglobin A1C 9.4(H) 4.0 - 5.6 % 12/25/2024 10:50 PM EDT [facility] [place]:The use of HbA1c to monitor glycemic status is based on normal hemoglobin and HbA composition. This test should not be used in patients with abnormal hemoglobin that affects the half life of the red blood cell or the in vivo glycation rates. Estimated Average Glucose 223(H) <126 mg/dL 12/25/2024 10:50 PM EDT [facility] Blood Venous blood specimen / Unknown Venipuncture / Unknown 12/25/2024 4:04 PM EDT 12/25/2024 4:04 PM EDT us Jose Garsia DO LAB BLOOD ORDERABLES Jasmyn vázquez Result [facility] [address] [place] [address] * (ABNORMAL) COMPREHENSIVE METABOLIC PANEL (12/25/2024 4:04 PM EDT) BUN 10 6 - 20 mg/dL 12/25/2024 10:48 PM EDT [facility] CREATININE 0.7 0.6 - 1.2 mg/dL 12/25/2024 10:48 PM EDT [facility] EGFR >90 >=60 mL/min 12/25/2024 10:48 PM EDT [facility] Comment:eGFR is calculated b ased on the CKD-EPI 2020 equation. SODIUM 139 135 - 146 mmol/L 12/25/2024 10:48 PM EDT [facility] POTASSIUM 4.4 3.5 - 5.1 mmol/L 12/25/2024 10:48 PM EDT LABORATORY C CHLORIDE 103 98 - 107 mmol/L 12/25/2024 10:48 PM EDT [facility] CO2 26 22 - 32 mmol/L 12/25/2024 10:48 PM EDT [facility] ANION GAP 10 7 - 15 mmol/L 12/25/2024 10:48 PM EDT [facility] GLUCOSE 204(H) 70 - 120 mg/dL 12/25/2024 10:48 PM EDT [facility] Albumin 4.2 3.8 - 5.0 g/dL 12/25/2024 10:48 PM EDT [facility] AST 26 10 - 50 U/L 12/25/2024 10:48 PM EDT [facility] Alkaline Phosphatase 105 35 - 130 U/L 12/25/2024 10:48 PM EDT [facility] Bilirubin, Total 0.3 <=1.2 mg/dL 12/25/2024 10:48 PM EDT [facility] CALCIUM 9.6 8.4 - 10.2 mg/dL 12/25/2024 10:48 PM EDT [facility] Protein 7.6 6.0 - 8.3 g/dL 12/25/2024 10:48 PM EDT [facility] ALT 31 10 - 50 U/L 12/25/2024 10:48 PM EDT [facility] Blood Venous blood specimen / Unknown Venipuncture / Unknown 12/25/2024 4:04 PM EDT 12/25/2024 4:04 PM EDT Jose Garisa DO LAB BLOOD ORDERABLES Jasmyn vázquez Result Performing Organization Address City/State/[facility] Co de Phone Number [facility] [address] [place] [address] documented in this encounter Visit Diagnoses Diagnosis Type 2 diabetes mellitus with hemoglobin A1c goal of less than 7.0% (HCC) documented in this encounter Advance Directives * Full Code (Latest Code Status on File) Date Activated Date Inactivated Comments 09/15/2021 6:58 PM 09/16/2021 12:58 AM Question Answer Comments Discussion of Advance Directives occurred with: Not Discussed * Full Code Date Activated Date Inactivated Comments 09/15/2021 3:06 PM 09/15/2021 6:58 PM Question Answer Comments Discussion of Advance Directives occurred with: Not Discussed Care Teams Cake Press Operator Relationship Specialty Start Date End Date Coleman Hassan MD [address] [place] [address] PCP - General Family Medicine 11/07/19 documented as of this encounter
--- OUTSIDE RECORDS SUMMARY | 2025-01-12 17:40 | External Medical Summary | Summary of Care ---
Author Name Unknown Organization [facility] Address [address] [facility] [place] [address] Phone [phone] Care Team Providers Care Quiller Operator Name Role Phone Coleman Hassan MD Primary Care Provider [phone] Reason for Visit * Reason Onset Date Comments Hospital Follow-Up Pt here for h ospital follow up Hospital Follow-Up 12/25/2024 Encounter Details Date Type Department Care Team (Late st Contact Info) Description 12/25/2024 3:20 PM EDT Office Visit Family Practice [facility] [address] [place] [address] Coleman Hassan MD [address] [place] [address] Hospital discharge follow-up*; S/P primary angioplasty with coronary stent; Coronary artery disease involving chefornak coronary artery of chefornak heart without angina pectoris; Super obese; Type 2 diabetes mellitus with hemoglobin A1c goal of less than 7.0% ([facility]); BHASKAR on CPAP; Mild intermittent asthma without complication Allergies Active Allergy Reactions Criticality Noted Date Comments Sulfamethoxazole-Trimethop rim Edema face/lips/tongue High 02/20/2019 Facial swelling Sulfamethoxazole High 10/22/2022 Other Reaction(s): Rash Trimethoprim High 10/22/2022 Other Reaction(s): Rash documented as of this encounter (statuses as of 12/26/2024) Medications ASPIRIN LOW DOSE 81 MG TBEC Take 1 Tablet by mouth in the morning. In the morning.. 04/24/20 20 Active CPAP every night at bedtime. Active Fluticasone Propionate 50 MCG/ACT Nasal SuspensionIndic ations:BHASKAR on CPAP Administer into each nostril 2 Sprays in the morning. 16 g 5 12/09/19 22 Active Ipratropium [place] 0.03 % Nasal Solution (Atrovent)Indic ations:Acute non-recurrent maxillary sinusitis Administer 2 Sprays into each nostril 4 times a day as needed for Rhinitis. for runny nose 30 mL 1 06/14/20 23 Active Hydrocortisone 1 % External Cream Apply topically to affected area 2 times a day. Apply to knee once daily at end of day for itch 20 g 02/14/20 24 Active Dulera 200-5 MCG/ACT Inhalation Aerosol (Mometasone-For moterol)Indicat ions:Mild intermittent asthma without complication Inhale 2 Puffs by mouth in the morning and 2 Puffs before bedtime. 13 g 3 08/17/20 24 Active Nitroglycerin 0.4 MG Sublingual Tablet Sublingual (Nitrostat)Eladia cations:Coronar y artery disease involving chefornak coronary artery of chefornak heart without angina pectoris Place 1 Tablet under the tongue every 5 minutes as needed for Pain, Chest. 25 Tablet 08/17/20 24 Active Omeprazole 40 MG Oral Capsule Delayed Release (PriLOSEC) Take 1 Capsule by mouth in the morning. 90 Capsule 3 08/21/20 24 Active Metoprolol Succinate ER 50 MG Oral Tablet Extended Release 24 Hour (toPROL XL) Take 1 Tablet by mouth in the morning. 90 Tablet 1 08/21/20 24 Active Empagliflozin 25 MG Oral Tablet (Jardiance) Take 1 Tablet by mouth in the morning. 90 Tablet 3 08/21/20 24 Active Triamcinolone Acetonide 0.1 % External Ointment (Aristocort)Ind ications:Mycosi s fungoides, unspecified body region (HCC) Apply to trunk after bathing as needed 454 g 1 08/21/20 24 Active Dicyclomine HCl 10 MG Oral Capsule (Bentyl) Take 1 Capsule by mouth in the morning and 1 Capsule at noon and 1 Capsule before bedtime. 90 Capsule 2 08/21/20 24 Active Qvar RediHaler 80 MCG/ACT Inhalation Aerosol Breath Activated (Beclomethasone Diprop HFA) Inhale 2 Puffs by mouth in the morning and 2 Puffs before bedtime. 10.6 g 3 11/20/19 25 Active ProAir HFA 108 (90 Base) MCG/ACT Inhalation Aerosol Solution Inhale 2 Puffs by mouth in the morning and 2 Puffs at noon and 2 Puffs in the evening and 2 Puffs before bedtime. 18 g 3 11/20/19 25 Active Benzonatate 100 MG Oral Capsule Take 2 Capsules by mouth 3 times a day as needed for Cough. 30 Capsule 1 11/20/19 25 Active Cephalexin 500 MG Oral Capsule (Keflex) Take 1 Capsule by mouth in the morning and 1 Capsule at noon and 1 Capsule before bedtime. Do all this for 10 days. 30 Capsule 12/26/19 25 025 Active Ezetimibe 10 MG Oral Tablet (Zetia)Indicati ons:S/P primary angioplasty with coronary stent Take 1 Tablet by mouth in the morning. 90 Tablet 3 12/26/19 25 Active Prasugrel HCl 10 MG Oral Tablet (Effient)Indica tions:S/P primary angioplasty with coronary stent Take 1 Tablet by mouth in the morning. 90 Tablet 3 12/26/19 25 Active Atorvastatin Calcium 80 MG Oral Tablet (Lipitor)Indica tions:S/P primary angioplasty with coronary stent Take 1 Tablet by mouth in the morning. 90 Tablet 3 12/26/19 25 Active Lisinopril 40 MG Oral TabletIndicatio ns:S/P primary angioplasty with coronary stent Take 1 Tablet by mouth in the morning. 90 Tablet 3 12/26/19 25 Active Nicotine 21 MG/24HR Transdermal Patch 24 Hour ([facility] Nicotine) Place 1 Patch topically on the skin daily. 28 Patch 12/26/19 25 Active Drisdol 1.25 MG (24452 UT) Oral Capsule Take 1 Capsule by mouth once a week. 8 Capsule 03/04/20 23 025 Discontinued Meloxicam 15 MG Oral Tablet Take 1 Tablet by mouth in the morning. for pain.. 90 Tablet 1 02/14/20 24 025 Discontinued Ozempic (0.25 or 0.5 MG/DOSE) 2 MG/3ML Solution Pen-injector (Semaglutide(0. 25 or 0.5MG/DOS))Eladia cations:Type 2 diabetes mellitus with hemoglobin A1c goal of less than 7.0% ([facility]) Inject 0.5 mg under the skin once a week. 9 mL 4 3:38 PM EDT 03/01/20 24 025 Discontinued(D ischarged) Varenicline Tartrate (Starter) 0.5 MG X 11 & 1 MG X 42 Tablet Therapy PackIndications :Tobacco use disorder Take per packaging directions 53 Each 08/20/20 24 025 Discontinued Varenicline Tartrate 1 MG Oral TabletIndicatio ns:Tobacco use disorder Take 1 Tablet by mouth in the morning and 1 Tablet before bedtime. As directed on box.. 60 Tablet 1 08/20/20 24 025 Discontinued Lisinopril 30 MG Oral Tablet Take 1 Tablet by mouth in the morning. 90 Tablet 3 08/21/20 24 025 Discontinued(D ischarged) Atorvastatin Calcium 40 MG Oral Tablet (Lipitor) Take 1 Tablet by mouth at bedtime. 90 Tablet 3 08/21/20 24 025 Discontinued(D ischarged) HYDROcodone Bit-Homatrop MBr 5-1.5 MG/5ML Oral Solution (Hycodan)Indica tions:Pneumonia of both upper lobes due to Mycoplasma pneumoniae Take 5 mL by mouth every 6 hours as needed for Cough. 120 mL 08/31/20 24 025 Discontinued Ozempic (1 MG/DOSE) 4 MG/3ML Subcutaneous Solution Pen-injector (Semaglutide (1 MG/DOSE)) Inject 1 mg under the skin once a week. 9 mL 2 5 10:17 AM EST 10/29/19 025 Discontinued guaiFENesin-Cod eine 100-10 MG/5ML Oral Solution (Robitussin AC) Take 10 mL by mouth at bedtime as needed for Cough. 118 mL 11/20/19 25 025 Discontinued Ezetimibe 10 MG Oral Tablet (Zetia) Take 1 Tablet by mouth in the morning. 12/23/19 25 025 Discontinued(R efill) Prasugrel HCl 10 MG Oral Tablet (Effient) Take 1 Tablet by mouth in the morning. 12/23/19 25 025 Discontinued(R efill) Nicotine 21 MG/24HR Transdermal Patch 24 Hour ([facility] Nicotine) Place 1 Patch topically on the skin daily. 025 Discontinued(R efill) Hospital, Clinic, or Other Facility Administered Medication [...] Dyslipidemia 04/12/2023 Coronary artery disease invo lving chefornak coronary artery of chefornak heart without angina pectoris 09/07/2021 Hidradenitis suppurativa [...] on file documented as of this encounter Last Filed Vital Signs Vital Sign Reading Time Taken Comments Blood Pressure 154/96 12/25/2024 3:25 PM EDT Pulse 80 12/25/2024 3:25 PM EDT Temperature 36.9 C (98.5 F) 12/25/2024 3:25 PM ED T Respiratory Rate 18 12/25/2024 3:25 PM EDT Oxygen Saturation - - Inhaled Oxygen Concentration - - Weight 160.1 kg (353 lb) 12/25/2024 3:25 PM EDT Height 180.3 cm (5' 11") 12/25/2024 3:25 PM EDT Body Mass Index 49.23 12/25/2024 3:25 PM EDT documented in this encounter Progress Notes * Coleman Hassan MD - 12/25/2024 3:29 PM EDT SUBJECTIVE: Fernando Bangura is a 39 year old male. Chief Complaint Patient presents with Hospital Follow-Up Pt here for hospital follow up Hospital Follow-Up Recent Admission: Patient was recently admitted to [facility] in [facility]. The date of discharge was 12/21/24. Discharge report received and reviewed. HPI: Patient was initially seen for angina at [facility] but ended up leaving AMA. Went to visit ID and was admitted to [facility] where he had LCX and LAD stenting. Feels "like a million bucks" today. Quitsmoking (using the patch). Medications updated today. He has an appointment tomorrow in [place] with cardiothoracic surgery. Patient Active Problem List Diagnosis Migraine without aura and without status migrainosus, not intractable DDD (degenerative disc disease), cervical Lumbar degenerative disc disease BHASKAR on CPAP HTN, goal below 130/80 Tobacco use disorder Mild intermittent asthma without complication Super obese Type 2 diabetes mellitus with hemoglobin A1c goal of less than 7.0% ([facility]) Hidradenitis suppurativa Coronary artery disease involving chefornak coronary artery of chefornak heart without angina pectoris Dyslipidemia S/P primary angioplasty with coronary stent Current Outpatient Medications Medication Sig Dispense Refill ASPIRIN LOW DOSE 81 MG TBEC Take 1 Tablet by mouth in the morning. In the morning.. CPAP every night at bedtime. Fluticasone Propionate 50 MCG/ACT Nasal Suspension Administer into each nostril 2 Sprays in the morning. 16 g 5 Ipratropium [place] 0.03 % Nasal Solution (Atrovent) Administer 2 Sprays into each nostril 4 times a day as needed for Rhinitis. for runny nose 30 mL 1 Hydrocortisone 1 % External Cream Apply topically to affected area 2 times a day. Apply to knee once daily at end of day for itch 20 g 0 Nitroglycerin 0.4 MG Sublingual Tablet Sublingual (Nitrostat) Place 1 Tablet under the tongue every5 minutes as needed for Pain, Chest. 25 Tablet 0 Omeprazole 40 MG Oral Capsule Delayed Release (PriLOSEC) Take 1 Capsule by mouth in the morning. 90Capsule 3 Metoprolol Succinate ER 50 MG Oral Tablet Extended Release 24 Hour (toPROL XL) Take 1 Tablet by mouth in the morning. 90 Tablet 1 Empagliflozin 25 MG Oral Tablet (Jardiance) Take 1 Tablet by mouth in the morning. 90 Tablet 3 Triamcinolone Acetonide 0.1 % External Ointment (Aristocort) Apply to trunk after bathing as [id number] g 1 Dicyclomine HCl 10 MG Oral Capsule (Bentyl) Take 1 Capsule by mouth in the morning and 1 Capsule atnoon and 1 Capsule before bedtime. 90 Capsule 2 Qvar RediHaler 80 MCG/ACT Inhalation Aerosol Breath Activated (Beclomethasone Diprop HFA) Inhale 2 Puffs by mouth in the morning and 2 Puffs before bedtime. 10.6 g 3 ProAir HFA 108 (90 Base) MCG/ACT Inhalation Aerosol Solution Inhale 2 Puffs by mouth in the morningand 2 Puffs at noon and 2 Puffs in the evening and 2 Puffs before bedtime. 18 g 3 Benzonatate 100 MG Oral Capsule Take 2 Capsules by mouth 3 times a day as needed for Cough. 30 Capsule 1 Cephalexin 500 MG Oral Capsule (Keflex) Take 1 Capsule by mouth in the morning and 1 Capsule at noon and 1 Capsule before bedtime. Do all this for 10 days. 30 Capsule 0 Ezetimibe 10 MG Oral Tablet (Zetia) Take 1 Tablet by mouth in the morning. 90 Tablet 3 Prasugrel HCl 10 MG Oral Tablet (Effient) Take 1 Tablet by mouth in the morning. 90 Tablet 3 Atorvastatin Calcium 80 MG Oral Tablet (Lipitor) Take 1 Tablet by mouth in the morning. 90 Tablet 3 Lisinopril 40 MG Oral Tablet Take 1 Tablet by mouth in the morning. 90 Tablet 3 Nicotine 21 MG/24HR Transdermal Patch 24 Hour ([facility] Nicotine) Place 1 Patch topically on the skin daily. 28 Patch 0 Dulera 200-5 MCG/ACT Inhalation Aerosol (Mometasone-Formoterol) Inhale 2 Puffs by mouth in the morning and 2 Puffs before bedtime. 13 g 3 Current Facility-Administered Medications Medication Dose Route Frequency Provider Last Rate Last Admin albuterol sulfate (PROVENTIL) (2.5 MG/3ML) 0.083% inhalation solution 2.5 mg 2.5 mg Nebulizer Q4H PRN Dania Niño CRNP Current and discharge medications have been reconciled. Review of patient's allergies indicates: Allergen Reactions Bactrim [Sulfamethoxazole-Trimethoprim] Edema face/lips/tongue Facial swelling Sulfamethoxazole Other Reaction(s): Rash Trimethoprim Other Reaction(s): Rash OBJECTIVE: BP 154/96 | Pulse 80 | Temp 98.5 F (36.9 C) | Resp 18 | Ht 5' 11" (1.803 m) | Wt (!) 353 lb (160.1 kg) | BMI 49.23 kg/m | BSA 2.83 m PHYSICAL EXAM: Gen: obese, nad Lungs: ctab Heart: rrr, no mrg Ext: trace edema ASSESSMENT: Hospital discharge follow-up (Primary) - DISCH MED RECON CUR MED LIS S/P primary angioplasty with coronary stent - Ezetimibe 10 MG Oral Tablet (Zetia); Take 1 Tablet by mouth in the morning. - Prasugrel HCl 10 MG Oral Tablet (Effient); Take 1 Tablet by mouth in the morning. - Atorvastatin Calcium 80 MG Oral Tablet (Lipitor); Take 1 Tablet by mouth in the morning. - Lisinopril 40 MG Oral Tablet; Take 1 Tablet by mouth in the morning. Coronary artery disease involving chefornak coronary artery of chefornak heart without angina pectoris Super obese Type 2 diabetes mellitus with hemoglobin A1c goal of less than 7.0% ([facility]) BHASKAR on CPAP Mild intermittent asthma without complication PLAN: Continue present medication(s): Follow up as needed. I spent a total of 30-39 minutes (exact time 32 mins) minutes on the date of service in preparation, delivery, and documentation of the care provided to Fernando Bangura excluding any time spent in performance of separately billed services. Coleman Hassan MD documented in this encounter Nursing Notes * Rachel Comer LPN - 12/25/2024 3:25 PM EDT The patient has been properly identified by confirmation of name and date of . Chief Complaint Patient presents with Hospital Follow-Up Pt here for hospital follow up documented in this encounter Plan of Treatment Upcoming Encounters Date Type Department Care Team (Late st Contact Info) Description 01/02/2025 10:00 AM EDT Office Visit Cardiothoracic Surg [facility] [address] [place] [address] Chinedu Arias MD [address] [place] [address] 01/04/2025 11:15 AM EDT Office Visit Otolaryngology [facility] [address] [place] [address] Dorcas Deluna MD [address] [place] [address] 01/29/2025 11:00 AM EDT Telemedicine Nutrition & Weight Management, [facility] [address] [place] [address] Jose Garsia DO [address] [place] [address] 03/21/2025 10:00 AM EDT Office Visit Cardiology, [facility] [address] [facility] [place] [address] Colin Dean MD [address] [place] [address] Pending Results Name Type Priority Associated Diagnoses Date /Time ALBUMIN / CREATININE RATIO, URINE Lab Routine Type 2 diabetes mellitus with hemoglobin A1c goal of less than 7.0% ([facility]) 12/25/2024 5:07 PM EDT Scheduled Procedures Name Priority Associated Diagnoses Date/Ti me COLONOSCOPY FLEXIBLE PROXIMAL DIAGNOSTIC Recall History of colon polyps Health Maintenance Due Date Last Done Comments DISCUSS TOBACCO CESSATION (REFER TO SMARTSET #3298) 1985 Albumin/Creatinine Ratio 2003 Pneumococcal Vaccine: Pediatrics [...] 06/27/2025 12/25/2024, 02/14, 09/07/2021, Additional history exists GFR 12/25/2025 12/25/2024, 0304/2025, 12/21/2024, Additional history exists DTap/Tdap Vaccines (2 [...] as of this encounter Visit Diagnoses Diagnosis Hospital discharge follow-up- Primary Other follow-up examination S/P primary angioplasty with coronary stent Postsurgical percutaneous transluminal coronary angioplasty status Coronary artery disease involving chefornak coronary artery of chefornak heart without angina pectoris Super obese Morbid obesity Type 2 diabetes mellitus with hemoglobin A1c goal of less than 7.0% (HCC) BHASKAR on CPAP Obstructive sleep apnea (adult) (pediatric) Mild intermittent asthma without complication Unspecified asthma documented in this encounter Advance Directives * Full Code (Latest Code Status on File) Date Activated Date Inactivated Comments 09/15/2021 6:58 PM 09/16/2021 12:58 AM Question Answer Comments Discussion of Advance Directives occurred with: Not Discussed * Full Code Date Activated Date Inactivated Comments 09/15/2021 3:06 PM 09/15/2021 6:58 PM Question Answer Comments Discussion of Advance Directives occurred with: Not Discussed Care Teams Quiller Operator Relationship Specialty Start Date End Date Coleman Hassan MD [address] [facility] [place] [address] PCP - General Family Medicine 11/07/19 documented as of this encounter
--- OUTSIDE RECORDS SUMMARY | 2025-01-12 17:40 | External Medical Summary | Summary of Care ---
Author Name Unknown Organization [facility] Address [address] [facility] [place] [facility] [place] [address] Phone [phone] Care Team Providers Care Manufacturing Job Titles Name Role Phone Coleman Hassan MD Primary Care Provider [phone] Reason for Visit * Reason Onset Date Comments Appointment 01/10/2025 Encounter Details Date Type Department Care Team (Late st Contact Info) Description 01/10/2025 Telephone Cardiology, [facility] [address] [place] [address] Osbaldo Corona, [address] [place] [address] Appointment Allergies Active Allergy Reactions Criticality Noted Date Comments Sulfamethoxazole-Trimethop rim Edema face/lips/tongue High 02/20/2019 Facial swelling Sulfamethoxazole High 10/22/2022 Other Reaction(s): Rash Trimethoprim High 10/22/2022 Other Reaction(s): Rash documented as of this encounter (statuses as of 01/11/2025) Medications ASPIRIN LOW DOSE 81 MG TBEC Take 1 Tablet by mouth in the morning. In the morning.. 0 Active CPAP every night at bedtime. Active Fluticasone Propionate 50 MCG/ACT Nasal SuspensionIndicat ions:BHASKAR on CPAP Administer into each nostril 2 Sprays in the morning. 16 g 5 2 Active Ipratropium [place] 0.03 % Nasal Solution (Atrovent)Indicat ions:Acute non-recurrent [...] Tablet Sublingual (Nitrostat)Indica tions:Coronary artery disease involving ewiiaapaayp coronary artery of ewiiaapaayp heart without angina pectoris Place 1 Tablet [...] for Cough. 30 Capsule 1 5 Active Ezetimibe 10 MG Oral Tablet (Zetia)Indication [...] the skin daily. 28 Patch 5 Active Acetaminophen 500 MG Oral Tablet (Tylenol Extra Strength) Take 2 Tablets by mouth every 6 hours as needed. Active Hospital, Clinic, or Other Facility Administered Medication Ordered Dose Route Frequency Start Date End Date Status albuterol sulfate (PROVENTIL) (2.5 MG/3ML) 0.083% inhalation solution 2.5 mgIndications:Asthma with severity to be determined 2.5 mg NEBULIZER Q4H PRN 11/29/2018 Active documented as of this encounter (statuses as of 01/11/2025) Active Problems Problem Noted Date Diagnosed Date S/P primary angioplasty with coronary stent 12/15 Overview (12/25/2024): LAD and LCX Dyslipidemia 04/12/2023 Coronary artery disease invo lving ewiiaapaayp coronary artery of ewiiaapaayp heart without angina pectoris 09/07/2021 Hidradenitis suppurativa [...] as of this encounter (statuses as of 01/11/2025) Resolved Problems Problem Noted Date Diagnosed Date [...] as of this encounter (statuses as of 01/11/2025) Immunizations Name Administration Dates Next Due Seasonal [...] encounter Miscellaneous Notes * Telephone Encounter - Sesar Leos OSA - 01/10/2025 3:42 PM EDT Radha, patient will be new to the office, may I offer her a RADIO COMMUNICATIONS SUPERINTENDENT appt with any provider? Thank you. * Telephone Encounter - Jackie Leonardo OSA - 01/10/2025 3:36 PM EDT Patient's requesting sooner appointment for patient. Explained he's been having chest pains recently and would like to get in sooner if possible. Patient is already on the wait list and acceptedsooner appointment, but cancelled due to accepting an appointment not locally. Requesting Dr. Corona or Dr. Dean. Date: 05/28/2025 Status: [facility] Time: 10:00 AM Length: 30 Visit Type: NEW CARDIOLOGY [[id number]] Reg Status: Verified Copay: $0.00 Provider: Osbaldo Corona DO Department: NEW [facility]IOLOGY [facility] documented in this encounter Plan of Treatment Upcoming Encounters Date Type Department Care Team (Late st Contact Info) Description 01/16/2025 9:00 AM EDT Office Visit Pharmacy, [facility] [address] [place] [address] Pharmacist1, [facility] [address] [facility] [place] [address] 01/29/2025 11:00 AM EDT Telemedicine Nutrition & Weight Management, [facility] [address] [place] [phone] Jose Garsia, DO [address] [facility] [address] 02/04/2025 1:45 PM EDT Office Visit Otolaryngology [facility] [address] [place] [address] Dorcas Deluna MD [address] [place] [address] 04/08/2025 4:00 PM EDT Office Visit Family Practice [facility] [address] [place] [address] Coleman Hassan MD [address] [place] [address] 05/28/2025 10:00 AM EDT Office Visit Cardiology, [facility] [address] [place] [phone] Osbaldo Corona DO [address] [place] [address] Scheduled Procedures Name Priority Associated Diagnoses Date/Ti me COLONOSCOPY FLEXIBLE PROXIMAL DIAGNOSTIC Recall History of colon polyps Health Maintenance Due Date Last Done Comments DISCUSS TOBACCO CESSATION (REFER TO SMARTSET #3290) 1985 Pneumococcal Vaccine: Pediatrics (0 to 5 [...] Albumin/Creatinine Ratio 12/25/2025 12/25/2024 GFR 12/25/2025 12/25/2024, 03/0 04/2025, 12/21/2024, Additional history exists DTap/Tdap Vaccines [...] Not on filedocumented as of this encounter Advance Directives * Full Code (Latest Code Status on File) Date Activated Date Inactivated Comments 09/15/2021 6:58 PM 09/16/2021 12:58 AM Question Answer Comments Discussion of Advance Directives occurred with: Not Discussed * Full Code Date Activated Date Inactivated Comments 09/15/2021 3:06 PM 09/15/2021 6:58 PM Question Answer Comments Discussion of Advance Directives occurred with: Not Discussed Care Teams Manufacturing Job Titles Relationship Specialty Start Date End Date Coleman Hassan MD [address] [place] [address] PCP - General Family Medicine 11/07/19 documented as of this encounter
--- OUTSIDE RECORDS SUMMARY | 2025-01-12 17:40 | External Medical Summary | Summary of Care ---
Author Name Unknown Organization [facility] Address [address] [facility] [place] [address] Phone [phone] Care Team Providers Care Project Crew Worker Name Role Phone Coleman Hassan MD Primary Care Provider [phone] Reason for Visit * Reason Onset Date Comments Hospital Follow-Up Pt here for h ospital follow up Hospital Follow-Up 12/25/2024 Encounter Details Date Type Department Care Team (Late st Contact Info) Description 12/25/2024 3:20 PM EDT Office Visit Family Practice [facility] [address] [place] [address] Coleman Hassan MD [address] [place] [address] Hospital discharge follow-up*; S/P primary angioplasty with coronary stent; Coronary artery disease involving [place] coronary artery of [place] heart without angina pectoris; Super obese; Type 2 diabetes mellitus with hemoglobin A1c goal of less than 7.0% ([facility]); BHASKAR on CPAP; Mild intermittent asthma without [...] 16 g 5 12/09/19 22 Active Ipratropium [place] 0.03 % Nasal Solution (Atrovent)Indic ations:Acute non-recurrent [...] Sublingual (Nitrostat)Eladia cations:Coronar y artery disease involving [place] coronary artery of [place] heart without angina pectoris Place 1 Tablet [...] Patch 12/26/19 25 Active Drisdol 1.25 MG (56987 UT) Oral Capsule Take 1 Capsule by [...] hemoglobin A1c goal of less than 7.0% ([facility]) Inject 0.5 mg under the skin once [...] Dyslipidemia 04/12/2023 Coronary artery disease invo lving [place] coronary artery of [place] heart without angina pectoris 09/07/2021 Hidradenitis suppurativa [...] Recent Admission: Patient was recently admitted to [facility] in [facility]. The date of discharge was 12/21/24. Discharge report received and reviewed. HPI: Patient was initially seen for angina at [facility] but ended up leaving AMA. Went to visit OR and was admitted to [facility] where he had LCX and LAD stenting. Feels "like a million bucks" today. Quitsmoking (using the patch). Medications updated today. He has an appointment tomorrow in [place] with cardiothoracic surgery. Patient Active Problem List Diagnosis Migraine without aura and without status migrainosus, not intractable DDD (degenerative disc disease), cervical Lumbar degenerative disc disease BH[place] on CPAP HTN, goal below 130/80 Tobacco use disorder Mild intermittent asthma without complication Super obese Type 2 diabetes mellitus with hemoglobin A1c goal of less than 7.0% ([facility]) Hidradenitis suppurativa Coronary artery disease involving [place] coronary artery of [place] heart without angina pectoris Dyslipidemia S/P primary angioplasty with coronary stent Current Outpatient Medications Medication Sig Dispense Refill ASPIRIN LOW DOSE 81 MG TBEC Take 1 Tablet by mouth in the morning. In the morning.. CPAP every night at bedtime. Fluticasone Propionate 50 MCG/ACT Nasal Suspension Administer into each nostril 2 Sprays in the morning. 16 g 5 Ipratropium [place] 0.03 % Nasal Solution (Atrovent) Administer 2 [...] (Aristocort) Apply to trunk after bathing as g 1 Dicyclomine HCl 10 MG Oral [...] in the morning. Coronary artery disease involving [place] coronary artery of [place] heart without angina pectoris Super obese Type 2 diabetes mellitus with hemoglobin A1c goal of less than 7.0% ([facility]) BHASKAR on CPAP Mild intermittent asthma without [...] 10:00 AM EDT Office Visit Cardiothoracic Surg [facility] [address] [place] [address] Chinedu Arias MD [address] [place] [address] 01/04/2025 11:15 AM EDT Office Visit Otolaryngology [facility] [address] [place] [address] Dorcas Deluna MD [address] [place] [address] 01/29/2025 11:00 AM EDT Telemedicine Nutrition & Weight Management, [facility] 132 [place] [address] Jose Garsia DO [address] [place] [address] 03/21/2025 10:00 AM EDT Office Visit Cardiology, [facility] 132 [facility] [place] [address] Colin Dean MD [address] [place] [address] Pending Results Name Type Priority Associated Diagnoses Date /Time ALBUMIN / CREATININE RATIO, URINE Lab Routine Type 2 diabetes mellitus with hemoglobin A1c goal of less than 7.0% ([facility]) 12/25/2024 5:07 PM EDT Scheduled Procedures Name Priority Associated Diagnoses Date/Ti me COLONOSCOPY FLEXIBLE PROXIMAL DIAGNOSTIC Recall History of colon polyps Health Maintenance Due Date Last Done Comments DISCUSS TOBACCO CESSATION (REFER TO SMARTSET #3299) 1985 Albumin/Creatinine Ratio 2003 Pneumococcal Vaccine: Pediatrics [...] coronary angioplasty status Coronary artery disease involving [place] coronary artery of [place] heart without angina pectoris Super obese Morbid [...] Directives occurred with: Not Discussed Care Teams Project Crew Worker Relationship Specialty Start Date End Date Coleman Hassan MD [address] [facility] [place] [address] PCP - General Family Medicine 11/07/19 documented as of this encounter
--- OUTSIDE RECORDS SUMMARY | 2025-01-12 17:40 | External Medical Summary | Summary of Care ---
Author Name Unknown Organization [facility] Address [address] [place] [address] Phone [phone] Care Team Providers Care Bookkeeping Clerk Name Role Phone Coleman Hassan MD Primary Care Provider [phone] Reason for Visit * Reason Onset Date Comments Appointment 12/20/2024 Encounter Details Date Type Department Care Team (Late st Contact Info) Description 12/20/2024 Telephone Cardiothoracic Surg [facility] [address], [place] [id number] Chinedu Arias MD [address] [place] [address] Appointment Allergies Active Allergy Reactions Criticality Noted Date Comments Sulfamethoxazole-Trimethop rim Edema face/lips/tongue High 02/20/2019 Facial swelling Sulfamethoxazole High 10/22/2022 Other Reaction(s): Rash Trimethoprim High 10/22/2022 Other Reaction(s): Rash documented as of this encounter (statuses as of 01/02/2025) Medications ASPIRIN LOW DOSE 81 MG TBEC Take 1 Tablet by mouth in the morning. In the morning.. 0 Active CPAP every night at bedtime. Active Fluticasone Propionate 50 MCG/ACT Nasal SuspensionIndicat ions:BHASKAR on CPAP Administer into each nostril 2 Sprays in the morning. 16 g 5 2 Active Ipratropium [place] 0.03 % Nasal Solution (Atrovent)Indicat ions:Acute non-recurrent [...] Tablet Sublingual (Nitrostat)Indica tions:Coronary artery disease involving [place] coronary artery of [place] heart without angina pectoris Place 1 Tablet [...] as of this encounter (statuses as of 01/02/2025) Active Problems Problem Noted Date Diagnosed Date S/P primary angioplasty with coronary stent 12/15 Overview (12/25/2024): LAD and LCX Dyslipidemia 04/12/2023 Coronary artery disease invo lving [place] coronary artery of [place] heart without angina pectoris 09/07/2021 Hidradenitis suppurativa [...] as of this encounter (statuses as of 01/02/2025) Resolved Problems Problem Noted Date Diagnosed Date [...] as of this encounter (statuses as of 01/02/2025) Immunizations Name Administration Dates Next Due Seasonal [...] encounter Miscellaneous Notes * Telephone Encounter - Cody Carrero OSA - 12/20/2024 10:11 AM EST Records scanned and images being pushed, ,ht' * Telephone Encounter - Cody Carrero OSA - 12/20/2024 10:06 AM EST CARDIAC SURGERY DIRECT REFERRAL Patient Name: Fernando Bangura : 1985 Appointment needed within: 1-3 day: One week One month x Diagnosis: CAD, eval for CABG Referring Physician: Dr. Osbaldo Carson Office phone #: [phone] Fax #: [phone] Transaction Processor: Dr. Osbaldo Carson Office phone #: [phone] Fax #: [phone] Echo YES Date 3.23 Where: [facility] NO Date Where Cath yes Date 3..25 [address] [facility] CT Scan NO Date Where FAX records to [phone] or [phone] Route this form to the following: Cardiac Surgery Direct Pool# [id number] Cardiac Surgery [place] Pool # [id number] Val Elliott documented in this encounter Plan of Treatment Upcoming Encounters Date Type Department Care Team (Late st Contact Info) Description 01/04/2025 11:15 AM EDT Office Visit Otolaryngology [facility] [address] [place] [address] Dorcas Deluna MD [address] [place] [address] 01/09/2025 10:00 AM EDT Office Visit Cardiothoracic Surg [address] [place] [address] Chinedu Arias MD [address] [place] [address] 01/16/2025 9:00 AM EDT Office Visit Pharmacy, [facility] [address] [facility] [place] [address] Pharmacist1, [facility] 200 [facility] [place] [address] 01/29/2025 11:00 AM EDT Telemedicine Nutrition & Weight Management, [facility] [address] [place] [phone] Jose Garsia DO [address] [place] [address] 03/21/2025 10:00 AM EDT Office Visit Cardiology, [facility] [address] [facility] [place] [address] Colin Dean MD [address] [place] [address] 04/08/2025 4:00 PM EDT Office Visit Family Practice [facility] [address] [facility] [place] [address] Coleman Hassan MD [address] [facility] [place] [address] Scheduled Procedures Name Priority Associated Diagnoses Date/Ti me COLONOSCOPY FLEXIBLE PROXIMAL DIAGNOSTIC Recall History of colon polyps Health Maintenance Due Date Last Done Comments DISCUSS TOBACCO CESSATION (REFER TO SMARTSET #3044) 1985 Pneumococcal Vaccine: Pediatrics (0 to 5 [...] Albumin/Creatinine Ratio 12/25/2025 12/25/2024 GFR 12/25/2025 12/25/2024, 0304/2025, 12/21/2024, Additional history exists DTap/Tdap Vaccines (2 - Td or Tdap) 08/02/2028 08/02/2018 (Declined) Colonoscopy 2030 10/22/2022, 060 11/2021, 10/27/2016, Additional history exists COVID-19 Vaccine [...] Directives occurred with: Not Discussed Care Teams Bookkeeping Clerk Relationship Specialty Start Date End Date Coleman Hassan MD [address] [place] [address] PCP - General Family Medicine 11/07/19 documented as of this encounter
--- OUTSIDE RECORDS SUMMARY | 2025-01-12 17:40 | External Medical Summary | Summary of Care ---
Author Name Unknown Organization [facility] Address [address] [place] [address] Phone [phone] Care Team Providers Care Intelligence Officer Basic Name Role Phone Coleman Hassan MD Primary Care Provider [phone] Reason for Visit * Reason Comments NEW PATIENT * Evaluate & Treat - Unlimited Visits (Within 10 days (routine)) - Authorized Specialty Diagnoses / Procedures Referred By Contact Referred To Contact Cardiovascular Surgery / Cardiothoracic Surgery Diagnoses Coronary artery disease of [place] artery of [place] heart with stable angina pectoris (HCC) Osbaldo Carson MD [address] [place] [address] Phone: tel: fax: Referral ID Status Reason Start Date Expiration Date Visits Requested Visits Authorized [id number] Authorized Specialty Services Required 12/20/[id number] Encounter Details Date Type Department Care Team (Late st Contact Info) Description 01/09/2025 10:00 AM EDT Office Visit Cardiothoracic Surg [facility] [address] [place] [address] Chinedu Arias MD [address] [place] [address] Coronary artery disease involving [place] coronary artery of [place] heart without angina pectoris* Allergies Active Allergy Reactions Criticality Noted Date Comments Sulfamethoxazole-Trimethop rim Edema face/lips/tongue High 02/20/2019 Facial swelling Sulfamethoxazole High 10/22/2022 Other Reaction(s): Rash Trimethoprim High 10/22/2022 Other Reaction(s): Rash documented as of this encounter (statuses as of 01/09/2025) Medications ASPIRIN LOW DOSE 81 MG TBEC Take 1 Tablet by mouth in the morning. In the morning.. 0 Active CPAP every night at bedtime. Active Fluticasone Propionate 50 MCG/ACT Nasal SuspensionIndicat ions:BHASKAR on CPAP Administer into each nostril 2 Sprays in the morning. 16 g 5 2 Active Ipratropium [place] 0.03 % Nasal Solution (Atrovent)Indicat ions:Acute non-recurrent [...] Tablet Sublingual (Nitrostat)Indica tions:Coronary artery disease involving [place] coronary artery of [place] heart without angina pectoris Place 1 Tablet [...] this for 10 days. 30 Capsule 5 01/10/20 25 Active Ezetimibe 10 MG Oral Tablet [...] as of this encounter (statuses as of 01/09/2025) Active Problems Problem Noted Date Diagnosed Date S/P primary angioplasty with coronary stent 12/15 Overview (12/25/2024): LAD and LCX Dyslipidemia 04/12/2023 Coronary artery disease invo lving [place] coronary artery of [place] heart without angina pectoris 09/07/2021 Hidradenitis suppurativa [...] as of this encounter (statuses as of 01/09/2025) Resolved Problems Problem Noted Date Diagnosed Date [...] as of this encounter (statuses as of 01/09/2025) Immunizations Name Administration Dates Next Due Seasonal [...] Sign Reading Time Taken Comments Blood Pressure 132/84 01/09/2025 10:15 AM EDT Pulse 66 01/09/2025 10:15 AM EDT Temperature - - Respiratory Rate - - Oxygen Saturation 94% 01/09/2025 10: 15 AM EDT Inhaled Oxygen Concentration - - Weight 163.2 kg (359 lb 12.8 oz) 2024 10:15 AM EDT Height 180.3 cm (5' 11") 01/09/2025 10: 15 AM EDT Body Mass Index 50.18 01/09/2025 10:15 AM EDT documented in this encounter Plan of Treatment Upcoming Encounters Date Type Department Care Team (Late st Contact Info) Description 01/15/2025 9:00 AM EDT Office Visit Cardiology [facility] [address] [facility] [place] [address] Heide Rangel CRNP [address] [facility] [place] [address] 01/16/2025 9:00 AM EDT Office Visit Pharmacy, [facility] 200 [facility] [place] [address] Pharmacist1, [facility] [address] [facility] [place] [address] 01/29/2025 11:00 AM EDT Telemedicine Nutrition & Weight Management, [facility] [address] [place] [address] Jose Garsia, DO [address] [place] [address] 02/04/2025 1:45 PM EDT Office Visit Otolaryngology [facility] [address] [place] [address] Dorcas Deluna MD [address] [place] [address] 04/08/2025 4:00 PM EDT Office Visit Family Practice [facility] [address] [place] [address] Coleman Hassan MD [address] [place] [address] Scheduled Procedures Name Priority Associated Diagnoses Date/Ti me COLONOSCOPY FLEXIBLE PROXIMAL DIAGNOSTIC Recall History of colon polyps Health Maintenance Due Date Last Done Comments DISCUSS TOBACCO CESSATION (REFER TO SMARTSET #8395) 1985 Pneumococcal Vaccine: Pediatrics (0 to 5 Years) and At-Risk Patients (6 to 18 Years and 19+ Years) (1 of 2 - PCV) 01/26/2004 Diabetic Foot Exam 02/21/2020 02/20/2019 Depression Screening 01/23/2022 01/23/2021 *SPIROMETRY ONCE FOR ASTHMA-ADULT 09/09/2022 Diabetic Eye Exam 05/18/2024 05/18/2023, , 01/15/2021 Influenza Vaccine (FLU shot) (#1) 2024 07/20/2018, 07/20/2018, 01/11/2018 (Declined), Additional history exists HbA1c 06/27/2025 12/25/2024, 051 10/2022, 09/07/2021, Additional history exists Albumin/Creatinine Ratio 12/25/2025 [...] as of this encounter Visit Diagnoses Diagnosis Coronary artery disease involving [place] coronary artery of [place] heart without angina pectoris- Primary documented in this encounter Advance Directives [...] Directives occurred with: Not Discussed Care Teams Intelligence Officer Basic Relationship Specialty Start Date End Date Coleman Hassan MD [address] [place] [address] PCP - General Family Medicine 11/07/19 documented as of this encounter
--- OUTSIDE RECORDS SUMMARY | 2025-01-12 17:40 | External Medical Summary | Summary of Care ---
Author Name Unknown Organization [facility] Address [address] [place] [address] Phone [phone] Care Team Providers Care Unit Controller Name Role Phone Coleman Hassan MD Primary Care Provider [phone] Reason for Referral * Evaluate & Treat - Unlimited Visits (Within 30 days (routine)) - Authorized Specialty Diagnoses / Procedures Referred By Contac t Referred To Contact Pharmacist / Pharmacy Diagnoses Type 2 diabetes mellitus with hemoglobin A1c goal of less than 7.0% ([facility]) Coleman Hassan MD [address] [place] [address] Phone: tel: fax: Referral ID Status Reason Start Date Expiration Date Visits Requested Visits Authorized [id number] Authorized Specialty Services Required 01/01/2025 06/30/2025 99 [phone] Question Answer Referral Priority Within 30 days (routine) Where should this appointment be scheduled? [facility] Referring Provider Role: Primary Care Reason for Referral: DM Target A1c: < 7 Comments Pharmacist Medication Therapy Management: Minimum frequency patient should be seen in person for medication management: as appropriate per clinical condition and patient status By my signature, I understand that my patient Fernando Bangura will have his medication therapy managed by the [facility] Medication Therapy [facility] Management [facility] ([facility]) per established policies, procedures, and protocols. I also certify that this referral may serve as an initiation of service for the management of drug therapy in the above noted patient. [facility] providers will be responsible for scheduling patient visits, obtaining appropriate laboratory studies, and adjusting medication management therapy per patient's need, in addition to those roles spelled out in the clinic policy, procedures, and drug management protocols. I understand that the service provided by the [facility] is voluntary and have informed patient that they can refuse the service at their discretion. I am aware that the [facility] Clinic will provide me with a copy of the patient encounter via my [employer]. I authorize the [facility] to carry out these activities on my behalf. I consider this program to be a necessary part of the patient's medical care. Coleman Hassan MD Reason for Visit * Reason Onset Date Comments Appointment 01/01/2025 Sooner Appt Encounter Details Date Type Department Care Team (Late st Contact Info) Description 01/01/2025 Telephone Family [facility] [address] [place] [address] Coleman Hassan MD [address] [place] [address] Appointment (Sooner Appt ) Allergies Active Allergy [...] morning. 16 g 5 2 Active Ipratropium [place] 0.03 % Nasal Solution (Atrovent)Indicat ions:Acute non-recurrent [...] Tablet Sublingual (Nitrostat)Indica tions:Coronary artery disease involving [place] coronary artery of [place] heart without angina pectoris Place 1 Tablet [...] Dyslipidemia 04/12/2023 Coronary artery disease invo lving [place] coronary artery of [place] heart without angina pectoris 09/07/2021 Hidradenitis suppurativa [...] EDT Spoke w/ pt made appt in [facility] 01/16 * Telephone [...] 10:00 AM EDT Office Visit Cardiothoracic Surg [facility] [address] [place] [address] Chinedu Arias MD [address] [place] [address] 01/04/2025 11:15 AM EDT Office Visit Otolaryngology [facility] [address] [place] [address] Dorcas Deluna MD [address] [place] [address] 01/16/2025 9:00 AM EDT Office Visit Pharmacy, [facility] 200 [place] [address] Pharmacist1, [facility] 200 [facility] [address] 01/29/2025 11:00 AM EDT Telemedicine Nutrition & Weight Management, [facility] [place] [phone] Jose Garsia, DO [address] [place] [address] 03/21/2025 10:00 AM EDT Office Visit Cardiology, [facility] [address] [facility] [place] [address] Colin Dean MD [address] [facility] [place] [address] 04/08/2025 4:00 PM EDT Office Visit Family Practice [facility] 132 [facility] [place] [address] Coleman Hassan MD 132 [facility] [place] [address] Scheduled Procedures Name Priority Associated Diagnoses Date/Ti [...] Directives occurred with: Not Discussed Care Teams Unit Controller Relationship Specialty Start Date End Date Coelman Hassan MD [address] [place] [address] PCP - General Family Medicine 11/07/19 documented as of this encounter
--- OUTSIDE RECORDS SUMMARY | 2025-01-12 17:41 | External Medical Summary ---
Author Name Unknown Address Unknown Organization K01:[facility] - [address] [place] [address] Laboratory Report Ordering Provider Test Date Status ANA MARÍA ALBRIGHT 12/25/2024 16:04:04 Final Observation Date Value Abnormality Reference (Units ) Status BUN 12/25/2024 16:04:04 10 6-20 (mg/dL) Final Creatinine 12/25/2024 16:04:04 0.7 0.6-1.2 (mg/dL) Final Glomerular filtration rate/1.73 sq M.predicted [Volume Rate/Area] in Serum, Plasma or Blood by Creatinine-based formula (CKD-EPI) 12/25/2024 16:04:04 >90 >=60 (mL/min) Final eGFR is calculated based on the CKD-EPI 2020 equation. Sodium 12/25/2024 16:04:04 139 135-146 (m mol/L) Final Potassium 12/25/2024 16:04:04 4.4 3.5-5.1 (m mol/L) Final Cl 12/25/2024 16:04:04 103 98-107 (mm ol/L) Final CO2 12/25/2024 16:04:04 26 22-32 (mmo l/L) Final Anion gap 12/25/2024 16:04:04 10 7-15 (mmol /L) Final Glucose 12/25/2024 16:04:04 204 Above high normal 70 -120 (mg/dL) Final Albumin 12/25/2024 16:04:04 4.2 3.8-5.0 (g /dL) Final AST (Aspartate aminotransferase) 12/25/2024 16:04:04 26 10-50 (U/L) Fin al Alk Phos 12/25/2024 16:04:04 105 35-130 (U/ L) Final Bilirubin, Total 12/25/2024 16:04:04 0.3 <=1 .2 (mg/dL) Final Calcium 12/25/2024 16:04:04 9.6 8.4-10.2 ( mg/dL) Final Protein 12/25/2024 16:04:04 7.6 6.0-8.3 (g /dL) Final ALT (Alanine aminotransferase) 12/25/2024 16:04:04 31 10-50 (U/L) Konstantin walls Performing Location [facility] [address] [facility] [address]
--- OUTSIDE RECORDS SUMMARY | 2025-01-12 17:41 | External Medical Summary | Summary of Care ---
Author Name Unknown Organization [facility] Address [address] [facility] [place] [address] Phone [phone] Care Team Providers Care Cat Wagon Operator Name Role Phone Coleman Hassan MD Primary Care Provider [phone] [phone] Reason for Visit * Reason Onset Date Comments Advice 12/22/2024 LVM/ Medication for Heart Stent Encounter Details Date Type Department Care Team (Late st Contact Info) Description 12/22/2024 Telephone Family Practice [facility] [address] [place] [address] Coleman Hassan MD [address] [employer] [place] [address] Advice (LVM/ Medication for Heart Stent) Allergies Active Allergy Reactions Criticality Noted Date Comments Sulfamethoxazole-Trimethop rim Edema face/lips/tongue High 02/20/2019 Facial swelling Sulfamethoxazole High 10/22/2022 Other Reaction(s): Rash Trimethoprim High 10/22/2022 Other Reaction(s): Rash documented as of this encounter (statuses as of 12/24/2024) Medications ASPIRIN LOW DOSE 81 MG TBEC Take 1 Tablet by mouth in the morning. In the morning.. 0 Active CPAP every night at bedtime. Active Fluticasone Propionate 50 MCG/ACT Nasal SuspensionIndicat ions:BHASKAR on CPAP Administer into each nostril 2 Sprays in the morning. 16 g 5 2 Active Drisdol 1.25 MG (54771 UT) Oral Capsule Take 1 Capsule by mouth once a week. 8 Capsule 3 Active Ipratropium [place] 0.03 % Nasal Solution (Atrovent)Indicat ions:Acute non-recurrent maxillary sinusitis Administer 2 Sprays into each nostril 4 times a day as needed for Rhinitis. for runny nose 30 mL 1 3 Active Hydrocortisone 1 % External Cream Apply topically to affected area 2 times a day. Apply to knee once daily at end of day for itch 20 g 4 Active Meloxicam 15 MG Oral Tablet Take 1 Tablet by mouth in the morning. for pain.. 90 Tablet 1 4 Active Ozempic (0.25 or 0.5 MG/DOSE) 2 MG/3ML Solution Pen-injector (Semaglutide(0.25 or 0.5MG/DOS))Indica tions:Type 2 diabetes mellitus with hemoglobin A1c goal of less than 7.0% ([facility]) Inject 0.5 mg under the skin once a week. 9 mL 03/02/2024 3:38 PM EDT 4 Active Dulera 200-5 MCG/ACT Inhalation Aerosol (Mometasone-Formo terol)Indications :Mild intermittent asthma without complication Inhale 2 Puffs by mouth in the morning and 2 Puffs before bedtime. 13 g 3 4 Active Nitroglycerin 0.4 MG Sublingual Tablet Sublingual (Nitrostat)Indica tions:Coronary artery disease involving jena coronary artery of jena heart without angina pectoris Place 1 Tablet under the tongue every 5 minutes as needed for Pain, Chest. 25 Tablet 4 Active Varenicline Tartrate (Starter) 0.5 MG X 11 & 1 MG X 42 Tablet Therapy PackIndications:T obacco use disorder Take per packaging directions 53 Each 4 Active Varenicline Tartrate 1 MG Oral TabletIndications :Tobacco use disorder Take 1 Tablet by mouth in the morning and 1 Tablet before bedtime. As directed on box.. 60 Tablet 1 4 Active Omeprazole 40 MG Oral Capsule Delayed Release (PriLOSEC) Take 1 Capsule by mouth in the morning. 90 Capsule 3 4 Active Metoprolol Succinate ER 50 MG Oral Tablet Extended Release 24 Hour (toPROL XL) Take 1 Tablet by mouth in the morning. 90 Tablet 1 4 Active Lisinopril 30 MG Oral Tablet Take 1 Tablet by mouth in the morning. 90 Tablet 3 4 Active Empagliflozin 25 MG Oral Tablet (Jardiance) Take 1 Tablet by mouth in the morning. 90 Tablet 3 4 Active Triamcinolone Acetonide 0.1 % External Ointment (Aristocort)Indic ations:Mycosis fungoides, unspecified body region (HCC) Apply to trunk after bathing as needed 454 g 1 4 Active Atorvastatin Calcium 40 MG Oral Tablet (Lipitor) Take 1 Tablet by mouth at bedtime. 90 Tablet 3 4 Active Dicyclomine HCl 10 MG Oral Capsule (Bentyl) Take 1 Capsule by mouth in the morning and 1 Capsule at noon and 1 Capsule before bedtime. 90 Capsule 2 4 Active HYDROcodone Bit-Homatrop MBr 5-1.5 MG/5ML Oral Solution (Hycodan)Indicati ons:Pneumonia of both upper lobes due to Mycoplasma pneumoniae Take 5 mL by mouth every 6 hours as needed for Cough. 120 mL 4 Active Ozempic (1 MG/DOSE) 4 MG/3ML Subcutaneous Solution Pen-injector (Semaglutide (1 MG/DOSE)) Inject 1 mg under the skin once a week. 9 mL 2 10/31/2024 10:17 AM EST 5 Active Qvar RediHaler 80 MCG/ACT Inhalation Aerosol [...] for Cough. 30 Capsule 1 5 Active guaiFENesin-Codei ne 100-10 MG/5ML Oral Solution (Robitussin AC) Take 10 mL by mouth at bedtime as needed for Cough. 118 mL Active Hospital, Clinic, or Other Facility Administered Medication Ordered Dose Route Frequency Start Date End Date Status albuterol sulfate (PROVENTIL) (2.5 MG/3ML) 0.083% inhalation solution 2.5 mgIndications:Asthma with severity to be determined 2.5 mg NEBULIZER Q4H PRN 11/29/2018 Active documented as of this encounter (statuses as of 12/24/2024) Active Problems Problem Noted Date Diagnosed Date Dyslipidemia 04/12/2023 Coronary artery disease invo lving jena coronary artery of jena heart without angina pectoris 09/07/2021 Hidradenitis suppurativa 01/22/2021 Type 2 diabetes mellitus wit h hemoglobin A1c goal of less than 7.0% 11/07/2019 Mild intermittent asthma without complication Morbid obesity 11/27/2018 Tobacco use disorder 10/26/2018 HTN, goal below 130/80 01/20/2018 Migraine without aura and wi thout status migrainosus, not intractable 01/16/2018 DDD (degenerative disc disease), cervical 2017 Lumbar degenerative disc disease 01/16/2018 BHASKAR on CPAP 01/16/2018 documented as of this encounter (statuses as of 12/24/2024) Resolved Problems Problem Noted Date Diagnosed Date [...] as of this encounter (statuses as of 12/24/2024) Immunizations Name Administration Dates Next Due Seasonal [...] encounter Miscellaneous Notes * Telephone Encounter - Reji, Jennifer, BHASKAR - 12/24/2024 8:48 AM EDT Pt is scheduled 3.09.10 * Telephone Encounter - Dior Alegre LPN - 12/24/2024 8:30 AM EDT Left voicemail for patient to return call. Patient will need to be scheduled for a Hosp follow-up when discharged. * Telephone Encounter - Danica Harper OSA - 12/22/2024 9:54 AM EST Pt calling stating that he is currently in [facility] and just had two stents put in heart. Pt requested to speak to clinic directly. Please call: [phone] documented in this encounter Plan of Treatment Upcoming Encounters Date Type Department Care Team (Late st Contact Info) Description 12/25/2024 3:20 PM EDT Office Visit Family Practice [facility] [address] [facility] [place] [address] Coleman Hassan MD [address] [place] [address] 12/26/2024 11:30 AM EDT Office Visit Cardiothoracic Surg [facility] [address] [place] [address] Chinedu Arias MD [address] [place] [address] 01/04/2025 11:15 AM EDT Office Visit Otolaryngology [facility] [address] [place] [address] Dorcas Deluna MD 132 [facility] [place] [address] 01/29/2025 11:00 AM EDT Telemedicine Nutrition & Weight Management, [facility] [address] [place] [address] Jose Garsia, DO [address] [place] [address] 03/21/2025 10:00 AM EDT Office Visit Cardiology, [facility] [place] [address] Colin Dean MD [address] [place] [address] Scheduled Procedures Name Priority Associated Diagnoses Date/Ti me COLONOSCOPY FLEXIBLE PROXIMAL DIAGNOSTIC Recall History of colon polyps Health Maintenance Due Date Last Done Comments DISCUSS TOBACCO CESSATION (REFER TO SMARTSET #2805) 1985 Albumin/Creatinine Ratio 2003 Pneumococcal Vaccine: Pediatrics (0 to 5 Years) and At-Risk Patients (6 to 18 Years and 19+ Years) (1 of 2 - PCV) 01/26/2004 Diabetic Foot Exam 02/21/2020 02/20/2019 Depression Screening 01/23/2022 01/23/2021 *SPIROMETRY ONCE FOR ASTHMA-ADULT 09/09/2022 HbA1c 08/27/2023 02/24/2023, 08/18, 01/15/2021, Additional history exists GFR 02/25/2024 02/24/2023, 11/17, 08/09/2022, Additional history exists Diabetic Eye Exam 05/18/2024 05/18/2023, , 01/15/2021 Influenza Vaccine (FLU shot) (#1) 2024 07/20/2018, 07/20/2018, 01/11/2018 (Declined), Additional history exists DTap/Tdap Vaccines (2 - Td or Tdap) 08/02/2028 08/02/2018 (Declined) Colonoscopy 2030 10/22/2022, 11/2021, 10/27/2016, Additional history exists COVID-19 Vaccine [...] Directives occurred with: Not Discussed Care Teams Cat Wagon Operator Relationship Specialty Start Date End Date Coleman Hassan MD [address] [place] [address] PCP - General Family Medicine 11/07/19 documented as of this encounter
--- OUTSIDE RECORDS SUMMARY | 2025-01-12 17:41 | External Medical Summary | Summary of Care ---
Author Name Unknown Organization [facility] Address [address] [place] [address] Phone [phone] Care Team Providers Care Dining Room Attendant Cafeteria Name Role Phone Coleman Hassan MD Primary Care Provider [phone] Reason for Referral * Evaluate & Treat - Unlimited Visits (Within 10 days (routine)) - Authorized Specialty Diagnoses / Procedures Referred By Contact Referred To Contact Cardiovascular Surgery / Cardiothoracic Surgery Diagnoses Coronary artery disease of snoqualmie artery of [place]noqualmie heart with stable angina pectoris (HCC) Osbaldo Carson MD [address] [address] Phone: tel: fax: Referral ID Status Reason Start Date Expiration Date Visits Requested Visits Authorized [id number] Authorized Specialty Services Required 12/20/2024 999 999 Question Answer Referral Priority Within 10 days (routine) Where should this appointment be scheduled? [facility] Reason for Visit * Reason Onset Date Comments Referral 12/20/2024 Encounter Details Date Type Department Care Team (Late st Contact Info) Description 12/20/2024 New Patient Triage (MULTIMEDIA DEVELOPER USE ONLY) Cardiothoracic Surg [facility] [address] [place], [place] [id number] Val Elliott, gaming table operator Allergies Active Allergy Reactions Criticality Noted Date Comments Sulfamethoxazole-Trimethop rim Edema face/lips/tongue High 02/20/2019 Facial swelling Sulfamethoxazole High 10/22/2022 Other Reaction(s): Rash Trimethoprim High 10/22/2022 Other Reaction(s): Rash documented as of this encounter (statuses as of 12/20/2024) Medications ASPIRIN LOW DOSE 81 MG TBEC Take 1 Tablet by mouth in the morning. In the morning.. 0 Active CPAP every night at bedtime. Active Fluticasone Propionate 50 MCG/ACT Nasal SuspensionIndicat ions:BHASKAR on CPAP Administer into each nostril 2 Sprays in the morning. 16 g 5 2 Active Drisdol 1.25 MG (75408 UT) Oral Capsule Take 1 Capsule by mouth once a week. 8 Capsule 3 Active Ipratropium [place] 0.03 % Nasal Solution (Atrovent)Indicat ions:Acute non-recurrent [...] hemoglobin A1c goal of less than 7.0% ([facility]) Inject 0.5 mg under the skin once a week. 9 mL 03/02/2024 3:38 PM EDT 4 Active Dulera 200-5 MCG/ACT Inhalation Aerosol (Mometasone-Formo terol)Indications :Mild intermittent asthma without complication Inhale 2 Puffs by mouth in the morning and 2 Puffs before bedtime. 13 g 3 4 Active Nitroglycerin 0.4 MG Sublingual Tablet Sublingual (Nitrostat)Indica tions:Coronary artery disease involving snoqualmie coronary artery of snoqualmie heart without angina pectoris Place 1 Tablet [...] bedtime as needed for Cough. 118 mL 5 Active Hospital, Clinic, or Other Facility Administered Medication Ordered Dose Route Frequency Start Date End Date Status albuterol sulfate (PROVENTIL) (2.5 MG/3ML) 0.083% inhalation solution 2.5 mgIndications:Asthma with severity to be determined 2.5 mg NEBULIZER Q4H PRN 11/29/2018 Active documented as of this encounter (statuses as of 12/20/2024) Active Problems Problem Noted Date Diagnosed Date Dyslipidemia 04/12/2023 Coronary artery disease invo lving snoqualmie coronary artery of snoqualmie heart without angina pectoris 09/07/2021 Hidradenitis suppurativa [...] as of this encounter (statuses as of 12/20/2024) Resolved Problems Problem Noted Date Diagnosed Date [...] as of this encounter (statuses as of 12/20/2024) Immunizations Name Administration Dates Next Due Seasonal [...] on file documented as of this encounter Progress Notes * Jose Rosas PA-C - 12/20/2024 3:30 PM EST Does patient need to be seen?: Yes Modality: Patient preference Urgency: Within 30 days (routine) Discussed care plan with patient or proxy?: Yes Sherry Elliott Communicated with patient on Date (mm/dd/yyyy): 12/20/2024 at Time ([facility] [id number] * Val Elliott RN - 12/20/2024 3:21 PM EST New Patient Triage What is the diagnosis/reason for referral?: Coronary artery disease of snoqualmie artery of snoqualmie heart with stable angina pectoris Enter order ID here: [id number] Specialty specific documentation: Cardiac and Thoracic Surgery Cath done 12/18/2024 at [facility], results scanned into [employer]. Patient can be scheduled in next available new patient slot with any surgeon. Discussed care plan with patient or proxy?: Yes I called and spoke with Mr. Bangura and his . states he just had chest pain about 10 minutes ago and he took a SL nitro that did relieve hispain. I instructed him to go to the ED if pain continues or becomes more frequent. He asked if he should come to [facility] since [facility] does not have CVTS. I instructed him to go to the closest ED and that he could be transported to [facility] if needed. He did verbalize understanding. Him and his also had multiple questions regarding the results of his cardiac cath. I explainedthat it showed MVCAD, but that he would need to contact Dr. Carson for more detailed information that I am unable to provide. He did accept an appointment on 12/26 at 11:[address] Arias. I provided directions to our clinic and my call back number. Communicated with patient on Date (mm/dd/yyyy): 12/20/2024 at Time ([facility]): 1518 Val Elliott RN 12/20/2024 3:27 PM documented in this encounter Plan of Treatment Upcoming Encounters Date Type Department Care Team (Late st Contact Info) Description 12/26/2024 11:30 AM EDT Office Visit Cardiothoracic Surg [facility] [address] [place] [address] Chinedu Arias MD [address] [place] [address] 01/04/2025 11:15 AM EDT Office Visit Otolaryngology [facility] 132 [facility] [place] [address] Dorcas Deluna MD 132 [place] [address] 01/29/2025 11:00 AM EDT Telemedicine Nutrition & Weight Management, [facility] [address] [facility] [place] [address] Jose Garsia DO [address] [place] [address] 03/21/2025 10:00 AM EDT Office Visit Cardiology, [facility] [address] [facility] [place] [address] Colin Dean MD 132 [place] [address] Scheduled Procedures Name Priority Associated Diagnoses Date/Ti me COLONOSCOPY FLEXIBLE PROXIMAL DIAGNOSTIC Recall History of colon polyps Scheduled Referrals Name Type Priority Associated Diagnoses Order Schedule CARDIOVASCULAR SURGERY REFERRAL OP Referral Within 10 days (routine) Coronary artery disease of snoqualmie artery of snoqualmie heart with stable angina pectoris (HCC) Ordered: 12/20/2024 Health Maintenance Due Date Last Done Comments DISCUSS TOBACCO CESSATION (REFER TO SMARTSET #8054) 1985 Albumin/Creatinine Ratio 2003 Pneumococcal Vaccine: Pediatrics [...] Tdap) 08/02/2028 08/02/2018 (Declined) Colonoscopy 2030 10/22/2022, 06/11/2021, 10/27/2016, Additional history exists COVID-19 Vaccine Discontinued [...] encounter Visit Diagnoses Diagnosis Coronary artery disease of snoqualmie artery of snoqualmie heart with stable angina pectoris (HCC)- Primary documented in this encounter Advance [...] Directives occurred with: Not Discussed Care Teams Dining Room Attendant Cafeteria Relationship Specialty Start Date End Date Coleman Hassan MD [address] [place] [address] PCP - General Family Medicine 11/07/19 documented as of this encounter
--- OUTSIDE RECORDS SUMMARY | 2025-01-12 17:41 | External Medical Summary | Summary of Care ---
Author Name Unknown Organization [facility] Address [address] [facility] [place] [address] Phone [phone] Care Team Providers Care Hand Violin Maker Name Role Phone Coleman Hassan MD Primary Care Provider [phone] Reason for Visit * Reason Onset Date Comments Advice 12/22/2024 LVM/ Medication for Heart Stent Encounter Details Date Type Department Care Team (Late st Contact Info) Description 12/22/2024 Telephone Family Practice [facility] [address] [place] [address] Coleman Hassan MD [address] [place] [address] Advice (LVM/ Medication for [...] g 5 2 Active Drisdol 1.25 MG (26261 UT) Oral Capsule Take 1 Capsule by mouth once a week. 8 Capsule 3 Active Ipratropium [place] 0.03 % Nasal Solution (Atrovent)Indicat ions:Acute non-recurrent [...] goal of less than 7.0% ([facility]) Inject 0.5 mg under the skin once a week. 9 mL 03/02/2024 3:38 PM EDT 4 Active Dulera 200-5 MCG/ACT Inhalation Aerosol (Mometasone-Formo terol)Indications :Mild intermittent asthma without complication Inhale 2 Puffs by mouth in the morning and 2 Puffs before bedtime. 13 g 3 4 Active Nitroglycerin 0.4 MG Sublingual Tablet Sublingual (Nitrostat)Indica tions:Coronary artery disease involving timbi-[place] shosh[place] coronary artery of [place]osh[place] heart without angina pectoris Place 1 Tablet [...] Dyslipidemia 04/12/2023 Coronary artery disease invo lving [place]osh[place] coronary artery of [place]osh[place] heart without angina pectoris 09/07/2021 Hidradenitis suppurativa [...] calling stating that he is currently in [facility] and just had two stents put in heart. Pt requested to speak to clinic directly. Please call: [phone] documented in this encounter Plan of Treatment Upcoming Encounters Date Type Department Care Team (Late st Contact Info) Description 12/25/2024 3:20 PM EDT Office Visit Family Practice [facility] 132 [facility] [place] [address] Coleman Hassan MD [address] [facility] [place] [address] 12/26/2024 11:30 AM EDT Office Visit Cardiothoracic Surg [facility] [address] [place] [address] Chinedu Arias MD [address] [place] [address] 01/04/2025 11:15 AM EDT Office Visit Otolaryngology [facility] [address] [place] [address] Dorcas Deluna MD 132 [facility] [place] [address] 01/29/2025 11:00 AM EDT Telemedicine Nutrition & Weight Management, [facility] [address] [place] [address] Jose Garsia, DO [address] [place] [address] 03/21/2025 10:00 AM EDT Office Visit Cardiology, [facility] [place] [address] Colin Dean MD [address] [place] [address] Scheduled Procedures Name Priority Associated Diagnoses Date/Ti me COLONOSCOPY FLEXIBLE PROXIMAL DIAGNOSTIC Recall History of colon polyps Health Maintenance Due Date Last Done Comments DISCUSS TOBACCO CESSATION (REFER TO SMARTSET #0124) 1985 Albumin/Creatinine Ratio 2003 Pneumococcal Vaccine: Pediatrics [...] Directives occurred with: Not Discussed Care Teams Hand Violin Maker Relationship Specialty Start Date End Date Coleman Hassan MD [address] [place] [address] PCP - General Family Medicine 11/07/19 documented as of this encounter
--- OUTSIDE RECORDS SUMMARY | 2025-01-12 17:41 | External Medical Summary | Summary of Care ---
Author Name Unknown Organization [facility] Address [address] [facility] [place] [address] Phone [phone] Care Team Providers Care Automotive Quality Engineer Name Role Phone Coleman Hassan MD Primary Care Provider [phone] Reason for Visit * Reason Onset Date Comments Encounter Created in Error 12/20/2024 Encounter Details Date Type Department Care Team (Late st Contact Info) Description 12/20/2024 Telephone Family Practice [facility] [address] [facility] [address] [place] [address] Coleman Hassan MD [address] [facility] [place] [address] Encounter Created in Error Allergies Active Allergy Reactions Criticality Noted Date [...] g 5 2 Active Drisdol 1.25 MG (98191 UT) Oral Capsule Take 1 Capsule by mouth once a week. 8 Capsule 3 Active Ipratropium [place] 0.03 % Nasal Solution (Atrovent)Indicat ions:Acute non-recurrent [...] Tablet Sublingual (Nitrostat)Indica tions:Coronary artery disease involving king salmon coronary artery of king salmon heart without angina pectoris Place 1 Tablet [...] Dyslipidemia 04/12/2023 Coronary artery disease invo lving king salmon coronary artery of king salmon heart without angina pectoris 09/07/2021 Hidradenitis suppurativa [...] 11:30 AM EDT Office Visit Cardiothoracic Surg [facility] [address] [place] [address] Chinedu Arias MD [address] [place] [address] 01/04/2025 11:15 AM EDT Office Visit Otolaryngology [facility] 132 [place] [address] Dorcas Deluna MD [address] [place] [address] 01/29/2025 11:00 AM EDT Telemedicine Nutrition & Weight Management, [facility] [address] [place] [address] Jose Garsia DO [address] [place] [address] 03/21/2025 10:00 AM EDT Office Visit Cardiology, [facility] [address] [place] [address] Colin Dean MD [address] [place] [address] Scheduled Procedures Name Priority Associated Diagnoses Date/Ti me COLONOSCOPY FLEXIBLE PROXIMAL DIAGNOSTIC Recall History of colon polyps Health Maintenance Due Date Last Done Comments DISCUSS TOBACCO CESSATION (REFER TO SMARTSET #3291) 1985 Albumin/Creatinine Ratio 2003 Pneumococcal Vaccine: Pediatrics [...] Directives occurred with: Not Discussed Care Teams Automotive Quality Engineer Relationship Specialty Start Date End Date Coleman Hassan MD [address] [place] [address] PCP - General Family Medicine 11/07/19 documented as of this encounter
--- OUTSIDE RECORDS SUMMARY | 2025-01-12 17:41 | External Medical Summary ---
Author Name Unknown Address Unknown Organization K01:[facility] [address] [address] [place] [address] Laboratory Report Ordering Provider Test Date Status ANA MARÍA ALBRIGHT 12/25/2024 16:04:04 Final Observation Date Value Abnormality Reference (Units ) Status HbA1C 12/25/2024 16:04:04 9.4 Above high normal 4. 0-5.6 (%) Final The use of HbA1c to monitor glycemic status is based on normal hemoglobin and HbA composition. This test should not be used in patients with abnormal hemoglobin that affects the half life of the red blood cell or the in vivo glycation rates. Glucose, estimated average 12/25/2024 16:04:04 223 Above high normal <126 (mg/dL) Konstantin walls Performing Location [facility] [place] [address] [place] [address]
--- OUTSIDE RECORDS SUMMARY | 2025-01-12 17:41 | External Medical Summary ---
Author Name Unknown Address Unknown Organization K01:[facility] [place] [address] [place] [address] Laboratory Report Ordering Provider Test Date Status BILLY HUITRON 12/25/2024 17:07:36 Final Normal: <30 mg/g creatinine< br/>High: 30-300 mg/g creatinine
Very High: >300 mg/g creatinine
Nephrotic: >2200 mg/g creatinine Observation Date Value Abnormality Reference (Units ) Status Albumin, Urine 12/25/2024 17:07:36 3.00 (mg/dL) Final Creatinine, Urine 12/25/2024 17:07:36 29 (mg/dL) Final Albumin/Creatinine [Mass Ratio] in Urine 12/25/2024 17:07:36 103 Above high normal <30 (mg/g Creat) Final Performing Location [facility] [place] - [address] [place] [address]
--- NOTE | 2025-01-12 17:58 | Emergency Department Note ---
Impression & Plan Chest pain, CAD (coronary artery disease), Morbid obesity ED Provider Note NAME: CHRISTOPHER RIVER AGE: 39 SEX: M : 1985 ARRIVES VIA: Ambulance INFORMANT: Patient ED PROVIDER(S): Walt Connors DO CHIEF COMPLAINT: Chest pain HPI: Patient is a 39-year-old male who presents ER with a past medical history of small bowel obstruction, CAD, dyslipidemia, hypertension urgency, diabetes, morbid obesity who received 2 cardiac stents in early December up in [place]. He was initially here and sent to [facility] for CABG. He did not want to get that done and he went up to [place] and had stents placed. Comes back in has been getting intermittent chest pain since then. He is not having jaw pain anymore which has resolved as he used to get that prior to the placement of the stents. He does some times get some arm pain. No belly pain. He gets the chest pain about 4-5 times a day. No nausea, vomiting, or diarrhea. No dysuria, urgency, or frequency. He feels very weak and rundown. ADDITIONAL HISTORY OBTAINED: Per HPI Chronic Medical/Social Conditions Affecting Care: Per HPI PAST MEDICAL HISTORY:See Below PAST SURGICAL HISTORY:See Below FAMILY HISTORY:See Below SOCIAL HISTORY:See Below HOME MEDICATIONS:See Below ALLERGIES:See Below VITALS:See Below PHYSICAL EXAMINATION: GENERAL: Sitting up in bed, alert, well appearing, well nourished, no distress, non-toxic EYE EXAM: normal conjunctiva. PERRL and EOM's grossly intact. OROPHARYNX: mucous membranes are moist NECK: supple, no nuchal rigidity, no adenopathy, non-tender LUNGS: Clear to auscultation. Normal chest wall mechanics HEART: no murmurs, S1 normal and S2 normal ABDOMEN: abdomen soft, non-tender, normo-active bowel sounds, no masses, no rebound or guarding. UPPER EXTREMITIES: upper extremities are grossly normal. LOWER EXTREMITIES: No pitting edema. NEURO EXAM: Normal sensorium, cranial nerves II-XII grossly intact, normal speech, no gross weakness of arms, no gross weakness of legs. MEDICAL DECISION MAKING: Patient is a 39-year-old male who presents ER for above-stated complaint. IV was established and blood work was obtained. Labs show no significant leukocytosis or anemia. BMP with slightly elevated glucose at 265. LFTs and bilirubin were unremarkable. Lipase was normal. UA was clean. EKG was nondiagnostic. Chest x-ray initially felt was unremarkable on the two-AP views of the chest. Radiology did read as a questionable opacity.. He was given aspirin and nitro. Pain resolved with nitro. With his history and recent stent placement patient was discussed with the hospitalist for further evaluation management treatment and observation overnight. Family and patient were agreeable. Consults/Care Managements Discussions: Per [facility] Triage Nursing notes reviewed. Limited review of prior medical records performed Vital Signs: reviewed and remarkable for HTN Differential diagnosis: Cardiac ischemia, aortic dissection, pulmonary embolism, pneumothorax, pneumonia, pericarditis, myocarditis, esophageal rupture, GERD, cholecystitis, pancreatitis, musculoskeletal, as well as other pathologies. ER treatment provided: See below Diagnostics interpreted by me include EKG and cardiac monitoring as listed below: -Cardiac Monitoring: An order was placed for continuous cardiac monitoring. The monitor shows a rate of 70 with sinus rhythm. -ECG: Sinus rhythm rate of 60 Normal axis No PVCs QTc 422 -Laboratory studies:Interpreted by me as stated above in MDM and shown below. Imaging studies: Xrays: As interpreted by me: Portable AP upright 1 view of the chest shows no focal point. CTs show: none Procedures:none Critical Care: None Past Med/Surg History Problem List (Updated 01/12/25 @ 21:12 by Walt Connors DO) Chest pain (Acute) Angina pectoris Abdominal pain (Acute) Acute appendicitis (Acute) Appendicitis, acute (Acute) Dehydration (Acute) Gastroenteritis (Acute) Headache (Acute) Left sided abdominal pain (Acute) Nausea, vomiting, and diarrhea (Acute) Otitis externa (Acute) Calculus of kidney (Acute 11/02/12) Near syncope Abnormal nuclear stress test Diverticulitis Chest pain Preoperative cardiovascular examination Abscess of groin, right (Acute) Scrotal abscess BHASKAR treated with BiPAP Morbid obesity (Acute) BMI 48.8 Diabetes type 2, uncontrolled NIDDM Hypertension Hypertensive urgency (Acute) hx Dyslipidemia CAD (coronary artery disease) (Acute) F/U DR CUMMINGS Tobacco abuse SBO (small bowel obstruction) tx medically Medical History History of COVID-19 2019, PCP office test, not hosp; mild symptoms>resolved. Kidney stones hx-PASSED ON OWN GERD (gastroesophageal reflux disease) Basal cell adenoma Migraine hx Surgical History Hx of adenoidectomy with bilt myringotomy @ [facility] 01/11/23 History of surgery 04/04/23 Right excisional drainage of infected cys of groin @ [facility] Hx of colonoscopy History of axillary surgery removal sweat gland bilat axilla History of cardiac cath 2020 NO STENTS-[facility] Hx of appendectomy Family History Mother Diabetes Hypertension Coronary heart disease Father Cancer Social History Smoking Status: Former smoker Tobacco Type: Cigarettes Cigarettes Per Day: 20 (advised on policy); Second Hand Exposure: No; Do You Dip or Chew Tobacco: No; Hx Alcohol Use: No Hx Substance Use: No Preferred Language: Armenian Communication Ability: Effective 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 Beliefs That Will Affect Care: Shinto Shinto Beliefs: [place] Caodaism marital status: Current Living Situation: Spouse Current Living Situation Comment: LIVES WITH SPOUSE, 3 CHILDREN current occupational status: employed 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 [employer] Feels Safe at Home: Yes Assistive Devices: CPAP Allergies Allergies Allergy/AdvReac Type Severity Reaction Status Date / Time sulfamethoxazole Allergy Intermediate Rash Verified 01/12/25 18:25 [From Bactrim] trimethoprim [From Bactrim] Allergy Intermediate Rash Verified 01/12/25 18:25 Home Meds Home Medications Medication Instructions Recorded Confirmed dicyclomine 10 mg capsule 10 mg PO TID PRN Abdominal Pain 04/20/20 01/12/25 omeprazole 20 mg capsule,delayed 20 mg PO DAILY PRN 06/28/21 01/12/25 release HEARTBURN/INDIGESTION albuterol sulfate 90 mcg/actuation 2 puff inhalation Q4H PRN Wheezing 03/12/22 01/12/25 aerosol inhaler aspirin 81 mg tablet,delayed 81 mg PO DAILY 04/03/23 01/12/25 release empagliflozin 25 mg tablet 25 mg PO DAILY 10/26/24 01/12/25 (Jardiance) acetaminophen 500 mg tablet 1,000 mg PO DIRECTED PRN Pain 01/12/25 01/12/25 atorvastatin 80 mg tablet 80 mg PO HS 01/12/25 01/12/25 beclomethasone dipropionate 80 2 inh inhalation BID PRN Shortness 01/12/25 01/12/25 mcg/actuation HFA breath activated Of Breath Or Wheezing aerosol (Qvar RediHaler) ezetimibe 10 mg tablet (Zetia) 10 mg PO DAILY 01/12/25 01/12/25 lisinopril 40 mg tablet 40 mg PO DAILY 01/12/25 01/12/25 nicotine 21 mg/24 hr daily 1 patch transdermal DAILY 01/12/25 01/12/25 transdermal patch prasugrel HCl 10 mg tablet 10 mg PO DAILY 01/12/25 01/12/25 semaglutide 1 mg/dose (4 mg/3 mL) 1 mg subcut WK 01/12/25 01/12/25 subcutaneous pen injector (Ozempic) Previous Rx's Medication Instructions Recorded nitroglycerin 0.4 mg sublingual 0.4 mg sublingual Q5M PRN chest 06/14/22 tablet (Nitrostat) pain #25 tabs metoprolol succinate 50 mg 50 mg PO QAM #90 tabs 11/08/23 tablet,extended release 24 hr Results & Data (ED) Vital Signs Vital Signs - 24 hr 01/12/25 17:45 01/12/25 18:03 01/12/25 18:12 Temperature 36.5 C Temperature Source Oral Pulse Rate 63 66 Respiratory Rate 18 Respiratory Effort / Characteristics Non-Labored Spontaneous Respiratory Depth Normal Blood Pressure 145/72 H Blood Pressure Mean 96 Blood Pressure Position Sitting Pulse Oximetry 96 94 Oxygen Delivery Method Room Air Room Air Sepsis Recent Fever Within 48 Hours No Sepsis New/Unexplained Change in Mental Status No Sepsis Action Taken by Nursing No Action Required 01/12/25 18:12 01/12/25 18:17 Temperature Temperature Source Pulse Rate 63 Respiratory Rate 20 Respiratory Effort / Characteristics Respiratory Depth Blood Pressure 140/68 Blood Pressure Mean 92 Blood Pressure Position Pulse Oximetry 95 Oxygen Delivery Method Room Air Sepsis Recent Fever Within 48 Hours Sepsis New/Unexplained Change in Mental Status Sepsis Action Taken by Nursing Laboratory Data 01/12/25 18:08 01/12/25 18:08 Lab Results 01/12/25 01/12/25 Range/Units 18:08 18:57 WBC 11.30 H (4.8-10.8) K/ul RBC 5.02 (4.70-6.10) M/uL Hgb 12.8 L (14.0-18.0) g/dl Hct 39.9 L (42.0-52.0) % MCV 79.5 L (80.0-100.0) fL MCH 25.5 (25.0-34.0) pg MCHC 32.1 (32.0-36.0) g/dL RDW Std Deviation 37.1 (36.4-46.3) fL RDW Coeff of Ariana 13.2 (11.5-14.5) % Plt Count 320 (130-400) K/uL MPV 10.9 (9.4-12.4) fL Immature Gran % (Auto) 1.3 % Neut % (Auto) 59.1 % Lymph % (Auto) 28.6 % [place] % (Auto) 6.0 % Eos % (Auto) 4.5 % Baso % (Auto) 0.5 % Neut # (Auto) 6.67 H (1.40-6.50) K/uL Lymph # (Auto) 3.23 (1.20-3.40) K/uL [place] # (Auto) 0.68 H (0.11-0.59) K/uL Eos # (Auto) 0.51 H (0.00-0.50) K/uL Baso # (Auto) 0.06 (0.00-0.20) K/uL Immature Gran # (Auto) 0.15 (0.01-0.20) K/uL Sodium 138 (136-145) mmol/L Potassium 4.2 (3.5-5.1) mmol/L Chloride 104 (98-107) mmol/L Carbon Dioxide 28 (21-32) mmol/L Anion Gap 6 (3-11) BUN 13 (6-23) mg/dl Creatinine 0.61 (0.6-1.4) mg/dl Est Cr Clr Drug Dosing 253.6 ml/min eGFR 125.30 BUN/Creatinine Ratio 21.3 H (10-20) Glucose 265 H (70-99(Fasting)) mg/dl Calcium 9.2 (8.6-10.3) mg/dl Total Bilirubin 0.3 (0.2-1.0) mg/dl AST 21 (13-39) U/L ALT 28 (7-52) U/L Alkaline Phosphatase 82 (34-104) U/L Troponin I High Sens 3.8 (0-20) pg/ml Total Protein 8.4 H (6.0-8.3) gm/dl Albumin 4.2 (3.4-5.0) gm/dl Globulin 4.2 H (2.5-4.0) gm/dl Albumin/Globulin Ratio 1.0 (0.9-2) Lipase 47 (11-82) U/L Urine Color Yellow Urine Appearance Clear (Clear) Urine pH 6.0 (4.5-7.5) Ur Specific [place] 1.034 H (1.000-1.030) Urine Protein Negative (Negative) Urine Glucose (UA) 3+ H (Negative) Urine Ketones Negative (Negative) Urine Blood Negative (Negative) Urine Nitrite Negative (Negative) Urine Bilirubin Negative (Negative) Urine Urobilinogen Negative (Negative) Ur Leukocyte Esterase Negative (Negative) Administered Medications Nicotine (Nicotine 14 Mg/24 Hr Patch) 1 patch TD QAM ANTHONY Stop: 02/11/25 18:44 Last Admin: 01/12/25 18:52 Dose: 1 patch Documented By: KRISSY Discontinued Medications Aspirin (Aspirin Chew 324 Mg) 324 mg PO NOW STA Stop: 01/12/25 17:59 Last Admin: 01/12/25 18:06 Dose: 324 mg Documented By: KRISSY Nitroglycerin (Nitroglycerin Sl 0.4 Mg/Tab Tab) 0.4 mg SL NOW STA Stop: 01/12/25 17:59 Last Admin: 01/12/25 18:08 Dose: 0.4 mg Documented By: KRISSY Imaging Data Radiologist's Impression: Chest X-Ray 01/12/25 17:52 EXAM: XR chest 1V portable CLINICAL HISTORY: Chest pain, nonspecific. TECHNIQUE: An X-ray image of the chest is obtained in PA projection. COMPARISON: CR dated 12/17/2024. FINDINGS: Pulmonary Parenchyma: Right basal pulmonary infiltrates. No evidence of consolidation, collapse, or focal opacities. No pulmonary nodules are identified. No evidence of pleural effusion or pleural thickening. Obliterted left costophrenic kelsey by cardiac shadow. Heart and Mediastinum: Heart is not enlarged. No mediastinal widening or masses. No hilar or mediastinal lymphadenopathy. Bony Thorax: Bony thorax appears intact without fractures or deformities. Soft Tissues: Soft tissues overlying the chest wall are unremarkable. IMPRESSION: Right basal pulmonary infiltrates may denote inflammation/infection. New finding. Please correlate clinically. . Electronically signed by Heraclio Siegel 01-12-2025 8:03 PM Discharge Plan Visit Data Chief Complaint: Chest Pain Stated Complaint: CHEST PAIN ED Provider: Walt Connors Discharge Problem: Chest pain, CAD (coronary artery disease), Morbid obesity Forms Stand Alone Forms: Insight[employer] Prescriptions Prescriptions: No Action metoprolol succinate 50 mg tablet extended release 24 hr 50 mg PO QAM Qty: 90 3RF nitroglycerin [Nitrostat] 0.4 mg tablet, sublingual 0.4 mg sublingual Q5M PRN (Reason: chest pain) Qty: 25 1RF Rx Instructions: do not exceed 3 doses per episode dicyclomine 10 mg capsule 10 mg PO TID PRN (Reason: Abdominal Pain) aspirin 81 mg Tablet,Delayed Release (Dr/Ec) 81 mg PO DAILY omeprazole 20 mg capsule,delayed release(DR/EC) 20 mg PO DAILY PRN (Reason: HEARTBURN/INDIGESTION) Jardiance 25 mg tablet 25 mg PO DAILY albuterol sulfate 90 mcg/actuation Hfa Aerosol Inhaler 2 puff INHALATION Q4H PRN (Reason: Wheezing) atorvastatin 80 mg Tablet 80 mg PO HS acetaminophen [Tylenol Ex Str Rapid Release] 500 mg Tablet 1,000 mg PO DIRECTED PRN (Reason: Pain) nicotine 21 mg/24 hr Patch 24 Hour 1 patch TRANSDERMAL DAILY lisinopril 40 mg Tablet 40 mg PO DAILY ezetimibe [Zetia] 10 mg Tablet 10 mg PO DAILY prasugrel HCl 10 mg Tablet 10 mg PO DAILY Ozempic 1 mg/dose (4 mg/3 mL) pen injector 1 mg SUBCUT WK Rx Instructions: ON HOLD AT PRESENT Qvar RediHaler 80 mcg/actuation HFA aerosol breath activated 2 inh INHALATION BID PRN (Reason: Shortness Of Breath Or Wheezing) Referrals Referrals: Coleman Hassan MD [Primary Care Provider] - Discharge Problem: Chest pain Qualifiers: Chest pain type: unspecified Qualified Code(s): R07.9 - Chest pain, unspecified CAD (coronary artery disease) Qualifiers: Coronary Disease-Associated Artery/Lesion type: unspecified vessel or lesion type [place] vs. transplanted heart: unspecified whether [place]vas[place] or transplanted heart Associated angina: unspecified whether angina present Qualified Code(s): I 25.10 - Atherosclerotic heart disease of [place]vas[place]ai coronary artery without angina pectoris
[2025-01-12] MEDS: ASPIRIN CHEW 324 MG PO STA (18:06)
[2025-01-12] MEDS: NITROGLYCERIN SL 0.4 MG/TAB TAB SL STA (18:08)
[2025-01-12 18:26] LABS: Basophils # (auto) 0.06 K/uL (0.00-0.20); Basophils % (auto) 0.5 %; Eosinophils # (auto) 0.51 K/uL (0.00-0.50); Eosinophils % (auto) 4.5 %; Hematocrit (blood only) 39.9 % (42.0-52.0); Hemoglobin 12.8 g/dl (14.0-18.0); Immature Granulocytes # (auto) 0.15 K/uL (0.01-0.20); Immature Granulocytes % (auto) 1.3 %; Lymphocytes # (auto) 3.23 K/uL (1.20-3.40); Lymphocytes % (auto) 28.6 %; Mean Corpuscular Hemoglobin 25.5 pg (25.0-34.0); Mean Corpuscular Hgb Conc 32.1 g/dL (32.0-36.0); Mean Corpuscular Volume 79.5 fL (80.0-100.0); Mean Platelet Volume 10.9 fL (9.4-12.4); Monocytes # (auto) 0.68 K/uL (0.11-0.59); Neutrophils # (auto) 6.67 K/uL (1.40-6.50); Neutrophils % (auto) 59.1 %; Platelet Count 320 K/uL (130-400); RDW Coefficient of Variation 13.2 % (11.5-14.5); RDW Standard Deviation 37.1 fL (36.4-46.3); Red Blood Count 5.02 M/uL (4.70-6.10)
[2025-01-12 18:50] LABS: Albumin Level 4.2 gm/dl (3.4-5.0); BUN Creatinine Ratio 21.3 (10-20); Bilirubin,Total 0.3 mg/dl (0.2-1.0); Calcium 9.2 mg/dl (8.6-10.3); Creatinine Clr Calc Pharmacy 253.6 ml/min; Globulin 4.2 gm/dl (2.5-4.0); Potassium 4.2 mmol/L (3.5-5.1); Total Protein 8.4 gm/dl (6.0-8.3)
[2025-01-12] MEDS: NICOTINE 14 MG/24 HR PATCH TD SCH (18:52)
[2025-01-12 18:57] LABS: Troponin I High Sensitivity 3.8 pg/ml (0-20)
[2025-01-12 19:15] LABS: Appearance Urine Clear (Clear); Bilirubin Urine Negative (Negative); Blood Urine Negative (Negative); Color Urine Yellow; Glucose Urine UA 3+ (Negative); Ketones Urine Negative (Negative); Leukocyte Esterase Urine Negative (Negative); Nitrite Urine Negative (Negative); Protein Urine Negative (Negative); Specific Gravity Urine 1.034 (1.000-1.030); Urobilinogen Urine Negative (Negative)
--- NOTE | 2025-01-12 20:03 | XRay Report ---
EXAM: XR chest 1V portable CLINICAL HISTORY: Chest pain, nonspecific. TECHNIQUE: An X-ray image of the chest is obtained in PA projection. COMPARISON: CR dated 12/17/2024. FINDINGS: Pulmonary Parenchyma: Right basal pulmonary infiltrates. No evidence of consolidation, collapse, or focal opacities. No pulmonary nodules are identified. No evidence of pleural effusion or pleural thickening. Obliterted left costophrenic kelsey by cardiac shadow. Heart and Mediastinum: Heart is not enlarged. No mediastinal widening or masses. No hilar or mediastinal lymphadenopathy. Bony Thorax: Bony thorax appears intact without fractures or deformities. Soft Tissues: Soft tissues overlying the chest wall are unremarkable. IMPRESSION: Right basal pulmonary infiltrates may denote inflammation/infection. New finding. Please correlate clinically. . Electronically signed by Heraclio Siegel 01-12-2025 8:03 PM
--- NOTE | 2025-01-12 21:01 | History & Physical Report ---
Date of Service January 12, 2025 Assessment & Plan (1) Chest pain: Plan: 39-year-old male with past medical history significant for hypertension, dyslipidemia, CAD and recent stents, obesity, degenerative disc disease, hidradenitis suppurativa, migraines, tobacco use disorder presents with chest pain. Patient complains of chest pain in the 2 spots on the left side of the chest mostly constant. Sometimes getting sweating. He is short of breath on exertion. No cough. Afebrile. No headache. Has blurred visions. More on the right eye. No runny nose or sore throat. No nausea. Sometimes get dizzy. Has some rash and burning sensation in the groin region. Micturating a lot. Has feeling weak and fatigued and cramps in his calfs. Sugars are running high. Says he was on Ozempic but that was stopped during cardiac cath and not restarted. Currently is on Jardiance. Patient recently had a stress test which was positive for RCA territory ischemia. Then he was in the ER for chest pain but he signed out AMA. He had a cardiac catheterization on 12/19/2024 which showed severe multivessel coronary disease including total occlusion of large dominant RCA and hemodynamically significant LAD disease and also circumflex D1 and probably ramus disease. There was a plan to send him to [facility] but patient went to [place] and and was admitted to [place] where he had a left circumflex and LAD stenting. Currently quit smoking and on nicotine patch. He also saw [facility] cardiothoracic surgery on 01/09/2025 and was recommended to continue current medications. Patient also seem to have a cardiac cath about 5 years ago when he was found to have moderate coronary disease. Patient says he is taking his medications as prescribed. Chest pain History of CAD and recent stents to left circumflex and LAD Initial EKG and troponin okay Will follow serial cardiac enzymes, repeat EKG and echo N.p.o. after midnight Monitoring telemetry Cardiology consult in a.m. for further recommendations CAD status post stents On aspirin, prasugrel, metoprolol succinate, Lipitor and Zetia Obstructive sleep apnea On CPAP nightly Diabetes Will hold Jardiance Lantus and sliding scale Close monitor Follow HbA1c levels Hyperlipidemia On statin and Zetia Hypertension On metoprolol succinate and lisinopril Will monitor Obesity Nutrition follow-up Anemia Hemoglobin 12.8 Will follow stool for Hemoccult Iron studies and vitamin B12 folate levels DVT prophylaxis SCDs for now Disposition Observation telemetry Full code History of Present Illness Chief Complaint: Chest pain Primary Care Provider: Coleman Hassan MD 39-year-old male with past medical history significant for hypertension, dyslipidemia, CAD and recent stents, obesity, degenerative disc disease, hidradenitis suppurativa, migraines, tobacco use disorder presents with chest pain. Patient complains of chest pain in the 2 spots on the left side of the chest mostly constant. Sometimes getting sweating. He is short of breath on exertion. No cough. Afebrile. No headache. Has blurred visions. More on the right eye. No runny nose or sore throat. No nausea. Sometimes get dizzy. Has some rash and burning sensation in the groin region. Micturating a lot. Has feeling weak and fatigued and cramps in his calfs. Sugars are running high. Says he was on Ozempic but that was stopped during cardiac cath and not restarted. Currently is on Jardiance. Patient recently had a stress test which was positive for RCA territory ischemia. Then he was in the ER for chest pain but he signed out AMA. He had a cardiac catheterization on 12/19/2024 which showed severe multivessel coronary disease including total occlusion of large dominant RCA and hemodynamically significant LAD disease and also circumflex D1 and probably ramus disease. There was a plan to send him to [facility] but patient went to [place] and and was admitted to [place] where he had a left circumflex and LAD stenting. Currently quit smoking and on nicotine patch. He also saw [facility] cardiothoracic surgery on 01/09/2025 and was recommended to continue current medications. Patient also seem to have a cardiac cath about 5 years ago when he was found to have moderate coronary disease. Patient says he is taking his medications as prescribed. Past medical history. As mentioned above Past surgical history. Colonoscopy. EGD. Laparoscopic appendectomy. Excision of subcutaneous hidradenitis axillary complex. Social history. . Quit smoking. Smoked 2 packs a day for 25 years. Currently on nicotine patch. Alcohol rarely. No drug use. Family history. Father had lung cancer. Thyroid disorder. Mother had diabetes. Gastrointestinal disorder. Heart disorder. Hypertension. Obesity. Allergies Allergy/AdvReac Type Severity Reaction Status Date / Time sulfamethoxazole Allergy Intermediate Rash Verified 01/12/25 18:25 [From Bactrim] trimethoprim [From Bactrim] Allergy Intermediate Rash Verified 01/12/25 18:25 Home Medications Medication Instructions Recorded Confirmed Type dicyclomine 10 mg capsule 10 mg PO TID PRN Abdominal Pain 04/20/20 01/12/25 History omeprazole 20 mg capsule,delayed 20 mg PO DAILY PRN 06/28/21 01/12/25 History release HEARTBURN/INDIGESTION albuterol sulfate 90 mcg/actuation 2 puff inhalation Q4H PRN Wheezing 03/12/22 01/12/25 History aerosol inhaler nitroglycerin 0.4 mg sublingual 0.4 mg sublingual Q5M PRN chest 06/14/22 01/12/25 Rx tablet (Nitrostat) pain #25 tabs aspirin 81 mg tablet,delayed 81 mg PO DAILY 04/03/23 01/12/25 History release metoprolol succinate 50 mg 50 mg PO QAM #90 tabs 11/08/23 01/12/25 Rx tablet,extended release 24 hr empagliflozin 25 mg tablet 25 mg PO DAILY 10/26/24 01/12/25 History (Jardiance) acetaminophen 500 mg tablet 1,000 mg PO DIRECTED PRN Pain 01/12/25 01/12/25 History atorvastatin 80 mg tablet 80 mg PO HS 01/12/25 01/12/25 History beclomethasone dipropionate 80 2 inh inhalation BID PRN Shortness 01/12/25 01/12/25 History mcg/actuation HFA breath activated Of Breath Or Wheezing aerosol (Qvar RediHaler) ezetimibe 10 mg tablet (Zetia) 10 mg PO DAILY 01/12/25 01/12/25 History lisinopril 40 mg tablet 40 mg PO DAILY 01/12/25 01/12/25 History nicotine 21 mg/24 hr daily 1 patch transdermal DAILY 01/12/25 01/12/25 History transdermal patch prasugrel HCl 10 mg tablet 10 mg PO DAILY 01/12/25 01/12/25 History semaglutide 1 mg/dose (4 mg/3 mL) 1 mg subcut WK 01/12/25 01/12/25 History subcutaneous pen injector (Ozempic) Past Med/Surg History Problem List (Updated 01/12/25 @ 21:12 by Walt Connors, DO) Chest pain (Acute) Angina pectoris Abdominal pain (Acute) Acute appendicitis (Acute) Appendicitis, acute (Acute) Dehydration (Acute) Gastroenteritis (Acute) Headache (Acute) Left sided abdominal pain (Acute) Nausea, vomiting, and diarrhea (Acute) Otitis externa (Acute) Calculus of kidney (Acute 11/02/12) Near syncope Abnormal nuclear stress test Diverticulitis Chest pain Preoperative cardiovascular examination Abscess of groin, right (Acute) Scrotal abscess BHASKAR treated with BiPAP Morbid obesity (Acute) BMI 48.8 Diabetes type 2, uncontrolled NIDDM Hypertension Hypertensive urgency (Acute) hx Dyslipidemia CAD (coronary artery disease) (Acute) F/U DR CUMMINGS Tobacco abuse SBO (small bowel obstruction) tx medically Medical History History of COVID-2019, PCP office test, not hosp; mild symptoms>resolved. Kidney stones hx-PASSED ON OWN GERD (gastroesophageal reflux disease) Basal cell adenoma Migraine hx Surgical History Hx of adenoidectomy with bilt myringotomy @ [facility] 01/11/23 History of surgery 04/04/23 Right excisional drainage of infected cys of groin @ [facility] Hx of colonoscopy History of axillary surgery removal sweat gland bilat axilla History of cardiac cath 2019 NO STENTS[facility] Hx of appendectomy Family History Mother Diabetes Hypertension Coronary heart disease Father Cancer Social History Smoking Status: Former smoker Tobacco Type: Cigarettes Cigarettes Per Day: 20 (advised on policy); Smoking End Date: Nov 2024; Second Hand Exposure: No; Do You Dip or Chew Tobacco: No; Hx Alcohol Use: No Hx Substance Use: No Preferred Language: Swedish Communication Ability: Effective Data Reviewer Required: No Beliefs That Will Affect Care: None marital status: Current Living Situation: Family Current Living Situation Comment: LIVES WITH SPOUSE, 3 CHILDREN current occupational status: employed 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 ENT- oropharynx clear Neck- supple, no JVD. Lungs- clear to auscultation no wheezing or crackles Heart- regular rate and rhythm; no murmur, no gallop. Abdomen- normal bowel sounds, soft, nontender, no distension Extremities- no pretibial edema, mild erythema seen on left calf Neuro- alert, oriented PERRL, no facial palsy; no dysarthria; moves extremities Skin- erythema seen in scrotal region Results & Data Results & Data Vital Signs (Past 12 Hours) Vital Signs Temp Pulse Resp BP Pulse Ox O2 Del Method 01/12/25 18:17 Room Air 01/12/25 18:12 63 20 140/68 95 01/12/25 18:12 66 01/12/25 18:03 94 Room Air 01/12/25 17:45 36.5 C 63 18 145/72 H 96 Room Air Diagnostic Findings Laboratory Results WBC 11.30 K/ul (4.8-10.8) H 01/12/25 18:08 RBC 5.02 M/uL (4.70-6.10) 01/12/25 18:08 Hgb 12.8 g/dl (14.0-18.0) L 01/12/25 18:08 Hct 39.9 % (42.0-52.0) L 01/12/25 18:08 MCV 79.5 fL (80.0-100.0) L 01/12/25 18:08 MCH 25.5 pg (25.0-34.0) 01/12/25 18:08 MCHC 32.1 g/dL (32.0-36.0) 01/12/25 18:08 RDW Std Deviation 37.1 fL (36.4-46.3) 01/12/25 18:08 RDW Coeff of Ariana 13.2 % (11.5-14.5) 01/12/25 18:08 Plt Count 320 K/uL (130-400) 01/12/25 18:08 MPV 10.9 fL (9.4-12.4) 01/12/25 18:08 Immature Gran % (Auto) 1.3 % 01/12/25 18:08 Neut % (Auto) 59.1 % 01/12/25 18:08 Lymph % (Auto) 28.6 % 01/12/25 18:08 Dickens % (Auto) 6.0 % 01/12/25 18:08 Eos % (Auto) 4.5 % 01/12/25 18:08 Baso % (Auto) 0.5 % 01/12/25 18:08 Neut # (Auto) 6.67 K/uL (1.40-6.50) H 01/12/25 18:08 Lymph # (Auto) 3.23 K/uL (1.20-3.40) 01/12/25 18:08 Dickens # (Auto) 0.68 K/uL (0.11-0.59) H 01/12/25 18:08 Eos # (Auto) 0.51 K/uL (0.00-0.50) H 01/12/25 18:08 Baso # (Auto) 0.06 K/uL (0.00-0.20) 01/12/25 18:08 Immature Gran # (Auto) 0.15 K/uL (0.01-0.20) 01/12/25 18:08 Sodium 138 mmol/L (136-145) 01/12/25 18:08 Potassium 4.2 mmol/L (3.5-5.1) 01/12/25 18:08 Chloride 104 mmol/L (98-107) 01/12/25 18:08 Carbon Dioxide 28 mmol/L (21-32) 01/12/25 18:08 Anion Gap 6 (3-11) 01/12/25 18:08 BUN 13 mg/dl (6-23) 01/12/25 18:08 Creatinine 0.61 mg/dl (0.6-1.4) 01/12/25 18:08 Est Cr Clr Drug Dosing 253.6 ml/min 01/12/25 18:08 eGFR 125.30 01/12/25 18:08 BUN/Creatinine Ratio 21.3 (10-20) H 01/12/25 18:08 Glucose 265 mg/dl (70-99(Fasting)) H 01/12/25 18:08 Calcium 9.2 mg/dl (8.6-10.3) 01/12/25 18:08 Total Bilirubin 0.3 mg/dl (0.2-1.0) 01/12/25 18:08 AST 21 U/L (13-39) 01/12/25 18:08 ALT 28 U/L (7-52) 01/12/25 18:08 Alkaline Phosphatase 82 U/L (34-104) 01/12/25 18:08 Troponin I High Sens 3.8 pg/ml (0-20) 01/12/25 18:08 Total Protein 8.4 gm/dl (6.0-8.3) H 01/12/25 18:08 Albumin 4.2 gm/dl (3.4-5.0) 01/12/25 18:08 Globulin 4.2 gm/dl (2.5-4.0) H 01/12/25 18:08 Albumin/Globulin Ratio 1.0 (0.9-2) 01/12/25 18:08 Lipase 47 U/L (11-82) 01/12/25 18:08 Urine Color Yellow 01/12/25 18:57 Urine Appearance Clear (Clear) 01/12/25 18:57 Urine pH 6.0 (4.5-7.5) 01/12/25 18:57 Ur Specific Jenera 1.034 (1.000-1.030) H 01/12/25 18:57 Urine Protein Negative (Negative) 01/12/25 18:57 Urine Glucose (UA) 3+ (Negative) H 01/12/25 18:57 Urine Ketones Negative (Negative) 01/12/25 18:57 Urine Blood Negative (Negative) 01/12/25 18:57 Urine Nitrite Negative (Negative) 01/12/25 18:57 Urine Bilirubin Negative (Negative) 01/12/25 18:57 Urine Urobilinogen Negative (Negative) 01/12/25 18:57 Ur Leukocyte Esterase Negative (Negative) 01/12/25 18:57 Impressions Chest X-Ray 01/12/25 17:52 EXAM: XR chest 1V portable CLINICAL HISTORY: Chest pain, nonspecific. TECHNIQUE: An X-ray image of the chest is obtained in PA projection. COMPARISON: CR dated 12/17/2024. FINDINGS: Pulmonary Parenchyma: Right basal pulmonary infiltrates. No evidence of consolidation, collapse, or focal opacities. No pulmonary nodules are identified. No evidence of pleural effusion or pleural thickening. Obliterted left costophrenic kelsey by cardiac shadow. Heart and Mediastinum: Heart is not enlarged. No mediastinal widening or masses. No hilar or mediastinal lymphadenopathy. Bony Thorax: Bony thorax appears intact without fractures or deformities. Soft Tissues: Soft tissues overlying the chest wall are unremarkable. IMPRESSION: Right basal pulmonary infiltrates may denote inflammation/infection. New finding. Please correlate clinically. . Electronically signed by Heraclio Siegel 01-12-2025 8:03 PM ECG Additional Comments: ECG. Normal sinus rhythm with rate of 60. Q waves in inferior leads. Nons pecific ST changes. Code Status & VTE Plan VTE Prophylaxis Plan VTE Prophylaxis will be ordered: Yes (1) Chest pain Chest pain type: unspecified Qualified Code(s): R07.9 - Chest pain, unspecified
[2025-01-12] MEDS ORDERED: PHARMACY GLYCEMIC MGMT CONSULT PRN (22:19)
[2025-01-12] MEDS ORDERED: GLUCAGON FOR INJ 1 MG VIAL SQ PRN (22:19)
[2025-01-12] MEDS ORDERED: GLUCOSE 10 TAB/TUBE PO PRN (22:19)
[2025-01-12] MEDS ORDERED: CARBOHYDRATES FOR HYPOGLYCEMIA PO PRN (22:19)
[2025-01-12] MEDS ORDERED: ALBUTEROL HFA 8 GM INHALER INH PRN (22:19)
[2025-01-12] MEDS ORDERED: POLYETHYLENE (MIRALAX) 17 GM PACK PO PRN (22:19)
[2025-01-12] MEDS ORDERED: NITROGLYCERIN SL 0.4 MG/TAB TAB SL PRN (22:19)
[2025-01-12] MEDS ORDERED: DEXTROSE 50% 50 ML SYRINGE IV PRN (22:19)
[2025-01-12] MEDS ORDERED: GLUCOSE 40% GEL 15 GM TUBE PO PRN (22:19)
[2025-01-12] MEDS ORDERED: DICYCLOMINE HCL 10 MG CAP PO PRN (22:19)
[2025-01-12] MEDS ORDERED: PANTOprazole 40 MG TAB PO PRN (22:48)
[2025-01-12] MEDS: NYSTATIN POWDER 15GM BTL EXT SCH (23:20)
[2025-01-12] MEDS: ATORVASTATIN 40 MG TAB PO SCH (23:21)
[2025-01-12] MEDS: LANTUS PER UNIT CHARGE SQ ONE (23:21)
[2025-01-12] MEDS: INSULIN ASPART PER UNIT CHARGE SC SCH (23:21)
--- NOTE | 2025-01-13 00:04 | Ultrasound Report ---
Exam(s): US VENOUS BILATERAL LOWER EXTREMITIES EXAM: US Duplex Bilateral Lower Extremities Veins CLINICAL HISTORY: Reason for exam: b/l calf pain. Suspicious for DVT TECHNIQUE: Real-time duplex ultrasound scan of the bilateral lower extremity veins integrating B-mode two-dimensional vascular structure, Doppler spectral analysis, color flow Doppler imaging and compression. COMPARISON: No relevant prior studies available. FINDINGS: Right deep veins: Unremarkable. No DVT in the right common femoral, femoral, proximal deep femoral or popliteal veins. The veins demonstrate normal color flow, are normally compressible, with normal phasic flow and/or augmentation response. Right superficial veins: Unremarkable. No thrombus in the visualized right great saphenous vein. Left deep veins: Unremarkable. No DVT in the left common femoral, femoral, proximal deep femoral or popliteal veins. The veins demonstrate normal color flow, are normally compressible, with normal phasic flow and/or augmentation response. Left superficial veins: Unremarkable. No thrombus in the visualized left great saphenous vein. Soft tissues: No acute findings. No popliteal cyst. IMPRESSION: Negative bilateral lower extremity duplex venous ultrasound. No evidence of DVT. Electronically signed by: Carmine Wilson MD 01/13/25 00:03 AM
[2025-01-13] MEDS ORDERED: INSULIN ASPART PER UNIT CHARGE SC ONE (03:00)
[2025-01-13] MEDS: INSULIN ASPART PER UNIT CHARGE SC SCH ×2 (04:52→12:30)
[2025-01-13] MEDS: ACETAMINOPHEN 325 MG TAB PO PRN (05:39)
[2025-01-13 06:39] LABS: Basophils # (auto) 0.06 K/uL (0.00-0.20); Basophils % (auto) 0.6 %; Eosinophils # (auto) 0.55 K/uL (0.00-0.50); Eosinophils % (auto) 5.2 %; Hematocrit (blood only) 40.9 % (42.0-52.0); Hemoglobin 13.2 g/dl (14.0-18.0); Immature Granulocytes # (auto) 0.26 K/uL (0.01-0.20); Immature Granulocytes % (auto) 2.5 %; Lymphocytes % (auto) 36.1 %; Mean Corpuscular Hemoglobin 25.7 pg (25.0-34.0); Mean Corpuscular Hgb Conc 32.3 g/dL (32.0-36.0); Mean Corpuscular Volume 79.6 fL (80.0-100.0); Mean Platelet Volume 10.9 fL (9.4-12.4); Monocytes # (auto) 0.84 K/uL (0.11-0.59); Neutrophils # (auto) 5.01 K/uL (1.40-6.50); Neutrophils % (auto) 47.6 %; Platelet Count 328 K/uL (130-400); RDW Standard Deviation 37.1 fL (36.4-46.3); Red Blood Count 5.14 M/uL (4.70-6.10); White Blood Count 10.52 K/ul (4.8-10.8)
[2025-01-13 07:03] LABS: BUN Creatinine Ratio 22.2 (10-20); Potassium 3.7 mmol/L (3.5-5.1)
[2025-01-13 07:36] LABS: Estimated Average Glucose 237 mg/dl; Hemoglobin A1C 9.9 % (4.5-5.6)
--- NOTE | 2025-01-13 08:17 | Pharmacy Report ---
Pharmacy Glycemic Short Note 2 - Date of Service January 13, 2025 - Glycemic Short BSG Results (Last 24 hours): 01/12/25 01/12/25 01/12/25 18:08 21:58 23:14 Glucose 265 H POC Glucose 275 H 271 H 01/13/25 01/13/25 01/13/25 04:43 05:26 07:27 Glucose 183 H POC Glucose 167 H 186 H OUTPATIENT ANTIDIABETIC REGIMEN: * Jardiance 25mg PO Daily * Ozempic 1mg SQ Weekly * A1c 9.9% 01/13/25 ASSESSMENT: * 39 YO M PMHx HTN, DL, CAD and recent stents, obesity, admitted with CP. Uncontrolled type 2 DM. * Pt is maintained on oral/SQ antidiabetic agents as an outpatient * These agents are not recommended for inpatient use d/t drug interactions, changing PO intake, and difficulty titrating for acute hyper/hypoglycemia. * Will hold outpatient agents for admission and utilize SQ basal bolus insulin regimen which is the recommended regimen for inpatient glycemic control. * Will initiate weight based insulin dosing for insulin tony patient and titrate based on BSG trends. PLAN FOR INPATIENT GLYCEMIC CONTROL: * Hold outpatient diabetes medications * Basal insulin * Lantus 5 units SQ x1 last night, further dosing after diet is resumed or if blood sugars trend up today while NPO * Bolus insulin * NovoLog per scale ACHS or Q6hrs while NPO * Goal Range: Low 110 mg/dL - High 140 mg/dL * Correction Factor: 15 mg/dL/unit * Nutritional / Prandial insulin per carb ratio of 1 unit per 5 grams CHO consumed
--- NOTE | 2025-01-13 08:59 | Cardiology Consultation ---
Date of Consultation January 13, 2025 Assessment & Plan (1) Chest pain: (2) CAD (coronary artery disease): (3) Hypertension: (4) Dyslipidemia: (5) Morbid obesity: (6) BHASKAR treated with BiPAP: (7) Tobacco abuse: (8) Diabetes type 2, uncontrolled: Plan Assessment: 39 year old male with multiple comorbidities and recent cath with intervention, presents with ongoing intermittent episodes of chest pain. Cardiology requested for further evaluation. Plan: 1. chest pain 2. CAD -Patient continues with intermittent episodes of chest pain, better since cath, but have continued. EKG with no acute changes, improved since cath. Troponin negative x2, no ectopy or arrhythmia on telemetry. -Reviewed patient's medications at length. Patient is requesting a switch with his DAPT. Discussed that this will need to be discussed with primary patient sitter and while he must remain on DAPT, that we need to carefully consider that his other medications may be a contributing factor to his fatigue in addition to other comorbidities. -Continue ASA 81mg and Effient 10mg daily -Continue GDMT with Atorvastatin, Zetia, Lisinopril and toprol xl at this time. patient is arranged to see [facility] clinical pharmacist OP next week to work on Diabetes management and will also work on lipid control. -Spoke in depth to both patient and spouse that coronary disease is different for everyone and so is the treatment. -There is no evidence that patient has ever been started on long-acting ni trates. Start Imdur 30mg PO Daily, first dose now. titrate as appropriate. May need to adjust other therapies pending BP response. -Currently with nicotine patch, strongly encourage continued smoking cessation. -Echocardiogram pending to assess overall structure, and function to help guide in our plan of care. 3. HTN -Controlled this morning. continue Toprol xl, and Lisinopril. Will start Imdur 30mg daily. further recommendations pending echo if appropriate 4. dyslipidemia -No recent lipid panel; however, patient is high risk as a 39 year old male, morbid obesity, poorly controlled diabetes and known coronary disease with recent intervention -Continue Atorvastatin and Zetia. will need updated labs and will work with [facility] pharmacy at medication titration. 5. Morbid obesity 6. BHASKAR treated with BIpap 7. Tobacco use 8. DM type II -patient verbalizes understanding that in addition to invasive measures, maximizing medication therapies that diet/exercise and lifestyle modifications are a cruicial part of his treatment plan -Wearing nicotine patch, strongly encourage to commit to smoking cessation -Agree with plan to establish care with [facility] pharmacy to further discuss/tailor diabetes treatment plan. Patient is not tolerating Jardiance with recurrence urinary issues as well as fungal infections. Was previously on Ozempic which would offer benefit for tighter blood sugar control and cardiac health. may need to consider insulin therapy as patient was advised poorly controlled blood sugars substantially increase the risk for adverse cardiac events. -Continue with Bipap for tx of BHASKAR Case has been discussed with Dr. Corona. Further recommendations regarding plan of care as per his assessment. I spent a total of 45 minutes on the date of service in preparation, delivery, documentation of the care provided to the patient excluding any time spent in the performance of separately billed services. JAMES Epperson [facility] Cardiology [facility] Supervising Physician Co-Signing Physician Notes Attending attestation: Case reviewed with the advanced practitioner. I have personally performed a history and physical examination on the patient. I have reviewed the advanced practitioner's documentation on the date of service referenced in note, and I agree with, and take responsibility for the plan of care. Subjective: Patient describes recent anginal symptoms of chest tightness and diaphoresis that have been present before his recent PCI in [place]. Overall his initial symptoms are improved, but he still has some residual chest tightness oftentimes happening at rest. He describes that he has not been very physically active. Patient's spouse, Gayle Rubio, at the bedside during my assessment. Telemetry reveals sinus rhythm in the 80s. Exam: Cardiovascular: Regular rhythm, (somewhat distant heart sounds due to body habitus), no murmur, no edema Data: Hemoglobin A1c 9.9% on 01/13/2025 High-sensitivity troponin negative x 4 measurements obtained from 01/12/2025 until 01/13/2025 Echocardiogram performed today interpreted by the undersigned: Study is technically limited but adequate for the evaluation of the referral indication. The ultrasound enhancement agent Definity was administered to improve delineation of the endocardial border. -Normal LV wall motion, normal LVEF in the range of 55 to 60% -No significant valvular heart disease EKG performed 01/12/2025 at 1740 and interpret independently: Normal sinus rhythm at 60 bpm, poor R wave progression and therefore an age-indeterminate anterior infarct cannot be excluded, age undetermined inferior infarct cannot be excluded with noted Q wave limited to lead III. -Repeat tracing performed 01/12/2025 at 1741 was relatively unchanged. Images obtained at the time of the nuclear stress test 11/18/2024 reviewed independently revealing inferior wall ischemia I reviewed the diagnostic coronary angiography films that were obtained at [facility] on 01/[address] Carson with results as summarized by Becca Gerardo. Impression/ Plan: Ongoing chest discomfort consistent with mild residual angina Cardiac risk factors have yet to be optimized -Unfortunately I am unable to review the images of his recent procedure when he received the LAD and circumflex territory stents, however these were available when he had recently been seen by Dr. Ruby paiz of [facility] cardiothoracic surgery who documented stable findings per his review. -Recommend ongoing dual antiplatelet therapy (the interventional team that had performed his stents recommended 1 year) with aspirin and Effient. Rationale of this treatment was discussed at length with the patient. He states he is able to afford the Effient. -Continue metoprolol succinate 50 mg daily. The patient's heart rate while sitting in the bedside chair this afternoon was in the 80s. I do think there is likely room to titrate his beta-glen based on his heart rate and blood pressure, however he is concerned about fatigue, and at present I do not think this is the best agent to increase. -Continue lisinopril 40 mg -Continue Jardiance 25 mg daily -Continue atorvastatin 80 mg daily and ezetimibe 10 mg daily -Add isosorbide mononitrate extended release 30 mg daily in the morning. -Patient is to resume Ozempic which she had been on prior to his diagnostic cardiac catheterization. I described him that usually this medication just held for 7 days before a planned sedation event due to slowing of gastric transit in order to reduce risk of aspiration. I believe this agent would be out of good benefit to him from a weight loss standpoint, blood sugar standpoint, and for its cardiac risk reduction features. -Keep the outpatient visit with me as tentatively scheduled. Will look for a sooner appointment in the interim. --Patient stable from cardiac standpoint for discharge without further cardiac testing. I spent a total of 30 minutes coordinating, documenting, and providing care for this patient excluding time spent in the performance of separately billed services or time spent by another provider. Osbaldo Corona DO History of Present Illness Reason for Consultation: Chest pain, recent stents Requesting Physician: Flavio torres Attending Physician: Dallas Kate MD History of Present Illness HPI: Patient is a 39 year old male with PMHx significant for CAD with recent PCI and BROOKE to Left Cx and LAD at [facility] (december 2024), HTN, dyslipidemia, poorly controlled diabetic, DDD, obesity, tobacco use and hidrandenitis suppurativa that presented to the ER with complaints of chest pain. Describes pain as a pressure, heaviness and does push through to his back. Also endorses dyspnea on exertion, occasional dizziness. EKG on admission NSR- T wave abnormality shows improvement in lateral leads compared with prior. Rate 60bpm No recent echo on file. No Echo in [facility] system to be found. Chest xray: IMPRESSION: Right basal pulmonary infiltrates may denote inflammation/infection. New finding. Please correlate clinically. Venous doppler: IMPRESSION: Negative bilateral lower extremity duplex venous ultrasound. No evidence of DVT. (ordered due to leg cramps) HgB A1C: 9.9 High sensitivity troponins: Negative x2 For Echocardiogram today. Patient's most recent cardiac history is complex and dates as follows: 04/2020: Abnormal nuclear stress test for CP--followed by cardiac cath showing moderate CAD, no intervention at that time --Followed with [facility]. 10/26/2024: seen by his establish cardiology provider [facility] for intermittent episodes of chest pain "over the past 2-3 weeks". Reviewed medication optimization and recommended smoking cessation, and schedule for nuclear stress test. Emergency--present to the ER. DATE unknown: Nuclear stress test abnormal suggesting RCA territory ischemia 12/17/2024: Presents to the ER for midsternal chest pain x2 days. Had EKG, labs including one negative troponin and left AMA before being seen by a physician or LALY, did not have repeat troponin levels drawn. 12/18/2024: Presents for elective cardiac catheterization s/t abnormal nuclear stress test with Dr. Osbaldo Carson. Summary: 1. Severe multivessel coronary artery disease including chronic total occlusion of a large dominant RCA. IFR analysis demonstrates hemodynamically significant LAD disease in addition to circumflex, D1, and probably ramus disease. Recommend heart team evaluation regarding coronary artery bypass grafting versus complex multivessel PCI at tertiary center. Patient is known to be noncompliant with medical recommendations. 2. Guideline directed medical therapy for secondary prevention of coronary disease should include; low-dose aspirin, high intensity statin therapy, beta- glen, and SANDHYA inhibitor as previously prescribed. 3. Patient is advised to seek emergent medical attention should he have recurrent chest pain recalcitrant to sublingual nitroglycerin administration. 4. Patient's coronary angiography has been sent to [facility] in [place] ([facility] insurance). Additionally, he has requested multiple discs of his angiography which will be provided. The primary patient sitter has been notified of the findings and will be making "heart team" referral. Hemodynamics Rest Ao:: 135/89 mmHg Final Ao: 157/90 mmHg LV: 132/4 mmHg, LVEDP 10 mmHg Recommendations Recommendations: Medical Therapy and/or Counseling and CABG. CTS referral was placed for [facility] on 12/20/2024 12/21/2024: patient was visiting family in [facility]. Developed chest pain--took 2 SL NTG and presented to [facility] and underwent PCI with BROOKE to the pLAD and LCx/OM1 PLAN: Aspirin 81mg daily lifelong and Effient 10mg daily for 1 year. Continue maximal medical therapy Aggressive CAD risk factor management No driving for 2 days, No lifting more than 10 pounds for 2 weeks Patient condition has improved faster than initially anticipated. Patient is now stable enough to transition to outpatient management. As a result, patient no longer requires a second midnight of hospital care as originally anticipated during initial admission. The patient did well with no post-procedure chest pain, or elevation in creatinine and can be discharged home. DC home today if labs are stable No notation of follow up with established provider. 01/09/2025: Seen by CT surgery, Dr. Arias. Plan pulled from note seen below: Fernando Bangura is a 39-year-old male with history of morbid obesity and tobacco abuse who underwent coronary angiogram after experiencing anginal type chest pains and a positive myocardial perfusion scan. The angiogram revealed an occluded right coronary artery that filled via [id number]-iq-ymkqe collaterals. There was a tight stenosis in the circumflex as well as the proximal LAD. He sought a 2nd opinion at [facility] in [place]. There he underwent PCI to the proximal LAD and circumflex with apparently good angiographic result. He continues to complain of occasional chest discomfort. Fernando has multivessel coronary disease, morbid obesity and tobacco abuse. As best I can tell by the still images that he brought with him the PCI to the LAD and circumflex appear to be a good result. The right coronary artery is well collateralized. I see no indication for surgical revascularization. I encouraged Fernando to follow up with his patient sitter as he may need adjustment to his medical regimen. He may require further testing to evaluate the patency of his stents should his symptoms persist or become more severe. We will see him back on a PRN basis. Chinedu Arias MD Cardiac Surgery [facility] 01/10/2025: messages through [employer] portal requesting sooner cardiology appt (no referral in place that we can see, but had opted to want to follow with Cardiology at ) Patient was scheduled to see General cards on 01/15/25--Pt cancelled appt as they had not realized when it was booked that they were going to be made to drive to [place] and this is certainly not feasible with having young children etc. he is tentatively scheduled to see Dr. Corona on 05/28/2025 Upon seeing patient today he is resting comfortably in bed. Does endorse intermittent episodes of chest pain/pressure. Dyspnea on exertion. Reviewed EKG results, labs and a synopsis of his recent cardiac plan. BP improved this morning. Review of telemetry shows SR rates 60-70's. Allergies Allergy/AdvReac Type Severity Reaction Status Date / Time sulfamethoxazole Allergy Intermediate Rash Verified 01/12/25 18:25 [From Bactrim] trimethoprim [From Bactrim] Allergy Intermediate Rash Verified 01/12/25 18:25 Home Medications Medication Instructions Recorded Confirmed Type dicyclomine 10 mg capsule 10 mg PO TID PRN Abdominal Pain 04/20/20 01/12/25 History omeprazole 20 mg capsule,delayed 20 mg PO DAILY PRN 06/28/21 01/12/25 History release HEARTBURN/INDIGESTION albuterol sulfate 90 mcg/actuation 2 puff inhalation Q4H PRN Wheezing 03/12/22 01/12/25 History aerosol inhaler nitroglycerin 0.4 mg sublingual 0.4 mg sublingual Q5M PRN chest 06/14/22 01/12/25 Rx tablet (Nitrostat) pain #25 tabs aspirin 81 mg tablet,delayed 81 mg PO DAILY 04/03/23 01/12/25 History release metoprolol succinate 50 mg 50 mg PO QAM #90 tabs 11/08/23 01/12/25 Rx tablet,extended release 24 hr empagliflozin 25 mg tablet 25 mg PO DAILY 10/26/24 01/12/25 History (Jardiance) acetaminophen 500 mg tablet 1,000 mg PO DIRECTED PRN Pain 01/12/25 01/12/25 History atorvastatin 80 mg tablet 80 mg PO HS 01/12/25 01/12/25 History beclomethasone dipropionate 80 2 inh inhalation BID PRN Shortness 01/12/25 01/12/25 History mcg/actuation HFA breath activated Of Breath Or Wheezing aerosol (Qvar RediHaler) ezetimibe 10 mg tablet (Zetia) 10 mg PO DAILY 01/12/25 01/12/25 History lisinopril 40 mg tablet 40 mg PO DAILY 01/12/25 01/12/25 History nicotine 21 mg/24 hr daily 1 patch transdermal DAILY 01/12/25 01/12/25 History transdermal patch prasugrel HCl 10 mg tablet 10 mg PO DAILY 01/12/25 01/12/25 History semaglutide 1 mg/dose (4 mg/3 mL) 1 mg subcut WK 01/12/25 01/12/25 History subcutaneous pen injector (Ozempic) Patient History Medical History History of COVID-2019, PCP office test, not hosp; mild symptoms>resolved. Kidney stones hx-PASSED ON OWN GERD (gastroesophageal reflux disease) Basal cell adenoma Migraine hx Surgical History Hx of adenoidectomy with bilt myringotomy @ [facility] 01/11/23 History of surgery 04/04/23 Right excisional drainage of infected cys of groin @ [facility] Hx of colonoscopy History of axillary surgery removal sweat gland bilat axilla History of cardiac cath 2019 NO STENTS-[facility] Hx of appendectomy Family History Mother Diabetes Hypertension Coronary heart disease Father Cancer Social History Smoking Status: Former smoker Tobacco Type: Cigarettes Cigarettes Per Day: 20 (advised on policy); Smoking End Date: Nov 2024; Second Hand Exposure: No; Do You Dip or Chew Tobacco: No; Hx Alcohol Use: No Hx Substance Use: No Preferred Language: Italian Communication Ability: Effective Granite Setter Required: No Beliefs That Will Affect Care: None marital status: Current Living Situation: Family Current Living Situation Comment: LIVES WITH SPOUSE, 3 CHILDREN current occupational status: employed 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 Feels Safe at Home: Yes Safety Concerns: Feels Safe At This Time Assistive Devices: CPAP and Glasses Review of Systems Review of Systems: All systems reviewed & are unremarkable except as noted in HPI & below Physical Exam Constitutional: + morbidly obese; no acute distress Neck: normal visual inspection and trachea midline Respiratory: normal respiratory effort; no respiratory distress and no labored breathing Auscultation: + diminished lung sounds (diminished bases); no crackles, no rales, no rhonchi and no wheezes Cardiovascular: RRR, no murmur, no edema Vessels: dorsalis pedis pulses present; no JVD Extremities: no edema increased body habitus Skin: no rashes, warm and dry Psychiatric: A+Ox3, euthymic affect Results & Data Vital Signs (Past 12 Hours) Vital Signs Temp Pulse Pulse Resp BP Pulse Ox Pulse Ox 01/13/25 07:46 36.2 C L 58 L 20 106/67 96 01/13/25 07:36 62 01/13/25 03:30 36.6 C 60 18 168/77 H 93 01/12/25 23:19 36.9 C 63 18 144/81 H 95 01/12/25 22:19 95 01/12/25 22:19 01/12/25 21:50 65 01/12/25 21:21 O2 Del Method O2 Del Method 01/13/25 07:46 CPAP 01/13/25 07:36 01/13/25 03:30 Room Air 01/12/25 23:19 Room Air 01/12/25 22:19 Room Air 01/12/25 22:19 Room Air 01/12/25 21:50 01/12/25 21:21 Room Air Laboratory Results Cardiac Enzymes 01/12/25 01/12/25 01/13/25 Range/Units 18:08 23:23 05:26 AST 21 (13-39) U/L Troponin I High Sens 3.8 5.7 3.0 (0-20) pg/ml 01/13/25 Range/Units 10:42 AST (13-39) U/L Troponin I High Sens 3.4 (0-20) pg/ml CBC 01/12/25 01/13/25 Range/Units 18:08 05:26 WBC 11.30 H 10.52 (4.8-10.8) K/ul RBC 5.02 5.14 (4.70-6.10) M/uL Hgb 12.8 L 13.2 L (14.0-18.0) g/dl Hct 39.9 L 40.9 L (42.0-52.0) % Plt Count 320 328 (130-400) K/uL Neut # (Auto) 6.67 H 5.01 (1.40-6.50) K/uL Lymph # (Auto) 3.23 3.80 H (1.20-3.40) K/uL Sebastian # (Auto) 0.68 H 0.84 H (0.11-0.59) K/uL Eos # (Auto) 0.51 H 0.55 H (0.00-0.50) K/uL Baso # (Auto) 0.06 0.06 (0.00-0.20) K/uL Comprehensive Metabolic Panel 01/12/25 01/13/25 Range/Units 18:08 05:26 Sodium 138 139 (136-145) mmol/L Potassium 4.2 3.7 (3.5-5.1) mmol/L Chloride 104 105 (98-107) mmol/L Carbon Dioxide 28 27 (21-32) mmol/L BUN 13 14 (6-23) mg/dl Creatinine 0.61 0.63 (0.6-1.4) mg/dl Glucose 265 H 183 H (70-99(Fasting)) mg/dl Calcium 9.2 9.0 (8.6-10.3) mg/dl AST 21 (13-39) U/L ALT 28 (7-52) U/L Alkaline Phosphatase 82 (34-104) U/L Total Protein 8.4 H (6.0-8.3) gm/dl Albumin 4.2 (3.4-5.0) gm/dl Intake and Output 01/12/25 01/13/25 01/13/25 22:59 06:59 14:59 Other: Other Intake Source sips and chips Weight 162.7 kg 162.1 kg Weight Measurement Method Built in Bedscale Standing Scale Diagnostic Findings Cardiac cath [facility] 12/19/2024: Coronary angiography findings: RXI-ujoxc-wkekhey vessel trifurcating into the LAD, circumflex, and ramus. It has mild luminal irregularities. RHV-cvpda-gitzmrt and apical vessel. Proximally there is mild luminal irregularities. The LAD gives a medium to large caliber first diagonal which has proximal 80 to 90% stenosis and then diffuse mild disease. The mid segment was difficult to visualize because of overlap but appeared to have 70 to 80% stenosis. There is a small to medium caliber second diagonal which has diffuse mild disease. Distal LAD has scattered mild plaques of less than 30%. OKe-jwkan-ayxcgkk vessel which is nondominant. Proximal AV groove vessel with mild luminal irregularities. It gives a small OM1. The mid segment has 80% stenosis which continues into the large branching OM 2. At this level there is also an atrial branch and the distal AV groove vessel is small terminating distally. The circumflex/OM disease has progressed from prior catheterization. Ramus/high OM-this vessel does not fill very well. Appears to fill late and has ostial 50 to 70% stenosis before it branches. It is of substantial caliber and length. Again, the ostium is difficult to see because of overlap. RCA-this is large caliber and dominant. Proximal and early mid disease is mild to moderate with up to 50% stenosis. Then, the mid segment at the origin of the RV marginal branch is 100% chronically occluded. The distal RCA and a large branching PDA and posterolateral branch are seen via hwzk-eq-fbfxg collateraliz ation. These vessels provide a large portion of myocardium and are of large caliber. IFR LAD-0.87, 0.88, 0.88. Therefore, this is hemodynamically significant. No evidence of perforation or dissection post IFR analysis FLORES-3 flow post IFR analysis (1) Chest pain Chest pain type: unspecified Qualified Code(s): R07.9 - Chest pain, unspecified (2) CAD (coronary artery disease) Associated angina: unspecified whether angina present Coronary Disease- Associated Artery/Lesion type: unspecified vessel or lesion type [place] vs. transplanted heart: unspecified whether [place] or transplanted heart Qualified Code(s): I25.10 - Atherosclerotic heart disease of [place] coronary artery without angina pectoris (3) Hypertension Hypertension type: primary hypertension Qualified Code(s): I10 - Essential (primary) hypertension
[2025-01-13] MEDS: ASPIRIN 81 MG ECTAB PO SCH (09:30)
[2025-01-13] MEDS: FLUTICASONE FUROATE 200MCG 14 PUFFS/INHALER INH SCH (09:31)
[2025-01-13] MEDS: EZETIMIBE 10 MG TAB PO SCH (09:31)
[2025-01-13] MEDS: METOPROLOL SUCC 50MG EXT REL TAB PO SCH (09:32)
[2025-01-13] MEDS: NICOTINE 21 MG/24 HR TDSY TD SCH (09:32)
[2025-01-13] MEDS: lisinopril 40 MG TAB PO SCH (09:32)
[2025-01-13] MEDS: PRASugrel TAB 10 MG TAB PO SCH (09:33)
[2025-01-13] MEDS: LANTUS PER UNIT CHARGE SC ONE (12:30)
[2025-01-13] MEDS: ISOSORBIDE MONO EXTENDED REL 30 MG TABCR PO SCH (13:30)
[2025-01-13 13:42] LABS: Chol HDL Ratio 5.1 (0-5)
--- NOTE | 2025-01-13 13:52 | Electrocardiogram Report ---
Test Reason : Blood Pressure : */* mmHG Vent. Rate : 60 BPM Atrial Rate : 60 BPM P-R Int : 136 ms QRS Dur : 100 ms QT Int : 422 ms P-R-T Axes : 28 32 65 degrees QTcB Int : 422 ms Normal sinus rhythm Cannot rule out Inferior infarct , age undetermined Cannot rule out Anterior infarct , age undetermined Abnormal ECG When compared with ECG of 17-Dec-2024 13:20, Nonspecific T wave abnormality, improved in Lateral leads Confirmed by Ritu Strange ([id number]) on 01/13/2025 1:52:28 PM Referred By: REFERRED SELF Confirmed By: Ritu Strange
--- NOTE | 2025-01-13 14:00 | Hospitalist Progress Note ---
Date of Service January 13, 2025 Assessment & Plan (1) Chest pain: Plan: 39-year-old male with past medical history significant for hypertension, dyslipidemia, CAD and recent stents, obesity, degenerative disc disease, hidradenitis suppurativa, migraines, tobacco use disorder presents with chest pain. Chest pain History of CAD and recent stents to left circumflex and LAD Patient presents with chest pain; history of CAD status post stent EKG on admission shows normal sinus rhythm . High sensitive troponin negative Echocardiogram shows EF of 55 to 60%; LV systolic function normal. No regional wall motion abnormalities. Continue on DAPT, Lipitor, Zetia. Imdur added as per cardiology Continue telemonitoring CAD status post stents On aspirin, prasugrel, metoprolol succinate, Lipitor and Zetia Obstructive sleep apnea On CPAP nightly Type 2 Diabetes Will hold Jardiance Lantus and sliding scale Close monitor \ Hyperlipidemia On statin and Zetia,cotninue Hypertension On metoprolol succinate and lisinopril, continue Obesity III Nutrition follow-up DVT prophylaxis lovenox Disposition Observation telemetry Full code Please note the above document was generated using voice recognition software. It may contain grammatical, syntax or spelling errors. Any formal questions or concerns about the content, text or information contained within the body of this dictation should be directly addressed to the provider for clarification Admission and Anticipated Discharge Date Admission Date: January 12, 2025 Subjective Patient seen and examined at bedside He is sleeping comfortably; denies any pain or discomfort at this time. Denies any chest pain or shortness of breath Review of Systems Review of Systems: All systems reviewed & are unremarkable except as noted in Subjective Physical Exam Physical Exam: General- Not in distress Head- atraumatic Eyes- PERRL. ENT- oropharynx clear Neck- supple, no JVD. Lungs- clear to auscultation no wheezing or crackles Heart- regular rate and rhythm; no murmur, no gallop. Abdomen- normal bowel sounds, soft, nontender, no distension Extremities- no pretibial edema, mild erythema seen on left calf Neuro- alert, oriented PERRL, no facial palsy; no dysarthria; moves extremities Results & Data Results & Data Vital Signs (Past 12 Hours) Vital Signs Temp Pulse Pulse Resp BP Pulse Ox O2 Del Method 01/13/25 11:10 36.6 C 64 18 145/84 H 93 Room Air 01/13/25 07:46 36.2 C L 58 L 20 106/67 96 CPAP 01/13/25 07:36 62 01/13/25 03:30 36.6 C 60 18 168/77 H 93 Room Air (1) Chest pain Chest pain type: unspecified Qualified Code(s): R07.9 - Chest pain, unspecified
[2025-01-13 14:36] VITALS: PULSE 69
--- NOTE | 2025-01-13 15:23 | Discharge Summary ---
Date of Service January 13, 2025 Admission HPI Per Admitting Provider 39-year-old male with past medical history significant for hypertension, dyslipidemia, CAD and recent stents, obesity, degenerative disc disease, hidradenitis suppurativa, migraines, tobacco use disorder presents with chest pain. Patient complains of chest pain in the 2 spots on the left side of the chest mostly constant. Sometimes getting sweating. He is short of breath on exertion. No cough. Afebrile. No headache. Has blurred visions. More on the right eye. No runny nose or sore throat. No nausea. Sometimes get dizzy. Has some rash and burning sensation in the groin region. Micturating a lot. Has feeling weak and fatigued and cramps in his calfs. Sugars are running high. Says he was on Ozempic but that was stopped during cardiac cath and not restarted. Currently is on Jardiance. Patient recently had a stress test which was positive for RCA territory ischemia. Then he was in the ER for chest pain but he signed out AMA. He had a cardiac catheterization on 12/19/2024 which showed severe multivessel coronary disease including total occlusion of large dominant RCA and hemodynamically significant LAD disease and also circumflex D1 and probably ramus disease. There was a plan to send him to [facility] but patient went to [place] and and was admitted to [facility] where he had a left circumflex and LAD stenting. Currently quit smoking and on nicotine patch. He also saw [facility] cardiothoracic surgery on 01/09/2025 and was recommended to continue current medications. Patient also seem to have a cardiac cath about 5 years ago when he was found to have moderate coronary disease. Patient says he is taking his medications as prescribed. Past medical history. As mentioned above Past surgical history. Colonoscopy. EGD. Laparoscopic appendectomy. Excision of subcutaneous hidradenitis axillary complex. Social history. . Quit smoking. Smoked 2 packs a day for 25 years. Currently on nicotine patch. Alcohol rarely. No drug use. Family history. Father had lung cancer. Thyroid disorder. Mother had diabetes. Gastrointestinal disorder. Heart disorder. Hypertension. Obesity. Admission Exam Per Admitting Provider General- Not in distress Head- atraumatic Eyes- PERRL. ENT- oropharynx clear Neck- supple, no JVD. Lungs- clear to auscultation no wheezing or crackles Heart- regular rate and rhythm; no murmur, no gallop. Abdomen- normal bowel sounds, soft, nontender, no distension Extremities- no pretibial edema, mild erythema seen on left calf Neuro- alert, oriented PERRL, no facial palsy; no dysarthria; moves extremities Skin- erythema seen in scrotal region Principal Diagnosis Chest pain, ACS ruled out Discharge Exam General- Not in distress Head- atraumatic Eyes- PERRL. ENT- oropharynx clear Neck- supple, no JVD. Lungs- clear to auscultation no wheezing or crackles Heart- regular rate and rhythm; no murmur, no gallop. Abdomen- normal bowel sounds, soft, nontender, no distension Extremities- no pretibial edema, mild erythema seen on left calf Neuro- alert, oriented PERRL, no facial palsy; no dysarthria; moves extremities Discharge Data Allergies Allergy/AdvReac Type Severity Reaction Status Date / Time sulfamethoxazole Allergy Intermediate Rash Verified 01/12/25 18:25 [From Bactrim] trimethoprim [From Bactrim] Allergy Intermediate Rash Verified 01/12/25 18:25 Consultations 01/12/25 19:23 ED Decision to Admit Stat 01/13/25 08:00 Consult Cardiology Routine Ordered Studies 01/12/25 22:19 US venous doppler LE Routine Hospital Course (1) Chest pain: 39-year-old male with past medical history significant for hypertension, dyslipidemia, CAD and recent stents, obesity, degenerative disc disease, hidradenitis suppurativa, migraines, tobacco use disorder presents with chest pain. Chest pain History of CAD and recent stents to left circumflex and LAD Patient presents with chest pain; history of CAD status post stent EKG on admission shows normal sinus rhythm . High sensitive troponin negative X4 Echocardiogram shows EF of 55 to 60%; LV systolic function normal. No regional wall motion abnormalities. Patient was admitted to telemetry floor; cardiology consultation was done. The recommend addition of Imdur 30 mg once a day to the medication regimen. Patient did not have any recurrence of chest pain during the hospitalization. He was discharged home with instructions to follow-up with PCP and cardiology. Please note the above document was generated using voice recognition software. It may contain grammatical, syntax or spelling errors. Any formal questions or concerns about the content, text or information contained within the body of this dictation should be directly addressed to the provider for clarification Total Time Total Time Spent Total Time Spent (In Minutes): 45 Total Time Includes: Examination of the Patient, Discharge Planning, Medication Reconciliation, Communication With Other Providers and Other Discharge Plan Discharge Items Patient Disposition: Home - Self-Care Reason For Visit: CHEST PAIN Discharge Diagnosis: Chest pain, ACS ruled out Activity: Resume your previous activity Non-emergency contact: Primary Care Provider Call non-emergency contact if: you have any medication questions and your symptoms worsen Follow-up/Referrals: Coleman Hassan MD [Primary Care Provider] - Diet: Regular Addtl Attending Provider Instructions: You were admitted to the hospital with chest pain. You underwent evaluation by cardiology during the hospitalization. Echocardiogram done during the hospitalization showed normal heart function. The recommend addition of Imdur 30 mg once a day to be added to your medication regimen. An appointment with your primary care doctor will be set up for you sometime next week for follow-up. Pending Studies at Discharge: No Stand-Alone Forms: My [facility] [employer], Smoking Cessation Medications and DC Order Prescriptions: New isosorbide mononitrate 30 mg Tablet Extended Release 24 Hr 30 mg PO QAM Qty: 60 0RF Continued metoprolol succinate 50 mg tablet extended release 24 hr 50 mg PO QAM Qty: 90 3RF nitroglycerin [Nitrostat] 0.4 mg tablet, sublingual 0.4 mg sublingual Q5M PRN (Reason: chest pain) Qty: 25 1RF Rx Instructions: do not exceed 3 doses per episode dicyclomine 10 mg capsule 10 mg PO TID PRN (Reason: Abdominal Pain) aspirin 81 mg Tablet,Delayed Release (Dr/Ec) 81 mg PO DAILY omeprazole 20 mg capsule,delayed release(DR/EC) 20 mg PO DAILY PRN (Reason: HEARTBURN/INDIGESTION) Jardiance 25 mg tablet 25 mg PO DAILY albuterol sulfate 90 mcg/actuation Hfa Aerosol Inhaler 2 puff INHALATION Q4H PRN (Reason: Wheezing) atorvastatin 80 mg Tablet 80 mg PO HS acetaminophen [Tylenol Ex Str Rapid Release] 500 mg Tablet 1,000 mg PO DIRECTED PRN (Reason: Pain) nicotine 21 mg/24 hr Patch 24 Hour 1 patch TRANSDERMAL DAILY lisinopril 40 mg Tablet 40 mg PO DAILY ezetimibe [Zetia] 10 mg Tablet 10 mg PO DAILY prasugrel HCl 10 mg Tablet 10 mg PO DAILY Ozempic 1 mg/dose (4 mg/3 mL) pen injector 1 mg SUBCUT WK Rx Instructions: ON HOLD AT PRESENT Qvar RediHaler 80 mcg/actuation HFA aerosol breath activated 2 inh INHALATION BID PRN (Reason: Shortness Of Breath Or Wheezing) Discharge Orders: Discharge Order (Routine); Ordered 01/13/25 Ordered By: Dallas Kate Admission Data Admit Date/Time: 01/12/25 20:33 Attending Provider: Dallas Kate Admit Provider: Brooks Orozco Primary Care Provider: Coleman Hassan Other Providers: Brooks Orozco; Osbaldo Corona
[2025-01-13 15:36] VITALS: BP 129/73; RESP 20; TEMP 98.1; O2SAT 94
[2025-01-13] MEDS ORDERED: LANTUS PER UNIT CHARGE SC ONE (21:00)
[2025-01-13] MEDS ORDERED: ENOXAPARIN INJ 40 MG/0.4 ML SYR SQ SCH (21:00)
--- NOTE | 2025-01-14 08:07 | Electrocardiogram Report ---
Test Reason : Blood Pressure : */* mmHG Vent. Rate : 60 BPM Atrial Rate : 60 BPM P-R Int : 130 ms QRS Dur : 100 ms QT Int : 420 ms P-R-T Axes : 59 36 64 degrees QTcB Int : 420 ms Normal sinus rhythm Cannot rule out Inferior infarct , age undetermined Cannot rule out Anterior infarct , age undetermined Abnormal ECG When compared with ECG of 17-Dec-2024 13:20, Minimal criteria for Inferior infarct are now Present Nonspecific T wave abnormality has replaced inverted T waves in Lateral leads Confirmed by Ritu Strange (Alexandrea) on 01/14/2025 8:07:24 AM Referred By: REFERRED SELF Confirmed By: Ritu Strange
== END 2025-01-13 16:10 | disposition home or self-care (01) ==
LOC: ED 17:35 → 2S 17:35

== ENCOUNTER 2025-06-09 00:14 | Observation (INO) ==
--- NOTE | 2025-06-09 00:35 | Emergency Department Note ---
Impression & Plan Precordial chest pain, Angina pectoris, CAD (coronary atherosclerotic disease) ED Provider Note NAME: CHRISTOPHER RIVER AGE: 40 SEX: M : 1985 ARRIVES VIA: Ambulance INFORMANT: [Patient] ED PROVIDER(S): [Jose Roberto Jara MD] CHIEF COMPLAINT: Chest pain HISTORY OF PRESENT ILLNESS: The patient is a 40-year-old male who has known coronary disease. He has had 3 vessel disease but has 2 arteries stented. The patient was walking at the [employer] today a short time ago and developed central chest pain that radiated to his back. He was sweaty and a bit short of breath. He had to sit down and the pain then resolved. The pain had been present for 20 minutes. The patient again began walking and the chest pain returned, he had to sit. The pain resolved. The pain recurred a third time with walking but when sitting, it would not go away. The pain was lasting about 40 minutes. EMS arrived and he was given aspirin orally and also 1 spray of nitroglycerin. The nitroglycerin seemed to take the pain away, he is currently resting comfortably without complaints. The patient states that his pain today felt very similar to his previous cardiac chest pain. Of note, the patient is on Effient and aspirin daily PMHx/PSHx/Social Hx: See Below PHYSICAL EXAM: GENERAL: Patient is in no acute distress. HEENT: No acute trauma, normocephalic atraumatic, mucous membranes moist, no nasal congestion. NECK: No stridor, no adenopathy, no meningismus, trachea is midline. LUNGS: Clear to auscultation bilaterally, no wheeze, no rhonchi, breath sounds equal. HEART: Without murmurs gallops or rubs, regular rate and rhythm. Heart tones distant. ABDOMEN: Soft, nontender, no peritonitis. EXTREMITIES: No cyanosis, full range of motion of all the joints without pain or difficulty. NEUROLOGIC: Oriented x 3, no acute motor or sensory deficits, no focal weakness. SKIN: No jaundice, no diaphoresis. DIFFERENTIAL DIAGNOSIS: SD, angina, coronary disease, musculoskeletal pain, among others. EMERGENCY DEPARTMENT PROCEDURES: MEDICAL DECISION MAKING: There is a mild leukocytosis, this could be consistent with infection or just the stress of today's presentation. There was a mild anemia with a hemoglobin of 13.3. There was a normal platelet count. No coagulopathy. No renal failure or significant electrolyte abnormality. No concerning liver enzyme elevation. No evidence for pancreatitis. ECG shows a normal sinus rhythm, no ischemia. Cardiac enzyme testing x 1 is not consistent with acute cardiac injury. Chest x-ray does not show mediastinal widening, pneumonia or pneumothorax. On exam, patient was resting comfortably, no complaints of chest pain during my evaluation. Patient had already received oral aspirin. He was given 1 inch of nitroglycerin paste while here in the ED. The patient presents with exertional chest pain that resolved with rest. Eventually, his pain was persisting even with rest and he required nitroglycerin. He has known coronary disease with coronary stents. Given the presentation and his history, admission and further cardiac workup is warranted. I spoke with the patient and case management, the on-call hospitalist was consulted. Prior/Outside records/notes reviewed: Today's EMS notes describing his presentation and transport to this hospital. ECG per my interpretation: Indication was chest pain. The ECG shows a normal sinus rhythm with a rate of 79. There is a potential old inferior infarct. There is no ST elevation, no PVCs. The QTc is 463. Compared to an ECG from 12 January 2025, I see no significant change. Continuous Cardiac Monitoring per my interpretation: An order was placed for continuous cardiac monitoring. The monitor shows a rate of 78 with normal sinus rhythm. Imaging/x-ray results per my interpretation: Chest x-ray shows cardiomegaly, no CHF or pneumothorax. Chronic Medical/Social conditions affecting care: History of coronary artery disease. Care/Management discussed with: Case management, the on-call hospitalist. Level of care consideration(s): After review of the information above and other included data: --I believe the patient requires escalation of care to admission DISPOSITION: Admission Past Med/Surg History Problem List (Updated 06/09/25 @ 01:27 by Jose Roberto Jara MD) CAD (coronary atherosclerotic disease) (Acute) Angina pectoris (Acute) Precordial chest pain (Acute) Cataract cortical, senile Angina pectoris BHASKAR treated with BiPAP Scrotal abscess Abscess of groin, right (Acute) Preoperative cardiovascular examination Chest pain Diverticulitis Diabetes type 2, uncontrolled NIDDM Morbid obesity (Acute) BMI 48.8 CAD (coronary artery disease) (Acute) F/U DR SYZMANSKI Abnormal nuclear stress test Near syncope Tobacco abuse Hypertension Dyslipidemia Hypertensive urgency (Acute) hx Calculus of kidney (Acute 11/02/12) SBO (small bowel obstruction) tx medically Otitis externa (Acute) Nausea, vomiting, and diarrhea (Acute) Left sided abdominal pain (Acute) Headache (Acute) Gastroenteritis (Acute) Dehydration (Acute) Appendicitis, acute (Acute) Acute appendicitis (Acute) Abdominal pain (Acute) Medical History Adverse effect of anesthesia "slow to wake" Bilateral cataracts Asthma Obstructive sleep apnea CPAP Hypertension Gastroenteritis hx? 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 Kidney stones hx GERD (gastroesophageal reflux disease) Basal cell adenoma pts denies this and never heard anything about this. Migraine Surgical History History of right cataract extraction History of esophagogastroduodenoscopy (EGD) (2022) History of lithotripsy Status post coronary artery stent placement x2 stents (placed in [facility] early 12/2024) - Dr Jermaine Muniz Hx of adenoidectomy with biltateral myringotomy @ [facility] 01/11/23 History of surgery 04/04/23 Right excisional drainage of infected cyst of groin @ [facility] Hx of colonoscopy (2022) History of axillary surgery removal sweat glands bilateral axilla History of cardiac cath multiple - x2 stents (placed in [facility] early 12/2024) - Dr Jermaine Muniz Hx of appendectomy Family History Mother Diabetes Hypertension Coronary heart disease Father Cancer Social History Smoking Status: Former smoker Tobacco Type: Cigarettes Second Hand Exposure: No; Do You Dip or Chew Tobacco: Yes (using pouches (advised on policy)); Hx Alcohol Use: No Hx Substance Use: No Preferred Language: Turkish Communication Ability: Effective 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 Beliefs That Will Affect Care: None marital status: Current Living Situation: Spouse Current Living Situation Comment: LIVES WITH SPOUSE, 3 CHILDREN current occupational status: employed 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 [employer] Feels Safe at Home: Yes Assistive Devices: CPAP and Glasses Allergies Allergies Allergy/AdvReac Type Severity Reaction Status Date / Time sulfamethoxazole Allergy Intermediate Rash Verified 03/26/25 06:21 [From Bactrim] trimethoprim [From Bactrim] Allergy Intermediate Rash Verified 03/26/25 06:21 Home Meds Home Medications Medication Instructions Recorded Confirmed dicyclomine 10 mg capsule 10 mg PO TID PRN Abdominal Pain 04/20/20 03/26/25 omeprazole 20 mg capsule,delayed 20 mg PO DAILY PRN 06/28/21 03/26/25 release HEARTBURN/INDIGESTION albuterol sulfate 90 mcg/actuation 2 puff inhalation Q4H PRN Wheezing 03/12/22 03/26/25 aerosol inhaler aspirin 81 mg tablet,delayed 81 mg PO DAILY 04/03/23 03/26/25 release empagliflozin 25 mg tablet 25 mg PO DAILY 10/26/24 03/26/25 (Jardiance) acetaminophen 500 mg tablet 1,000 mg PO DAILY PRN Pain 01/12/25 03/26/25 beclomethasone dipropionate 80 2 inh inhalation BID PRN Shortness 01/12/25 03/26/25 mcg/actuation HFA breath activated Of Breath Or Wheezing aerosol (Qvar RediHaler) ezetimibe 10 mg tablet (Zetia) 10 mg PO DAILY 01/12/25 03/26/25 lisinopril 40 mg tablet 40 mg PO DAILY 01/12/25 03/26/25 nicotine 21 mg/24 hr daily 1 patch transdermal DAILY 01/12/25 03/26/25 transdermal patch prasugrel HCl 10 mg tablet 10 mg PO DAILY 01/12/25 03/26/25 (Effient) atorvastatin 40 mg tablet 40 mg PO DAILY 02/27/25 03/26/25 glipizide 2.5 mg tablet 2.5 mg PO DAILY 02/27/25 03/26/25 glipizide 5 mg tablet 5 mg PO DAILY 02/27/25 03/26/25 isosorbide mononitrate 30 mg 30 mg PO DAILY 02/27/25 03/26/25 tablet,extended release 24 hr metoprolol succinate 50 mg 50 mg PO DAILY 02/27/25 03/26/25 tablet,extended release 24 hr semaglutide 2 mg/dose (8 mg/3 mL) 2 mg subcut WK 02/27/25 03/26/25 subcutaneous pen injector (Ozempic) Previous Rx's Medication Instructions Recorded nitroglycerin 0.4 mg sublingual 0.4 mg sublingual Q5M PRN chest 06/14/22 tablet (Nitrostat) pain #25 tabs ondansetron 4 mg disintegrating 4 - 8 mg (1 - 2 x 4 mg) PO Q8H PRN 05/10/25 tablet nausea and vomiting #14 tabs Results & Data (ED) Vital Signs Vital Signs - 24 hr 06/09/25 00:02 06/09/25 00:02 06/09/25 00:21 Temperature 36.7 C Temperature Source Oral Pulse Rate 78 Pulse Rhythm Regular Pulse Strength Normal Respiratory Rate 18 Respiratory Effort / Characteristics Non-Labored Spontaneous Non-Labored Spontaneous Respiratory Depth Normal Respiratory Pattern Regular Blood Pressure 169/89 H Blood Pressure Mean 115 Blood Pressure Position Sitting Pulse Oximetry 96 Oxygen Delivery Method Room Air Room Air Sepsis Recent Fever Within 48 Hours No Sepsis New/Unexplained Change in Mental Status N/A Sepsis Action Taken by Nursing No Action Required 06/09/25 00:21 06/09/25 00:55 Temperature Temperature Source Pulse Rate 81 Pulse Rhythm Pulse Strength Respiratory Rate 20 Respiratory Effort / Characteristics Respiratory Depth Respiratory Pattern Blood Pressure Blood Pressure Mean Blood Pressure Position Pulse Oximetry 98 Oxygen Delivery Method Room Air Sepsis Recent Fever Within 48 Hours Sepsis New/Unexplained Change in Mental Status Sepsis Action Taken by Assisted Medications Current Medication List: was personally reviewed by me Laboratory Data Attestation: I reviewed the patient's lab results. 06/09/25 00:20 06/09/25 00:20 Lab Results 08/24/25 Range/Units 00:20 WBC 11.05 H (4.8-10.8) K/ul RBC 5.30 (4.70-6.10) M/uL Hgb 13.3 L (14.0-18.0) g/dl Hct 41.6 L (42.0-52.0) % MCV 78.5 L (80.0-100.0) fL MCH 25.1 (25.0-34.0) pg MCHC 32.0 (32.0-36.0) g/dL RDW Std Deviation 40.9 (36.4-46.3) fL RDW Coeff of Ariana 14.5 (11.5-14.5) % Plt Count 360 (130-400) K/uL MPV 10.4 (9.4-12.4) fL Immature Gran % (Auto) 1.0 % Neut % (Auto) 57.1 % Lymph % (Auto) 30.0 % [place] % (Auto) 8.4 % Eos % (Auto) 3.2 % Baso % (Auto) 0.3 % Neut # (Auto) 6.32 (1.40-6.50) K/uL Lymph # (Auto) 3.31 (1.20-3.40) K/uL [place] # (Auto) 0.93 H (0.11-0.59) K/uL Eos # (Auto) 0.35 (0.00-0.50) K/uL Baso # (Auto) 0.03 (0.00-0.20) K/uL Immature Gran # (Auto) 0.11 (0.01-0.20) K/uL PT 11.0 (9.0-12.0) Seconds INR 1.0 (0.9-1.1) APTT 31 (21-31) Seconds PTT Ratio 1.2 Sodium 140 (136-145) mmol/L Potassium 3.7 (3.5-5.1) mmol/L Chloride 106 (98-107) mmol/L Carbon Dioxide 28 (21-32) mmol/L Anion Gap 6 (3-11) BUN 17 (6-23) mg/dl Creatinine 0.93 (0.6-1.4) mg/dl Est Cr Clr Drug Dosing 166.4 ml/min eGFR 106.45 BUN/Creatinine Ratio 18.3 (10-20) Glucose 135 H (70-99(Fasting)) mg/dl Calcium 9.1 (8.6-10.3) mg/dl Magnesium 1.9 (1.7-2.4) mg/dl Total Bilirubin 0.3 (0.2-1.0) mg/dl AST 15 (13-39) U/L ALT 22 (7-52) U/L Alkaline Phosphatase 84 (34-104) U/L Troponin I High Sens 5.6 (0-20) pg/ml Total Protein 8.0 (6.0-8.3) gm/dl Albumin 3.6 (3.4-5.0) gm/dl Globulin 4.4 H (2.5-4.0) gm/dl Albumin/Globulin Ratio 0.8 L (0.9-2) Lipase 50 (11-82) U/L Administered Medications Discontinued Medications Nitroglycerin (Nitroglycerin 2% Ointment 30gm Tube) 1 inch EXT NOW STA Stop: 06/09/25 00:30 Last Admin: 06/09/25 00:46 Dose: 1 inch Documented By: SAMUEL Discharge Plan Visit Data Chief Complaint: Chest Pain Stated Complaint: Chest Pain ED Provider: Jose Roberto Jara Discharge Problem: Precordial chest pain, Angina pectoris, CAD (coronary atherosclerotic disease) Patient Disposition: Admitted As Inpatient Condition: Fair Forms Stand Alone Forms: [facility] Prescriptions Prescriptions: No Action nitroglycerin [Nitrostat] 0.4 mg tablet, sublingual 0.4 mg sublingual Q5M PRN (Reason: chest pain) Qty: 25 1RF Rx Instructions: do not exceed 3 doses per episode dicyclomine 10 mg capsule 10 mg PO TID PRN (Reason: Abdominal Pain) aspirin 81 mg Tablet,Delayed Release (Dr/Ec) 81 mg PO DAILY Patient Comments: "The heart doctors doesn't want him to stop for procedure 03/12/25" as per pts omeprazole 20 mg capsule,delayed release(DR/EC) 20 mg PO DAILY PRN (Reason: HEARTBURN/INDIGESTION) Jardiance 25 mg tablet 25 mg PO DAILY albuterol sulfate 90 mcg/actuation Hfa Aerosol Inhaler 2 puff INHALATION Q4H PRN (Reason: Wheezing) atorvastatin 40 mg Tablet 40 mg PO DAILY glipizide 5 mg Tablet 5 mg PO DAILY Rx Instructions: Take with 2.5mg for total of 7.5mg Ozempic 2 mg/dose (8 mg/3 mL) Pen Injector 2 mg SUBCUT WK Rx Instructions: Tuesday glipizide 2.5 mg Tablet 2.5 mg PO DAILY Rx Instructions: Take with 5mg for total of 7.5mg metoprolol succinate 50 mg tablet extended release 24 hr 50 mg PO DAILY isosorbide mononitrate 30 mg tablet extended release 24 hr 30 mg PO DAILY ondansetron 4 mg tablet,disintegrating 4 - 8 mg PO Q8H PRN (Reason: nausea and vomiting) Qty: 14 0RF acetaminophen 500 mg Tablet 1,000 mg PO DAILY PRN (Reason: Pain) nicotine 21 mg/24 hr Patch 24 Hour 1 patch TRANSDERMAL DAILY lisinopril 40 mg Tablet 40 mg PO DAILY ezetimibe [Zetia] 10 mg Tablet 10 mg PO DAILY prasugrel HCl [Effient] 10 mg Tablet 10 mg PO DAILY Patient Comments: "The heart doctors doesn't want him to stop for procedure 03/12/25" as per pts Qvar RediHaler 80 mcg/actuation HFA aerosol breath activated 2 inh INHALATION BID PRN (Reason: Shortness Of Breath Or Wheezing) Referrals Referrals: Coleman Hassan MD [Primary Care Provider] - Discharge Problem: CAD (coronary atherosclerotic disease) Qualifiers: Coronary Disease-Associated Artery/Lesion type: unspecified vessel or lesion type [place] vs. transplanted heart: [place] heart Associated angina: with unstable angina Qualified Code(s): I25.110 - Atherosclerotic heart disease of [place] coronary artery with unstable angina pectoris
[2025-06-09 00:43] LABS: Hematocrit (blood only) 41.6 % (42.0-52.0); Hemoglobin 13.3 g/dl (14.0-18.0); Immature Granulocytes # (auto) 0.11 K/uL (0.01-0.20); Immature Granulocytes % (auto) 1.0 %; Mean Corpuscular Hemoglobin 25.1 pg (25.0-34.0); Mean Corpuscular Volume 78.5 fL (80.0-100.0); Platelet Count 360 K/uL (130-400); RDW Standard Deviation 40.9 fL (36.4-46.3); Red Blood Count 5.30 M/uL (4.70-6.10); White Blood Count 11.05 K/ul (4.8-10.8)
[2025-06-09] MEDS: NITROGLYCERIN 2% OINTMENT 30GM TUBE EXT STA (00:46)
[2025-06-09 01:01] LABS: Alanine Aminotransferase 22.0 U/L (7-52); Albumin Globulin Ratio 0.8 (0.9-2); Alkaline Phosphatase 84.0 U/L (34-104); Anion Gap 6.0 (3-11); Bilirubin,Total 0.3 mg/dl (0.2-1.0); Blood Urea Nitrogen 17.0 mg/dl (6-23); Calcium 9.1 mg/dl (8.6-10.3); Carbon Dioxide 28.0 mmol/L (21-32); Chloride 106.0 mmol/L (98-107); Creatinine Clr Calc Pharmacy 166.4 ml/min; Globulin 4.4 gm/dl (2.5-4.0); Glucose 135.0 mg/dl (70-99(Fasting)); Lipase 50.0 U/L (11-82); Magnesium 1.9 mg/dl (1.7-2.4); Potassium 3.7 mmol/L (3.5-5.1); Sodium 140.0 mmol/L (136-145); Total Protein 8.0 gm/dl (6.0-8.3)
[2025-06-09 01:18] LABS: INR 1.0 (0.9-1.1); Partial Thromboplastin Time 31 Seconds (21-31); Prothrombin Time 11.0 Seconds (9.0-12.0)
[2025-06-09] MEDS: METOPROLOL TARTRATE 1 MG/ML VIAL IV STA (01:42)
[2025-06-09] MEDS: FAMOTIDINE 20MG IV PUSH 20 MG/5 ML SYR IV STA ×2 (02:15→12:04)
--- NOTE | 2025-06-09 02:17 | History & Physical Report ---
Date of Service June 09, 2025 Assessment & Plan (1) Chest pain: Plan: Assessment and plan below following discussion of case with ED provider and reviewing patient history/pertinent normal/abnormal diagnostic test results. Chest pain History CAD status post stent (01/2025) Rule out ACS hypertension, initially elevated upon arrival at the ER Hyperlipidemia on statin Rx DM 2 on oral medications, suboptimal control as of recent hemoglobin A1c of 7.22 April 2025 BHASKAR on CPAP Past tobacco abuse OBS Admit to PCU Aspirin, beta-glen, statin Follow troponin IV heparin if with progression Cardiology consult re: chest pain, history of CAD Basal bolus insulin, ISS BG goal [id number] DVT prophylaxis Lovenox subcu Full code Patient requesting updates from providers. Ms. Gayle Rubio, contact #[phone]. Text document was generated using [employer] voice recognition software. It may contain grammatical or spelling errors. Kindly contact undersigned for clarification of any documentation item in question. History of Present Illness Chief Complaint: Chest pain Primary Care Provider: PCP : Coleman Hassan MD Local electronic warfare technician : Dr. Dean [place] coil spring assembler : Dr. Stephanie Martinez History obtained from patient, family, and records. Medical history significant for CAD status post stent (January 2025), hypertension, hyperlipidemia, DM 2 on oral medications, bronchial asthma, BHASKAR on CPAP, GERD, diverticulosis, chronic anemia (baseline hemoglobin 12-13), migraine, hidradenitis suppurativa as per records, mycosis fungoides as per records, past tobacco abuse. Last confinement December 2024 for chest pain. Patient discharged home. Patient eventually received drug-eluting stents on the LAD and left circumflex marginal branches at [facility] by [place] coil spring assembler. Recent ER visit last month for concussion. Patient was [place] today when he experienced central chest pain going to his back associated with diaphoresis and SOB. No headache symptoms. No cough symptoms. Episode similar to heart attack in the past. Last time he had discomfort was 5 months ago Discomfort relieved by nitroglycerin spray administered by EMS. Patient compliant with home meds and CPAP. Denies unusual stress. Patient currently comfortable. MEDICAL HISTORY: As above. SURGERIES: Urologic procedures, appendectomy, ear tube placement, adenoidectomy, axillary sweat gland removal for hydradenitis suppurativa/skin tissue rearrangement, cataract surgeries FAMILY HISTORY: Heart disease. Lung cancer, diabetes PERSONAL AND SOCIAL HISTORY: 1 pack daily . 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 Allergies Allergy/AdvReac Type Severity Reaction Status Date / Time sulfamethoxazole Allergy Intermediate Rash Verified 03/26/25 06:21 [From Bactrim] trimethoprim [From Bactrim] Allergy Intermediate Rash Verified 03/26/25 06:21 Home Medications Medication Instructions Recorded Confirmed Type dicyclomine 10 mg capsule 10 mg PO TID PRN Abdominal Pain 04/20/20 06/09/25 History omeprazole 20 mg capsule,delayed 20 mg PO DAILY PRN 06/28/21 06/09/25 History release HEARTBURN/INDIGESTION albuterol sulfate 90 mcg/actuation 2 puff inhalation Q4H PRN Wheezing 03/12/22 06/09/25 History aerosol inhaler nitroglycerin 0.4 mg sublingual 0.4 mg sublingual Q5M PRN chest 06/14/22 06/09/25 Rx tablet (Nitrostat) pain #25 tabs aspirin 81 mg tablet,delayed 81 mg PO DAILY 04/03/23 06/09/25 History release empagliflozin 25 mg tablet 25 mg PO DAILY 10/26/24 06/09/25 History (Jardiance) acetaminophen 500 mg tablet 1,000 mg PO DAILY PRN Pain 01/12/25 06/09/25 History beclomethasone dipropionate 80 2 inh inhalation BID PRN Shortness 01/12/25 06/09/25 History mcg/actuation HFA breath activated Of Breath Or Wheezing aerosol (Qvar RediHaler) ezetimibe 10 mg tablet (Zetia) 10 mg PO DAILY 01/12/25 06/09/25 History lisinopril 40 mg tablet 40 mg PO DAILY 01/12/25 06/09/25 History nicotine 21 mg/24 hr daily 1 patch transdermal DAILY 01/12/25 06/09/25 History transdermal patch prasugrel HCl 10 mg tablet 10 mg PO DAILY 01/12/25 06/09/25 History (Effient) atorvastatin 40 mg tablet 40 mg PO DAILY 02/27/25 06/09/25 History glipizide 2.5 mg tablet 2.5 mg PO DAILY 02/27/25 06/09/25 History glipizide 5 mg tablet 10 mg PO DAILY 02/27/25 06/09/25 History isosorbide mononitrate 30 mg 30 mg PO DAILY 02/27/25 06/09/25 History tablet,extended release 24 hr metoprolol succinate 50 mg 50 mg PO DAILY 02/27/25 06/09/25 History tablet,extended release 24 hr semaglutide 2 mg/dose (8 mg/3 mL) 2 mg subcut WK 02/27/25 06/09/25 History subcutaneous pen injector (Ozempic) ondansetron 4 mg disintegrating 4 - 8 mg (1 - 2 x 4 mg) PO Q8H PRN 05/10/25 06/09/25 Rx tablet nausea and vomiting #14 tabs Past Med/Surg History Problem List (Updated 06/09/25 @ 01:27 by Jose Roberto Jara MD) CAD (coronary atherosclerotic disease) (Acute) Angina pectoris (Acute) Precordial chest pain (Acute) Cataract cortical, senile Angina pectoris BHASKAR treated with BiPAP Scrotal abscess Abscess of groin, right (Acute) Preoperative cardiovascular examination Chest pain Diverticulitis Diabetes type 2, uncontrolled NIDDM Morbid obesity (Acute) BMI 48.8 CAD (coronary artery disease) (Acute) F/U DR CUMMINGS Abnormal nuclear stress test Near syncope Tobacco abuse Hypertension Dyslipidemia Hypertensive urgency (Acute) hx Calculus of kidney (Acute 11/02/12) SBO (small bowel obstruction) tx medically Otitis externa (Acute) Nausea, vomiting, and diarrhea (Acute) Left sided abdominal pain (Acute) Headache (Acute) Gastroenteritis (Acute) Dehydration (Acute) Appendicitis, acute (Acute) Acute appendicitis (Acute) Abdominal pain (Acute) Medical History Adverse effect of anesthesia "slow to wake" Bilateral cataracts Asthma Obstructive sleep apnea CPAP Hypertension Gastroenteritis hx? - pts denies at this time - denies nausea/vomiting/diarrhea Diabetes mellitus, type 2 Oral/Weekly Injectable SBO (small bowel obstruction) hx - pts unsure Diverticular disease pts denies any current issues History of abdominal pain pts denies at this time CAD (coronary artery disease) x2 stents (placed in [facility] early 12/2024) - Dr Jermaine Muniz - was to have CABG at [facility] - pt did not want - went to [place] for op inion and stents Chest pain pts denies at this time, "has discussed with electronic warfare technician, it's from the stents and normal" Flavio Dean History of COVID-2019, PCP office test, not hosp; mild symptoms>resolved. Kidney stones hx GERD (gastroesophageal reflux disease) Basal cell adenoma pts denies this and never heard anything about this. Migraine Surgical History History of right cataract extraction History of esophagogastroduodenoscopy (EGD) (2022) History of lithotripsy Status post coronary artery stent placement x2 stents (placed in [facility] early 12/2024) - Dr Jermaine Muniz Hx of adenoidectomy with biltateral myringotomy @ [facility] 01/11/23 History of surgery 04/04/23 Right excisional drainage of infected cyst of groin @ [facility] Hx of colonoscopy (2022) History of axillary surgery removal sweat glands bilateral axilla History of cardiac cath multiple - x2 stents (placed in [facility] early 12/2024) - Dr Jermaine Muniz Hx of appendectomy Family History Mother Diabetes Hypertension Coronary heart disease Father Cancer Social History Smoking Status: Former smoker Tobacco Type: Cigarettes Second Hand Exposure: No; Do You Dip or Chew Tobacco: Yes (using pouches (advised on policy)); Hx Alcohol Use: No Hx Substance Use: No Preferred Language: Amharic Communication Ability: Effective Carpenter Ship Required: No Beliefs That Will Affect Care: None marital status: Current Living Situation: Spouse Current Living Situation Comment: LIVES WITH SPOUSE, 3 CHILDREN current occupational status: employed 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 Feels Safe at Home: Yes Safety Concerns: Feels Safe At This Time Assistive Devices: CPAP and Glasses Review of Systems Review of Systems: As per HPI, all other systems reviewed and negative Physical Exam Physical Exam: GENERAL: Comfortable, morbidly obese, no respiratory distress SKIN: Normal color, warm HEENT: pink palpebral conjunctivae, no ptosis, moist buccal mucosa NECK : Supple, short neck, no tenderness CHEST : Decreased breath sounds, no tenderness HEART : RRR, no obvious murmurs ABDOMEN: Some distention, nontender EXTREMITIES : Minimal LE swelling, no LE tenderness, no other conspicuous deformities noted NEUROLOGIC : Coherent, no facial asymmetry, no other gross focality Results & Data Results & Data Vital Signs (Past 12 Hours) Vital Signs Temp Pulse Resp BP Pulse Ox O2 Del Method 06/09/25 00:55 81 06/09/25 00:21 20 98 Room Air 06/09/25 00:21 Room Air 06/09/25 00:02 36.7 C 78 18 169/89 H 96 Room Air Laboratory Results Laboratory Results WBC 11.05 K/ul (4.8-10.8) H 06/09/25 00:20 RBC 5.30 M/uL (4.70-6.10) 06/09/25 00:20 Hgb 13.3 g/dl (14.0-18.0) L 06/09/25 00:20 Hct 41.6 % (42.0-52.0) L 06/09/25 00:20 MCV 78.5 fL (80.0-100.0) L 06/09/25 00:20 MCH 25.1 pg (25.0-34.0) 06/09/25 00:20 MCHC 32.0 g/dL (32.0-36.0) 06/09/25 00:20 RDW Std Deviation 40.9 fL (36.4-46.3) 06/09/25 00:20 RDW Coeff of Ariana 14.5 % (11.5-14.5) 06/09/25 00:20 Plt Count 360 K/uL (130-400) 06/09/25 00:20 MPV 10.4 fL (9.4-12.4) 06/09/25 00:20 Immature Gran % (Auto) 1.0 % 06/09/25 00:20 Neut % (Auto) 57.1 % 06/09/25 00:20 Lymph % (Auto) 30.0 % 06/09/25 00:20 [place] % (Auto) 8.4 % 06/09/25 00:20 Eos % (Auto) 3.2 % 06/09/25 00:20 Baso % (Auto) 0.3 % 06/09/25 00:20 Neut # (Auto) 6.32 K/uL (1.40-6.50) 06/09/25 00:20 Lymph # (Auto) 3.31 K/uL (1.20-3.40) 06/09/25 00:20 [place] # (Auto) 0.93 K/uL (0.11-0.59) H 06/09/25 00:20 Eos # (Auto) 0.35 K/uL (0.00-0.50) 06/09/25 00:20 Baso # (Auto) 0.03 K/uL (0.00-0.20) 06/09/25 00:20 Immature Gran # (Auto) 0.11 K/uL (0.01-0.20) 06/09/25 00:20 PT 11.0 Seconds (9.0-12.0) 06/09/25 00:20 INR 1.0 (0.9-1.1) 06/09/25 00:20 APTT 31 Seconds (21-31) 06/09/25 00:20 PTT Ratio 1.2 06/09/25 00:20 Sodium 140 mmol/L (136-145) 06/09/25 00:20 Potassium 3.7 mmol/L (3.5-5.1) 06/09/25 00:20 Chloride 106 mmol/L (98-107) 06/09/25 00:20 Carbon Dioxide 28 mmol/L (21-32) 06/09/25 00:20 Anion Gap 6 (3-11) 06/09/25 00:20 BUN 17 mg/dl (6-23) 06/09/25 00:20 Creatinine 0.93 mg/dl (0.6-1.4) 06/09/25 00:20 Est Cr Clr Drug Dosing 166.4 ml/min 06/09/25 00:20 eGFR 106.45 06/09/25 00:20 BUN/Creatinine Ratio 18.3 (10-20) 06/09/25 00:20 Glucose 135 mg/dl (70-99(Fasting)) H 06/09/25 00:20 Calcium 9.1 mg/dl (8.6-10.3) 06/09/25 00:20 Magnesium 1.9 mg/dl (1.7-2.4) 06/09/25 00:20 Total Bilirubin 0.3 mg/dl (0.2-1.0) 06/09/25 00:20 AST 15 U/L (13-39) 06/09/25 00:20 ALT 22 U/L (7-52) 06/09/25 00:20 Alkaline Phosphatase 84 U/L (34-104) 06/09/25 00:20 Troponin I High Sens 5.6 pg/ml (0-20) 06/09/25 00:20 Total Protein 8.0 gm/dl (6.0-8.3) 06/09/25 00:20 Albumin 3.6 gm/dl (3.4-5.0) 06/09/25 00:20 Globulin 4.4 gm/dl (2.5-4.0) H 06/09/25 00:20 Albumin/Globulin Ratio 0.8 (0.9-2) L 06/09/25 00:20 Lipase 50 U/L (11-82) 06/09/25 00:20 Diagnostic Findings Chest x-ray as per my interpretation atelectasis EKG as per my interpretation : Rate 75, NSR, normal axis, no ischemia (1) Chest pain Chest pain type: unspecified Qualified Code(s): R07.9 - Chest pain, unspecified
[2025-06-09] MEDS ORDERED: MoRPHine SULFATE 4 MG/ML 1 ML CARP\\VIAL IV PRN (02:35)
[2025-06-09] MEDS ORDERED: LORazepam 0.5 MG TAB PO PRN (02:35)
[2025-06-09] MEDS ORDERED: NITROGLYCERIN SL 0.4 MG/TAB TAB SL PRN (02:36)
--- NOTE | 2025-06-09 02:41 | XRay Report ---
EXAM: XR chest 1V portable CLINICAL HISTORY: Chest pain, nonspecific TECHNIQUE: An X-ray image of the chest is obtained in AP projection. COMPARISON: 05/10/2025 FINDINGS: Pulmonary Parenchyma: Mild interval regression of previously noted right basal pulmonary infiltrates. No evidence of consolidation, collapse, or focal opacities. No pulmonary nodules are identified. No evidence of pleural effusion or pleural thickening. Heart and Mediastinum: Heart is not enlarged. No mediastinal widening or masses. No hilar or mediastinal lymphadenopathy. Bony Thorax: Bony thorax appears intact without fractures or deformities. Soft Tissues: Soft tissues overlying the chest wall are unremarkable. IMPRESSION: Mild interval regression of previously noted right basal pulmonary infiltrates. No evidence of consolidation, collapse, or focal opacities. No pulmonary nodules are identified. Electronically signed by Heraclio Siegel 06-09-2025 02:40 AM
[2025-06-09] MEDS ORDERED: GLUCOSE 40% GEL 15 GM TUBE PO PRN (04:10)
[2025-06-09] MEDS ORDERED: CARBOHYDRATES FOR HYPOGLYCEMIA PO PRN (04:10)
[2025-06-09] MEDS ORDERED: GLUCOSE 10 TAB/TUBE PO PRN (04:10)
[2025-06-09] MEDS ORDERED: GLUCAGON FOR INJ 1 MG VIAL SQ PRN (04:10)
[2025-06-09] MEDS ORDERED: DEXTROSE 50% 50 ML SYRINGE IV PRN (04:10)
[2025-06-09] MEDS: LACTATED RINGER'S 1,000 ML IV ONE (04:32)
[2025-06-09] MEDS: INSULIN ASPART PER UNIT CHARGE SC SCH (05:07)
[2025-06-09] MEDS: PRASugrel TAB 10 MG TAB PO SCH (08:52)
[2025-06-09] MEDS: ENOXAPARIN INJ 40 MG/0.4 ML SYR SQ SCH (08:53)
[2025-06-09] MEDS: EZETIMIBE 10 MG TAB PO SCH (08:53)
[2025-06-09] MEDS: ISOSORBIDE MONO EXTENDED REL 30 MG TABCR PO SCH (08:53)
[2025-06-09] MEDS: ATORVASTATIN 40 MG TAB PO SCH (08:53)
[2025-06-09] MEDS: ASPIRIN 81 MG ECTAB PO SCH (08:53)
--- NOTE | 2025-06-09 08:53 | Cardiology Consultation ---
Date of Consultation June 09, 2025 Assessment & Plan (1) Chest pain: (2) CAD (coronary atherosclerotic disease): (3) Chronic stable angina: Plan Patient is a 40-year-old male with history of coronary artery disease status post stenting to the LAD and left circumflex in December 2024 with residual chronic total occlusion of the RCA. Admitted for recurrent exertional chest pain x 3 episodes after walking at the [facility]. EKG on admission demonstrated normal sinus rhythm without ischemic changes. High-sensitivity troponin negative x 2. Echocardiogram this morning revealed normal LV systolic function with no wall motion abnormalities. No significant valvular heart disease. It is possible his symptoms were related to angina However there are no signs of ACS with testing on admission. He has known chronic total occlusion of the RCA and recent stents to the LAD and Left Cx. Continue ASA, Effient, statin, metoprolol No recurrent chest pain since admission Recommend increasing isosorbide to 60 mg daily. Remove/discontinue nitro patch placed on admission. Initially we discussed repeating stress testing, but likely would not be beneficial. Consider referral to chronic total [place] [facility] [place] discuss further intervention of RCA HEALTH ANALYST. In the meantime, ongoing med management recommended for premature CAD. Symptoms also could be suggestive of GI etiology after eating fried foods. Patient admits to significant "gas". Consider trial of Protonix. Defer to hospitalist. Likely can be discharged later today if he remains chest pain free. Recommend ambulation in the hallways. Further recommendations pending evaluation/discussion with Dr. Yo. Case discussed with Dr. Yo I spent a total of 75 minutes on the date of service in preparation, delivery, and documentation of the care provided to this patient, excluding any time spent in the performance of separately billed services. Christine Brenner PA-C Department of Cardiology, [facility] This chart was completed in part utilizing Speech Voice Recognition Software. Grammatical errors, random word insertions, pronoun errors, and incomplete sentences are an occasional consequence of this system due to software limitations, ambient noise, and hardware issues. Any formal questions or concerns about the content, text, or information contained within the body of this dictation should be directly addressed to the provider for clarification. Supervising Physician Co-Signing Physician Notes I have personally performed a history and physical examination on the patient. I have reviewed the advance practitioner's documentation, and I agree with, and take responsibility for the plan of care. 40-year-old male with history of premature multivessel coronary disease s/p stenting of the left anterior descending artery and left circumflex December 2011. Mid RCA HEALTH ANALYST managed medically. Presents to the Emergency Room with recurrent chest discomfort with some atypical features. High sensitivity troponin is not elevated despite more than 2 hours of discomfort prior to admission. Echocardiogram demonstrates normal LV function wall motion. No ischemic ECG changes. Stress testing would not likely medical management specialist at this time. Recommend titration/optimization of antianginal therapies. Increase isosorbide monohydrate to 60 mg daily. If blood pressure allows, we can consider low-dose calcium channel glen and/or Ranexa as well. If anginal recur despite optimization of medications, recommend HEALTH ANALYST intervention of the RCA. This procedure would be performed by Dr. Kimberly Angel at [facility] in [place]. All questions answered to the satisfaction of both the patient and his . They are agreeable to the current plan. Will arrange for close outpatient follow up. Appropriate use of sublingual nitroglycerin reviewed. Patient may be discharged to home. Germán Yo DO, [facility] I spent a total of 40 minutes on the date of service in preparation, delivery, and documentation of the care provided to this patient, excluding any time spent in the performance of separately billed services. History of Present Illness Reason for Consultation: CP; History of CAD [facility]ing Phys[facility] Attending Physician: Dr. Yo History of Present Illness Patient is a 40 year old male who presented to [facility] with chest pain after wal zeynep around the [facility] yesterday. Symptoms described as substernal chest heaviness. resolved with rest. Symptoms occurred 3 times during the day. The final episode lasted longer. He did not murrieta ve nitro with him and EMS was summoned. Symptoms improved on route to ER with SL nitro. patient admits to eating fried/greasy food, he also feels this could have been acid reflux. He has not had chest pain since starting isosorbide post stents. Upon admission, EKG demonstrated NSR without acute ischemic changes. HS troponin negative x2. No chest pain since admission. At time of consult, patient resting in bed. at bedside. He currently denies acute complaints. Mild headache noted with the nitro patch. Reports compliance with home meds. Did miss Effient dose 2 weeks ago. History includes: 1. Three-vessel coronary artery disease identified on cardiac catheterization December 19, 2024 including HEALTH ANALYST right coronary artery and stenosis within the prox LAD and Circumflex OM receiving a BROOKE to the LAD and LCx 2. Hyperlipidemia 3. Type 2 diabetes mellitus 4. Chronic tobacco use now in cessation 5. Morbid obesity Allergies Allergy/AdvReac Type Severity Reaction Status Date / Time sulfamethoxazole Allergy Intermediate Rash Verified 03/26/25 06:21 [From Bactrim] trimethoprim [From Bactrim] Allergy Intermediate Rash Verified 03/26/25 06:21 Home Medications Medication Instructions Recorded Confirmed Type dicyclomine 10 mg capsule 10 mg PO TID PRN Abdominal Pain 04/20/20 06/09/25 History omeprazole 20 mg capsule,delayed 20 mg PO DAILY PRN 06/28/21 06/09/25 History release HEARTBURN/INDIGESTION albuterol sulfate 90 mcg/actuation 2 puff inhalation Q4H PRN Wheezing 03/12/22 06/09/25 History aerosol inhaler nitroglycerin 0.4 mg sublingual 0.4 mg sublingual Q5M PRN chest 06/14/22 06/09/25 Rx tablet (Nitrostat) pain #25 tabs aspirin 81 mg tablet,delayed 81 mg PO DAILY 04/03/23 06/09/25 History release empagliflozin 25 mg tablet 25 mg PO DAILY 10/26/24 06/09/25 History (Jardiance) acetaminophen 500 mg tablet 1,000 mg PO DAILY PRN Pain 01/12/25 06/09/25 History beclomethasone dipropionate 80 2 inh inhalation BID PRN Shortness 01/12/25 06/09/25 History mcg/actuation HFA breath activated Of Breath Or Wheezing aerosol (Qvar RediHaler) ezetimibe 10 mg tablet (Zetia) 10 mg PO DAILY 01/12/25 06/09/25 History lisinopril 40 mg tablet 40 mg PO DAILY 01/12/25 06/09/25 History nicotine 21 mg/24 hr daily 1 patch transdermal DAILY 01/12/25 06/09/25 History transdermal patch prasugrel HCl 10 mg tablet 10 mg PO DAILY 01/12/25 06/09/25 History (Effient) atorvastatin 40 mg tablet 40 mg PO DAILY 02/27/25 06/09/25 History glipizide 2.5 mg tablet 2.5 mg PO DAILY 02/27/25 06/09/25 History glipizide 5 mg tablet 10 mg PO DAILY 02/27/25 06/09/25 History isosorbide mononitrate 30 mg 30 mg PO DAILY 02/27/25 06/09/25 History tablet,extended release 24 hr metoprolol succinate 50 mg 50 mg PO DAILY 02/27/25 06/09/25 History tablet,extended release 24 hr semaglutide 2 mg/dose (8 mg/3 mL) 2 mg subcut WK 02/27/25 06/09/25 History subcutaneous pen injector (Ozempic) ondansetron 4 mg disintegrating 4 - 8 mg (1 - 2 x 4 mg) PO Q8H PRN 05/10/25 06/09/25 Rx tablet nausea and vomiting #14 tabs Patient History Medical History Adverse effect of anesthesia "slow to wake" Bilateral cataracts Asthma Obstructive sleep apnea CPAP Hypertension Gastroenteritis hx? - pts denies at this time - denies nausea/vomiting/diarrhea Diabetes mellitus, type 2 Oral/Weekly Injectable SBO (small bowel obstruction) hx - pts unsure Diverticular disease pts denies any current issues History of abdominal pain pts denies at this time CAD (coronary artery disease) x2 stents (placed in [facility] early 12/2024) - Dr Jermaine Muniz - was to have CABG at [facility] - pt did not want - went to [place] for opinion and stents Chest pain pts denies at this time, "has discussed with meter mechanic, it's from the stents and normal" Flavio Dean History of COVID-2019, PCP office test, not hosp; mild symptoms>resolved. Kidney stones hx GERD (gastroesophageal reflux disease) Basal cell adenoma pts denies this and never heard anything about this. Migraine Surgical History History of right cataract extraction History of esophagogastroduodenoscopy (EGD) (2022) History of lithotripsy Status post coronary artery stent placement x2 stents (placed in [facility] early 12/2024) - Dr Jermaine Muniz Hx of adenoidectomy with biltateral myringotomy @ [facility] 01/11/23 History of surgery 04/04/23 Right excisional drainage of infected cyst of groin @ [facility] Hx of colonoscopy (2022) History of axillary surgery removal sweat glands bilateral axilla History of cardiac cath multiple - x2 stents (placed in [facility] early 12/2024) - Dr Jermaine Muniz Hx of appendectomy Family History Mother Diabetes Hypertension Coronary heart disease Father Cancer Social History Smoking Status: Former smoker Tobacco Type: Cigarettes Second Hand Exposure: No; Do You Dip or Chew Tobacco: Yes (using pouches (advised on policy)); Hx Alcohol Use: No Hx Substance Use: No Preferred Language: Arabic Communication Ability: Effective Windows Technical Specialist Required: No Beliefs That Will Affect Care: None marital status: Current Living Situation: Spouse Current Living Situation Comment: LIVES WITH SPOUSE, 3 CHILDREN current occupational status: employed 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 Feels Safe at Home: Yes Safety Concerns: Feels Safe At This Time Assistive Devices: CPAP and Glasses Review of Systems Review of Systems: All systems reviewed & are unremarkable except as noted in HPI & below Physical Exam Constitutional: + morbidly obese; no acute distress Neck: + thick neck Respiratory: no labored breathing Auscultation: + diminished lung sounds (but otherwise clear) Cardiovascular: Rate/Rhythm: regular rate and regular rhythm Heart Sounds: no murmur (distant heart sounds, no audible murmur) Vessels: no JVD Extremities: no edema Gastrointestinal (Abdomen): normal bowel sounds, soft, nontender, no hepatosplenomegaly Musculoskeletal: no cyanosis or clubbing, extremities motor strength 5/5 Neurologic: PERRL, EOMI, accommodation nl, no face palsy, no dysarthria Results & Data Vital Signs (Past 12 Hours) Vital Signs Temp Pulse Pulse Resp BP BP Pulse Ox 06/09/25 08:37 71 06/09/25 04:56 75 06/09/25 04:13 36.4 C L 79 20 131/78 95 06/09/25 04:10 06/09/25 04:10 36.4 C L 79 20 131/78 95 06/09/25 03:27 82 20 143/88 H 97 06/09/25 00:55 81 06/09/25 00:21 20 98 06/09/25 00:21 06/09/25 00:02 36.7 C 78 18 169/89 H 96 O2 Del Method 06/09/25 08:37 06/09/25 04:56 06/09/25 04:13 Room Air 06/09/25 04:10 CPAP 06/09/25 04:10 Room Air 06/09/25 03:27 Room Air 06/09/25 00:55 06/09/25 00:21 Room Air 06/09/25 00:21 Room Air 06/09/25 00:02 Room Air Laboratory Results Cardiac Enzymes 06/09/25 06/09/25 Range/Units 00:20 03:24 AST 15 (13-39) U/L Troponin I High Sens 5.6 6.1 (0-20) pg/ml Coagulation 06/09/25 Range/Units 00:20 PT 11.0 (9.0-12.0) Seconds APTT 31 (21-31) Seconds CBC 06/09/25 Range/Units 00:20 WBC 11.05 H (4.8-10.8) K/ul RBC 5.30 (4.70-6.10) M/uL Hgb 13.3 L (14.0-18.0) g/dl Hct 41.6 L (42.0-52.0) % Plt Count 360 (130-400) K/uL Neut # (Auto) 6.32 (1.40-6.50) K/uL Lymph # (Auto) 3.31 (1.20-3.40) K/uL Ellis # (Auto) 0.93 H (0.11-0.59) K/uL Eos # (Auto) 0.35 (0.00-0.50) K/uL Baso # (Auto) 0.03 (0.00-0.20) K/uL Comprehensive Metabolic Panel 06/09/25 Range/Units 00:20 Sodium 140 (136-145) mmol/L Potassium 3.7 (3.5-5.1) mmol/L Chloride 106 (98-107) mmol/L Carbon Dioxide 28 (21-32) mmol/L BUN 17 (6-23) mg/dl Creatinine 0.93 (0.6-1.4) mg/dl Glucose 135 H (70-99(Fasting)) mg/dl Calcium 9.1 (8.6-10.3) mg/dl AST 15 (13-39) U/L ALT 22 (7-52) U/L Alkaline Phosphatase 84 (34-104) U/L Total Protein 8.0 (6.0-8.3) gm/dl Albumin 3.6 (3.4-5.0) gm/dl Intake and Output 06/08/25 06/09/25 06/09/25 22:59 06:59 14:59 Intake Total 60 / 60 1050.5 / 1050.5 Balance 60 / 60 1050.5 / 1050.5 Intake: IV 1050.5 / 1050.5 Lactated Ringer's 1,000 ml @ 50 1000 / 1000 mls/hr IV .Q20H ONE Rx#: [id number] Promethazine 12.5 mg In 50.5 ml 50.5 / 50.5 @ 202 mls/hr IV Q6H PRN Rx#: [id number] Oral 60 / 60 Other: Weight 165.6 kg Weight Measurement Method Built in [facility] Diagnostic Findings Telemetry reviewed: NSR in the 's EKG reviewed: NSR, possible old inferior infarct no acute ischemic changes Echocardiogram report reviewed dated 06/09/2025: Normal LV systolic function with ejection fraction 60 to 65%. LV systolic function is normal. Mild concentric LVH. Poorly visualized valvular anatomy without significant stenosis or regurgitation. No change from prior study. Chest X-Ray 06/09/25 00:21 EXAM: XR chest 1V portable CLINICAL HISTORY: Chest pain, nonspecific TECHNIQUE: An X-ray image of the chest is obtained in AP projection. COMPARISON: 05/10/2025 FINDINGS: Pulmonary Parenchyma: Mild interval regression of previously noted right basal pulmonary infiltrates. No evidence of consolidation, collapse, or focal opacities. No pulmonary nodules are identified. No evidence of pleural effusion or pleural thickening. Heart and Mediastinum: Heart is not enlarged. No mediastinal widening or masses. No hilar or mediastinal lymphadenopathy. Bony Thorax: Bony thorax appears intact without fractures or deformities. Soft Tissues: Soft tissues overlying the chest wall are unremarkable. IMPRESSION: Mild interval regression of previously noted right basal pulmonary infiltrates. No evidence of consolidation, collapse, or focal opacities. No pulmonary nodules are identified. Electronically signed by Heraclio Siegel 06-09-2025 02:40 AM Medications Administered Current Inpatient Medications Aspirin (Aspirin 81 Mg Ectab) 81 mg PO DAILY ANTHONY Stop: 07/09/25 08:59 Last Admin: 06/09/25 08:53 Dose: 81 mg Atorvastatin Calcium (Atorvastatin 40 Mg Tab) 40 mg PO DAILY ANTHONY Stop: 07/09/25 08:59 Last Admin: 06/09/25 08:53 Dose: 40 mg Dextrose (Dextrose 50% 50 Ml Syringe) 25 - 50 ml IV UD PRN; Protocol PRN Reason: Hypoglycemia Protocol Stop: 07/09/25 04:09 Ezetimibe (Ezetimibe 10 Mg Tab) 10 mg PO DAILY ANTHONY Stop: 07/09/25 08:59 Last Admin: 06/09/25 08:53 Dose: 10 mg Enoxaparin Sodium (Enoxaparin Inj 40 Mg/0.4 Ml Syr) 40 mg SQ QAM ANTHONY Stop: 07/09/25 08:59 Last Admin: 06/09/25 08:53 Dose: 40 mg Famotidine (Famotidine 20 Mg Tab) 20 mg PO BID ANTHONY Stop: 07/09/25 20:59 Glucagon (Glucagon For Inj 1 Mg Vial) 1 mg SQ UD PRN; Protocol PRN Reason: Hypoglycemia Protocol Stop: 07/09/25 04:09 Glucose (Glucose 40% Gel 15 Gm Tube) 15 - 30 gm PO UD PRN; Protocol PRN Reason: Hypoglycemia Protocol Stop: 07/09/25 04:09 Glucose (Glucose 10 Tab/Tube) 4 - 8 tab PO UD PRN; Protocol PRN Reason: Hypoglycemia Protocol Stop: 07/09/25 04:09 Insulin Aspart (Insulin Aspart Per Unit Charge) 0 units SC ACHS ANTHONY Stop: 07/09/25 04:09 Last Admin: 06/09/25 11:45 Dose: Not Given Isosorbide Mononitrate (Isosorbide Ellis Extended Rel 30 Mg Tabcr) 30 mg PO DAILY ANTHONY Stop: 07/09/25 08:59 Last Admin: 06/09/25 08:53 Dose: 30 mg Lisinopril (Lisinopril 40 Mg Tab) 40 mg PO DAILY ANTHONY Stop: 07/09/25 08:59 Last Admin: 06/09/25 08:53 Dose: 40 mg Lorazepam (Lorazepam 0.5 Mg Tab) 0.5 mg PO TID PRN PRN Reason: Anxiety Stop: 07/09/25 02:34 Miscellaneous (Carbohydrates For Hypoglycemia ) 15 - 30 gm PO UD PRN PRN Reason: Hypoglycemia Protocol Stop: 07/09/25 04:09 Morphine Sulfate (Morphine Sulfate 4 Mg/Ml 1 Ml Carp\\Vial) 4 mg IV Q4H PRN PRN Reason: Pain Stop: 06/23/25 02:34 Nitroglycerin (Nitroglycerin Sl 0.4 Mg/Tab Tab) 0.4 mg SL Q5M PRN PRN Reason: Chest Pain Stop: 07/09/25 02:35 Ondansetron HCl (Ondansetron Inj 2 Mg/Ml 2 Ml Vial) 4 mg IV Q6H PRN PRN Reason: Nausea And Vomiting Stop: 07/09/25 13:56 Oxycodone HCl (Oxycodone Hcl Ir 5 Mg Tab (Immediate Release)) 5 - 10 mg PO QID PRN PRN Reason: Pain Stop: 06/23/25 02:34 Last Admin: 06/09/25 04:28 Dose: 5 mg Pantoprazole Sodium (Pantoprazole 40 Mg Tab) 40 mg PO DAILY PRN PRN Reason: HEARTBURN/INDIGESTION Stop: 07/09/25 03:57 Prasugrel (Prasugrel Tab 10 Mg Tab) 10 mg PO DAILY ANTHONY Stop: 07/09/25 08:59 Last Admin: 06/09/25 08:52 Dose: 10 mg PG Care Time/CCT Total # of Minutes Spent Total Time Spent with Patient: Total time spent is greater than 50% in coordination of care (as documented) at patient's floor/unit and/or counseling patient: 75 minutes Coding Level of Care Code 39785 INT INP/OBS CARE 3/75MIN Diagnoses Chest pain, unspecified type R07.9 Chest pain type: unspecified CAD (coronary atherosclerotic disease) I25.110 Associated angina: with unstable angina Coronary Disease-Associated Artery/Lesion type: unspecified vessel or lesion type [place] vs. transplanted heart: [place] heart Chronic stable angina I20.89 (1) Chest pain Chest pain type: unspecified Qualified Code(s): R07.9 - Chest pain, unspecified (2) CAD (coronary atherosclerotic disease) Associated angina: with unstable angina Coronary Disease-Associated Artery/Lesion type: unspecified vessel or lesion type [employer] [place] vs. transplanted heart: [place] heart Qualified Code(s): I25.110 - Atherosclerotic heart disease of [place] coronary artery with unstable angina pectoris
--- NOTE | 2025-06-09 10:56 | Hospitalist Progress Note ---
Date of Service June 09, 2025 Assessment & Plan (1) Chest pain: Plan: This is a 40-year-old male with past medical history significant for hypertension, dyslipidemia, CAD and recent stents, obesity, degenerative disc disease, hidradenitis suppurativa, migraines, tobacco use disorder presents with chest pain. Chest pain History of CAD and recent stents to left circumflex and LAD History of CAD, 3v CAD seen on December 2024 cardiac catheterization, s/p BROOKE to LAD and LCx EKG on admission shows normal sinus rhythm, remains unchanged High sensitive troponin negative Echocardiogram shows EF of 60-65%, mild concentric LVH, no significant change from previous Continue on DAPT, Lipitor, Zetia, Imdur with possible increase per discussion with cards Resume Toprol as able following stress test Continue telemonitoring, possible inpatient vs outpatient nuclear stress test Potential of GERD contributing - trial Pepcid Obstructive sleep apnea On CPAP nightly Type 2 Diabetes Will hold Jardiance Lantus and sliding scale Hyperlipidemia On statin and Zetia, continue Hypertension On metoprolol succinate and lisinopril, continue Obesity III On Ozempic, nutrition follow-up DVT prophylaxis: SQ lovenox Code: FULL PCP: Mo Disposition: obs tele Care coordinated with Dr. Francis Wise spent a total of 40 minutes coordinating, documenting, and providing care for this patient excluding time spent in the performance of separately billed services or time spent by another provider/QHP. Admission and Anticipated Discharge Date Admission Date: June 09, 2025 Supervising Physician Co-Signing Physician Notes Patient is seen and examined at bedside. States that his chest pain resolved. Denies any nausea, vomiting, abdominal pain, dizziness. Family at bedside. On exam patient is morbidly obese, no apparent distress, normocephalic atraumatic, EOMI, normal breath sounds, clear to auscultation, S1-S2, no murmur, no pedal edema, abdomen soft, nontender, normal bowel sounds, alert, awake, oriented, grossly no focal deficits. Patient is admitted for chest pain rule out ACS. H/O Three Vessel CAD s/p BROOKE to the LAD and LCx. Admits to taking his medications regularly. Troponin x 2 negative. EKG showed no acute ST-T wave changes. Resting echo showed no wall motion abnormality, EF 60 to 65%. Mild concentric LVH. Poorly visualized valvular anatomy. Continue aspirin, Lipitor, Zetia, isosorbide, Effient. Appreciate cardiology input. May need stress test inpatient Vs outpatient. Resume home metoprolol as able. Uncontrolled diabetes mellitus--continue insulin while hospitalized, monitor blood glucose levels. Agree with trial of Pepcid for possible GERD. I personally interviewed and examined the patient at bedside. I have reviewed the advanced practitioner's documentation on the date of service referred in note and agree with plan. Patient's care is coordinated with Sulema Wilson PA-C. Please refer to the documentation above for details of patient's presentation and for discussion of other issues. I spent a total [id number] coordinating, documenting, and providing care for this patient excluding time spent in the performance of separately billed services or time spent by another provider/QHP. Subjective Seen and examined in 2003 with significant other at bedside. Chest pain has resolved since arrival. Occurred yesterday at the [employer], had some chicken steak and [place] fries. 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 States the pain was more of a pressure than a burning sensation. Comfortable now, denies any fever, chills, lightheadedness, chest pain, shortness of breath, nausea, vomiting, abdominal pain or swelling of lower extremities. Denies any significant weight gain. Review of Systems Review of Systems: At least ten systems reviewed and negative except as noted in the HPI. Physical Exam Physical Exam: Gen: WD/WN, NAD, resting in bed, morbidly obese HEENT: Normocephalic, atraumatic, mucous membranes moist Lung: Clear to Auscultation bilaterally, no wheezes/rales/rhonchi Heart: Regular rate, regular rhythm Abdomen: Soft, NT, ND +BS x 4 Extremities: trace edema Skin: Warm, no rash Results & Data Results & Data Vital Signs (Past 12 Hours) Vital Signs Temp Pulse Pulse Resp BP BP Pulse Ox 06/09/25 09:26 06/09/25 08:37 71 06/09/25 04:56 75 06/09/25 04:13 36.4 C L 79 20 131/78 95 06/09/25 04:10 06/09/25 04:10 36.4 C L 79 20 131/78 95 06/09/25 03:27 82 20 143/88 H 97 06/09/25 00:55 81 06/09/25 00:21 20 98 06/09/25 00:21 06/09/25 00:02 36.7 C 78 18 169/89 H 96 O2 Del Method 06/09/25 09:26 Room Air 06/09/25 08:37 06/09/25 04:56 06/09/25 04:13 Room Air 06/09/25 04:10 CPAP 06/09/25 04:10 Room Air 06/09/25 03:27 Room Air 06/09/25 00:55 06/09/25 00:21 Room Air 06/09/25 00:21 Room Air 06/09/25 00:02 Room Air Laboratory Results Short CBC 06/09/25 Range/Units 00:20 WBC 11.05 H (4.8-10.8) K/ul Hgb 13.3 L (14.0-18.0) g/dl Hct 41.6 L (42.0-52.0) % Plt Count 360 (130-400) K/uL BMP 06/09/25 00:20 Sodium 140 Potassium 3.7 Chloride 106 Carbon Dioxide 28 BUN 17 Creatinine 0.93 Glucose 135 H Calcium 9.1 Liver Function 06/09/25 Range/Units 00:20 Total Bilirubin 0.3 (0.2-1.0) mg/dl AST 15 (13-39) U/L ALT 22 (7-52) U/L Alkaline Phosphatase 84 (34-104) U/L Albumin 3.6 (3.4-5.0) gm/dl Diagnostic Findings Chest X-Ray 06/09/25 00:21 EXAM: XR chest 1V portable CLINICAL HISTORY: Chest pain, nonspecific TECHNIQUE: An X-ray image of the chest is obtained in AP projection. COMPARISON: 05/10/2025 FINDINGS: Pulmonary Parenchyma: Mild interval regression of previously noted right basal pulmonary infiltrates. No evidence of consolidation, collapse, or focal opacities. No pulmonary nodules are identified. No evidence of pleural effusion or pleural thickening. Heart and Mediastinum: Heart is not enlarged. No mediastinal widening or masses. No hilar or mediastinal lymphadenopathy. Bony Thorax: Bony thorax appears intact without fractures or deformities. Soft Tissues: Soft tissues overlying the chest wall are unremarkable. IMPRESSION: Mild interval regression of previously noted right basal pulmonary infiltrates. No evidence of consolidation, collapse, or focal opacities. No pulmonary nodules are identified. Electronically signed by Heraclio Siegel 06-09-2025 02:40 AM (1) Chest pain Chest pain type: unspecified Qualified Code(s): R07.9 - Chest pain, unspecified
[2025-06-09] MEDS: PROMETHAZINE 12.5 MG/50.5 ML BAG IV PRN (12:09)
--- NOTE | 2025-06-09 12:47 | Electrocardiogram Report ---
Test Reason : Blood Pressure : */* mmHG Vent. Rate : 79 BPM Atrial Rate : 79 BPM P-R Int : 142 ms QRS Dur : 98 ms QT Int : 404 ms P-R-T Axes : 50 44 72 degrees QTcB Int : 463 ms Normal sinus rhythm Cannot rule out Inferior infarct (cited on or before 12-Jan-2025) Abnormal ECG When compared with ECG of 12-Jan-2025 17:41, No significant change was found Confirmed by Enrique Guadalupe ([id number]) on 06/09/2025 12:46:58 PM Referred By: REFERRED SELF Confirmed By: Enrique Guadalupe
[2025-06-09] MEDS ORDERED: ALUMINUM/MAGNESIUM/SIMETH (MAALOX MAX) 30 ML UDC PO PRN (14:19)
[2025-06-09] MEDS: ISOSORBIDE MONO EXTENDED REL 30 MG TABCR PO ONE (14:23)
[2025-06-09] MEDS: FAMOTIDINE 20 MG TAB PO SCH (20:31)
[2025-06-09] MEDS: ONDANSETRON INJ 2 MG/ML 2 ML VIAL IV PRN (22:19)
[2025-06-09] MEDS: ACETAMINOPHEN 325 MG TAB PO PRN (22:19)
[2025-06-10] MEDS: PROMETHAZINE 12.5 MG/50.5 ML BAG IV PRN (01:03)
[2025-06-10] MEDS: METOPROLOL TARTRATE 1 MG/ML VIAL IV STA (02:10)
[2025-06-10] MEDS: METOCLOPRAMIDE HCL INJ 5 MG/ML 2 ML VIAL IV STA (02:12)
[2025-06-10] MEDS: MAGNESIUM SULFATE / D5W 1 GM/100 ML BAG IV ONE (02:18)
[2025-06-10] MEDS: POTASSIUM CHLORIDE / WTR 10 MEQ/100 ML PLCT IV SCH (02:19)
[2025-06-10 04:40] VITALS: O2SAT 97
[2025-06-10 06:08] LABS: Hematocrit (blood only) 40.0 % (42.0-52.0); Hemoglobin 12.8 g/dl (14.0-18.0); Mean Corpuscular Hemoglobin 25.1 pg (25.0-34.0); Mean Corpuscular Volume 78.6 fL (80.0-100.0); Platelet Count 331 K/uL (130-400); RDW Standard Deviation 40.5 fL (36.4-46.3); Red Blood Count 5.09 M/uL (4.70-6.10); White Blood Count 10.41 K/ul (4.8-10.8)
[2025-06-10 06:30] LABS: Anion Gap 6.0 (3-11); Blood Urea Nitrogen 15.0 mg/dl (6-23); Calcium 8.4 mg/dl (8.6-10.3); Carbon Dioxide 24.0 mmol/L (21-32); Chloride 106.0 mmol/L (98-107); Creatinine Clr Calc Pharmacy 212.0 ml/min; Glucose 146.0 mg/dl (70-99(Fasting)); Magnesium 2.0 mg/dl (1.7-2.4); Potassium 4.2 mmol/L (3.5-5.1); Sodium 136.0 mmol/L (136-145)
[2025-06-10 07:22] VITALS: RESP 18; TEMP 97.9
[2025-06-10] MEDS: ISOSORBIDE MONO EXTENDED REL 60 MG TABCR PO SCH (09:09)
[2025-06-10 10:01] VITALS: BP 138/86
--- NOTE | 2025-06-10 10:15 | Discharge Summary ---
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 #Recurrent exertional chest pain #HLD, premature multivessel CAD s/p BROOKE to LAD and L circumflex in December 2024 with residual chronic total RCA occlusion EKG on admission demonstrated NSR w/o evidence of ischemic changes HS-troponin x 2 negative TTE revealed normal LV systolic function with no wall motion abnormalities, no significant valvular disease Seen and evaluated by cardiology: -Stress testing would not likely change management manager at this time -Imdur increased to 60mg daily from 30mg daily -Continue DAPT, Lipitor, Zetia and Toprol-XL If anginal sx recur despite optimization of meds, recommend BLANKING PRESS OPERATOR intervention of the RCA --> would need referral to [facility], Dr. Kimberly Angel -For now, will defer to cardiology for referral to BLANKING PRESS OPERATOR clinic at [facility] -Cardiology f/u appt scheduled with Dr. Dean on 06/12/25 Potential of GERD c/t presentation as well given recent consumption of fried/fatty foods at [facility] and negative cardiac w/u -N/V resolved with trial of IV Protonix -PRN Pepcid, Zofran provided on DC --> if sx recur and not improving w/ these measures, pt advised to return to nearest ED for reevaluation #BHASKAR on CPAP HS On CPAP nightly #Type 2 DM Resume home DM regimen #HTN Continue Toprol-XL, lisinopril #Class III obesity On Ozempic, nutrition follow-up on DC PCP: Coleman Hassan MD Disposition: DC home in stable condition with close PCP and cardiology f/u appointments Pt's , Gayle, updated on DC plans as outlined above --> all questions answered to the best of my ability Patient seen in collaboration with Dr. Blanco. Please see addendum. I spent a total of 60 minutes coordinating, documenting, and providing care for this patient excluding time spent in the performance of separately billed services or time spent by another provider/QHP. This included personally reviewing all current laboratories and imaging studies, medical reconciliation, outpatient chart review and discussion with specialists. This chart was completed in part utilizing Speech Voice Recognition Software. Grammatical errors, random word insertions, pronoun errors, and incomplete sentences are an occasional consequence of this system due to software limitations, ambient noise, and hardware issues. Any formal questions or concerns about the content, text, or information contained within the body of this dictation should be directly addressed to the provider for clarification. Notes For Next Care Provider Recommend referral to TUBE MILL OPERATOR clinic at [facility] if anginal symptoms recur Medication Changes From Visit Imdur dose increased to 60mg daily from 30mg daily Admission HPI Per Admitting Provider History obtained from patient, family, and records. Medical history significant for CAD status post stent (January 2025), hypertension, hyperlipidemia, DM 2 on oral medications, bronchial asthma, BHASKAR on CPAP, GERD, diverticulosis, chronic anemia (baseline hemoglobin 12-13), migraine, hidradenitis suppurativa as per records, mycosis fungoides as per records, past tobacco abuse. Last confinement December 2024 for chest pain. Patient discharged home. Patient eventually received drug-eluting stents on the LAD and left circumflex marginal branches at [facility] by [place] fastener technologist. Recent ER visit last month for concussion. Patient was at the [facility] today when he experienced central chest pain going to his back associated with diaphoresis and SOB. No headache symptoms. No cough symptoms. Episode similar to heart attack in the past. Last time he had discomfort was 5 months ago Discomfort relieved by nitroglycerin spray administered by EMS. Patient compliant with home meds and CPAP. Denies unusual stress. Patient currently comfortable. MEDICAL HISTORY: As above. SURGERIES: Urologic procedures, appendectomy, ear tube placement, adenoidectomy, axillary sweat gland removal for hydradenitis suppurativa/skin tissue rearrangement, cataract surgeries FAMILY HISTORY: Heart disease. Lung cancer, diabetes PERSONAL AND SOCIAL HISTORY: 1 pack daily . 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 Exam Per Admitting Provider GENERAL: Comfortable, morbidly obese, no respiratory distress SKIN: Normal color, warm HEENT: pink palpebral conjunctivae, no ptosis, moist buccal mucosa NECK : Supple, short neck, no tenderness CHEST : Decreased breath sounds, no tenderness HEART : RRR, no obvious murmurs ABDOMEN: Some distention, nontender EXTREMITIES : Minimal LE swelling, no LE tenderness, no other conspicuous deformities noted NEUROLOGIC : Coherent, no facial asymmetry, no other gross focality Discharge Exam General: Obese M, NAD, sitting up in bed, A&Ox3, conversing appropriately HEENT: Normocephalic, atraumatic, external ear and nose normal, moist mucous membranes Respiratory: Normal respiratory effort, CTAB Cardiovascular: RRR, normal peripheral pulses, no BLE edema Abdomen/GI: Normal bowel sounds, soft, nondistended, nontender to palpation in all quadrants Extremities/MSK: No cyanosis or clubbing, extremities motor strength intact, actively moves all extremities Neurologic: No overt focal deficits, CN's II-XI not formally tested but appear grossly intact bilaterally Updated Medication List Medication Instructions Recorded Confirmed Type albuterol sulfate 90 mcg/actuation 2 puff inhalation Q4H PRN Wheezing 03/12/22 06/09/25 History aerosol inhaler nitroglycerin 0.4 mg sublingual 0.4 mg sublingual Q5M PRN chest 06/14/22 06/09/25 Rx tablet (Nitrostat) pain #25 tabs aspirin 81 mg tablet,delayed 81 mg PO DAILY 04/03/23 06/09/25 History release empagliflozin 25 mg tablet 25 mg PO DAILY 10/26/24 06/09/25 History (Jardiance) acetaminophen 500 mg tablet 1,000 mg PO DAILY PRN Pain 01/12/25 06/09/25 History beclomethasone dipropionate 80 2 inh inhalation BID PRN Shortness 01/12/25 06/09/25 History mcg/actuation HFA breath activated Of Breath Or Wheezing aerosol (Qvar RediHaler) ezetimibe 10 mg tablet (Zetia) 10 mg PO DAILY 01/12/25 06/09/25 History lisinopril 40 mg tablet 40 mg PO DAILY 01/12/25 06/09/25 History nicotine 21 mg/24 hr daily 1 patch transdermal DAILY 01/12/25 06/09/25 History transdermal patch prasugrel HCl 10 mg tablet 10 mg PO DAILY 01/12/25 06/09/25 History (Effient) atorvastatin 40 mg tablet 40 mg PO DAILY 02/27/25 06/09/25 History glipizide 5 mg tablet 10 mg PO DAILY 02/27/25 06/09/25 History metoprolol succinate 50 mg 50 mg PO DAILY 02/27/25 06/09/25 History tablet,extended release 24 hr semaglutide 2 mg/dose (8 mg/3 mL) 2 mg subcut WK 02/27/25 06/09/25 History subcutaneous pen injector (Ozempic) famotidine 20 mg tablet 20 mg PO DAILY PRN indigestion #30 06/10/25 Rx tabs isosorbide mononitrate 60 mg 60 mg PO DAILY #30 tabs 06/10/25 Rx tablet,extended release 24 hr ondansetron 4 mg disintegrating 4 mg PO Q8H PRN nausea and 06/10/25 Rx tablet vomiting #14 tabs Hospital Stay Data Consultations 06/09/25 01:20 ED Decision to Admit Stat 06/09/25 02:35 Consult Cardiology Routine Pending Results Patient Have Any Pending Studies at Discharge: No Discharge Instructions Given to Patient (Per Discharging Provider) Mr. Bangura, satish were admitted to [facility] due to recurrent exertional chest pain. You underwent further studies - including lab work, echocardiogram and telemetry monitoring - which all came back unremarkable. You were seen and evaluated by cardiology whom increased your Imdur dose, as per below, in order to hopefully prevent further bouts of exertional chest pain. Medication Changes: Isosorbide mononitrate (Imdur) dose increased from 30mg daily to 60mg daily. As needed ondansetron (Zofran) for nausea/vomiting. As needed famotidine (Pepcid) for indigestion/acid reflux. * Take these medications only as prescribed if your nausea/vomiting and/or indigestion were to recur. If your symptoms do not improve with these medications, it is advised that you return to the nearest emergency department for reevaluation. The above medications have been sent to [facility] at [address] [place] [address] for pickup. Follow-up appointments: 1. Cardiology appointment Date & Time: 06/12/2025 @ 11:00 AM Provider: Colin Dean MD Location: Cardiology, [facility] Will need to consider referral to [facility] to discuss your residual chronic total RCA occlusion. 2. PCP appointment Date & Time: 06/14/2025 @ 11:00 AM Provider: Coleman Hassan MD Location: [facility] Please take good care of yourself. It has been a pleasure taking care of you. If you have any questions regarding your recent hospitalization, please contact [facility] and request Flavio Tenaist @ [phone]. You have been provided with a work excuse. Total Time Total Time Spent Total Time Spent (In Minutes): 60 Supervising Physician Co-Signing Physician Notes Patient is seen and examined at bedside on day of discharge. Denies any recurrence of chest pain. Ambulated in hallways with no issues. Also updated patient's family over the phone. No other complaints today. On exam patient is morbidly obese, no apparent distress, normocephalic atraumatic, EOMI, normal breath sounds, clear to auscultation, S1-S2, no murmur, no pedal edema, abdomen soft, nontender, normal bowel sounds, alert, awake, oriented, grossly no focal deficits. Patient is admitted for chest pain rule out ACS. H/O Three Vessel CAD s/p BROOKE to the LAD and LCx. Admits to taking his medications regularly. Troponin x 2 negative. EKG showed no acute ST-T wave changes. Resting echo showed no wall motion abnormality, EF 60 to 65%. Mild concentric LVH. Poorly visualized valvular anatomy. Continue aspirin, Lipitor, Zetia, isosorbide, Effient, metoprolol. Appreciate cardiology input. Imdur dose increased to 60 mg daily. Advised dietary changes for GERD. Has follow-up scheduled with his liability claims representative Dr. Dean on 06/12/2025. Uncontrolled diabetes mellitus--continue insulin while hospitalized, monitor blood glucose levels. I personally interviewed and examined the patient at bedside. I have reviewed the advanced practitioner's documentation on the date of service referred in note and agree with plan. Patient's care is coordinated with Lorena Yu PA-C. Please refer to the documentation above for details of patient's presentation and for discussion of other issues. I spent a total [id number] coordinating, documenting, and providing care for this patient excluding time spent in the performance of separately billed services or time spent by another provider/QHP.
[2025-06-10 10:26] VITALS: PULSE 68
--- NOTE | 2025-06-11 06:18 | Electrocardiogram Report ---
Test Reason : Blood Pressure : */* mmHG Vent. Rate : 75 BPM Atrial Rate : 75 BPM P-R Int : 128 ms QRS Dur : 94 ms QT Int : 408 ms P-R-T Axes : 46 51 75 degrees QTcB Int : 455 ms Normal sinus rhythm Normal ECG When compared with ECG of 09-Jun-2025 00:17, No significant change was found Confirmed by Andrae Forbes ([id number]) on 06/11/2025 6:17:53 AM Referred By: REFERRED SELF Confirmed By: Andrae Forbes
== END 2025-06-10 11:20 | disposition home or self-care (01) ==
LOC: 2E 00:14 → ED 00:14 → 2E 03:32